=== PATIENT | female | born 1940 | race Caucasian/White ===

== ENCOUNTER 2019-11-03 14:36 | Inpatient (IN) | payer OTHER, BC ==
[2019-11-03 15:34] LABS: Protime INR 0.96
--- NOTE | 2019-11-03 15:38 | RAD REPORT ---
EXAM DESCRIPTION: CT - Head Brain Wo Cont - 11/03/2019 3:18 pm CLINICAL HISTORY: Dizziness COMPARISON: None TECHNIQUE: Computed axial tomography of the head was obtained. IV contrast was not requested. All CT scans are performed using dose optimization technique as appropriate and may include automated exposure control or mA/KV adjustment according to patient size. FINDINGS: An intracranial bleed is not seen . The ventricles are normal in caliber. No extra-axial fluid collection is noted. Small low-density area within the right cerebrum has the ap pearance of an old infarction Moderate to marked low-density areas within periventricular, deep and subcortical white matter Fluid within the sinuses/ mastoids is not seen. IMPRESSION: Moderate to marked low-density areas within periventricular, deep and subcortical white matter may represent ischemic changes secondary to small vessel disease. A demyelinating process can also have this appearance
[2019-11-03] MEDS ORDERED: NA CHLORIDE 0.9% 250 ML ONE (15:42)
[2019-11-03 15:45] LABS: ALT/SGPT 11 U/L (12-78); AST/SGOT 9 U/L (15-37); Albumin 2.8 g/dL (3.4-5.0); Alkaline Phosphatase 94 U/L (45-117); BUN Blood Urea Nitrogen 27 mg/dL (7-18); Bicarbonate 29 mmol/L (21-32); Bilirubin Direct < 0.1 mg/dL (0-0.2); Bilirubin Total 0.2 mg/dL (0.2-1.0); Glucose Level 90 mg/dL (74-106); Lipase 32 U/L (73-393); Magnesium 1.6 mg/dL (1.8-2.4); Potassium 5.1 mmol/L (3.5-5.1); Protein, Total 6.4 g/dL (6.4-8.2); Sodium Level 140 mmol/L (136-145); Troponin (Emerg Dept Use Only) < 0.02 ng/mL (0.0-0.045)
[2019-11-03 17:16] LABS: Hematocrit 33.4 % (36.0-45.0); RBC Red Blood Cell Count 3.63 M/uL (3.86-4.86)
[2019-11-03 17:17] LABS: Absolute Lymphocytes (CBC) 1.5 K/uL (0.7-4.9); Basophils % 0.5 % (0-1.3); Lymphocytes % 24.8 % (15.3-44.8)
[2019-11-03 17:22] LABS: Urine Amorphous Sediment 2+ /HPF (NONE SEEN); Urine Bacteria <20 /HPF (<20); Urine RBC <5 /HPF (NONE SEEN)
--- NOTE | 2019-11-03 17:36 | ER ---
Nurse's Notes [facility] Name: Ashli Alvarez Age: 79 yrs Sex: Female : 1940 Arrival Date: 11/03/2019 Time: 14:41 Bed 2 Private MD: Diagnosis: Altered mental status, unspecified;Hypotension, unspecified;Dehydration Presentation: 11/02 14:42 Chief complaint: EMS states: SLOW RESPONSES, BUT AOx4. Coronavirus screen: The patient bp has NOT traveled to a country currently being monitored by the [facility] within the last 14 days. The patient has NOT had contact with any known and/or suspected case of coronavirus. Ebola Screen: No symptoms or risks identified at this time. Initial Sepsis Screen: Does the patient meet any 2 criteria? No. Patient's initial sepsis screen is negative. Does the patient have a suspected source of infection? No. Patient's initial sepsis screen is negative. Risk Assessment: Do you want to hurt yourself or someone else? Patient reports no desire to harm self or others. 14:42 Method Of Arrival: EMS: [facility] bp 14:42 Acuity: TIFFANIE 3 bp 14:42 Note PER PT, NO COMPLAINTS OR ACUTE MEDICAL ISSUE. bp 14:58 Care prior to arrival: IV initiated. 22 GA, in the right forearm. bp Triage Assessment: 14:53 General: Appears in no apparent distress. comfortable, obese. General: Behavior is bp cooperative. Pain: Denies pain. EENT: No deficits noted. Neuro: No deficits noted. Neuro: Level of Consciousness is awake, alert, obeys commands, Oriented to person, place, time, situation. Cardiovascular: Rhythm is sinus rhythm. Respiratory: No deficits noted. GI: No signs and/or symptoms were reported involving the gastrointestinal system. : No signs and/or symptoms were reported regarding the genitourinary system. Derm: No deficits noted. Historical: - Allergies: 14:53 No Known Allergies; bp - PMHx: 14:53 CVA; Atrial Fib; bp - Immunization history:: Adult Immunizations up to date. - Social history:: Smoking status: Patient/guardian denies using tobacco. - Family history:: not pertinent. - Hospitalizations: : No recent hospitalization is reported. Screenin:58 Abuse screen: Denies threats or abuse. Denies injuries from another. Nutritional bp screening: No deficits noted. Tuberculosis screening: No symptoms or risk factors identified. Fall Risk None identified. Assessment: 14:58 General: SEE TRIAGE NOTE. bp 16:00 Reassessment: PT RESTING QUIETLY, HYPOTENSIVE ON MONITOR. PT DENIES MEDICAL COMPLAINT, bp AO4. 16:58 Reassessment: PHLEBOTOMY AT B/S FOR REDRAW. bp 17:09 Reassessment: Patient appears in no apparent distress at this time. Patient and/or rb1 family updated on plan of care and expected duration. Pain level reassessed. Patient is alert, oriented x 3, equal unlabored respirations, skin warm/dry/pink. Patient denies pain at this time. 18:28 Reassessment: DR FONTANEZ AT B/S FOR ADMIT. bp 19:10 General: Appears in no apparent distress. comfortable, Behavior is calm, cooperative, rr5 appropriate for age. 19:10 Pain: Complains of pain in back. Neuro: Level of Consciousness is awake, alert, obeys rr5 commands, Oriented to person, place, time. Cardiovascular: Capillary refill < 3 seconds Patient's skin is warm and dry. Respiratory: Airway is patent Respiratory effort is even, unlabored, Respiratory pattern is regular, symmetrical. GI: No signs and/or symptoms were reported involving the gastrointestinal system. : No signs and/or symptoms were reported regarding the genitourinary system. EENT: Reports vision loss left eye. Derm: Skin is fragile, is thin, Skin temperature is warm. Musculoskeletal: Capillary refill < 3 seconds. Vital Signs: 14:42 BP 125 / 57; Pulse 74; Resp 11; Temp 98; Pulse Ox 97% ; bp 16:02 BP 99 / 46; Pulse 72; Resp 11; Pulse Ox 98% ; bp 16:57 BP 89 / 50; Pulse 72; Resp 18; Pulse Ox 94% on 2 lpm NC; bp 17:08 BP 106 / 54; Pulse 90; Resp 19; Pulse Ox 97% on R/A; rb1 18:28 BP 110 / 81; Pulse 80; Resp 13; Pulse Ox 88% ; bp 19:28 BP 123 / 100; Pulse 70; Resp 16; Temp 97.5; Pulse Ox 93% on 3 lpm NC; rr5 ED Course: 14:41 Patient arrived in ED. bp 14:44 Brayan Vale MD is Attending Physician. rn 14:51 Triage completed. bp 14:58 Arm band placed on. bp 14:58 Patient has correct armband on for positive identification. Bed in low position. Call bp light in reach. Side rails up X2. 15:00 Maintain EMS IV. Dressing intact. Good blood return noted. Site clean \T\ dry. Gauge \T\ bp site: 22 G R FA. 15:09 Timmy Christensen, RN is Primary Nurse. bp 15:17 CT completed. Patient tolerated procedure well. Patient moved back from CT. mw3 15:18 CT Head Brain wo Cont In Process Unspecified. EDMS 17:08 Straight cath inserted, using sterile technique, 16 Fr. Specimen obtained. Returned aa5 cloudy urine. Patient tolerated well. 17:34 Zachary Fontanez MD is Hospitalizing Provider. rn 17:45 XRAY Chest (1 view) In Process Unspecified. EDMS 19:45 No provider procedures requiring assistance completed. Patient admitted, IV remains in rr5 place. intact, No redness/swelling at site. Administered Medications: 15:10 Drug: NS 0.9% 250 ml Route: IV; Rate: 1 bolus; Site: right forearm; bp 17:00 Drug: NS 0.9% 250 ml Route: IV; Rate: 1 bolus; Site: right forearm; bp Outcome: 17:35 Decision to Hospitalize by Provider. rn 19:45 Admitted to Tele accompanied by tech, via stretcher, room 402, with oxygen, with chart, rr5 Report called to adolfo 19:45 Condition: stable 19:45 Instructed on the need for admit. 20:08 Patient left the ED. rr5 Signatures: Dispatcher [employer] EDMS Brayan Vale MD MD rn Calderon, Audri, RN RN aa5 Thuy Weber RN RN rb1 Timmy Christensen, RN RN Jennifer Suh mw3 Otis Hansen RN RN rr5
--- NOTE | 2019-11-03 17:36 | EDPHYS ---
Physician Documentation [facility] Name: Ashli Alvarez Age: 79 yrs Sex: Female : 1940 Arrival Date: 11/03/2019 Time: 14:41 Bed 2 Private MD: ED Physician Brayan Vale HPI: 11/02 15:50 This 79 yrs old Female presents to ER via EMS with complaints of Altered rn Mental Status. 15:50 The patient presents with confusion, decreased responsiveness. Onset: The rn symptoms/episode began/occurred at an unknown time. Possible causes: unknown. Current symptoms: In the emergency department the patient's symptoms have improved. It is unknown whether or not the patient has had similar symptoms in the past. Per assisted and EMS, patient noted to be altered this AM, unknown onset, got better, and ate lunch, seemed to improve but noticed BP low, so sent her in for eval. Patient reports mild sob, but oriented and denies pain. No recent illness. . Historical: - Allergies: 14:53 No Known Allergies; bp - PMHx: 14:53 CVA; Atrial Fib; bp - Immunization history:: Adult Immunizations up to date. - Social history:: Smoking status: Patient/guardian denies using tobacco. - Family history:: not pertinent. - Hospitalizations: : No recent hospitalization is reported. ROS: 15:50 Constitutional: Negative for fever, chills, and weight loss, Eyes: Negative for injury, rn pain, redness, and discharge, Neck: Negative for injury, pain, and swelling, Cardiovascular: Negative for chest pain, palpitations Respiratory: Negative for cough, wheezing, and pleuritic chest pain, Abdomen/GI: Negative for abdominal pain, nausea, vomiting, diarrhea, and constipation, MS/Extremity: Negative for injury and deformity, Neuro: Negative for headache, numbness, tingling, and seizure. Exam: 16:04 Constitutional: Overweight female, no acute distress Head/Face: Normocephalic, rn atraumatic. ENT: dry MM Cardiovascular: Irregular rhythm, normal rate Respiratory: + mild tachypnea with faint exp bilaterally Abdomen/GI: soft, non-tender MS/ Extremity: Pulses equal, no cyanosis. 2+ pitting edema bilateral lower ext Neuro: Awake and alert, GCS 15, oriented to person, place, time, and situation. Cranial nerves II-XII grossly intact. Motor strength 4/5 in all extremities. Sensory grossly intact. 17:08 ECG was reviewed by the Attending Physician. rn Vital Signs: 14:42 BP 125 / 57; Pulse 74; Resp 11; Temp 98; Pulse Ox 97% ; bp 16:02 BP 99 / 46; Pulse 72; Resp 11; Pulse Ox 98% ; bp 16:57 BP 89 / 50; Pulse 72; Resp 18; Pulse Ox 94% on 2 lpm NC; bp 17:08 BP 106 / 54; Pulse 90; Resp 19; Pulse Ox 97% on R/A; rb1 18:28 BP 110 / 81; Pulse 80; Resp 13; Pulse Ox 88% ; bp 19:28 BP 123 / 100; Pulse 70; Resp 16; Temp 97.5; Pulse Ox 93% on 3 lpm NC; rr5 MDM: 14:44 Patient medically screened. rn 17:29 Differential Diagnosis: CVA, electrolyte abnormality, hypoglycemia, pneumonia, sepsis, rn TIA, UTI, volume depletion. Data reviewed: vital signs, nurses notes, lab test result(s), EKG, radiologic studies, CT scan, and as a result, I will admit patient. Counseling: I had a detailed discussion with the patient and/or guardian regarding: the historical points, exam findings, and any diagnostic results supporting the discharge/admit diagnosis, lab results, radiology results, the need for further work-up and treatment in the hospital. Response to treatment: the patient's symptoms have mildly improved after treatment. Admission orders: after a detailed discussion of the patient's condition and case, the admit orders are written by me. ED course: Pt with gradual improvement of BP, reports feels better, chronic ischemic changes on CT head, normal lactate and procal, neg UA, will admit for AMS, possible TIA vs delirium, has improved. Admitted to Mirta Fontanez. . 18:15 ED course: Family member here, confirms last known normal last night, noticed talking rn to her this morning around 0715 that she seemed confused. . 11/02 14:45 Order name: Basic Metabolic Panel rn 11/02 14:45 Order name: CBC with Diff; Complete Time: 17:25 rn 11/02 14:45 Order name: Hepatic Function rn 11/02 14:45 Order name: Lipase rn 11/02 14:45 Order name: Magnesium; Complete Time: 16:58 rn 11/02 14:45 Order name: Protime (+inr); Complete Time: 15:41 rn 11/02 14:45 Order name: Ptt, Activated; Complete Time: 15:41 rn 11/02 14:45 Order name: Troponin (emerg Dept Use Only); Complete Time: 16:58 rn 11/02 14:45 Order name: Blood Culture Adult (2) rn 11/02 14:45 Order name: Procalcitonin; Complete Time: 16:16 rn 11/02 14:45 Order name: Lactate; Complete Time: 16:16 rn 11/02 14:45 Order name: Urine Culture rn 11/02 14:45 Order name: Urine Microscopic Only; Complete Time: 17:25 rn 11/02 14:46 Order name: Basic Metabolic Panel; Complete Time: 16:58 EDMS 11/02 14:46 Order name: Liver (Hepatic) Function; Complete Time: 16:58 EDMS 11/02 14:46 Order name: Lipase; Complete Time: 16:58 EDMS 11/02 14:57 Order name: Glucose, Ancillary Testing; Complete Time: 15:05 EDMS 11/02 17:22 Order name: Urine Dipstick--Ancillary (enter results) eb 11/02 17:23 Order name: Urine Dipstick-Ancillary EDMS 11/02 17:28 Order name: Urine Microscopic Only aa5 11/02 17:28 Order name: Urine Culture aa5 11/02 18:04 Order name: CBC with Automated Diff EDMS 11/02 18:04 Order name: CBC with Automated Diff EDMS 11/02 18:04 Order name: Comprehensive Metabolic Panel EDMS 11/02 18:04 Order name: Comprehensive Metabolic Panel EDMS 11/02 18:06 Order name: Procalcitonin EDMS 11/02 18:52 Order name: CKMB Creatine Kinase MB EDMS 11/02 18:53 Order name: CKMB Creatine Kinase MB EDMS 11/02 18:53 Order name: Creatine Phosphokinase EDMS 11/02 14:45 Order name: CT Head Brain wo Cont; Complete Time: 15:41 rn 11/02 14:45 Order name: EKG; Complete Time: 14:47 rn 11/02 14:45 Order name: Cardiac monitoring; Complete Time: 15:00 rn 11/02 14:45 Order name: EKG - Nurse/Tech; Complete Time: 16:03 rn 11/02 14:45 Order name: IV Saline Lock; Complete Time: 15:00 rn 11/02 14:45 Order name: Labs collected and sent; Complete Time: 16:03 rn 11/02 14:45 Order name: NPO; Complete Time: 15:00 rn 11/02 14:45 Order name: O2 Per Protocol; Complete Time: 15:02 rn 11/02 14:45 Order name: O2 Sat Monitoring; Complete Time: 15:02 rn 11/02 14:45 Order name: Urine Dipstick-Ancillary (obtain specimen); Complete Time: 17:08 rn 11/02 14:45 Order name: Urine Dipstick-Ancillary (obtain specimen); Complete Time: 17:08 rn 11/02 17:08 Order name: Straight Cath - Urine; Complete Time: 17:08 aa5 11/02 17:24 Order name: XRAY Chest (1 view); Complete Time: 17:59 rn 11/02 18:04 Order name: CONS Pharmacy Consult EDKY 11/02 18:04 Order name: NPO EDKY 11/02 18:06 Order name: CONS Pharmacy Consult EDKY 11/02 18:51 Order name: NPO EDMS 11/02 18:51 Order name: NPO EDMS 11/02 18:52 Order name: NPO EDKY 11/02 18:53 Order name: Creatine Phosphokinase EDKY 11/02 18:53 Order name: Lipid Profile EDKY 11/02 18:53 Order name: Lipid Profile EDKY 11/02 18:53 Order name: Troponin I EDKY 11/02 18:53 Order name: Troponin I EDKY 11/02 18:53 Order name: Stroke Protocol EDKY 11/02 18:54 Order name: Carotid Artery Bilateral EDKY 11/02 18:56 Order name: NPO EDMS 11/02 18:56 Order name: NPO EDMS 11/02 18:56 Order name: NPO EDKY EC:08 Rate is 79 beats/min. Rhythm is irregularly irregular. QRS interval is normal. QT rn interval is normal. No Q waves. T waves are Normal. No ST changes noted. Clinical impression: Atrial Fibrillation. Interpreted by me. Reviewed by me. Administered Medications: 15:10 Drug: NS 0.9% 250 ml Route: IV; Rate: 1 bolus; Site: right forearm; bp 17:00 Drug: NS 0.9% 250 ml Route: IV; Rate: 1 bolus; Site: right forearm; bp Disposition: 11/03/19 17:35 Hospitalization ordered by Zachary Fontanez for Observation. Preliminary diagnosis are Altered mental status, unspecified, Hypotension, unspecified, Dehydration. - Bed requested for Telemetry/MedSurg (observation). - Status is Observation. rr5 - Condition is Stable. - Problem is new. - Symptoms have improved. Signatures: Dispatcher [employer] EDKY Brayan Vale MD MD rn Calderon, Audri RN RN aa5 Timmy Christensen RN RN Celina Thomas Raymond, RN RN rr5 Corrections: (The following items were deleted from the chart) 15:49 15:36 CBC Smear Scan ordered. EDKY EDKY 19:01 17:35 Hospitalization Ordered by Zachary Fontanez MD for Observation. Preliminary eb diagnosis is Altered mental status, unspecified; Hypotension, unspecified; Dehydration. Bed requested for Telemetry/MedSurg (observation). Status is Observation. Condition is Stable. Problem is new. Symptoms have improved. rn 20:08 19:01 11/03/2019 17:35 Hospitalization Ordered by Zachary Fontanez MD for Observation. rr5 Preliminary diagnosis is Altered mental status, unspecified; Hypotension, unspecified; Dehydration. Bed requested for Telemetry/MedSurg (observation). Status is Observation. Condition is Stable. Problem is new. Symptoms have improved. eb
--- NOTE | 2019-11-03 17:54 | RAD REPORT ---
EXAM DESCRIPTION: Jonit Single View11/03/2019 5:44 pm CLINICAL HISTORY: Chest pain COMPARISON: none FINDINGS: Mild bilateral pulmonary opacities The heart is moderately enlarged. Small left pleural effusion or thickening IMPRESSION: Mild CHF
[2019-11-03] MEDS ORDERED: D5 0.9 NS 1,000 ML IV SCH (18:00)
[2019-11-03] MEDS ORDERED: Pharmacy Consult 1 EA XX PRN (18:03)
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
[2019-11-03] MEDS ORDERED: ASPIRIN EC 81 MG TAB PO ONE (18:54)
[2019-11-03] MEDS ORDERED: NA CHLORIDE 0.9% 1,000 ML IV SCH (19:00)
[2019-11-03 19:44] LABS: Urine Blood NEGATIVE (NEG); Urine Glucose NEGATIVE (NEG); Urine Protein 1+ (NEG)
[2019-11-03 21:37] VITALS: BMI 33.5
[2019-11-03] MEDS: NA CHLORIDE 0.9% 1,000 ML IV SCH (22:59)
[2019-11-03] MEDS ORDERED: CEFTRIAXONE 1000 MG/VIAL IVP SCH (23:00)
[2019-11-03] MEDS ORDERED: VANCOMYCIN 1.25 GM in NA CHLORIDE 0.9% 250 ML IVPB SCH (23:00)
--- NOTE | 2019-11-04 03:20 | CON ---
Reason For Consultation: Consultation called because of possible stroke. History Of Present Illness: Ms. 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 She was brought to [facility] and found to have a low blood pressure with elevated creatinine consistent with dehydration. Her brain CT scan identified marked low -density areas in the periventricular and deep subcortical white matter consistent with small vessel ischemic disease. She did receive some IV fluids. However, she does have 2 to 3+ pitting edema in bilateral lower extremities, which her son says has been chronic, although it appeared to be a significant increase over her baseline. She was on anticoagulation at home. However, the son has not yet brought in all her medications, which possibly includes Xarelto for her atrial fibrillation. She did receive a gram of Rocephin in the emergency room and aspirin 162 mg. She has not had a brain MRI that is scheduled for Tuesday. Past Medical History: As indicated. Allergies: NO KNOWN DRUG ALLERGIES. Social History: She resides in a shelter. No alcohol, tobacco, or IV drug use. Family History: Noncontributory. Physical Examination: Vital Signs: Blood pressure actually ranged from 86-123/57-100, pulse 70-90, respiratory rate 12 to 18, temperature 98, oxygen saturation is 98%. Weight 171 pounds, height 5 feet, BMI 33.5. General: Ms. Alvarez is resting comfortably in bed. She is very alert and oriented to situation, place, and person. She follows all commands appropriately. General examination reveal 2 to 3+ pitting edema and some venous stasis changes in the lower extremities. Otherwise, some bruising on the right arm from IV access and mild edema in bilateral upper extremities. Respiratory: She does have good air movement bilaterally. Abdomen: Soft and nondistended. Neurologic: Alert and oriented to situation, place, and person. She has a full left homonymous hemianopsia bilaterally and full visual field in the right side. Otherwise, cranial nerve examination showed possibility of a mild left facial decreased sensation, otherwise intact on the right side. Face is symmetric with equal excursion on smiling. Her tongue and palate are midline. Motor examination, she has no weakness in the upper and lower extremities and no focal weakness. She has mild diffuse weakness of 4+ bilaterally. Lower extremity similarly slow. No focal weakness in the proximal distal areas. She is able to hold the leg off the bed 5 seconds count and the arms 10 seconds count, no drift noted. Sensory examination, subtle decrease to light touch on the left arm and leg compared to the right side, otherwise intact to coordination and reflexes symmetric and she did ambulate with physical therapy earlier in the day at least 150 feet. Laboratory Studies: Complete blood count with differential shows slightly low hemoglobin at 10.8, white blood cell count is normal. Coagulation panel is normal. INR 0.96. Chemistries show elevated creatinine 1.83. Liver function studies are unremarkable. Magnesium low at 1.6. Procalcitonin less than 0.05. Lactic acid normal at 1.1. Urinalysis shows 2+ amorphous sediment, otherwise negative. Assessment: Ms. Alvarez is a 79-year-old patient with a significant right posterior occipital stroke involving the primary visual cortex and producing a left homonymous hemianopsia. She has dehydration with hypotension and atrial fibrillation. She does have marked small-vessel ischemic disease, subcortical white matter atrophy. Plan: 1. She should be on Xarelto or Eliquis full dose. 2. May add aspirin 81 mg daily. 3. She should have speech evaluation and swallowing evaluation by barium study fully clear. 4. Folic acid 1 mg daily. 5. Lipid panel in the morning with likely moderate dosage statin. 6. She may have some permissive hypertension during this phase of acute stroke. 7. She will require outpatient speech therapy to help her cope with visual loss. 8. She would benefit from prism lenses on the left to help bring in the lost area in the left visual field. BALTA/MICHAEL Voice ID: [id number] Report ID: [id number] EDGAR
[2019-11-04] MEDS ORDERED: NA CHLORIDE 0.9% 250 ML ONE (04:01)
[2019-11-04] MEDS ORDERED: VANCOMYCIN 1 GM/VIAL ONE (04:02)
--- NOTE | 2019-11-04 06:27 | EKG ---
Test Date: 2019-11-03 Test Time: 14:48:47 Needle Molder: DERRICK MEASUREMENT RESULTS: Intervals: Rate: 79 MS: QRSD: 74 QT: 382 QTc: 438 [place]: P: MS: QRS: 86 T: 71 INTERPRETIVE STATEMENTS: Atrial fibrillation Low voltage QRS Cannot rule out Anterior infarct, age undetermined Abnormal ECG No previous ECG available for comparison Electronically Signed On 11-04-19 06:27:10 CDT by Leodan Wheeler
[2019-11-04] MEDS: NA CHLORIDE 0.9% 1,000 ML IV SCH ×2 (08:20→16:21)
[2019-11-04 08:23] LABS: Absolute Lymphocytes (CBC) 1.1 K/uL (0.7-4.9); Basophils % 0.3 % (0-1.3); Hematocrit 33.6 % (36.0-45.0); Lymphocytes % 18.6 % (15.3-44.8); MPV 10.4 fL (7.6-11.3); RBC Red Blood Cell Count 3.71 M/uL (3.86-4.86)
[2019-11-04] MEDS ORDERED: ACETAMINOPHEN 325 MG TABLET PO PRN (08:33)
[2019-11-04 08:40] LABS: ALT/SGPT 11 U/L (12-78); AST/SGOT 11 U/L (15-37); Albumin 2.7 g/dL (3.4-5.0); Alkaline Phosphatase 93 U/L (45-117); BUN Blood Urea Nitrogen 23 mg/dL (7-18); Bicarbonate 25 mmol/L (21-32); Bilirubin Total 0.2 mg/dL (0.2-1.0); CKMB Creatine Kinase MB 1.3 ng/mL (0.3-3.6); Creatine Phosphokinase 31 U/L (26-192); Glucose Level 81 mg/dL (74-106); HDL Cholesterol 59 mg/dL (40-60); LDL Cholesterol, Calculated 23 (<130); Potassium 5.1 mmol/L (3.5-5.1); Protein, Total 6.1 g/dL (6.4-8.2); Sodium Level 141 mmol/L (136-145); Troponin I < 0.02 ng/mL (0.0-0.045)
[2019-11-04] MEDS ORDERED: LEVOTHYROXINE SOD 0.075 MG TAB PO SCH (09:00)
[2019-11-04] MEDS ORDERED: GABAPENTIN 100 MG CAP PO SCH (09:00)
[2019-11-04] MEDS ORDERED: CEFTRIAXONE 1 GM/NS 50 ML 1 GM/50 ML BAG IV SCH (09:00)
[2019-11-04] MEDS: FOLIC ACID 1 MG TABLET PO SCH (09:22)
[2019-11-04] MEDS: CRANBERRY FRUIT EXTRACT 200 MG CAP PO SCH (09:22)
[2019-11-04] MEDS: levETIRAcetam 500 MG TAB PO SCH (09:31)
[2019-11-04] MEDS: TAMSULOSIN 0.4 MG SR CAP PO SCH (09:31)
[2019-11-04] MEDS: GABAPENTIN 400 MG CAP PO SCH ×3 (09:32→21:10)
--- NOTE | 2019-11-04 10:29 | P.PN ---
Subjective Date of Service: 11/04/19 (Hospitalist) Chief Complaint: Stroke Subjective: Improving (Patient is doing well Bactrim baseline has some visual loss history of chronic AFib rapid heart rate) Review of Systems Unremarkable General: Weakness Physical Examination - Vital Signs Temperature: 97.5 F Blood Pressure: 110/46 Pulse: 101 Respirations: 16 Pulse Ox (%): 97 - Physical Exam General: Alert, Oriented x3 Respiratory: Clear to auscultation bilaterally Neurological: Normal speech, Other (Patient has a hemianopsia seen by neurologist) - Studies Laboratory Data (last 24 hrs) 11/03/19 16:00: Sodium 140, Potassium 5.1, BUN 27 H, Creatinine 1.83 H, Glucose 90, Magnesium 1.6 L, Total Bilirubin 0.2, AST 9 L, ALT 11 L, Alkaline Phosphatase 94, Lipase 32 L 11/03/19 15:10: PT 11.3, INR 0.96, APTT 26.7 11/03/19 15:10: WBC 6.1, Hgb 10.8 L, Hct 33.4 L, Plt Count 167 Microbiology Data (last 24 hrs): 11/03/19 16:54 Blood - Blood Anaerobic Blood Culture - Final Assessment & Plan - Problems (Diagnosis) (1) Stroke Current Visit: Yes Status: Acute Plan: Patient admitted with stroke workup pending seen by neurology cleopatra Bruno discuss with the son she is DNR renal function improved with IV fluids no evidence of sepsis home medications resumed continue with IV fluids patient has no problems eating resume diet Qualifiers: Precerebral and cerebral artery: unspecified precerebral artery (2) Afib Current Visit: Yes Status: Acute Plan: Patient has chronic AFib I am not sure whether she was taking anticoagulants at home all the son patient to bring the list of current home medications Consul [facility] cardiology Qualifiers: Atrial fibrillation type: unspecified Qualified Code(s): I48.91 - Unspecified atrial fibrillation
[2019-11-04] MEDS: APIXABAN 2.5 MG TABLET PO SCH ×2 (10:33→21:09)
[2019-11-04 10:59] LABS: Thyroid Stimulating Hormone 0.455 uIU/mL (0.360-3.740)
[2019-11-04] MEDS: METFORMIN HCL 500 MG TAB PO SCH (16:12)
[2019-11-04] MEDS: METOPROLOL TAR 25 MG TAB PO SCH (16:12)
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
--- NOTE | 2019-11-04 20:52 | RAD REPORT ---
EXAM DESCRIPTION: - CP - 11/04/2019 8:30 pm CLINICAL HISTORY: Stroke Headache, drowsiness, CVA symptomology COMPARISON: Head Brain Wo Cont dated 11/03/2019 TECHNIQUE: Real-time sonographic evaluation of both carotid systems was performed. Doppler interroga tion was performed with waveform tracing bilaterally. FINDINGS: Only the right carotid system was imaged is the patient refused further imaging. Moderate hard plaquing is present involving the right carotid bulb. A hemodynamically significant rig ht-sided stenosis is not evident. Right vertebral artery shows forward flow. IMPRESSION: Moderate hard plaque is seen right carotid bulb. No evidence of a hemodynamically significant stenosis involving the right carotid system. The patient refused left-sided portion of the study.
[2019-11-04] MEDS ORDERED: HOME MED 1 EA UNK (Latanoprost/Pf [Latanoprost 0.005% Eye Drop] 1 GTT) OP SCH (21:00)
[2019-11-04] MEDS: HYDROCODONE/APAP 5/325 MG TAB PO PRN (21:10)
[2019-11-04] MEDS: MELATONIN 3 MG TABLET PO SCH (21:10)
[2019-11-04] MEDS: ATORVASTATIN 40 MG TAB PO SCH (21:12)
[2019-11-05] MEDS: METOPROLOL TAR 25 MG TAB PO SCH ×2 (05:49→16:59)
[2019-11-05] MEDS: NA CHLORIDE 0.9% 1,000 ML IV SCH (05:50)
[2019-11-05] MEDS: LEVOTHYROXINE SOD 0.075 MG TAB PO SCH (05:50)
[2019-11-05] MEDS: HYDROCODONE/APAP 5/325 MG TAB PO PRN (06:10)
[2019-11-05] MEDS ORDERED: ALPRAZOLAM 1 MG TABLET PO ONE (06:52)
--- NOTE | 2019-11-05 07:31 | EKG ---
Test Date: 2019-11-04 Test Time: 07:54:44 Handyperson: DEVIN Powell MEASUREMENT RESULTS: Intervals: Rate: 140 VA: QRSD: 64 QT: 274 QTc: 418 [place]: P: VA: QRS: 109 T: 158 INTERPRETIVE STATEMENTS: Atrial fibrillation with rapid ventricular response Rightward axis Anterior infarct, age undetermined Abnormal ECG Compared to ECG 11/03/2019 14:48:47 Right-axis deviation now present Myocardial infarct finding still present Electronically Signed On 11-05-19 07:30:23 CDT by Leodan Wheeler
[2019-11-05] MEDS: METFORMIN HCL 500 MG TAB PO SCH ×2 (08:05→16:55)
[2019-11-05] MEDS: TAMSULOSIN 0.4 MG SR CAP PO SCH (08:05)
[2019-11-05] MEDS: CRANBERRY FRUIT EXTRACT 200 MG CAP PO SCH (08:06)
[2019-11-05] MEDS: APIXABAN 2.5 MG TABLET PO SCH (08:06)
[2019-11-05] MEDS: FOLIC ACID 1 MG TABLET PO SCH (08:06)
[2019-11-05] MEDS: GABAPENTIN 400 MG CAP PO SCH ×3 (08:06→21:43)
[2019-11-05] MEDS: levETIRAcetam 500 MG TAB PO SCH (08:06)
[2019-11-05 10:39] LABS: Potassium 4.9 mmol/L (3.5-5.1)
--- NOTE | 2019-11-05 11:34 | P.PN ---
Subjective Date of Service: 11/05/19 Chief Complaint: Confusion slurred speech loss of vision Subjective: No C/O voiced, Ambulating, Improving This is a 79-year-old female with chronic atrial fib was had a few strokes in the past I came in to the emergency room with acute vision change slurred speech and disorientation. Patient has been doing well since then. Patient most likely had another acute stroke. At this time is refusing further workup per studies but feels much better and is doing well today. Was able to ambulate with physical therapy and had no current complaints. <Braxton Gomez - Last Filed: 11/05/19 11:29> Date of Service: 11/06/19 <Olivia Reilly - Last Filed: 11/06/19 14:18> Review of Systems General: Unremarkable Eyes: Vision Change ENT: Unremarkable Respiratory: Unremarkable Cardiovascular: Unremarkable Gastrointestinal: Unremarkable Genitourinary: Unremarkable Musculoskeletal: Unremarkable Integumentary: Unremarkable Neurological: As per HPI Lymphatics: Unremarkable <Braxton Gomez - Last Filed: 11/05/19 11:29> Physical Examination - Vital Signs Temperature: 98.1 F Blood Pressure: 116/60 Pulse: 111 Respirations: 20 Pulse Ox (%): 97 - Physical Exam General: Alert, Oriented x3 HEENT: PERRLA, Mucous membr. moist/pink, Other (Left Homonymous hemianopsia ), EOMI Neck: Supple, 2+ carotid pulse no bruit, JVD not distended Respiratory: Clear to auscultation bilaterally, Normal air movement Cardiovascular: Normal pulses, Regular rate/rhythm, Normal S1 S2, Edema (1+ lower and upper extremities ) Capillary refill: <2 Seconds Gastrointestinal: Normal bowel sounds, Soft and benign, Non-distended, No ascites, No tenderness, No masses, No rebound, No guarding Musculoskeletal: No clubbing, No contractures, No erythema, No tenderness, No warmth Integumentary: No rashes, No breakdown, No significant lesion, No tenderness/ swelling, No erythema, No warmth, No cyanosis Neurological: Normal speech, Normal strength at 5/5 x4 extr, Normal tone, Sensation intact, Cranial nerves 3-12 intact, Normal reflexes 2+, Normal affect - Studies Microbiology Data (last 24 hrs): 11/03/19 17:05 Clean Catch Urine [place] Count - Final 11/03/19 17:05 Clean Catch Urine - Final No growth. 11/03/19 16:54 Blood - Blood Anaerobic Blood Culture - Final Medications List Reviewed: Yes <Braxton Gomez - Last Filed: 11/05/19 11:29> Assessment And Plan - Current Problems (Diagnosis) (1) Afib Status: Acute Qualifiers: Atrial fibrillation type: unspecified Qualified Code(s): I48.91 - Unspecified atrial fibrillation (2) Stroke Status: Acute Qualifiers: Precerebral and cerebral artery: unspecified precerebral artery - Plan At this time patient is refusing further workup for acute posterior stroke. Patient has improved overall. No speech deficit at this time. Generally weak but able to ambulate with physical therapy utilizing a walker. Patient is able to eat and drink without any problem. The patient still has left homonymous hemianopsia. I have spoke with Dr. wooten well and if patient remains the same and is refusing any further workup, that she could be released back to long-term on appropriate medication which she has been on. Discharge Plan: Jail Plan to discharge in: 24 Hours Time Spent Managing PTS Care (In Minutes): 45 <Braxton Gomez - Last Filed: 11/05/19 11:29> Physician Review: Patient Assessed, Agree with Above Assessment and Plan Physician Review Additional Text: Case discussed w LEWIS. Chart reviewed <Olivia Reilly - Last Filed: 11/06/19 14:18>
--- NOTE | 2019-11-05 13:14 | RAD REPORT ---
EXAM DESCRIPTION: CT - Head Brain Wo Cont - 11/05/2019 1:06 pm CLINICAL HISTORY: Recheck stroke status Headache, drowsiness, CVA symptomology COMPARISON: Head Brain Wo Cont dated 11/03/2019; Chest Single View dated 11/03/2019 TECHNIQUE: All CT scans are performed using dose optimization technique as appropriate and may inclu de automated exposure control or mA/KV adjustment according to patient size. FINDINGS: No intracranial hemorrhage, hydrocephalus or extra-axial fluid collection.Moderate general ized brain atrophy is present with moderate periventricular and deep white matter chronic microvascul ar ischemic changes.Area of diminished density is seen in the distribution of the right posterior cer ebral artery which would be compatible with a subacute nonhemorrhagic infarct. No midline shift. The paranasal sinuses and mastoids are clear. The calvarium is intact. IMPRESSION: Diminished density is visible in the distribution of the right posterior cerebral artery . This could indicate the presence of a nonhemorrhagic subacute infarct. MR imaging of brain would b e useful for further evaluation.
--- NOTE | 2019-11-05 16:34 | P.DS ---
Admission Date: 11/03/19 Discharge Date: 11/05/19 Primary Care Provider: PCP Reason for Admission: Confusion slurred speech loss of vision Consultations: Dr. Tate, Dr. Wheeler - Problems (1) Afib Status: Chronic Qualifiers: Atrial fibrillation type: unspecified Qualified Code(s): I48.91 - Unspecified atrial fibrillation (2) Stroke Status: Acute Qualifiers: Precerebral and cerebral artery: unspecified precerebral artery Brief History of Present Illness: This is a 79-year-old female that was admitted through the emergency room a few days ago after having an insidious onset of altered mentation and visual deficit. Patient was worked up and admitted for acute stroke. Patient has a history of chronic atrial fibrillation. Family had stated that they saw a slow decline in mental status since past which came to an acute worsening change on Tuesday. Patient at that time also told them that she had an acute visual change as well. Was brought to the emergency room at that time. Hospital Course: This is a 79-year-old female patient that was admitted for acute CVA. Was found to have a subacute posterior stroke affecting both memory and vision. Patient over the past day or 2 has seemed to improve. Patient initially had a decline in renal perfusion with a creatinine of 1.83. Patient was started on fluids and has since resolved. No elevation of white cell count. No signs for sepsis. Cardiology was consulted and believes that her chronic AFib was the result of her posterior stroke. As such patient was started on Eliquis 5 mg twice a day and will be on that for the foreseeable future. No cardioversion will be done for the near future. Neurology was also consulted and agrees that patient needs to be on long-term anticoagulation therapy. Patient will continue to have cholesterol medicine amongst her other medications that she is on the will be on folic acid. Patient's mental status seems to be improving somewhat but at times has persistent confusion and agitation. Patient would not let us complete echocardiogram or ultrasound of carotids along with MRI. We were finally able to get a repeat head CT that showed the subacute posterior stroke. All of this was consulted with neurology and cardiology. At this time there is no other medication changes that need to be completed. Patient will be discharged back to [facility] for physical therapy and continuation of her care. Family has been updated about patient's care and final recommendations which they are all very comfortable with. <Braxton Gomez - Last Filed: 11/05/19 16:29> Admission Date: 11/03/19 Discharge Date: 11/06/19 <Binh Reillycarrillo - Last Filed: 11/06/19 14:18> Disposition: TRANSFER TO HALF-WAY Discharge Condition: GOOD Vital Signs/Physical Exam: Temp Pulse Resp BP Pulse Ox 98.0 F 125 H 20 116/60 93 11/05/19 12:00 11/05/19 12:00 11/05/19 12:00 11/05/19 11:34 11/05/19 12:00 General: Alert, In no apparent distress, Oriented x2 HEENT: Normocephalic, PERRLA, Mucous membr. moist/pink, EOMI Neck: Supple, 2+ carotid pulse no bruit, JVD not distended, No Thyromegaly Respiratory: Clear to auscultation bilaterally, Normal air movement Cardiovascular: Normal pulses, Edema, Irregular heart rate/rhythm, Systolic murmur Capillary refill: <2 Seconds Gastrointestinal: Normal bowel sounds, Soft and benign, Non-distended, No ascites, No tenderness, No masses, No rebound, No guarding Musculoskeletal: No clubbing, No contractures, No erythema, No tenderness, No warmth Integumentary: No rashes, No breakdown, No significant lesion, No tenderness/ swelling, No erythema, No warmth, No cyanosis Neurological: Normal speech, Normal strength at 5/5 x4 extr, Normal tone, Sensation intact, Normal reflexes 2+, Normal affect, Abnormal cranial nerve function (Homonyous hemianopsia left side present) Lymphatics: No axilla or inguinal lymphadenopathy Laboratory Data at Discharge: WBC 5.8 K/uL (4.3-10.9) 11/04/19 08:12 Hgb 10.7 g/dL (12.0-15.0) L 11/04/19 08:12 Hct 33.6 % (36.0-45.0) L 11/04/19 08:12 Plt Count 181 K/uL (152-406) 11/04/19 08:12 PT 11.3 SECONDS (9.5-12.5) 11/03/19 15:10 INR 0.96 11/03/19 15:10 APTT 26.7 SECONDS (24.3-36.9) 11/03/19 15:10 Sodium 145 mmol/L (136-145) 11/05/19 10:14 Potassium 4.9 mmol/L (3.5-5.1) 11/05/19 10:14 BUN 12 mg/dL (7-18) 11/05/19 10:14 Creatinine 0.88 mg/dL (0.55-1.3) 11/05/19 10:14 Glucose 141 mg/dL (74-106) H 11/05/19 10:14 Magnesium 1.6 mg/dL (1.8-2.4) L 11/03/19 16:00 Total Bilirubin 0.2 mg/dL (0.2-1.0) 11/04/19 08:12 AST 11 U/L (15-37) L 11/04/19 08:12 ALT 11 U/L (12-78) L 11/04/19 08:12 Alkaline Phosphatase 93 U/L (45-117) 11/04/19 08:12 Troponin I < 0.02 ng/mL (0.0-0.045) 11/04/19 08:12 Triglycerides 105 mg/dL (<150) 11/04/19 08:12 Cholesterol 103 mg/dL (<200) 11/04/19 08:12 HDL Cholesterol 59 mg/dL (40-60) 11/04/19 08:12 Cholesterol/HDL Ratio 1.75 11/04/19 08:12 Lipase 32 U/L (73-393) L 11/03/19 16:00 <Braxton Gomze - Last Filed: 11/05/19 16:29> Vital Signs/Physical Exam: Temp Pulse Resp BP Pulse Ox 97.9 F 124 H 19 159/70 H 95 11/06/19 12:00 11/06/19 12:00 11/06/19 12:00 11/06/19 12:00 11/06/19 12:00 Laboratory Data at Discharge: WBC 5.8 K/uL (4.3-10.9) 11/04/19 08:12 Hgb 10.7 g/dL (12.0-15.0) L 11/04/19 08:12 Hct 33.6 % (36.0-45.0) L 11/04/19 08:12 Plt Count 181 K/uL (152-406) 11/04/19 08:12 PT 11.3 SECONDS (9.5-12.5) 11/03/19 15:10 INR 0.96 11/03/19 15:10 APTT 26.7 SECONDS (24.3-36.9) 11/03/19 15:10 Sodium 145 mmol/L (136-145) 11/05/19 10:14 Potassium 4.9 mmol/L (3.5-5.1) 11/05/19 10:14 BUN 12 mg/dL (7-18) 11/05/19 10:14 Creatinine 0.88 mg/dL (0.55-1.3) 11/05/19 10:14 Glucose 141 mg/dL (74-106) H 11/05/19 10:14 Magnesium 1.6 mg/dL (1.8-2.4) L 11/03/19 16:00 Total Bilirubin 0.2 mg/dL (0.2-1.0) 11/04/19 08:12 AST 11 U/L (15-37) L 11/04/19 08:12 ALT 11 U/L (12-78) L 11/04/19 08:12 Alkaline Phosphatase 93 U/L (45-117) 11/04/19 08:12 Troponin I < 0.02 ng/mL (0.0-0.045) 11/04/19 08:12 Triglycerides 105 mg/dL (<150) 11/04/19 08:12 Cholesterol 103 mg/dL (<200) 11/04/19 08:12 HDL Cholesterol 59 mg/dL (40-60) 11/04/19 08:12 Cholesterol/HDL Ratio 1.75 11/04/19 08:12 Lipase 32 U/L (73-393) L 11/03/19 16:00 <Olivia Reilly - Last Filed: 11/06/19 14:18> Patient Discharge Instructions: To Continue Physical Therapy at long-term. To follow up with Dr. Tate in 1 week. To continue new and home medications. Drink plenty of fluids. If worse or something were to change to come back Diet: Low sodium Activity: Fall precautions Time spent managing pt's care (in minutes): 60 <Braxton Gomez Last Filed: 11/05/19 16:29> Physician Review: Patient Assessed, Agree with Above Assessment and Plan (Case discussed w PA. Chart reviewed) <Olivia Reilly - Last Filed: 11/06/19 14:18> Home Medications: Acetaminophen [Tylenol] 2 tab PO Q8H PRN 11/04/19 Albuterol Sulfate [Proair Respiclick] 2 puff IH Q4H PRN 11/04/19 Baclofen 2.5 tab PO BID PRN 11/04/19 Diltiazem HCl [Diltiazem 24Hr ER] 240 mg PO DAILY 11/04/19 Gabapentin 300 mg PO TID 11/04/19 Gabapentin [Neurontin*] 100 mg PO TID 11/04/19 Hydrocodone Bit/Acetaminophen [Hydrocodon-Acetaminophen 5-325] 1 each PO Q6H PRN 11/04/19 Ipratropium/Albuterol Sulfate [Iprat-Albut 0.5-3(2.5) mg/3 ml] 1 puff IH Q8H PRN 11/04/19 Latanoprost/Pf [Latanoprost 0.005% Eye Drop] 1 gtt OP BEDTIME 11/04/19 Levetiracetam [Keppra] 500 mg PO DAILY 11/04/19 Levothyroxine Sodium 75 mcg PO DAILY 11/04/19 Lidocaine/Menthol [Icy Hot 4%-1% Patch] 1 each TP DAILY 11/04/19 Melatonin [Melatonin*] 2 tab PO BEDTIME 11/04/19 Ondansetron HCl [Zofran] 4 mg PO TID PRN 11/04/19 Pantoprazole [Protonix Tab*] 40 mg PO DAILY PRN 11/04/19 Torsemide 10 mg PO DAILY 11/04/19 Tramadol HCl [Ultram] 50 mg PO Q6H PRN 11/04/19 Apixaban [Eliquis] 5 mg PO BID #60 tablet 11/05/19 Aspirin [Aspirin EC 81 MG] 81 mg PO DAILY #30 tablet. 11/05/19 Atorvastatin Calcium [Lipitor] 40 mg PO BEDTIME #30 tab 11/05/19 Nystatin Powder [Mycostatin (Powder)*] 1 appl TOP BID #1 btl 11/05/19 New Medications: Apixaban [Eliquis] 5 mg PO BID #60 tablet Aspirin [Aspirin EC 81 MG] 81 mg PO DAILY #30 tablet. Atorvastatin Calcium [Lipitor] 40 mg PO BEDTIME #30 tab Nystatin Powder [Mycostatin (Powder)*] 1 appl TOP BID #1 btl Followup: Jim Tate MD [ASSOCIATE-ACTIVE - CAN ADMIT] -
[2019-11-05] MEDS: APIXABAN 5 MG TABLET PO SCH (21:43)
[2019-11-05] MEDS: MELATONIN 3 MG TABLET PO SCH (21:43)
[2019-11-05] MEDS: NYSTATIN PWDR 100000 UNIT/GM TOP SCH (21:43)
[2019-11-05] MEDS: ATORVASTATIN 40 MG TAB PO SCH (21:43)
[2019-11-06] MEDS: LEVOTHYROXINE SOD 0.075 MG TAB PO SCH (06:25)
[2019-11-06] MEDS: METOPROLOL TAR 25 MG TAB PO SCH (06:25)
[2019-11-06] MEDS: GABAPENTIN 400 MG CAP PO SCH (08:03)
[2019-11-06] MEDS: levETIRAcetam 500 MG TAB PO SCH (08:03)
[2019-11-06] MEDS: METFORMIN HCL 500 MG TAB PO SCH (08:03)
[2019-11-06] MEDS: FOLIC ACID 1 MG TABLET PO SCH (08:03)
[2019-11-06] MEDS: CRANBERRY FRUIT EXTRACT 200 MG CAP PO SCH (08:04)
[2019-11-06] MEDS: APIXABAN 5 MG TABLET PO SCH (08:04)
[2019-11-06] MEDS: NYSTATIN PWDR 100000 UNIT/GM TOP SCH (08:04)
[2019-11-06] MEDS: TAMSULOSIN 0.4 MG SR CAP PO SCH (08:04)
--- NOTE | 2019-11-06 08:56 | EKG ---
Test Date: 2019-11-04 Test Time: 08:00:21 Steerer: DEVIN Powell MEASUREMENT RESULTS: Intervals: Rate: 131 MI: QRSD: 74 QT: 258 QTc: 380 [place]: P: [place]: QRS: 106 T: 160 INTERPRETIVE STATEMENTS: Atrial fibrillation with rapid ventricular response with premature ventricular or aberrantly conducted complexes Rightward axis Possible Anterior infarct, age undetermined Abnormal ECG Compared to ECG 11/04/2019 07:54:44 Ventricular premature complex(es) now present Myocardial infarct finding still present Electronically Signed On 11-06-19 08:53:20 CDT by Richmond Garza
[2019-11-06 09:08] VITALS: O2SAT 95
[2019-11-06] MEDS ORDERED: METOPROLOL TARTRATE 5 MG/5 ML INJ IV ONE (11:30)
[2019-11-06 13:19] VITALS: BP 159/70; TEMP 97.9
--- NOTE | 2019-11-06 14:22 | PN ---
Ms. Alvarez was admitted by Dr. Reilly on 11/03/2019 and has been followed by Dr. Wheeler for atrial fib rillation. The decision was to put the patient on Eliquis and rate control with beta-blockers. Toda y, she is in atrial fibrillation at a rate of 110. Her metoprolol dose can be doubled. Continue the Eliquis. She is asymptomatic with it. She is a do not resuscitate. No further cardiac workup plan mario at this time. We will sign off her case. VIVIANE/MICHAEL Voice ID: [id number] Report ID: [id number]
--- NOTE | 2019-11-06 15:52 | PN ---
Date of Progress Note: 11/06/2019 Subjective: Patient is seen and examined, chart reviewed, and case discussed with RN. Patient was d ischarged yesterday, however not accepted back by nursing facility as they are waiting on updated cli nicals apparently. The patient is doing well. No acute events overnight. Medications: List reviewed. Physical Examination: Vital Signs: Temperature 97.2, heart rate 106, blood pressure 122/84, respirations 18, O2 saturation 93% on 3 L via nasal cannula. General: Awake, alert, oriented x3. Elderly female, obese. CVS: S1, S2. Respiratory: Moving air well bilaterally. Gastrointestinal: Abdomen is soft, nontender, nondistended. Positive bowel sounds. Extremities: No clubbing, cyanosis, or edema. Neurologic: Nonfocal. Laboratory Data: No labs today. Assessment: A 79-year-old female with: 1.Subacute cerebrovascular accident, posterior. Continue with Eliquis, aspirin, and statin. 2.Atrial fibrillation, rate controlled on metoprolol and anticoagulation. 3.Obesity, BMI 33. 4.Diabetes mellitus type 2 with hyperglycemia, [id number]. Plan: Discharge back to nursing facility. Code status full. SA/MODL Voice ID: [id number] Report ID: [id number]
== END 2019-11-06 13:43 | DRG 65 ==
LOC: ER 14:36 → SUPCPDRO 14:36 → 4TH 17:59
PROVIDERS: ADMIT Internal Medicine Sleep Medicine; ATTEND Internal Medicine Sleep Medicine
DX: I63.9 Cerebral infarction, unspecified (principal); I48.20 Chronic atrial fibrillation, unspecified; H53.462 Homonymous bilateral field defects, left side; E86.0 Dehydration; F17.210 Nicotine dependence, cigarettes, uncomplicated; Z86.73 Personal history of transient ischemic attack (TIA), and cerebral infarction without residual deficits
CPT/HCPCS: 36415; 51702; 70450; 71045; 80048; 80053; 80061; 80076; 81003; 81015; 82550; 82553; 82947; 83605; 83690; 83735; 84145; 84436; 84443; 84484; 85025; 85610; 85730; 87040; 87086; 87088; 92610; 93005; 93880; 94760; 96374; 97116; 97161; 97530; 99285; J0696; J7030

== ENCOUNTER 2019-11-13 08:43 | Inpatient (IN) | payer BC, OTHER ==
[2019-11-13 09:15] LABS: Arterial Blood Carboxyhemoglob 1.1 % (0-1.5); Blood Gas Oxyhemoglobin 98.3 % (94-97); Blood O2 Saturation 99.9 % (92-98.5)
--- NOTE | 2019-11-13 09:22 | RAD REPORT ---
EXAM DESCRIPTION: CT - Head Brain Wo Cont - 11/13/2019 9:04 am CLINICAL HISTORY: AMS, history of recent CVA COMPARISON: Head Brain Wo Cont dated 11/05/2019; Chest Single View dated 11/03/2019 TECHNIQUE: Axial 5 mm thick images of the head were obtained without IV contrast. All CT scans are performed using dose optimization technique as appropriate and may include automated exposure control or mA/KV adjustment according to patient size. FINDINGS: No intracranial hemorrhage has developed. There is no mass effect, edema or shift of midli ne structures. Patient has advanced chronic ischemic change throughout the cerebral white matter. Thi s can mask nonhemorrhagic CVA. No new cortical edema or sulcal effacement identified. The decreased d ensity in the medial right occipital lobe seen on the prior study is less evident on the current exam ination. No measurable encephalomalacia in this region. No abnormal extra-axial fluid collections. No significant atrophy. Ventricles are normal in size. Mastoid air cells and visualized portions of the paranasal sinuses are clear. No acute bony findings. IMPRESSION: No intracranial hemorrhage has developed. No new cortical based infarction identifiable. Patient has advanced chronic ischemic change throughout the cerebral white matter and to a lesser deg ree the basal ganglia. This can mask nonhemorrhagic CVA. The right posterior cerebral artery infarction changes suspected on the October 07 study are less melecio dent on the current examination. Ongoing clinical concerns for acute CVA can be addressed with MR imaging.
--- NOTE | 2019-11-13 09:38 | RAD REPORT ---
EXAM DESCRIPTION: RAD - Chest Single View - 11/13/2019 9:26 am CLINICAL HISTORY: AMS, found unresponsive, shortness of breath COMPARISON: AP chest November 02 TECHNIQUE: AP portable chest image was obtained 11/13/2019 9:26 am . FINDINGS: Normal lung volumes are noted. Patient has prominent interstitial opacification. Vascular is increased left hemidiaphragm is obscured. Left heart border is obscured. There is increased opacif ication in the right apex. Heart size is similar to slightly enlarged. No pneumothorax. No acute bony abnormality seen. No acute aortic findings suspected. IMPRESSION: Focal opacification left base and right apex noted suspicious for pneumonia. Patient also appears to have a mild failure or volume overload pattern superimposed on the chronic in terstitial lung disease.
[2019-11-13 10:19] LABS: Protime INR 1.58
[2019-11-13 10:25] LABS: Absolute Lymphocytes (CBC) 0.8 K/uL (0.7-4.9); Basophils % 0.5 % (0-1.3); Hematocrit 34.3 % (36.0-45.0); Lymphocytes % 14.9 % (15.3-44.8); MPV 10.3 fL (7.6-11.3)
--- NOTE | 2019-11-13 10:25 | ER ---
Nurse's Notes [facility] Name: Ashli Alvarez Age: 79 yrs Sex: Female : 1940 Arrival Date: 11/13/2019 Time: 08:48 Bed 2 Private MD: Diagnosis: Altered mental status, unspecified;Pneumonia Presentation: 11/12 08:49 Chief complaint: EMS states: FOUND UNRESPONSIVE BY STAFF THIS AM. Coronavirus screen: bp The patient has NOT traveled to a country currently being monitored by the [facility] within the last 14 days. Proceed with normal triage procedures. The patient has NOT had contact with any known and/or suspected case of coronavirus. Proceed with normal triage procedures. Ebola Screen: No symptoms or risks identified at this time. Initial Sepsis Screen: Does the patient meet any 2 criteria? No. Patient's initial sepsis screen is negative. Does the patient have a suspected source of infection? No. Patient's initial sepsis screen is negative. Risk Assessment: Do you want to hurt yourself or someone else? Patient reports no desire to harm self or others. Care prior to arrival: IV initiated. 22 GA, in the right hand, Glucose check: 139 Oxygen administered. via nasal cannula. 08:49 Method Of Arrival: EMS: [facility] bp 08:49 Acuity: TIFFANIE 2 bp 16:46 Onset of symptoms is unknown. jl7 Triage Assessment: 08:50 General: Appears distressed, obese, Behavior is unresponsive. LAST KNOWN NORMAL bp YESTERDAY MORNING. Pain: Unable to use pain scale. Does not appear to understand pain scale. EENT: Eyes PUPILS CONSTRICTED BILATERALLY. Neuro: Level of Consciousness is obtunded, Oriented to none Moves all extremities. Weakness Pupils are constricted. Cardiovascular: Rhythm is atrial fibrillation. Respiratory: Airway is patent Respiratory effort is shallow, Breath sounds are diminished bilaterally. GI: No signs and/or symptoms were reported involving the gastrointestinal system. : No signs and/or symptoms were reported regarding the genitourinary system. Derm: No deficits noted. Musculoskeletal: No deficits noted. Historical: - Allergies: 09:15 No Known Allergies; bp - Home Meds: 09:15 albuterol sulfate 90 mcg/actuation Inhl HFAA 1 puff every 4 hours [Active]; baclofen 20 bp mg Oral tab 1 tab 3 times per day [Active]; diltiazem HCl 240 mg Oral cp24 1 cap once daily [Active]; Eliquis 5 mg oral tab 1 tab 2 times per day [Active]; gabapentin 300 mg oral cap 1 cap 3 times per day [Active]; [place] 5-325 mg Oral tab 1 tab every 6 hours [Active]; Keppra 250 mg Oral tab 1 tabs 2 times per day [Active]; levothyroxine 75 mcg tab 1 tab once daily [Active]; Lipitor 40 mg Oral tab 1 tab once daily [Active]; melatonin 3 mg Oral tab 2 TAB nightly [Active]; Protonix 40 mg Oral TbEC 1 tab 2 times per day [Active]; torsemide 10 mg oral tab 1 tab once daily [Active]; metformin 500 mg Oral tab 1 tab 2 times per day [Active]; metoprolol tartrate 25 mg Oral tab 1 tab 2 times per day [Active]; - PMHx: 09:15 CEREBRUM TRAUMATIC HEMORRHAGE; CVA; Chronic pain; COPD; GERD; Hypertension; Atrial Fib; bp - Immunization history:: Adult Immunizations up to date. - Family history:: not pertinent. - Social history:: Smoking status: unknown. - Hospitalizations: : The patient was recently seen at [facility]. Screenin:50 Abuse screen: Denies threats or abuse. Denies injuries from another. Nutritional bp screening: No deficits noted. Tuberculosis screening: No symptoms or risk factors identified. Fall Risk None identified. Assessment: 08:50 General: SEE TRIAGE NOTE. Pain: Unable to use pain scale. Does not appear to understand bp pain scale. Neuro: Level of Consciousness is obtunded, Oriented to none. 08:54 Reassessment: PT TO CT WITH RN. bp 09:04 Reassessment: PT RETURNED FROM CT. bp 09:48 Reassessment: EMS PIV BLOWN. UNABLE TO OBTAIN PIV AND BLOOD WITH MX STAFF AND MX bp ATTEMPTS. U/S AT B/S FOR FURTHER VENOUS ACCESS ATTEMPTS. 10:26 Reassessment: U/S PIV OBTAINED, BLOOD CX PENDING VIA PHLEBOTOMY. bp 10:46 Reassessment: ABX ON HOLD FOR BLOOD CX. PHLEBOTOMY AT B/S FOR BLOOD CX. bp 10:56 Reassessment: 2ND BLOOD CX DRAWN. NO CHANGE IN PT NEURO STATUS. Neuro: Level of bp Consciousness is obtunded, Oriented to none Pupils are constricted. 11:32 Reassessment: ADMIT INITIATED. bp 11:59 Reassessment: DR RAMSEY AT B/S FOR ADMIT EVAL. bp 13:34 Reassessment: ADMIT ON HOLD FOR ADMIT ORDERS. bp 14:58 Reassessment: ADMIT IN PROCESS, NO BED AT THIS TIME. NO CHANGE IN PT NEURO STATUS. ss Vital Signs: 08:49 Weight 72.57 kg; bp 08:50 BP 129 / 53; Pulse 69; Resp 17; Temp 97.6; Pulse Ox 99% on 2 lpm NC; bp 09:04 BP 135 / 81; Pulse 71; Resp 12; Pulse Ox 100% on 10% Non-rebreather mask; bp 09:49 BP 116 / 47; Pulse 53; Resp 13; Pulse Ox 100% ; bp 10:23 BP 105 / 53; Pulse 54; Resp 15; Pulse Ox 100% ; bp 11:32 BP 107 / 67; Pulse 51; Resp 16; Pulse Ox 100% ; bp 11:59 BP 114 / 53; Pulse 69; Resp 18; Pulse Ox 100% ; bp 13:34 BP 124 / 61; Pulse 58; Resp 15; Pulse Ox 100% ; bp 14:58 BP 138 / 69; Pulse 65; Resp 11; Pulse Ox 100% ; ss 15:42 BP 134 / 74; Pulse 62; Resp 12; Pulse Ox 100% ; jl7 NIH Stroke Scale Scores: 08:50 NIHSS Score: 23 bp ED Course: 08:48 Patient arrived in ED. rn 08:48 Brayan Vale MD is Attending Physician. rn 08:49 Timmy Christensen, RN is Primary Nurse. bp 08:50 Arm band placed on left wrist. EKG completed in triage. Results shown to MD. bp 08:50 Patient has correct armband on for positive identification. Bed in low position. Call bp light in reach. Side rails up X2. night monitor on. Pulse ox on. NIBP on. 08:50 Maintain EMS IV. Dressing intact. Good blood return noted. Site clean \T\ dry. Gauge \T\ bp site: 22 GAUGE R HAND. 08:53 Triage completed. bp 09:04 CT Head Brain wo Cont In Process Unspecified. EDMS 09:22 Missed attempt(s): 22 gauge in left upper arm. Bleeding controlled, band aid applied, jl7 catheter tip intact. 09:24 XRAY Chest (1 view) In Process Unspecified. EDMS 09:25 Missed attempt(s): 22 gauge in right antecubital area. jl7 09:32 EKG done, by technical associate. reviewed by Brayan Vale MD. at1 10:15 Inserted saline lock: 22 gauge in right forearm, using aseptic technique. ,using bp aseptic technique. U/S GUIDED Blood collected. 10:15 Worley cath inserted, using sterile technique, 18 Fr., by animal warden, balloon inflated, to bp gravity drainage, urine specimen collected. 10:24 Behzad Ramsey is Hospitalizing Provider. rn 10:40 Urine collected: Worley catheter specimen, clear. Worley cath inserted, using sterile mh5 technique, 18 Fr., by nj, balloon inflated, to gravity drainage, urine specimen collected. 16:24 No provider procedures requiring assistance completed. Patient admitted, IV remains in ss place. Administered Medications: 10:55 Drug: Rocephin 1 grams Route: IV; Rate: calculated rate; Site: right antecubital; bp 11:31 Follow up: IV Status: Completed infusion; IV Intake: 50ml bp 11:00 Drug: Zithromax 500 mg Route: IVPB; Infused Over: 1 hrs; Site: right antecubital; bp 13:35 Follow up: IV Status: Completed infusion; IV Intake: 250ml bp Intake: 11:31 IV: 50ml; Total: 50ml. bp 13:35 IV: 250ml; Total: 300ml. bp Outcome: 10:25 Decision to Hospitalize by Provider. rn 16:23 Admitted to [facility] accompanied by tech, via stretcher, room 201, with oxygen, with chart, ss Report called to YESICA BARROSO 16:23 Condition: stable 16:23 Instructed on the need for admit. 16:46 Patient left the ED. jl7 NIH Stroke Scale - NIH Stroke Score Date: 11/13/2019 Time: 08:50 Total Score = 23 1a. Level of Consciousness (LOC) - 2(Not Alert, obtunded) 1b. Level of Consciousness (LOC) (Year \T\ Age) - 2(Neither) 1c. LOC Commands (Open \T\ Closes Eyes/Ancient Art Curator) - 2(Neither) 2. Best Gaze (Lateral Gaze Paresis) - 0(Normal) 3. Visual Field Loss - 0(No visual loss) 4. Facial Palsy - 0(Normal) 5a. Left Arm: Motor (10-second hold) - 3(No effort against gravity) 5b. Right Arm: Motor (10-second hold) - 3(No effort against gravity) 6a. Left Leg: Motor (5-second hold - always test supine) - 3(No effort against gravity) 6b. Right Leg: Motor (5-second hold - always test supine) - 3(No effort against gravity) 7. Limb Ataxia (finger/nose \T\ heel/martinez - test with eyes open) - 0(Absent) 8. Sensory Loss (pinprick arms/legs/face) - 0(Normal) 9. Best Language: Aphasia (description/naming/reading) - 3(Mute, global aphasia) 10. Dysarthria (speech clarity - read or repeat words) - 2(Severe) 11. Extinction and Inattention (visual/tactile/auditory/spatial/personal) - 0(No abnormality) Initials: bp Signatures: Dispatcher [employer] EDBrayan Nieves MD MD rn Smirch, Shelby, RN RN ss Merle Claudio, nursing manager EKG Tat1 Roxy Motley 5 Mike Ji RN RN jl7 Timmy Christensen RN RN bp
--- NOTE | 2019-11-13 10:26 | EDPHYS ---
Physician Documentation [facility] Name: Ashli Alvarez Age: 79 yrs Sex: Female : 1940 Arrival Date: 11/13/2019 Time: 08:48 Bed 2 Private MD: ED Physician Brayan Vale HPI: 11/12 08:52 This 79 yrs old Female presents to ER via Unassigned with complaints of rn Altered Mental Status. 08:52 The patient presents with decreased responsiveness. Onset: The symptoms/episode rn began/occurred at an unknown time. Possible causes: unknown. Current symptoms: In the emergency department the patient's symptoms are unchanged from the initial presentation. It is unknown whether or not the patient has had similar symptoms in the past. Per EMS report, unresponsive/difficult to wake up this morning, nursing stated last seen normal yesterday morning, no known trauma, + several ischemic strokes in past, admitted recently for hypotension and AMS. Patient responsive to painful stimuli only for EMS, no meds given, oxygen mid 80s on RA, was on 2L O2 at group home. No known trauma. . Historical: - Allergies: 09:15 No Known Allergies; bp - Home Meds: 09:15 albuterol sulfate 90 mcg/actuation Inhl HFAA 1 puff every 4 hours [Active]; baclofen 20 bp mg Oral tab 1 tab 3 times per day [Active]; diltiazem HCl 240 mg Oral cp24 1 cap once daily [Active]; Eliquis 5 mg oral tab 1 tab 2 times per day [Active]; gabapentin 300 mg oral cap 1 cap 3 times per day [Active]; [place] 5-325 mg Oral tab 1 tab every 6 hours [Active]; Keppra 250 mg Oral tab 1 tabs 2 times per day [Active]; levothyroxine 75 mcg tab 1 tab once daily [Active]; Lipitor 40 mg Oral tab 1 tab once daily [Active]; melatonin 3 mg Oral tab 2 TAB nightly [Active]; Protonix 40 mg Oral TbEC 1 tab 2 times per day [Active]; torsemide 10 mg oral tab 1 tab once daily [Active]; metformin 500 mg Oral tab 1 tab 2 times per day [Active]; metoprolol tartrate 25 mg Oral tab 1 tab 2 times per day [Active]; - PMHx: 09:15 CEREBRUM TRAUMATIC HEMORRHAGE; CVA; Chronic pain; COPD; GERD; Hypertension; Atrial Fib; bp - Immunization history:: Adult Immunizations up to date. - Family history:: not pertinent. - Social history:: Smoking status: unknown. - Hospitalizations: : The patient was recently seen at [facility]. ROS: 08:52 Unable to obtain ROS due to altered mental status. rn Exam: 08:52 Constitutional: This is a well developed, well nourished patient who is sleeping, rn localizes painful stimuli Head/Face: Normocephalic, atraumatic. Eyes: Pupils equal round and reactive to light, pupils 3mm, no nystagmus ENT: dry MM, no oral trauma Cardiovascular: Irregular rhythm, bradycardic, intact distal pulses Respiratory: Poor inspiratory effort with diminished breath sounds bilateral bases Abdomen/GI: soft, non-tender Skin: Warm, dry, no evidence of cellulitis, no cyanosis MS/ Extremity: Pulses equal, no cyanosis. + LLE swelling with increased circumference compared to RLE, 2+ pitting edema bilateral Neuro: Somnolent, localizes to painful stimuli, moves all 4 extremities to pain. Vital Signs: 08:49 Weight 72.57 kg; bp 08:50 BP 129 / 53; Pulse 69; Resp 17; Temp 97.6; Pulse Ox 99% on 2 lpm NC; bp 09:04 BP 135 / 81; Pulse 71; Resp 12; Pulse Ox 100% on 10% Non-rebreather mask; bp 09:49 BP 116 / 47; Pulse 53; Resp 13; Pulse Ox 100% ; bp 10:23 BP 105 / 53; Pulse 54; Resp 15; Pulse Ox 100% ; bp 11:32 BP 107 / 67; Pulse 51; Resp 16; Pulse Ox 100% ; bp 11:59 BP 114 / 53; Pulse 69; Resp 18; Pulse Ox 100% ; bp 13:34 BP 124 / 61; Pulse 58; Resp 15; Pulse Ox 100% ; bp 14:58 BP 138 / 69; Pulse 65; Resp 11; Pulse Ox 100% ; ss 15:42 BP 134 / 74; Pulse 62; Resp 12; Pulse Ox 100% ; jl7 NIH Stroke Scale Scores: 08:50 NIHSS Score: 23 bp MDM: 08:48 Patient medically screened. rn 10:23 Differential Diagnosis: CVA, electrolyte abnormality, pneumonia, sepsis, UTI, volume rn depletion. Data reviewed: vital signs, nurses notes, lab test result(s), radiologic studies, CT scan, plain films, and as a result, I will admit patient. Counseling: I had a detailed discussion with the patient and/or guardian regarding: the historical points, exam findings, and any diagnostic results supporting the discharge/admit diagnosis, lab results, radiology results, the need for further work-up and treatment in the hospital. Admission orders: after a detailed discussion of the patient's condition and case, the admit orders are written by me. ED course: Pt with normal ABG, xray consistent with pneumonia, ct head no acute changes, will admit.. 11/12 08:51 Order name: Basic Metabolic Panel; Complete Time: 10:46 rn 11/12 08:51 Order name: CBC with Diff; Complete Time: 10:46 rn 11/12 08:51 Order name: Magnesium; Complete Time: 10:46 rn 11/12 08:51 Order name: Protime (+inr); Complete Time: 10:46 rn 11/12 08:51 Order name: Ptt, Activated; Complete Time: 10:46 rn 11/12 08:51 Order name: Troponin (emerg Dept Use Only); Complete Time: 10:46 rn 11/12 08:51 Order name: Urine Microscopic Only; Complete Time: 11:41 rn 11/12 08:51 Order name: Urine Culture rn 11/12 08:51 Order name: Blood Culture Adult (2) rn 11/12 08:51 Order name: Procalcitonin; Complete Time: 10:46 rn 11/12 08:51 Order name: N-Terminal Pro-brain Natriuretic Peptide; Complete Time: 10:46 rn 11/12 08:51 Order name: ABG; Complete Time: 10:21 rn 11/12 10:06 Order name: Lactate; Complete Time: 10:46 bp 11/12 10:39 Order name: Urine Dipstick--Ancillary (enter results); Complete Time: 11:41 bd 11/12 08:51 Order name: CT Head Brain wo Cont; Complete Time: 10:21 rn 11/12 08:51 Order name: EKG; Complete Time: 08:53 rn 11/12 08:51 Order name: Cardiac monitoring; Complete Time: 08:54 rn 11/12 08:51 Order name: EKG - Nurse/Tech; Complete Time: 08:59 rn 11/12 08:51 Order name: IV Saline Lock; Complete Time: 10:04 rn 11/12 08:51 Order name: Labs collected and sent; Complete Time: 10:05 rn 11/12 08:51 Order name: NPO; Complete Time: 08:54 rn 11/12 08:51 Order name: O2 Per Protocol; Complete Time: 08:53 rn 11/12 08:51 Order name: O2 Sat Monitoring; Complete Time: 08:53 rn 11/12 08:51 Order name: Urine Dipstick-Ancillary (obtain specimen); Complete Time: 10:28 rn 11/12 08:51 Order name: XRAY Chest (1 view); Complete Time: 10:21 rn Administered Medications: 10:55 Drug: Rocephin 1 grams Route: IV; Rate: calculated rate; Site: right antecubital; bp 11:31 Follow up: IV Status: Completed infusion; IV Intake: 50ml bp 11:00 Drug: Zithromax 500 mg Route: IVPB; Infused Over: 1 hrs; Site: right antecubital; bp 13:35 Follow up: IV Status: Completed infusion; IV Intake: 250ml bp Disposition: 11/13/19 10:25 Hospitalization ordered by Behzad Wang for Inpatient Admission. Preliminary diagnosis are Altered mental status, unspecified, Pneumonia. - Bed requested for Telemetry/MedSurg (Inpatient). - Status is Inpatient Admission. jl7 - Condition is Stable. - Problem is new. - Symptoms are unchanged. NIH Stroke Scale - NIH Stroke Score Date: 11/13/2019 Time: 08:50 Total Score = 23 1a. Level of Consciousness (LOC) - 2(Not Alert, obtunded) 1b. Level of Consciousness (LOC) (Year \T\ Age) - 2(Neither) 1c. LOC Commands (Open \T\ Closes Eyes/Rubber Tire Curer) - 2(Neither) 2. Best Gaze (Lateral Gaze Paresis) - 0(Normal) 3. Visual Field Loss - 0(No visual loss) 4. Facial Palsy - 0(Normal) 5a. Left Arm: Motor (10-second hold) - 3(No effort against gravity) 5b. Right Arm: Motor (10-second hold) - 3(No effort against gravity) 6a. Left Leg: Motor (5-second hold - always test supine) - 3(No effort against gravity) 6b. Right Leg: Motor (5-second hold - always test supine) - 3(No effort against gravity) 7. Limb Ataxia (finger/nose \T\ heel/martinez - test with eyes open) - 0(Absent) 8. Sensory Loss (pinprick arms/legs/face) - 0(Normal) 9. Best Language: Aphasia (description/naming/reading) - 3(Mute, global aphasia) 10. Dysarthria (speech clarity - read or repeat words) - 2(Severe) 11. Extinction and Inattention (visual/tactile/auditory/spatial/personal) - 0(No abnormality) Initials: bp Signatures: Dispatcher [employer] EDSolange Arciniega RN RN dw Brayan Vale MD MD rn Leal, Jahala, RN RN jl7 Timmy Christensen RN RN bp Corrections: (The following items were deleted from the chart) 15:53 10:25 Hospitalization Ordered by Behzad Wang for Inpatient Admission. dw Preliminary diagnosis is Altered mental status, unspecified; Pneumonia. Bed requested for Telemetry/MedSurg (Inpatient). Status is Inpatient Admission. Condition is Stable. Problem is new. Symptoms are unchanged. rn 16:46 15:53 11/13/2019 10:25 Hospitalization Ordered by Behzad Wagn for Inpatient jl7 Admission. Preliminary diagnosis is Altered mental status, unspecified; Pneumonia. Bed requested for Telemetry/MedSurg (Inpatient). Status is Inpatient Admission. Condition is Stable. Problem is new. Symptoms are unchanged. dw
--- NOTE | 2019-11-13 10:28 | EKG ---
Test Date: 2019-11-13 Test Time: 09:25:57 Colon Therapist: SANDI MEASUREMENT RESULTS: Intervals: Rate: 59 OR: QRSD: 76 QT: 486 QTc: 481 [place]: P: OR: QRS: 89 T: 89 INTERPRETIVE STATEMENTS: Atrial fibrillation with slow ventricular response with premature ventricular or aberrantly conducted complexes Septal infarct, age undetermined Abnormal ECG Compared to ECG 11/04/2019 08:00:21 Right-axis deviation no longer present Myocardial infarct finding still present Electronically Signed On 11-13-19 10:28:11 CDT by Richmond Garza
[2019-11-13 10:31] LABS: BUN Blood Urea Nitrogen 9 mg/dL (7-18); Bicarbonate 37 mmol/L (21-32); Glucose Level 141 mg/dL (74-106); Magnesium 1.7 mg/dL (1.8-2.4); NT PRO-BNP 1178 pg/mL (<450); Sodium Level 139 mmol/L (136-145); Troponin (Emerg Dept Use Only) < 0.02 ng/mL (0.0-0.045)
[2019-11-13] MEDS ORDERED: CEFTRIAXONE/SWI 1gm 1 GM/10 ML SYR ONE (10:39)
[2019-11-13] MEDS ORDERED: NA CHLORIDE 0.9% 100 ML IV ONE (10:39)
[2019-11-13] MEDS ORDERED: AZITHROMYCIN IV 500 MG in NA CHLORIDE 0.9% 250 ML IVPB ONE (11:15)
[2019-11-13 11:31] LABS: Urine Bacteria <20 /HPF (<20); Urine Culture Reflex Order NOT NEEDED; Urine RBC <5 /HPF (NONE SEEN)
[2019-11-13 11:31] LABS: Urine Blood NEGATIVE (NEG); Urine Glucose NEGATIVE (NEG); Urine Protein NEGATIVE (NEG)
--- NOTE | 2019-11-13 12:35 | P.HP ---
Certification for Inpatient Patient admitted to: Inpatient With expected LOS: >2 Midnights Practitioner: I am a practitioner with admitting privileges, knowledge of patient current condition, hospital course, and medical plan of care. Services: Services provided to patient in accordance with Admission requirements found in Title 42 Section 412.3 of the Code of Federal Regulations Patient History Date of Service: 11/13/19 Reason for admission: Altered mental status History of Present Illness: 79-year-old woman with a prior history of CVA, atrial fibrillation on Eliquis anticoagulation was brought from the [facility] to the emergency department due to altered mental status. Patient was noted to be hypoxic on room air prior to arrival. She was obtunded and could not provide any history when I saw her in the ED. Noted patient is bradycardic. Chest x-ray report opacities in the right apex and left lower lobe suggestive of pneumonia. It also reports possible pulmonary vascular congestion. She has no leukocytosis. UA does not suggest UTI. CT head report chronic ischemic changes. Patient has been on multiple psychotropic medications including gabapentin, baclofen, [place]. Polypharmacy could be contributing to the altered mental status. Patient is admitted for further management. Allergies codeine Allergy (Verified 11/03/19 20:56) confusion Home Medications: Acetaminophen [Tylenol] 2 tab PO Q8H PRN 11/04/19 Albuterol Sulfate [Proair Respiclick] 2 puff IH Q4H PRN 11/04/19 Baclofen 2.5 tab PO BID PRN 11/04/19 Diltiazem HCl [Diltiazem 24Hr ER] 240 mg PO DAILY 11/04/19 Gabapentin 300 mg PO TID 11/04/19 Gabapentin [Neurontin*] 100 mg PO TID 11/04/19 Hydrocodone Bit/Acetaminophen [Hydrocodon-Acetaminophen 5-325] 1 each PO Q6H PRN 11/04/19 Ipratropium/Albuterol Sulfate [Iprat-Albut 0.5-3(2.5) mg/3 ml] 1 puff IH Q8H PRN 11/04/19 Latanoprost/Pf [Latanoprost 0.005% Eye Drop] 1 gtt OP BEDTIME 11/04/19 Levetiracetam [Keppra] 250 mg PO DAILY 11/04/19 Levothyroxine Sodium 75 mcg PO DAILY 11/04/19 Lidocaine/Menthol [Icy Hot 4%-1% Patch] 1 each TP DAILY 11/04/19 Melatonin [Melatonin*] 2 tab PO BEDTIME 11/04/19 Ondansetron HCl [Zofran] 4 mg PO TID PRN 11/04/19 Pantoprazole [Protonix Tab*] 40 mg PO DAILY PRN 11/04/19 Torsemide 10 mg PO DAILY 11/04/19 Tramadol HCl [Ultram] 50 mg PO Q6H PRN 11/04/19 Apixaban [Eliquis] 5 mg PO BID #60 tablet 11/05/19 Atorvastatin Calcium [Lipitor] 40 mg PO BEDTIME #30 tab 11/05/19 Nystatin Powder [Mycostatin (Powder)*] 1 appl TOP BID #1 btl 11/05/19 - Past Medical/Surgical History Diabetic: Yes -: Multiple strokes -: Chronic AFib -: Active smoker possible COPD -: CHF -: GERD -: HTN -: DM -: hypothyroid -: glaucoma Past Surgical History: Unable to obtain (Due to altered mental status) - Social History Alcohol use: No CD- Drugs: No Caffeine use: No Review of Systems is unable to be obtained (Due to altered mental status.) Physical Examination - Physical Exam General: Unresponsive, Other (No spontaneous limb movement noted) HEENT: PERRLA (Bilateral constricted pupils-reactive to light.), Mucous membr. moist/pink, Sclerae nonicteric Neck: Supple, JVD not distended, No Thyromegaly Respiratory: Clear to auscultation bilaterally, Normal air movement Cardiovascular: Normal pulses, Normal S1 S2, Other (Bradycardia), Edema (1+ bilateral lower extremity pitting edema) Gastrointestinal: Normal bowel sounds, Soft and benign, Non-distended, No tenderness Musculoskeletal: No swelling Integumentary: Erythema (Mild erythema bilateral lower extremities) Neurological: Other (Unresponsive) - Studies Laboratory Data (last 24 hrs) 11/13/19 10:00: PT 18.3 H, INR 1.58, APTT 40.1 H 11/13/19 10:00: WBC 5.3, Hgb 11.1 L, Hct 34.3 L, Plt Count 215 11/13/19 10:00: Sodium 139, Potassium 4.0, BUN 9, Creatinine 0.82, Glucose 141 H , Magnesium 1.7 L Assessment and Plan - Problems (Diagnosis) (1) Altered mental status Current Visit: Yes Status: Acute (2) Pneumonia Current Visit: Yes Status: Acute (3) History of CVA (cerebrovascular accident) Current Visit: Yes Status: Acute (4) Polypharmacy Current Visit: Yes Status: Acute (5) Chronic atrial fibrillation Current Visit: Yes Status: Acute (6) Anticoagulated Current Visit: Yes Status: Acute - Plan Admit patient to the medical floor Gentle IV hydration IV antibiotics for pneumonia Follow cultures Hold psychotropic medications Obtain MRI of the brain to rule out acute CVA Supplemental oxygen as needed Keep NPO Hold anticoagulation until MRI of brain result. Hold Cardizem given bradycardia. - Advance Directives Does patient have a Living Will: No Does patient have a Durable POA for Healthcare: No - Code Status/Comfort Care Code Status Assessed: No (Unable to obtain due to Altered mental status)
[2019-11-13] MEDS ORDERED: ACETAMINOPHEN 500 MG TAB PO PRN (16:47)
[2019-11-13] MEDS: INSULIN -REGULAR HUMAN 50 UNIT/0.5 ML ML SQ SCH ×2 (16:47→21:26)
[2019-11-13] MEDS ORDERED: ALBUTEROL 2.5 MG/3 ML NEB SOL NEB PRN (16:47)
[2019-11-13] MEDS ORDERED: ONDANSETRON 4 MG/2 ML VIAL IV PRN (16:47)
[2019-11-13] MEDS ORDERED: D5 0.9 NS 1,000 ML IV SCH (16:47)
[2019-11-13 17:51] VITALS: BMI 29.2
[2019-11-13] MEDS ORDERED: VANCOMYCIN 1.75 GM in NA CHLORIDE 0.9% 500 ML IVPB ONE (18:00)
[2019-11-13] MEDS ORDERED: MAGNESIUM SULFATE 1 gm IVPB 1 GM/100 ML BAG IV ONE (21:00)
[2019-11-13] MEDS ORDERED: CEFEPIME 1 GM/VIAL IV SCH (21:00)
[2019-11-13] MEDS: CEFEPIME/SWI 1gm 10 ML IVP SCH (21:18)
--- NOTE | 2019-11-13 23:00 | EKG ---
Test Date: 2019-11-13 Test Time: 11:25:28 Food Service Order Clerk: SANDI MEASUREMENT RESULTS: Intervals: Rate: 56 [place]: QRSD: 78 QT: 548 QTc: 528 [place]: P: [place]: QRS: 88 T: 84 INTERPRETIVE STATEMENTS: Atrial fibrillation with slow ventricular response Septal infarct, age undetermined Prolonged QT Abnormal ECG Compared to ECG 11/13/2019 09:25:57 Prolonged QT interval now present Ventricular premature complex(es) no longer present Myocardial infarct finding still present Electronically Signed On 11-13-19 22:59:40 CDT by Leodan Wheeler
[2019-11-14] MEDS ORDERED: METOPROLOL TARTRATE 5 MG/5 ML INJ IV STA (05:00)
[2019-11-14] MEDS ORDERED: VANCOMYCIN 1.25 GM in NA CHLORIDE 0.9% 250 ML IVPB SCH (06:00)
[2019-11-14 06:19] LABS: Absolute Lymphocytes (CBC) 0.8 K/uL (0.7-4.9); Basophils % 0.3 % (0-1.3); Hematocrit 33.3 % (36.0-45.0); MPV 10.5 fL (7.6-11.3); Protime INR 1.3
[2019-11-14 06:30] LABS: BUN Blood Urea Nitrogen 7 mg/dL (7-18); Bicarbonate 33 mmol/L (21-32); Glucose Level 157 mg/dL (74-106); Magnesium 1.9 mg/dL (1.8-2.4); Phosphorus 2.1 mg/dL (2.5-4.9); Potassium 3.5 mmol/L (3.5-5.1); Sodium Level 144 mmol/L (136-145); Thyroid Stimulating Hormone 0.504 uIU/mL (0.360-3.740)
[2019-11-14] MEDS: INSULIN -REGULAR HUMAN 50 UNIT/0.5 ML ML SQ SCH ×4 (07:30→21:00)
[2019-11-14] MEDS ORDERED: POTASSIUM PHOS IN 0.9 % NACL 15 MMOL/250 ML BAG IV ONE (08:00)
[2019-11-14] MEDS: CEFEPIME/SWI 1gm 10 ML IVP SCH ×2 (09:00→21:59)
[2019-11-14] MEDS ORDERED: METOPROLOL TARTRATE 5 MG/5 ML INJ IV PRN (11:06)
[2019-11-14] MEDS ORDERED: METOPROLOL TARTRATE 5 MG/5 ML INJ IV ONE (11:07)
[2019-11-14] MEDS ORDERED: METOPROLOL XL 50 MG TAB PO ONE (11:22)
--- NOTE | 2019-11-14 11:35 | RAD REPORT ---
EXAM DESCRIPTION: RAD - Chest Single View - 11/14/2019 11:27 am CLINICAL HISTORY: sob rr Chest pain. COMPARISON: Chest Single View dated 11/13/2019; Chest Single View dated 11/03/2019 FINDINGS: Portable technique limits examination quality. Mild interstitial pulmonary edema is seen with small bilateral pleural effusions. The heart is modera tely enlarged. No displaced fractures. IMPRESSION: Mild CHF.
[2019-11-14] MEDS ORDERED: LORazepam 2 MG/ML VIAL IV ONE (11:43)
[2019-11-14 11:56] LABS: Arterial Blood Carboxyhemoglob 0.9 % (0-1.5); Blood Gas Oxyhemoglobin 97.9 % (94-97); Blood O2 Saturation 99.6 % (92-98.5)
[2019-11-14] MEDS ORDERED: PANTOPRAZOLE 40MG TABLET PO PRN (12:32)
[2019-11-14] MEDS: FUROSEMIDE 40 MG/4 ML VIAL IV SCH ×2 (13:11→17:18)
--- NOTE | 2019-11-14 13:25 | EKG ---
Test Date: 2019-11-14 Test Time: 08:19:39 Orange Picking Supervisor: A MEASUREMENT RESULTS: Intervals: Rate: 129 [place]: QRSD: 66 QT: 272 QTc: 398 [place]: P: [place]: QRS: 100 T: 190 INTERPRETIVE STATEMENTS: Atrial fibrillation with rapid ventricular response with premature ventricular or aberrantly conducted complexes Rightward axis Low voltage QRS Septal infarct, age undetermined Abnormal ECG Compared to ECG 11/13/2019 11:25:28 Ventricular premature complex(es) now present Right-axis deviation now present Low QRS voltage now present Prolonged QT interval no longer present Myocardial infarct finding still present Electronically Signed On 11-14-19 13:24:20 CDT by Leodan Wheeler
--- NOTE | 2019-11-14 13:56 | PN ---
Date of Progress Note: 11/14/2019 Subjective: The patient seen and examined. Chart reviewed and case discussed with RN. Spoke with t he son who said that the patient is DNR. He has the medical power of tax attorney and usually the patien t is awake and alert and not combative. Patient had a fast call this morning due to her non responsi veness and having heart rate in the 140s with atrial fibrillation. She has a history of atrial fibri llation. Code status, do not resuscitate. Son is the medical power of tax attorney. He is okay with Bi PAP at this time, but no mechanical ventilation. Physical Examination: Vital Signs: Temperature 98.3, heart rate 86, blood pressure 108/55, respirations 18, O2 sat 100% on 4 L via nasal cannula. General: Asleep, but arousable. Does say some words. Does not follow commands, confused, elderly f emale, combative. CV: S1, S2, irregularly irregular. Rapid rate. Peripheral pulses present. Respiratory: Diminished breath sounds at the bases. Gastrointestinal: Abdomen is soft, nontender, nondistended. Positive bowel sounds. No rigidity. Extremities: No clubbing or cyanosis. Patient does have pedal edema. Neurologic: Nonfocal. The patient does not follow commands; however, opens eyes to sternal rub. Laboratory Data: Sodium 144, potassium 3.5, chloride 107, CO2 of 33, BUN 7, creatinine 0.62, glucose 157, calcium 9, phosphorus 2.1, magnesium 1.9. TSH 0.54. WBC 8.4, H and H 10.8 and 33.3, platelets 223, neutrophils 79%. Blood cultures, no growth to date. Sputum cultures pending. Chest x-ray ronald ws mild CHF, bilateral pleural effusions. Assessment And Plan: A 79-year-old female with: 1.Acute metabolic encephalopathy, likely related to pneumonia, possible cerebrovascular accident. H ead CT scan is negative for any acute changes. MRI of the brain is pending. Patient is combative. We will need to premedicate. 2.Acute respiratory failure. Patient currently on 4 liters. We will switch to bilevel positive air way pressure. She does have some hypercapnia on ABG, likely secondary to pneumonia. 3.Pneumonia. We will continue with intravenous antibiotics. Follow up on cultures. 4.Congestive heart failure. Unknown ejection fraction. We will stop IV fluids and start on Lasix. 5.Atrial fibrillation with rapid ventricular rate. Rate is slightly better with Lopressor. We will continue home medications once safe for patient to swallow. 6.Polypharmacy. 7.Chronic anticoagulation due to atrial fibrillation. Patient is on Xarelto. 8.Obesity. /MICHAEL Voice ID: [id number] Report ID: [id number]
[2019-11-14] MEDS: METOPROLOL TARTRATE 5 MG/5 ML INJ IV SCH ×2 (14:10→20:42)
--- NOTE | 2019-11-14 15:23 | ECHO ---
HEIGHT: 5 ft 2 in WEIGHT: 160 lb 0 oz DATE OF STUDY: 11/14/[address]: Leodan Wheeler MD 2-DIMENSIONAL: YES M.MODE: YES DOPPLER: YES COLOR FLOW: YES TDS: YES PORTABLE: NO DEFINITY: NO BUBBLE STUDY: NO DIAGNOSIS: ATRIAL FIBRILLATION, CONGESTIVE HEART FAILURE CARDIAC HISTORY: CATHERIZATION: NO SURGERY: NO PROSTHETIC VALVE: NO PACEMAKER: NO MEASUREMENTS (cm) DIASTOLIC (NORMALS) SYSTOLIC (NORMALS) IVSd 1.0 (0.6-1.2) LA Diam (1.9-4.0) LVEF 60-69% LVIDd 3.6 (3.5-5.7) LVIDs 2.6 (2.0-3.5) %FS 27% LVPWd 1.3 (0.6-1.2) Ao Diam 3.1 (2.0-3.7) 2 DIMENSIONAL ASSESSMENT: RIGHT ATRIUM: DILATED LEFT ATRIUM: DILATED RIGHT VENTRICLE: NORMAL LEFT VENTRICLE: NORMAL TRICUSPID VALVE: NORMAL MITRAL VALVE: NORMAL PULMONIC VALVE: NORMLAL AORTIC VALVE: NORMAL PERICARDIAL EFFUSION: NONE AORTIC ROOT: NORMAL LEFT VENTRICULAR WALL MOTION: NORMAL DOPPLER/COLOR FLOW: MILD MITRAL REGURGITATION. COMMENTS: NORMAL LEFT VENTRICULAR EJECTION FRACTION. DILATED LEFT AND RIGHT ATRIUM. MILD MITRAL REGURGITATION. ATRIAL FIBRILLATION. HEART RATE 93 BEATS PER MINUTE. TECHNOLOGIST: JANNIE CARDONA
--- NOTE | 2019-11-14 15:42 | CON ---
History Of Present Illness: Ms. Alvarez is 79. I am asked to see her because her atrial fib, heart r ate has gone up. Ms. Alvarez formerly had heart rate controlled with Cardizem CD but that was discont inued as her overall neurological status has deteriorated possibly from repeated strokes and she has not been taking it. Her heart rate when she first came in was well controlled around 70, now it is a round 130. She is also not on anticoagulant because she has not been taking her Eliquis. She is n.p .o. and choking on food so we are going to have to arrange to get enteral medications in through some other means in the mouth. I think consideration will probably need to be made for a feeding tube of some sort and then we can resume oral medications, but for now will use intravenous metoprolol and s ubcutaneous Lovenox to treat her atrial fibrillation. She has been in atrial fibrillation for an unk nown length of time, but many years and she has severe neurological deficits as a fpc patien t nonconversant. Physical Examination: General: 5 feet 2, 160 pounds, does not respond to words or to touch. She is using a BiPAP mask, br eathing about 20 to 25 times a minute. Heart: Irregularly irregular about 120 beats per minute. Extremities: Mild edema. I will recommend we give intravenous Lopressor 5 mg every 4 hours as needed. We will hold it if her heart rate is less than 90 and we will give Lovenox 1 mg/kg subcutaneously every 12 hours. CAMERON/MICHAEL Voice ID: [id number] Report ID: [id number]
[2019-11-14] MEDS: VANCOMYCIN 1.25 GM in NA CHLORIDE 0.9% 250 ML IVPB SCH (17:17)
--- NOTE | 2019-11-14 17:24 | RAD REPORT ---
EXAM DESCRIPTION: MRI - Brain Wo Cont - 11/14/2019 5:13 pm CLINICAL HISTORY: AMS r/o CVA COMPARISON: Head Brain Wo Cont dated 11/13/2019 TECHNIQUE: Sagittal T1-weighted images were obtained along with axial PD, heavily T2-weighted and T2 -FLAIR images. Axial DWI and ADC mapping sequences were also obtained along with coronal heavily T2-w eighted images. FINDINGS: Exam has substantial motion degradation resulting in multiple sequences repeated multiple times. Exam is felt to be of adequate quality to exclude intracranial hemorrhage, mass or acute infarction. Prominent white matter T2 hyperintensities are present typical for chronic ischemic change. Ventricle s are normal There is no edema or shift of midline structures. No extra-axial fluid collections. Holt -matter/white matter junction is preserved. Signal voids are seen as a normal finding in the major in tracranial vessels. No globe or orbital content abnormality suspected and no sella or supra sella abnormality. Mastoid air cells and paranasal sinuses are clear. IMPRESSION: Significantly motion degraded study showing no acute infarction, hemorrhage or acute int racranial finding. Patient has significant chronic ischemic change.
[2019-11-14] MEDS ORDERED: METOPROLOL XL 25 MG TAB PO SCH (18:00)
[2019-11-14] MEDS ORDERED: WATER FOR INJ,STERILE 10 ML IM PRN (20:25)
[2019-11-14] MEDS ORDERED: LORazepam 2 MG/ML VIAL IV PRN (20:26)
[2019-11-14] MEDS: ZIPRASIDONE MESYLA 20 MG/VIAL IM PRN (20:36)
[2019-11-14] MEDS: ATORVASTATIN 40 MG TAB PO SCH (21:00)
[2019-11-14] MEDS ORDERED: APIXABAN 5 MG TABLET PO SCH (21:00)
[2019-11-14] MEDS: HOME MED 1 EA UNK (Latanoprost/Pf [Latanoprost 0.005% Eye Drop] 1 GTT) OP SCH (21:00)
[2019-11-14] MEDS: ENOXAPARIN 60 MG/0.6 ML SQ SCH (21:59)
[2019-11-15] MEDS: METOPROLOL TARTRATE 5 MG/5 ML INJ IV SCH ×4 (02:14→20:36)
[2019-11-15] MEDS: LEVOTHYROXINE SOD 0.075 MG TAB PO SCH (05:26)
[2019-11-15 06:49] LABS: Absolute Lymphocytes (CBC) 1.3 K/uL (0.7-4.9); Basophils % 0.8 % (0-1.3); Hematocrit 37.9 % (36.0-45.0); Lymphocytes % 12.7 % (15.3-44.8); MPV 10.4 fL (7.6-11.3); RBC Red Blood Cell Count 4.29 M/uL (3.86-4.86)
[2019-11-15] MEDS: INSULIN -REGULAR HUMAN 50 UNIT/0.5 ML ML SQ SCH ×4 (07:30→20:49)
[2019-11-15 07:51] LABS: Phosphorus 2.2 mg/dL (2.5-4.9)
[2019-11-15 07:59] LABS: Potassium 2.8 mmol/L (3.5-5.1)
[2019-11-15] MEDS ORDERED: KCL 20 MEQ/100 mL IVPB 20 MEQ/100 ML BAG IV SCH (08:05)
[2019-11-15] MEDS: CEFEPIME/SWI 1gm 10 ML IVP SCH ×2 (08:56→20:38)
[2019-11-15] MEDS: ENOXAPARIN 60 MG/0.6 ML SQ SCH ×2 (08:56→20:38)
[2019-11-15] MEDS: FUROSEMIDE 40 MG/4 ML VIAL IV SCH ×2 (08:57→18:05)
[2019-11-15] MEDS ORDERED: POTASSIUM PHOS 40 MEQ in NA CHLORIDE 0.9% 500 ML IV ONE (09:00)
[2019-11-15] MEDS: levETIRAcetam 500 MG TAB PO SCH (09:00)
[2019-11-15 10:08] LABS: Arterial Blood Carboxyhemoglob 1.2 % (0-1.5); Blood Gas Oxyhemoglobin 93.2 % (94-97)
--- NOTE | 2019-11-15 10:28 | PN ---
Mrs. Alvarez admitted to office for atrial fibrillation with rapid ventricular response. She is not o n anticoagulation. She is on Lovenox now. She is not on chronic anticoagulation. She had rapid melody tricular response yesterday. Normally, she is on Cardizem and she is still taking that. She was giv en some IV Lopressor yesterday for rate control. Her heart rate today is in the 80s. No cardiac sym ptoms. Continue present regimen. We will sign off her case. VIVIANE/MICHAEL Voice ID: [id number] Report ID: [id number]
[2019-11-15] MEDS ORDERED: METOPROLOL TARTRATE 5 MG/5 ML INJ IV STA (10:58)
--- NOTE | 2019-11-15 11:54 | PN ---
Date of Progress Note: 11/15/2019 Subjective: Patient seen and examined, chart reviewed, and case discussed with RN and Dr. Garza. Patient still very much out of it, not really responsive, does become agitated, and required Geodon last night and currently very somnolent. I spoke with the son yesterday at length. Patient is DNR. Medications: List reviewed. Code Status: DNR. Physical Examination: Vital Signs: Temperature 98.4, heart rate 129, blood pressure 131/97, respirations 18, O2 96% on BiPAP. General: Asleep, but arousable, confused, demented female. CV: S1, S2. Irregularly irregular. Rapid rate. Respiratory: Diminished breath sounds at the bases. No wheezing or stridor. Gastrointestinal: Abdomen is soft, nontender, nondistended. Positive bowel sounds. Extremities: No clubbing, cyanosis, edema. No focal deficit. Laboratory Data: Sodium 146, potassium 2.8, chloride 105, CO2 of 36, BUN 8, creatinine 0.76, glucose 115, calcium 9.1, phosphorus 2.2. WBC 10.2, H and H 12.2 and 37.9, platelets 227, neutrophils 73%. Blood cultures, no growth to date. Sputum culture is pending. Echocardiogram shows EF 60% to 69%, dilated left and right atrium, mild mitral regurgitation. Assessment: A 79-year-old female with: 1. Acute metabolic encephalopathy, unclear etiology, may be related to pneumonia. Cerebrovascular accident was ruled out. MRI is negative despite motion degradation artifact. Neurology consult is pending. We will order EEG today. According to the son, this is not her baseline. 2. Acute respiratory failure with hypoxia. We will continue with BiPAP. We will try to wean off as tolerated. Repeat ABG. Consult Pulmonology. 3. Acute congestive heart failure, diastolic dysfunction. Patient is on Lasix. We will continue to monitor I's and O's. 4. Hypokalemia secondary to Lasix. We will replace and monitor. 5. Pneumonia. Continue with IV antibiotics. Follow up on cultures, negative to date. 6. Atrial fibrillation with rapid ventricular response, improved with Lopressor. Patient is still not awake enough to tolerate any p.o. medications, was initially on digoxin. Currently now on IV Lopressor and Lovenox. Appreciate Dr. Wheeler' input. Echo reviewed. 7. Polypharmacy. 8. Obesity. 9. Deep vein thrombosis prophylaxis. Lovenox. Plan: Follow up on EEG. Neuro evaluation. Consider Dobhoff placement. However, due to patient's agitation, she has already broken 1 BiPAP mask, may pull out the Dobhoff. We will see if patient is awake enough to have swallow evaluation done by Speech Therapy. ADDENDUM. EEG report verbally from Dr. Tate shows status partialis. Will load w 1gm keppra, ativan 1mg x1 and cont keppra at 500mg IV BID. neuro checks. no need for ICU as pt is saturating well on N.C. SA/MODL Voice ID: [id number] Report ID: [id number] MTDD
[2019-11-15] MEDS ORDERED: levETIRAcetam 1,000 MG in NA CHLORIDE 0.9% 100 ML IV ONE (15:00)
[2019-11-15] MEDS ORDERED: LORazepam 2 MG/ML VIAL IV ONE (15:00)
--- NOTE | 2019-11-15 16:55 | EKG ---
Test Date: 2019-11-14 Test Time: 11:12:46 Document Coordinator: SANDI MEASUREMENT RESULTS: Intervals: Rate: 117 [place]: QRSD: 74 QT: 366 QTc: 510 [place]: P: [place]: QRS: 94 T: 56 INTERPRETIVE STATEMENTS: Atrial fibrillation with rapid ventricular response with premature ventricular or aberrantly conducted complexes Rightward axis Low voltage QRS Septal infarct, age undetermined Abnormal ECG Compared to ECG 11/14/2019 08:19:39 No significant changes Electronically Signed On 11-15-19 16:55:05 CDT by Leodan Wheeler
[2019-11-15] MEDS: VANCOMYCIN 1.25 GM in NA CHLORIDE 0.9% 250 ML IVPB SCH (18:05)
[2019-11-15] MEDS: levETIRAcetam 500 MG in NA CHLORIDE 0.9% 100 ML IV SCH (20:36)
[2019-11-15] MEDS: HOME MED 1 EA UNK (Latanoprost/Pf [Latanoprost 0.005% Eye Drop] 1 GTT) OP SCH (20:38)
[2019-11-15] MEDS: ATORVASTATIN 40 MG TAB PO SCH (20:38)
[2019-11-16] MEDS: METOPROLOL TARTRATE 5 MG/5 ML INJ IV SCH ×5 (02:00→18:31)
[2019-11-16] MEDS: KCL 20 MEQ/100 mL IVPB 20 MEQ/100 ML BAG IV SCH ×3 (03:54→08:43)
[2019-11-16] MEDS ORDERED: NA CHLORIDE 0.9% 1,000 ML ONE (03:57)
[2019-11-16] MEDS: ZIPRASIDONE MESYLA 20 MG/VIAL IM PRN (04:17)
[2019-11-16 05:16] LABS: Absolute Lymphocytes (CBC) 2.1 K/uL (0.7-4.9); Basophils % 0.9 % (0-1.3); Hematocrit 38.5 % (36.0-45.0); Lymphocytes % 19.3 % (15.3-44.8); MPV 10.4 fL (7.6-11.3); RBC Red Blood Cell Count 4.37 M/uL (3.86-4.86)
[2019-11-16 05:35] LABS: Potassium 2.8 mmol/L (3.5-5.1)
[2019-11-16] MEDS: LEVOTHYROXINE SOD 0.075 MG TAB PO SCH (06:30)
[2019-11-16] MEDS: INSULIN -REGULAR HUMAN 50 UNIT/0.5 ML ML SQ SCH ×4 (07:30→20:45)
[2019-11-16] MEDS: CEFEPIME/SWI 1gm 10 ML IVP SCH ×2 (08:43→20:44)
[2019-11-16] MEDS: FUROSEMIDE 40 MG/4 ML VIAL IV SCH ×2 (08:44→17:03)
[2019-11-16] MEDS: levETIRAcetam 500 MG TAB PO SCH (08:44)
[2019-11-16] MEDS: levETIRAcetam 500 MG in NA CHLORIDE 0.9% 100 ML IV SCH ×2 (08:44→20:44)
[2019-11-16] MEDS: ENOXAPARIN 60 MG/0.6 ML SQ SCH ×2 (08:45→20:44)
[2019-11-16] MEDS ORDERED: METOPROLOL TARTRATE 5 MG/5 ML INJ IV ONE (09:09)
--- NOTE | 2019-11-16 10:13 | RAD REPORT ---
EXAM DESCRIPTION: RAD - Chest Single View - 11/16/2019 10:00 am CLINICAL HISTORY: SOB Chest pain. COMPARISON: Chest Single View dated 11/14/2019; Chest Single View dated 11/13/2019; Chest Single View dated 11/03/2019 FINDINGS: Portable technique limits examination quality. Patient's chin obscures a portion of the lung apices bilaterally. Mild interstitial pulmonary edema s een. Small bilateral pleural effusions. The heart is moderately enlarged in size. No displaced fractu res. IMPRESSION: Mild CHF.
--- NOTE | 2019-11-16 11:35 | PN ---
Ms. Alvarez's overall condition has not improved, severe neurological deficit, still wanting she could have blood pressure little bit lower, still not taking p.o. fluids or p.o. medicines or food. I am going to recommend we increase the metoprolol dose to 10 mg every 6 hours and hold it if systolic blo od pressure is less than 100, heart rate less than 80, and see if we can get better control of blood pressure and heart rate. We will continue the anticoagulation as presently ordered. ABHISHEK Voice ID: [id number] Report ID: [id number]
--- NOTE | 2019-11-16 11:53 | RAD REPORT ---
EXAM DESCRIPTION: RAD - Barium Swallow Modified - 11/16/2019 11:47 am CLINICAL HISTORY: AMS COMPARISON: No comparisons TECHNIQUE: The patient was given liquid, semi-solid and solid forms of barium. Lateral view fluorosc opic imaging was performed in conjunction with speech pathology service. FINDINGS: Pharyngeal residue: mild to moderate in the vallecular and pyriform, minimal coating on th e posterior wall. Study was limited secondary to posture and reduced sustained level of alertness. There is reduced or al bolus manipulation. Oral transit time is approximated at 12 seconds with pured. There is reduced base of tongue retraction and premature spillage over the base of tongue with thin liquid. Swallow i s delayed approximately 2 seconds with thin liquid. There was no penetration or aspiration with thin liquid or pureed texture. Mild to moderate residue is noted on the tongue, base of tongue and manzano culae. Pureed bolus passed into the lower esophagus without incident. Additional consistencies not tested secondary to decreased level of alertness and cooperation. Total fluoroscopy time: 2:02 min
--- NOTE | 2019-11-16 11:56 | PN ---
Date of Progress Note: 11/16/2019 Subjective: Patient is seen and examined. Chart reviewed and case discussed with RN and Dr. Shayy holloway. EEG yesterday showed that patient was in status partialis. She was loaded with Keppra, has had s ome improvement since yesterday. Son was updated. Patient continues to be agitated. Did receive an other dose of Geodon this morning. Speech therapy evaluation was completed and patient can be on a m odified diet; however, still not awake enough to eat. Medication List: Reviewed. Physical Examination: Vital Signs: Temperature 97.5, heart rate 147, blood pressure 140/76, respirations 23, O2 100% on 3 L via nasal cannula. General: Asleep, but arousable, more alert than yesterday. Does voice dissatisfaction when asking h er to follow commands. Does say no appropriately. CV: S1, S2. Irregularly irregular. Rapid rate. Peripheral pulses weak. Respiratory: Moving air well bilaterally. No wheezing. Gastrointestinal: Abdomen is soft, nontender, nondistended. Positive bowel sounds. Extremities: No clubbing, cyanosis. Patient has pedal edema. Neuro: Nonfocal. Moves all 4 extremities. Laboratory Data: Sodium 144, potassium 2.8, chloride 100, CO2 39, BUN 13, creatinine 0.88, glucose 1 19, calcium 8.8. WBC 11.1, H and H 12.2 and 38.5, platelets 235. Keppra level is pending. Blood cu ltures, no growth to date. Urine culture, no growth. Final sputum culture, preliminary report is sh owing reduced quantity of normal respiratory lore. Chest x-ray shows mild CHF, personally reviewed. Assessment: 79-year-old female with: 1.Acute metabolic encephalopathy due to seizure, improving; however, still somewhat obtunded. MRI w as negative. Appreciate Neurology input. 2.Status partialis. We will continue with Keppra. She was given 1 g loading dose now on 500 b.i.d. We will check Keppra level today. Ativan p.r.n. Neurology on board. 3.Acute respiratory failure with hypoxia, now off BiPAP, tolerating oxygen via nasal cannula. Pulmo nology has been consulted. 4.Acute diastolic heart failure. Chest x-ray still shows some mild CHF. We will continue with diur etics. Monitor I's and O's and have free fluid restriction. 5.Hypokalemia secondary to Lasix. We will replace and monitor. Unable to take p.o. as she is not a lert enough. Continue with IV replacement. 6.Pneumonia. Cultures are negative to date. Continue antibiotics. 7.Atrial fibrillation with rapid ventricular response. Continue with Lopressor. Appreciate Cardiol ogy input. 8.Polypharmacy. 9.Obesity with body mass index 29.3. 10.Deep venous thrombosis prophylaxis. Patient is on therapeutic dose of Lovenox for her atrial fib rillation. Plan: Continue to monitor. Should see improvement with treatment with her seizures. We will start on diet. If not, may need to place Dobbhoff to start feeds as she is now on day 3 without eating. /MICHAEL Voice ID: [id number] Report ID: [id number]
[2019-11-16] MEDS: ARFORMOTEROL TARTRATE 15 MCG/2 ML VIAL.NEB NEB SCH ×2 (13:07→20:00)
--- NOTE | 2019-11-16 13:10 | P.CNS ---
Date of Consult: 11/16/19 Reason for Consult: Possible pneumonia Chief Complaint: Altered mental status History of Present Illness: Patient is 79 years of age nonverbal history of CVA on anticoagulation was admitted due to altered mental status and hypoxemia she is not responsive the possibility of pneumonia at the left lung base some interstitial changes on the x-ray History of COPD Allergies codeine Allergy (Verified 11/13/19 19:38) confusion Home Medications: Acetaminophen [Tylenol] 2 tab PO Q8H PRN 11/04/19 Albuterol Sulfate [Proair Respiclick] 2 puff IH Q4H PRN 11/04/19 Baclofen 2.5 tab PO BID PRN 11/04/19 Diltiazem HCl [Diltiazem 24Hr ER] 240 mg PO DAILY 11/04/19 Gabapentin 300 mg PO TID 11/04/19 Gabapentin [Neurontin*] 100 mg PO TID 11/04/19 Hydrocodone Bit/Acetaminophen [Hydrocodon-Acetaminophen 5-325] 1 each PO Q6H PRN 11/04/19 Ipratropium/Albuterol Sulfate [Iprat-Albut 0.5-3(2.5) mg/3 ml] 1 puff IH Q8H PRN 11/04/19 Latanoprost/Pf [Latanoprost 0.005% Eye Drop] 1 gtt OP BEDTIME 11/04/19 Levetiracetam [Keppra] 250 mg PO DAILY 11/04/19 Levothyroxine Sodium 75 mcg PO DAILY 11/04/19 Lidocaine/Menthol [Icy Hot 4%-1% Patch] 1 each TP DAILY 11/04/19 Melatonin [Melatonin*] 2 tab PO BEDTIME 11/04/19 Ondansetron HCl [Zofran] 4 mg PO TID PRN 11/04/19 Pantoprazole [Protonix Tab*] 40 mg PO DAILY PRN 11/04/19 Torsemide 10 mg PO DAILY 11/04/19 Tramadol HCl [Ultram] 50 mg PO Q6H PRN 11/04/19 Apixaban [Eliquis] 5 mg PO BID #60 tablet 11/05/19 Atorvastatin Calcium [Lipitor] 40 mg PO BEDTIME #30 tab 11/05/19 Nystatin Powder [Mycostatin (Powder)*] 1 appl TOP BID #1 btl 11/05/19 - Past Medical/Surgical History Diabetic: Yes -: Multiple strokes -: Chronic AFib -: Active smoker possible COPD -: CHF -: GERD -: HTN -: DM -: hypothyroid -: glaucoma - Social History Smoking Status: Unknown if ever smoked Alcohol use: No CD- Drugs: No Caffeine use: No Place of Residence: Longterm Review of Systems is unable to be obtained Physical Examination Temp Pulse Resp BP Pulse Ox 97.5 F 160 H 23 H 121/74 100 11/16/19 08:00 11/16/19 10:02 11/16/19 08:00 11/16/19 10:49 11/16/19 08:00 General: Unresponsive Respiratory: Clear to auscultation bilaterally, Diminished, Friction rub Cardiovascular: Regular rate/rhythm Gastrointestinal: Normal bowel sounds, Soft and benign - Problems (1) Pneumonia Current Visit: Yes Status: Acute Plan: Patient is 79 years of age admitted with altered mental status possible pneumonia patient is hypoxic hypercarbic active smoker history of COPD CBC is normal pro calcitonin level is negative patient is hypokalemic patient does take torsemide at home chest x-ray shows normal left ventricular function Dc 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 levofloxacin change to spironolactone and a long-acting bronchodilators and sample Brovana or Perforomist for a COPD Qualifiers: Pneumonia type: due to unspecified organism Lung location: lower lobe of lung
[2019-11-16] MEDS: THIAMINE 200 MG/2 ML INJ IVP SCH (14:29)
[2019-11-16] MEDS: SPIRONOLACTONE 25 MG TABLET PO SCH (14:30)
--- NOTE | 2019-11-16 15:25 | CON ---
Reason For Consultation: Consultation called because of altered mental status. History Of Present Illness: Ms. Alvarez is a 79-year-old patient with atrial fibrillation, hypothyroi dism, who was admitted to [facility] on 02 of November with visual disturbances and found to h ave a right posterior circulation stroke and a left homonymous hemianopsia. She was discharged home, doing well. On the while at her correction, was found more confused, disoriented, and hypoxi c. She was brought to [facility] and she was reportedly obtunded and was bradycardic and th e chest x-ray of the right apex and lower lobe suggested pneumonia. She also had pulmonary vascular congestion. Head CT scan showed expected progression of her prior stroke and small-vessel ischemic d isease. She was treated for her systemic infections, and volume overload. However, her level of cog nitive functioning did not improve. EEG was done, the study identified there were continuous left po sterior temporal sharp and slow wave discharges, which were consistent with status partialis and she was loaded with Keppra 1000 mg IV and given 500 mg twice daily. This saved time; however, the patien t is still not returned to baseline. She does answer no to most questions. She moves both arms equa lly well and with withdrawal of legs equally as well. Past Medical History: Stroke, atrial fibrillation, COPD, congestive heart failure, gastroesophageal reflux disease, hypertension, diabetes mellitus, hypothyroidism, glaucoma. Allergies: CODEINE. Medications: At home, Tylenol regular strength 2 every 8 hours as needed, albuterol ProAir 2 puffs e very 4 hours, baclofen 2.5 mg twice daily, diltiazem 240 mg daily, gabapentin 300 mg daily, [place] 5/3 25 one every 6 hours as needed, Keppra 500 mg twice daily, levothyroxine 75 mcg daily, melatonin at b edtime, Zofran 4 mg 3 times daily as needed, Protonix 40 mg daily, torsemide 10 mg daily, tramadol 50 mg every 6 hours as needed, Eliquis 5 mg twice daily, Lipitor 4 mg at bedtime, Mycostatin apply twic e daily as needed. Family History: Noncontributory. Review of Systems: Not reliable as patient is not able to appropriately answer questions. Past Surgical History: Actually not available at this time. Physical Examination: Vital Signs: Blood pressure 121/80, pulse ranged 109 to up to 162, respiratory rate 16 to 20, temper ature 97.4, oxygen saturation 95% on 2 L oxygen via nasal cannula. Neurologic: Ms. Alvarez is resting in bed. She is lying with eyes closed, but arouses easily with ve rbal stimulation. She did answer most questions with no, did not open her eyes. She did move the up per extremities equally, although limited, and she is not following simple commands. She does withdr aw on movement of the lower extremities to stimulation. Her tone is normal in the upper extremities with some paratonia noted. Her sensory exam difficult to fully assess and she has symmetric reflexes . Unable to assess gait. Laboratory Studies: White blood cell count 11.1, hemoglobin 12.2, hematocrit 38.5, platelets 235. I NR 1.3. Blood gas from yesterday showed a pH slightly elevated 7.5, pCO2 has improved from 55 to 48. 5, pO2 is low at 68.8. Chemistries from today show marked low potassium of 2.8 and it was also 2.8 y esterday. Her glucose levels 115 up to 136, calcium 8.8, creatinine 0.88. Keppra level is pending. Barium swallow study done earlier today, study was limited due to level of alertness, there is reduc ed oral bolus manipulation. Oral transit time for pureed consistencies 12 seconds. There is reduced base of tongue retraction and spillage to the base of tongue with thin liquids, delayed swallow; how ever, there was no penetration or aspiration with thin or puree consistencies, there was mild to mode rate residue in the tongue base. Pureed bolus passed into the lower esophagus without difficulty. H er chest x-ray showed mild CHF pattern. Echocardiogram, ejection fraction 60% to 69% with atrial fib rillation, dilated left and right atria, mild mitral regurgitation. Her electrocardiogram shows atri al fibrillation with rapid ventricular response and premature ventricular or aberrantly conducted com plexes. Assessment: Ms. Alvarez is a 79-year-old patient with late subacute right occipital posterior circula tion stroke and localization-related status partialis. She has congestive heart failure pattern and earlier had a pneumonia, aspiration, likely related to a prolonged seizure and aspiration. She is on Eliquis for atrial fibrillation that will reduce her stroke risk. She has statin for her elevated c holesterol. She has had marked hypokalemia. Plan: 1.Careful replacement of potassium should help with her cognitive functioning. 2.Continue Keppra at 500 mg twice daily. 3.Management of fluid as indicated. 4.Continue all comorbid condition medications. 5.Begin with speech and physical and occupational therapy as tolerated. 6.She may be considered for an admission to the inpatient rehabilitation unit depending on her level of responsiveness as her cognitive functioning improves. BALTA/MODL Voice ID: [id number] Report ID: [id number]
[2019-11-16] MEDS: VANCOMYCIN 1.25 GM in NA CHLORIDE 0.9% 250 ML IVPB SCH (17:03)
[2019-11-16] MEDS: ATORVASTATIN 40 MG TAB PO SCH (20:44)
[2019-11-16] MEDS: HOME MED 1 EA UNK (Latanoprost/Pf [Latanoprost 0.005% Eye Drop] 1 GTT) OP SCH (20:44)
[2019-11-16] MEDS ORDERED: KCL 20 MEQ/100 mL IVPB 20 MEQ/100 ML BAG IV SCH (21:00)
[2019-11-16] MEDS ORDERED: NA CHLORIDE 0.9% 250 ML ONE (22:02)
[2019-11-17] MEDS: METOPROLOL TARTRATE 5 MG/5 ML INJ IV SCH ×3 (00:08→12:40)
[2019-11-17] MEDS: LEVOTHYROXINE SOD 0.075 MG TAB PO SCH (05:09)
[2019-11-17 05:50] LABS: Basophils % 1.4 % (0-1.3); Hematocrit 39.5 % (36.0-45.0); Lymphocytes % 19.6 % (15.3-44.8); MPV 10.9 fL (7.6-11.3); RBC Red Blood Cell Count 4.49 M/uL (3.86-4.86)
[2019-11-17 06:16] LABS: Albumin 2.9 g/dL (3.4-5.0); Bilirubin Total 0.7 mg/dL (0.2-1.0); Magnesium 1.5 mg/dL (1.8-2.4); Phosphorus 2.3 mg/dL (2.5-4.9); Protein, Total 7.3 g/dL (6.4-8.2)
[2019-11-17 06:21] LABS: Potassium 2.9 mmol/L (3.5-5.1)
[2019-11-17] MEDS: INSULIN -REGULAR HUMAN 50 UNIT/0.5 ML ML SQ SCH ×4 (07:30→20:45)
[2019-11-17] MEDS: ARFORMOTEROL TARTRATE 15 MCG/2 ML VIAL.NEB NEB SCH ×2 (07:40→19:45)
[2019-11-17] MEDS ORDERED: Magnesium Sulfate 2gm IVPB 2 G/50 ML BAG IV ONE (08:00)
[2019-11-17] MEDS: THIAMINE 200 MG/2 ML INJ IVP SCH (08:25)
[2019-11-17] MEDS: CEFEPIME/SWI 1gm 10 ML IVP SCH ×2 (08:25→20:44)
[2019-11-17] MEDS: SPIRONOLACTONE 25 MG TABLET PO SCH (08:26)
[2019-11-17] MEDS: levETIRAcetam 500 MG TAB PO SCH ×2 (08:26→20:44)
[2019-11-17] MEDS: ENOXAPARIN 60 MG/0.6 ML SQ SCH (08:26)
[2019-11-17] MEDS: KCL 20 MEQ/100 mL IVPB 20 MEQ/100 ML BAG IV SCH ×2 (08:29→10:00)
[2019-11-17] MEDS: levETIRAcetam 500 MG in NA CHLORIDE 0.9% 100 ML IV SCH (09:00)
[2019-11-17] MEDS ORDERED: POTASSIUM PHOS 40 MEQ in NA CHLORIDE 0.9% 500 ML IV ONE (09:00)
[2019-11-17] MEDS: ZIPRASIDONE MESYLA 20 MG/VIAL IM PRN (10:18)
[2019-11-17] MEDS: FUROSEMIDE 40 MG/4 ML VIAL IV SCH (11:24)
[2019-11-17] MEDS ORDERED: HOME MED 1 EA UNK (Diltiazem Hcl [Diltiazem 24hr Er] 240 MG) PO SCH (14:01)
--- NOTE | 2019-11-17 16:32 | PN ---
Date of Progress Note: 11/17/2019 Subjective: Patient seen and examined. Chart reviewed and case discussed with RN. Patient much mor e awake and alert today, answering questions appropriately. Able to tolerate her diet. Pleasant. N ot agitated. Medication list reviewed. Physical Examination: Vital Signs: Temperature 98.2, heart rate 63, blood pressure 109/57, respirations 18, O2 93% on room air. General: Awake, alert, oriented x2, elderly female, in not any acute distress, somewhat ill-appearin g. CV: S1, S2, irregularly irregular. Peripheral pulses present. Respiratory: Somewhat diminished breath sounds, but improved from previous. Minimal crackles. Gastrointestinal: Abdomen is soft, nontender, nondistended. Positive bowel sounds. Extremities: No clubbing, cyanosis. Trace pedal edema. Neuro: Nonfocal. Patient's speech is normal. Answering questions appropriately. Pleasant. Laboratory Data: Sodium 144, potassium 2.9, chloride 101, CO2 of 36, BUN 19, creatinine 0.87, glucos e 110, phosphorus 2.3, magnesium 1.5, albumin 2.9, procalcitonin 0.05. WBC 10.3, H and H 12.9 and 39 .5, platelets 222, neutrophils 64%. Blood cultures, no growth to date. Urine culture negative. Assessment: 79-year-old female with: 1.Acute metabolic encephalopathy due to seizure, significantly improved, now seems to be back to her baseline. 2.Status partialis, now on Keppra 500 b.i.d., Keppra level is pending. Use Ativan p.r.n. only. Rosa reciate Dr. Tate's input. 3.Acute respiratory failure with hypoxia, resolved, currently on nasal cannula. 4.Acute diastolic heart failure. Continue diuretics. Monitor inputs and outputs. Free fluid restr iction. 5.Hypokalemia secondary to Lasix. We will continue to monitor and replace. 6.Hypomagnesemia. We will replace and monitor. 7.Hypophosphatemia. Replace and monitor. 8.Pneumonia. Continue antibiotics. Cultures are negative. 9.Atrial fibrillation with RVR, improved with continued Lopressor. We will resume her Cardizem now that she is tolerating p.o. 10.Polypharmacy. 11.Obesity, BMI 29.3. 12.Deep venous thrombosis prophylaxis. We will switch from therapeutic Lovenox back to her Eliquis. Plan: Refer to inpatient rehab. /MICHAEL Voice ID: [id number] Report ID: [id number]
[2019-11-17] MEDS: DILTIAZEM HCL 120 MG SR CAP PO SCH (18:05)
[2019-11-17] MEDS: APIXABAN 5 MG TABLET PO SCH (20:44)
[2019-11-17] MEDS: HOME MED 1 EA UNK (Latanoprost/Pf [Latanoprost 0.005% Eye Drop] 1 GTT) OP SCH (20:44)
[2019-11-17] MEDS: ATORVASTATIN 40 MG TAB PO SCH (20:44)
[2019-11-17] MEDS ORDERED: POTASSIUM 25 MEQ EFFERV TAB PO ONE (22:31)
[2019-11-18] MEDS: LEVOTHYROXINE SOD 0.075 MG TAB PO SCH (05:19)
[2019-11-18 06:28] LABS: Magnesium 2.1 mg/dL (1.8-2.4); Phosphorus 3.3 mg/dL (2.5-4.9); Potassium 3.3 mmol/L (3.5-5.1)
[2019-11-18] MEDS: INSULIN -REGULAR HUMAN 50 UNIT/0.5 ML ML SQ SCH ×4 (07:30→21:00)
[2019-11-18] MEDS: ARFORMOTEROL TARTRATE 15 MCG/2 ML VIAL.NEB NEB SCH (07:52)
[2019-11-18] MEDS: CEFEPIME/SWI 1gm 10 ML IVP SCH (08:07)
[2019-11-18] MEDS: THIAMINE 200 MG/2 ML INJ IVP SCH (08:08)
[2019-11-18] MEDS: POTASSIUM 25 MEQ EFFERV TAB PO ONE ×2 (08:08→09:00)
[2019-11-18] MEDS: APIXABAN 5 MG TABLET PO SCH ×2 (08:10→21:21)
[2019-11-18] MEDS: SPIRONOLACTONE 25 MG TABLET PO SCH (08:10)
[2019-11-18] MEDS: DILTIAZEM HCL 120 MG SR CAP PO SCH (08:11)
[2019-11-18] MEDS: levETIRAcetam 500 MG TAB PO SCH ×2 (08:11→21:21)
[2019-11-18] MEDS ORDERED: NA CHLORIDE 0.9% 250 ML ONE (08:32)
[2019-11-18] MEDS ORDERED: TORSEMIDE 10 MG PO SCH (09:00)
[2019-11-18] MEDS ORDERED: POTASSIUM CL 40 MEQ in NA CHLORIDE 0.9% 500 ML IV SCH (10:00)
[2019-11-18] MEDS ORDERED: ALBUTEROL INHALER 60 PUFF/8 GM IH PRN (10:15)
--- NOTE | 2019-11-18 10:46 | PN ---
Date of Progress Note: 11/18/2019 Subjective: Patient seen and examined. Chart reviewed and case discussed with RN. Patient much mor e awake and alert, following commands, tolerating her food. Will be working with PT today. No acute events overnight. Medications: List reviewed. Physical Examination: Vital Signs: Temperature 97.9, heart rate 104, blood pressure 141/74, respirations 18, O2 92% on 2 L via nasal cannula. General: Awake, alert, oriented x2. Elderly female, somewhat confused, however, following commands. CV: S1, S2. Regular rate and rhythm. Peripheral pulses present. Respiratory: Somewhat diminished breath sounds, but improved from previous. No crackles. No wheezi ng. No use of accessory muscles. Gastrointestinal: Abdomen is soft, nontender, nondistended. Positive bowel sounds. No guarding or rigidity. Extremities: No clubbing, cyanosis. Patient has pedal edema. Neuro: Moves all 4 extremities. Speech is normal. Answers questions appropriately and follows comm ands. Laboratory Data: Sodium 143, potassium 3.3, chloride 101, CO2 of 36, BUN 25, creatinine 0.95, glucos e 130, calcium 9.2, phosphorus 3.3, magnesium 2.1. WBC 10.3, H and H 12.9 and 39.5, platelets 222, n eutrophils 64%. Keppra level is still pending. Cultures negative to date. Assessment: 79-year-old female with: 1.Acute metabolic encephalopathy, likely secondary to seizure, significantly improved back to her ba valentino, however, still has some confusion, unknown if this is her baseline given her age and possible dementia. We will discuss with son. However, she is cooperative enough to follow commands. We kiana l start having her work with physical therapy. 2.Status partialis, resolving, now on Keppra. Level is pending. We will use Ativan as needed for b reakthrough seizures. Neurology on board. 3.Acute respiratory failure with hypoxia, likely secondary to congestive heart failure, improving, c urrently on nasal cannula. We will try to wean off as tolerated. 4.Acute diastolic heart failure. Patient is now on Aldactone and home dose of torsemide. We will c ontinue to monitor inputs and outputs, free fluid restriction, daily weights. 5.Hypokalemia, improving. We will continue to replace and monitor. 6.Hypomagnesemia, replaced. Continue to monitor. 7.Pneumonia. Continue antibiotics. Cultures are negative. Vancomycin was discontinued. Continue cefepime for 2 more days. 8.Atrial fibrillation with RVR. Rate is better controlled back on her Cardizem. We will use Lop[place] sor p.r.n. for rate greater than 130. 9.Polypharmacy. 10.Obesity, BMI 29.3 with risk factors. 11.Deep vein thrombosis prophylaxis. Patient now back on her Eliquis. Plan: PT/OT eval. Inpatient rehab referral. Discharge once accepted. Patient is medically stable. SA/MODL Voice ID: [id number] Report ID: [id number]
--- NOTE | 2019-11-18 11:12 | P.PN ---
Subjective Date of Service: 11/18/19 Chief Complaint: Altered mental status Subjective: Improving (Patient is doing much better with the alert responsive cooperative) Review of Systems Unremarkable Physical Examination - Vital Signs Temperature: 97.9 F Blood Pressure: 141/74 Pulse: 104 Respirations: 18 Pulse Ox (%): 92 - Physical Exam General: Alert, Oriented x3 Respiratory: Clear to auscultation bilaterally Cardiovascular: No edema, Normal S1 S2 - Studies Microbiology Data (last 24 hrs): 11/13/19 10:54 Blood - Blood Aerobic Blood Culture - Final No growth in 5 days. 11/13/19 10:54 Blood - Blood Anaerobic Blood Culture - Final No growth in 5 days. 11/13/19 10:00 Blood - Blood Aerobic Blood Culture - Final No growth in 5 days. 11/13/19 10:00 Blood - Blood Anaerobic Blood Culture - Final No growth in 5 days. Assessment & Plan - Problems (Diagnosis) (1) Pneumonia Current Visit: Yes Status: Acute Plan: Patient is doing much better she is more alert responsive cooperative were totally different person vital signs all stable will check room air pulse ox cultures negative no fever stable vital signs change to p.o. cephalosporin repeat chest x-ray Qualifiers: Pneumonia type: due to unspecified organism Lung location: lower lobe of lung
--- NOTE | 2019-11-18 12:25 | RAD REPORT ---
EXAM DESCRIPTION: RAD - Chest Single View - 11/18/2019 11:58 am CLINICAL HISTORY: Possible pneumonia, shortness of breath, fibrosis COMPARISON: AP chest November 15, portable chest November 13, portable chest exam November 12, AP chest November 02 TECHNIQUE: AP portable chest image was obtained 11/18/2019 11:58 am . FINDINGS: Patient has extensive interstitial lung disease matching the [facility]. There remains some hazy opacification at the left base. However, left base pleural and pa renchymal opacification are less than seen previously. Right lung base and right costophrenic angle a re better imaged and on the most recent comparison. No new or progressive infiltrate or mass. Heart and vasculature are normal. No measurable pleural effusion and no pneumothorax. No acute bony abnormality seen. No acute aortic findings suspected. IMPRESSION: Patient's interstitial pattern is prominent throughout both lung hammer. This is similar to the baseline study of November 02. The bilateral lung bases show improved aeration from prior imaging. Lung bases are much better aerate d. No new or progressive finding.
[2019-11-18] MEDS: IPRATROPIUM 200 PUFF/12.9 GM INH IH SCH ×3 (13:00→21:00)
[2019-11-18] MEDS: HOME MED 1 EA UNK (Latanoprost/Pf [Latanoprost 0.005% Eye Drop] 1 GTT) OP SCH (21:00)
[2019-11-18] MEDS: ATORVASTATIN 40 MG TAB PO SCH (21:21)
[2019-11-18] MEDS: CEFUROXIME 250 MG TAB PO SCH (21:21)
[2019-11-19 04:57] LABS: Potassium 3.4 mmol/L (3.5-5.1)
[2019-11-19] MEDS ORDERED: NA CHLORIDE 0.9% 250 ML ONE (05:12)
[2019-11-19] MEDS: LEVOTHYROXINE SOD 0.075 MG TAB PO SCH (05:49)
[2019-11-19] MEDS: KCL 20 MEQ/100 mL IVPB 20 MEQ/100 ML BAG IV SCH ×3 (05:50→08:21)
[2019-11-19] MEDS: INSULIN -REGULAR HUMAN 50 UNIT/0.5 ML ML SQ SCH ×2 (07:30→11:30)
[2019-11-19 07:36] VITALS: BP 129/67; TEMP 97.6
[2019-11-19] MEDS: CEFUROXIME 250 MG TAB PO SCH (08:26)
[2019-11-19] MEDS: SPIRONOLACTONE 25 MG TABLET PO SCH (08:26)
[2019-11-19] MEDS: APIXABAN 5 MG TABLET PO SCH (08:26)
[2019-11-19] MEDS: levETIRAcetam 500 MG TAB PO SCH (08:26)
[2019-11-19] MEDS: DILTIAZEM HCL 120 MG SR CAP PO SCH (08:26)
[2019-11-19] MEDS ORDERED: METOPROLOL TAR 25 MG TAB PO SCH (08:30)
[2019-11-19] MEDS ORDERED: TORSEMIDE 20 MG TAB PO SCH (09:00)
[2019-11-19] MEDS ORDERED: THIAMINE HCL 100 MG TABLET PO SCH (09:00)
[2019-11-19] MEDS: IPRATROPIUM 200 PUFF/12.9 GM INH IH SCH (09:00)
--- NOTE | 2019-11-19 09:56 | PN ---
Date of Progress Note: 11/19/2019 Subjective: Patient seen and examined, chart reviewed, and case discussed with RN. Patient is doing significantly better, still has elevated heart rate into the 150s when she moves around. Denies any chest pain. Medications: List reviewed. Physical Examination: Vital Signs: Temperature 97.6, heart rate 129, blood pressure 129/67, respirations 18, O2 94% on emma m air. General: Awake, alert, oriented x3. Elderly female, obese. CV: S1, S2. Irregularly irregular. Rapid rate. Peripheral pulses present. Respiratory: Moving air well bilaterally. No wheezing or stridor. No use of accessory muscles. Gastrointestinal: Abdomen is soft, nontender, nondistended. Positive bowel sounds. Extremities: No clubbing or cyanosis. Patient has pedal edema. Neurologic: Nonfocal. Musculoskeletal: Severe kyphosis. Laboratory Data: Sodium 143, potassium 3.4, chloride 103, CO2 of 33, BUN 20, creatinine 0.83, glucos e 124, calcium 9.4. WBC pending. Assessment: A 79-year-old female with: 1.Acute metabolic encephalopathy secondary to seizure, significantly improved, back to baseline. 2.Status partialis, resolved. Continue with Keppra. Keppra level is 38.5, which is in range. Appr eciate Neurology input. We will use Ativan p.r.n. for breakthrough seizures. 3.Acute respiratory failure with hypoxia secondary to congestive heart failure, resolving. Patient currently on 2 L via nasal cannula. We will try to wean off as tolerated. 4.Acute diastolic heart failure. Continue Aldactone and torsemide. Monitor I's and O's. Free flui d restriction. Monitor daily weight. 5.Atrial fibrillation with rapid ventricular rate. Patient is on Cardizem. We will add metoprolol. 6.Hypomagnesemia, replaced. 7.Hypokalemia, replaced. Continue to monitor. 8.Pneumonia. Chest x-ray now shows significant improvement. Continue cefepime for 1 more day for a total of 7 days. Cultures negative. 9.Polypharmacy. 10.Obesity, BMI 29.3 with risk factors. 11.Deep venous thrombosis prophylaxis. Continue Eliquis. Plan: Discharge to inpatient rehab versus SNF. /MICHAEL Voice ID: [id number] Report ID: [id number]
[2019-11-19 09:57] VITALS: O2SAT 94
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
--- NOTE | 2019-11-27 08:19 | EEG ---
CHART: [id number] TEST ID#: [id number] DATE OF STUDY: 11/15/2019 THE EEG WAS RECORDED PORTABLE IN THE PATIENTS ROOM ON A 17 CHANNEL MACHINE. ELECTRODES WERE APPLIED IN THE USUAL MANNER USING THE INTERNATIONAL 10-20 SYSTEM. THE WAKING BACKGROUND RHYTHM IN THIS RECORD CONSISTS OF POORLY DEVELOPED AND POORLY ORGANIZED WAVES OF 6-7 HZ., IN A WIDE DISTRIBUTION WHICH DO NOT ATTENUATE NORMALLY WITH EYE OPENING. MODERATE VOLTAGE 2-3 HZ SHARP AND SLOW WAVE ACTIVITY IS CONTINUOUSLY EXPRESSED WITH PHOTIC REVERSAL IN THE POSTERIOR TEMPORAL OCCIPIAL REGION. SLEEP DID NOT OCCUR. HYPERVENTILATION WAS NOT PERFORMED. PHOTIC STIMULATION PRODUCED NO DRIVING BILATERALLY. IMPRESSION: THIS IS A MODERATELY ABNORMAL EEG DUE TO NEAR CONTINUOUS SHARP AND SLOW WAVE ACTIVITY IN THE RIGHT POSTERIOR TEMPORAL OCCIPITAL REGIONS. THIS FINDING IS CONSISTENT WITH STAUS PARTIALIS.
== END 2019-11-19 14:47 | DRG 100 ==
LOC: ER 08:43 → ERHOLD 12:44 → 2ND 16:32
PROVIDERS: ADMIT Internal Medicine; ATTEND Family Medicine
PROC: 4A10X4Z Monitoring of Central Nervous Electrical Activity, External Approach (ICD-10-PCS; principal; 2019-11-15)
DX: G40.89 Other seizures (principal); J18.9 Pneumonia, unspecified organism; J96.01 Acute respiratory failure with hypoxia; J96.02 Acute respiratory failure with hypercapnia; I50.31 Acute diastolic (congestive) heart failure; I48.20 Chronic atrial fibrillation, unspecified; Z66 Do not resuscitate; Z88.5 Allergy status to narcotic agent; Z79.890 Hormone replacement therapy; Z79.899 Other long term (current) drug therapy; E11.9 Type 2 diabetes mellitus without complications; F17.200 Nicotine dependence, unspecified, uncomplicated; J44.9 Chronic obstructive pulmonary disease, unspecified; K21.9 Gastro-esophageal reflux disease without esophagitis; Z86.73 Personal history of transient ischemic attack (TIA), and cerebral infarction without residual deficits; E03.9 Hypothyroidism, unspecified; Z79.84 Long term (current) use of oral hypoglycemic drugs; I11.0 Hypertensive heart disease with heart failure; Z79.01 Long term (current) use of anticoagulants; E66.9 Obesity, unspecified; Z68.29 Body mass index [BMI] 29.0-29.9, adult; Z91.14 Patient's other noncompliance with medication regimen; T45.516A Underdosing of anticoagulants, initial encounter; Z91.128 Patient's intentional underdosing of medication regimen for other reason; E87.6 Hypokalemia; E83.42 Hypomagnesemia; E83.39 Other disorders of phosphorus metabolism
CPT/HCPCS: 36415; 51702; 70450; 70551; 71045; 74230; 80048; 80053; 80177; 80202; 81003; 81015; 82805; 82947; 83605; 83735; 83880; 84100; 84132; 84145; 84443; 84484; 85025; 85610; 85730; 87040; 87070; 87086; 87088; 87205; 92611; 93005; 93306; 94640; 94660; 94760; 95816; 96365; 96366; 97112; 97116; 97161; 97530; 99285; J0456; J0692; J0696; J1650; J1940; J1953; J3411; J3475; J3486; J7030; J7040; J7042; J7605

== ENCOUNTER 2020-07-11 15:20 | Emergency (ER) | payer BC, OTHER ==
[2020-07-11 16:25] LABS: Protime INR 1.63
[2020-07-11 16:50] LABS: Absolute Lymphocytes (CBC) 1.3 K/uL (0.7-4.9); Basophils % 0.8 % (0-1.3); Lymphocytes % 24.6 % (15.3-44.8); MPV 9.8 fL (7.6-11.3); RBC Red Blood Cell Count 2.18 M/uL (3.86-4.86)
[2020-07-11 17:09] LABS: Hematocrit 17.2 % (36.0-45.0)
[2020-07-11 17:09] LABS: ALT/SGPT 13 U/L (12-78); AST/SGOT 9 U/L (15-37); Albumin 3.1 g/dL (3.4-5.0); Alkaline Phosphatase 103 U/L (45-117); BUN Blood Urea Nitrogen 21 mg/dL (7-18); Bicarbonate 35 mmol/L (21-32); Bilirubin Direct < 0.1 mg/dL (0-0.2); Bilirubin Total 0.2 mg/dL (0.2-1.0); Glucose Level 110 mg/dL (74-106); Magnesium 2.1 mg/dL (1.8-2.4); NT PRO-BNP 3783 pg/mL (<450); Protein, Total 6.7 g/dL (6.4-8.2); Sodium Level 142 mmol/L (136-145); Troponin (Emerg Dept Use Only) < 0.02 ng/mL (0.0-0.045)
--- NOTE | 2020-07-11 17:16 | EDPHYS ---
Physician Documentation [facility] Name: Ashli Alvarez Age: 79 yrs Sex: Female : 1940 Arrival Date: 07/11/2020 Time: 15:22 Bed 4 Private MD: ED Physician Garry Laureano HPI: 07/11 15:35 This 79 yrs old Female presents to ER via EMS with complaints of Abnormal Lab cp Results. 15:35 general weakness and low hemoglobin. Onset: The symptoms/episode began/occurred cp gradually. 15:35 Severity of symptoms: in the emergency department the symptoms are unchanged. Patient cp denies chest pain, denies abdominal pain. Historical: - Allergies: 15:25 No Known Allergies; bp - PMHx: 15:25 Atrial Fib; CEREBRUM TRAUMATIC HEMORRHAGE; Chronic pain; COPD; CVA; GERD; Hypertension; bp - Immunization history:: Adult Immunizations up to date. - Social history:: Smoking status: unknown. ROS: 15:40 Constitutional: Negative for body aches, chills, fever, poor PO intake. cp 15:40 Eyes: Negative for injury, pain, redness, and discharge. cp 15:40 Cardiovascular: Negative for chest pain, edema, palpitations. 15:40 Respiratory: Negative for cough, shortness of breath, wheezing. 15:40 Abdomen/GI: Negative for abdominal pain, nausea, vomiting, and diarrhea, constipation. 15:40 Skin: Negative for rash. 15:40 Neuro: Positive for weakness, Negative for altered mental status, dizziness, headache, loss of consciousness, syncope. 15:40 All other systems are negative. Exam: 15:45 Constitutional: The patient appears in no acute distress, alert, awake, cp non-diaphoretic, non-toxic, well developed, well nourished. 15:45 Head/Face: Normocephalic, atraumatic. cp 15:45 Eyes: Periorbital structures: appear normal, Conjunctiva: normal, no exudate, no cp injection, Sclera: no appreciated abnormality, Lids and lashes: appear normal, bilaterally. 15:45 ENT: External ear(s): are unremarkable, Nose: is normal, Mouth: Lips: moist, Oral cp mucosa: moist, Posterior pharynx: Airway: no evidence of obstruction, patent. 15:45 Neck: ROM/movement: is normal, is supple, without pain, no range of motions limitations. 15:45 Chest/axilla: Inspection: normal, Palpation: is normal, no crepitus, no tenderness. 15:45 Cardiovascular: Rate: normal, Rhythm: irregular, Edema: ankle edema, that is mild, JVD: is not appreciated. 15:45 Respiratory: the patient does not display signs of respiratory distress, Respirations: normal, no use of accessory muscles, no retractions, no splinting, no tachypnea, labored breathing, is not present, Breath sounds: are clear throughout, no decreased breath sounds, no stridor, no wheezing. 15:45 Abdomen/GI: Inspection: abdomen appears normal, Palpation: abdomen is soft and non-tender, in all quadrants, Rectal exam: Stool: guaiac positive, black. 15:45 Back: pain, that is mild. 15:45 Skin: no rash present. 15:45 Neuro: Orientation: to person, place \T\ time. Mentation: is normal, Motor: moves all fours, general weakness with no focal deficits, Sensation: is normal. 16:15 ECG was reviewed by the Attending Physician. cp Vital Signs: 15:22 BP 130 / 80; Pulse 90; Resp 18; Temp 98; Pulse Ox 98% ; bp 16:40 BP 121 / 90; Pulse 99; Resp 15; Pulse Ox 100% ; bp 17:40 BP 103 / 56; Pulse 110; Resp 16; Pulse Ox 95% ; bp 18:00 BP 113 / 53; Pulse 105; Resp 15; Pulse Ox 95% on R/A; bp 20:04 BP 119 / 78; Pulse 116; Resp 18; Temp 98.4; Pulse Ox 100% on 3 lpm NC; mg2 20:35 BP 112 / 70; Pulse 107; Resp 18; Temp 98.6; Pulse Ox 100% on 3 lpm NC; mg2 21:02 BP 113 / 66; Pulse 104; Resp 18; Temp 98.4; Pulse Ox 100% on 3 lpm NC; mg2 21:57 BP 121 / 62; Pulse 92; Resp 18; Temp 98.4; Pulse Ox 100% on 3 lpm NC; mg2 23:00 BP 133 / 51; Pulse 90; Resp 18; Temp 98.1; Pulse Ox 100% on 3 lpm NC; mg2 07/12 00:20 BP 115 / 81; Pulse 94; Resp 18; Temp 98.2; Pulse Ox 100% on 3 lpm NC; mg2 01:00 BP 127 / 66; Pulse 92; Resp 18; Temp 98.4; Pulse Ox 95% on R/A; mg2 02:30 BP 142 / 109; Pulse 95; Resp 18; Temp 98.2; Pulse Ox 94% on R/A; mg2 MDM: 07/11 15:33 Patient medically screened. cp 16:00 Differential Diagnosis altered mental status, sepsis, COVID-19, upper GI bleed, lower cp GI bleed, anemia. 18:30 Physician consultation: was contacted at 18:20, regarding regarding transfer, to [facility]. patient's condition, DR Christianson who is user experience manager and DR Stevens who is hospitalist, will accept patient as transfer. DR Christianson requests patient be transfused 2 units of blood to obtain a hemoglobin of at least [address] Stevens will be accepting physician. 19:50 Data reviewed: vital signs, nurses notes, lab test result(s), EKG, radiologic studies, cp plain films. 19:50 Test interpretation: by ED physician or midlevel provider: ECG. Counseling: I had a cp detailed discussion with the patient and/or guardian regarding: the historical points, exam findings, and any diagnostic results supporting the discharge/admit diagnosis, lab results, radiology results, the need to transfer to another facility, [facility] does not immediately have the required specialist. 07/11 15:35 Order name: Type And Screen 07/11 15:35 Order name: Basic Metabolic Panel; Complete Time: 17:11 07/11 17:11 Interpretation: Normal except: CO2 35; GLUC 110; BUN 21; GFR 52. 07/11 15:35 Order name: CBC with Diff; Complete Time: 01:48 07/11 17:40 Interpretation: Normal except: RBC 2.18; HGB 5.4; HCT 17.2; MCV 79.0; MCH 24.6; MCHC cp 31.2; RDW 16.9. 07/11 15:35 Order name: LFT's; Complete Time: 17:11 07/11 17:42 Interpretation: Normal except: AST 9; ALB 3.1; GLOB 3.6; A/G 0.9. cp 07/11 15:35 Order name: Magnesium; Complete Time: 17:11 cp 07/11 15:35 Order name: NT PRO-BNP; Complete Time: 17:11 cp 07/11 17:12 Interpretation: Abnormal: NT PRO-BNP 3783; Reviewed. cp 07/11 15:35 Order name: PT-INR; Complete Time: 17:02 cp 07/11 17:02 Interpretation: Abnormal: PT 19.1. cp 07/11 15:35 Order name: Troponin (emerg Dept Use Only); Complete Time: 17:11 cp 07/11 17:14 Order name: Urine Microscopic Only; Complete Time: 18:47 cp 07/11 18:47 Interpretation: Reviewed. 07/11 17:33 Order name: Packed RBC Leukored EDNM 07/11 17:43 Order name: Urine Dipstick--Ancillary (enter results); Complete Time: 20:31 eb 07/11 20:31 Interpretation: Normal except: UPH 7.5; UESTR TRACE. 07/11 17:50 Order name: ABO/RH no charge; Complete Time: 18:47 EDMS 07/11 20:39 Order name: SARS-COV-2 RT PCR; Complete Time: 01:48 EDMS 07/11 15:35 Order name: XRAY Chest (1 view); Complete Time: 17:20 cp 07/11 15:35 Order name: EKG; Complete Time: 15:35 cp 07/11 21:22 Order name: Hemoglobin: redraw after administration of blood cp 07/11 21:22 Order name: Hematocrit: redraw after administration of blood cp 07/11 21:22 Order name: Hemoglobin; Complete Time: 01:48 EDMS 07/11 21:22 Order name: Hematocrit; Complete Time: 01:48 EDMS 07/12 00:49 Order name: Hematocrit; Complete Time: 01:48 mg2 07/12 00:49 Order name: Hemoglobin; Complete Time: 01:48 mg2 07/11 15:35 Order name: Cardiac monitoring; Complete Time: 15:45 cp 07/11 15:35 Order name: EKG - Nurse/Tech; Complete Time: 15:45 cp 07/11 15:35 Order name: IV Saline Lock; Complete Time: 16:40 cp 11/13 15:35 Order name: Labs collected and sent; Complete Time: 16:40 cp 07/11 15:35 Order name: O2 Per Protocol; Complete Time: 15:45 cp 07/11 15:35 Order name: O2 Sat Monitoring; Complete Time: 15:45 cp 07/11 17:14 Order name: [place]ley; Complete Time: 17:44 cp 07/11 17:14 Order name: Urine Dipstick-Ancillary (obtain specimen); Complete Time: 17:44 cp 07/11 18:46 Order name: Transfuse; Complete Time: 19:44 cp EC:15 Rate is 92 beats/min. Rhythm is irregular. QRS interval is normal. QT interval is cp normal. Interpreted by me. Reviewed by me. Administered Medications: 17:30 Drug: ProTONIX 40 mg Route: IVP; Site: right antecubital; bp 20:35 Follow up: Response: No adverse reaction mg2 18:00 Drug: ProTONIX 8 mg/hr Route: IV; Rate: 25 ml/hr; Site: right antecubital; bp 19:43 Drug: Benadryl 12.5 mg Route: IVP; Site: left hand; mg2 20:34 Follow up: Response: No adverse reaction mg2 19:44 Drug: Tylenol 650 mg Route: PO; mg2 20:35 Follow up: Response: No adverse reaction mg2 20:34 Drug: [place] 5 mg-325 mg 1 tabs Route: PO; mg2 21:57 Follow up: Response: No adverse reaction mg2 22:34 Drug: Lasix 20 mg Route: IVP; Site: right antecubital; mg2 07/12 00:49 Follow up: Response: No adverse reaction mg2 01:20 Drug: Lasix 20 mg Route: IVP; Site: left hand; mg2 01:31 Drug: fentaNYL (PF) 25 mcg Route: IVP; Site: right forearm; ea Disposition: 08:15 Co-signature as Attending Physician, Garry Laureano MD I agree with the assessment and sirena plan of care. Disposition: 07/11/20 17:15 Transfer ordered to [facility]. Diagnosis are Gastrointestinal hemorrhage, unspecified, Anemia in other chronic diseases classified elsewhere, Chronic atrial fibrillation. - Reason for transfer: Higher level of care. - Accepting physician is DR Stevens. - Condition is Stable. - Problem is new. - Symptoms have improved. Signatures: Dispatcher [employer] EDMS David Olivia, RN RN sg Garry Laureano MD MD cha Page, Corey, PA PA cp Carly Hinkle, RN RN Timmy Laguna, RN RN bp Nima Conklin, RN RN mg2 Corrections: (The following items were deleted from the chart) 07/11 18:57 17:52 CORONAVIRUS+ ordered. EDMS EDMS :12 17:15 07/11/2020 17:15 Transfer ordered to [facility]. cp Diagnosis is Gastrointestinal hemorrhage, unspecified; Anemia in other chronic diseases classified elsewhere; Chronic atrial fibrillation. Reason for transfer: Higher level of care. Accepting physician is Doctor. Condition is Stable. Problem is new. Symptoms have improved. cp 07/12 03:42 07/11 20:12 07/11/2020 17:15 Transfer ordered to [facility]. sg Diagnosis is Gastrointestinal hemorrhage, unspecified; Anemia in other chronic diseases classified elsewhere; Chronic atrial fibrillation. Reason for transfer: Higher level of care. Accepting physician is DR Stevens. Condition is Stable. Problem is new. Symptoms have improved. cp
--- NOTE | 2020-07-11 17:16 | ER ---
Nurse's Notes [facility] Name: Ashli Alvarez Age: 79 yrs Sex: Female : 1940 Arrival Date: 07/11/2020 Time: 15:22 Bed 4 Private MD: Diagnosis: Gastrointestinal hemorrhage, unspecified;Anemia in other chronic diseases classified elsewhere;Chronic atrial fibrillation Presentation: 07/11 15:22 Chief complaint: EMS states: SENT FROM [facility] FOR LOW H\T\H. PT ASYMPTOMATIC. bp Coronavirus screen: At this time, the client does not indicate any symptoms associated with coronavirus-19. Ebola Screen: No symptoms or risks identified at this time. Initial Sepsis Screen: Does the patient meet any 2 criteria? No. Patient's initial sepsis screen is negative. Does the patient have a suspected source of infection? No. Patient's initial sepsis screen is negative. Risk Assessment: Do you want to hurt yourself or someone else? Patient reports no desire to harm self or others. Onset of symptoms is unknown. 15:22 Method Of Arrival: EMS: [facility] bp 15:22 Acuity: TIFFANIE 3 bp Triage Assessment: 15:25 General: Appears in no apparent distress. comfortable, Behavior is calm, cooperative, bp appropriate for age. Pain: Denies pain. EENT: No deficits noted. Neuro: Level of Consciousness is awake, alert, obeys commands, Oriented to person, place, time, situation, Appropriate for age. Cardiovascular: Rhythm is atrial fibrillation. Respiratory: No deficits noted. GI: No signs and/or symptoms were reported involving the gastrointestinal system. : No signs and/or symptoms were reported regarding the genitourinary system. Derm: No deficits noted. Musculoskeletal: No deficits noted. Historical: - Allergies: 15:25 No Known Allergies; bp - PMHx: 15:25 Atrial Fib; CEREBRUM TRAUMATIC HEMORRHAGE; Chronic pain; COPD; CVA; GERD; Hypertension; bp - Immunization history:: Adult Immunizations up to date. - Social history:: Smoking status: unknown. Screenin:26 Abuse screen: Denies threats or abuse. Denies injuries from another. Nutritional bp screening: No deficits noted. Tuberculosis screening: No symptoms or risk factors identified. Fall Risk None identified. Assessment: 15:26 General: SEE TRIAGE NOTE. bp 16:30 Reassessment: Patient appears in no apparent distress at this time. No changes from bp previously documented assessment. Patient and/or family updated on plan of care and expected duration. Pain level reassessed. Patient is alert, oriented x 3, equal unlabored respirations, skin warm/dry/pink. 17:48 Reassessment: Patient appears in no apparent distress at this time. No changes from bp previously documented assessment. Patient and/or family updated on plan of care and expected duration. Pain level reassessed. Patient is alert, oriented x 3, equal unlabored respirations, skin warm/dry/pink. TRANSFER INITIATED. 20:24 Reassessment: Patient appears in no apparent distress at this time. Patient and/or mg2 family updated on plan of care and expected duration. Pain level reassessed. Patient is alert, oriented x 3, equal unlabored respirations, skin warm/dry/pink. patient is well aware about the transfer. 20:40 Reassessment: patient complained of chronic back pain. provider informed and ordered mg2 some pain medicine. 21:58 Reassessment: Patient states feeling better. [facility] 21:58 Reassessment: [facility] contacted by community relations police lieutenant and said they need the hgb result [facility] at least 7 before transferring the patient to them. 07/12 02:16 Reassessment: [facility] MOT form signed by the mg2 patient. Vital Signs: 07/11 15:22 BP 130 / 80; Pulse 90; Resp 18; Temp 98; Pulse Ox 98% ; bp 16:40 BP 121 / 90; Pulse 99; Resp 15; Pulse Ox 100% ; bp 17:40 BP 103 / 56; Pulse 110; Resp 16; Pulse Ox 95% ; bp 18:00 BP 113 / 53; Pulse 105; Resp 15; Pulse Ox 95% on R/A; bp 20:04 BP 119 / 78; Pulse 116; Resp 18; Temp 98.4; Pulse Ox 100% on 3 lpm NC; mg2 20:35 BP 112 / 70; Pulse 107; Resp 18; Temp 98.6; Pulse Ox 100% on 3 lpm NC; mg2 21:02 BP 113 / 66; Pulse 104; Resp 18; Temp 98.4; Pulse Ox 100% on 3 lpm NC; mg2 21:57 BP 121 / 62; Pulse 92; Resp 18; Temp 98.4; Pulse Ox 100% on 3 lpm NC; mg2 23:00 BP 133 / 51; Pulse 90; Resp 18; Temp 98.1; Pulse Ox 100% on 3 lpm NC; mg2 07/12 00:20 BP 115 / 81; Pulse 94; Resp 18; Temp 98.2; Pulse Ox 100% on 3 lpm NC; mg2 01:00 BP 127 / 66; Pulse 92; Resp 18; Temp 98.4; Pulse Ox 95% on R/A; mg2 02:30 BP 142 / 109; Pulse 95; Resp 18; Temp 98.2; Pulse Ox 94% on R/A; mg2 ED Course: 07/11 15:22 Patient arrived in ED. bp 15:23 Triage completed. bp 15:24 Timmy Christensen, CHIO is Primary Nurse. bp 15:25 Garry Paredes PA is PHCP. cp 15:25 Garry Laureano MD is Attending Physician. cp 15:26 Arm band placed on. bp 15:26 Patient has correct armband on for positive identification. Bed in low position. Call bp light in reach. Side rails up X2. 15:32 Patient has correct armband on for positive identification. Bed in low position. Call mh5 light in reach. Side rails up X2. Warm blanket given. wad printing machine operator on. Pulse ox on. NIBP on. 15:33 Served as a parts person during rectal exam. mh5 15:45 EKG done, by ED staff, reviewed by Garry SAUCEDO. mh5 16:22 XRAY Chest (1 view) In Process Unspecified. EDMS 16:35 Inserted saline lock: 22 gauge in right antecubital area, using aseptic technique. bp Blood collected. 17:18 initiated a transfer with Vicki from the [facility]. eb 17:[address] Fontanez (GI) and Dr. Stevens ( Hospitalist ) ton container shipper for [facility] eb with Garry SAUCEDO for patient transfer consultation. 17:45 Urine Dipstick--Ancillary (enter results) Sent. mh5 17:45 Urine Microscopic Only Sent. mh5 17:46 Worley cath inserted, using sterile technique, 16 Fr., by al, balloon inflated, to mh5 gravity drainage, urine specimen collected. 18:07 initiated a transfer with Inessa from the [facility].[place]. eb 18:21 Inessa from [facility] called to deny patient in transfer due to being at eb capacity. 19:15 Inserted saline lock: 22 gauge in left hand, using aseptic technique. mg2 07/12 02:02 Patient transferred, IV remains in place. mg2 Administered Medications: 07/11 17:30 Drug: ProTONIX 40 mg Route: IVP; Site: right antecubital; bp 20:35 Follow up: Response: No adverse reaction mg2 18:00 Drug: ProTONIX 8 mg/hr Route: IV; Rate: 25 ml/hr; Site: right antecubital; bp 19:43 Drug: Benadryl 12.5 mg Route: IVP; Site: left hand; mg2 20:34 Follow up: Response: No adverse reaction mg2 19:44 Drug: Tylenol 650 mg Route: PO; mg2 20:35 Follow up: Response: No adverse reaction mg2 20:34 Drug: [place] 5 mg-325 mg 1 tabs Route: PO; mg2 21:57 Follow up: Response: No adverse reaction mg2 22:34 Drug: Lasix 20 mg Route: IVP; Site: right antecubital; mg2 07/12 00:49 Follow up: Response: No adverse reaction mg2 01:20 Drug: Lasix 20 mg Route: IVP; Site: left hand; mg2 01:31 Drug: fentaNYL (PF) 25 mcg Route: IVP; Site: right forearm; ea Medication: 07/11 20:05 Blood products: PRBCs X 1 unit given. See transfusion record. mg2 07/12 01:15 Blood products: PRBCs X 1 unit given. mg2 Output: 01:20 Urine: 1000ml (Worley); Total: 1000ml. mg2 02:31 Urine: 700ml (Worley); Total: 1700ml. mg2 Outcome: 07/11 17:15 ER care complete, transfer ordered by . joaquin 07/12 03:42 Patient left the ED. sg Signatures: Dispatcher [employer] EDMS David Olivia RN RN Garry Smith PA PA cp Martinez, [facility] Carly Hinkle RN RN ea Peltier, Brian, RN RN Celina Thomas Michele, RN RN mg2 Corrections: (The following items were deleted from the chart) 07/11 17:46 15:25 Cardiovascular: Rhythm is sinus rhythm bp bp
--- NOTE | 2020-07-11 17:18 | RAD REPORT ---
EXAM DESCRIPTION: RAD - Chest Single View - 07/11/2020 4:22 pm CLINICAL HISTORY: lower extremity swelling Chest pain. COMPARISON: Chest Single View dated 11/18/2019; Chest Single View dated 11/16/2019; Chest Single View dated 11/14/2019; Chest Single View dated 11/13/2019 FINDINGS: Portable technique limits examination quality. Mild interstitial pulmonary edema. The heart is moderately enlarged in size. Small bilateral pleural effusions. IMPRESSION: Mild to moderate CHF.
[2020-07-11] MEDS ORDERED: PANTOPRAZOLE 40 MG INJ ONE (17:40)
[2020-07-11] MEDS ORDERED: ACETAMINOPHEN 325 MG TABLET PO SCH (18:00)
[2020-07-11] MEDS ORDERED: PANTOPRAZOLE INJ 80 MG in NA CHLORIDE 0.9% 250 ML IV SCH (18:00)
[2020-07-11] MEDS ORDERED: NA CHLORIDE 0.9% 250 ML IV SCH (18:00)
[2020-07-11] MEDS ORDERED: DIPHENHYDRAMINE 50 MG/ML VIAL IV SCH (18:00)
[2020-07-11 18:08] LABS: Urine Bacteria NONE SEEN /HPF (<20); Urine Culture Reflex Order NOT NEEDED; Urine RBC NONE SEEN /HPF (NONE SEEN)
[2020-07-11] MEDS ORDERED: FENTANYL CITR 100 MCG/2 ML ONE (19:05)
[2020-07-11] MEDS ORDERED: NA CHLORIDE 0.9% 250 ML ONE (19:37)
[2020-07-11] MEDS ORDERED: DIPHENHYDRAMINE 50 MG/ML VIAL ONE (19:50)
[2020-07-11] MEDS ORDERED: ACETAMINOPHEN 325 MG TABLET ONE (19:50)
[2020-07-11 20:09] LABS: Urine Blood NEGATIVE (NEG); Urine Glucose NEGATIVE (NEG); Urine Protein NEGATIVE (NEG); Urine pH 7.5 (5.0-7.0)
[2020-07-11] MEDS ORDERED: HYDROCODONE/APAP 5/325 MG TAB ONE (20:45)
[2020-07-11] MEDS ORDERED: FUROSEMIDE 20 MG/ 2ML VIAL ONE (22:09)
[2020-07-11 22:57] LABS: Hematocrit 20.6 % (36.0-45.0)
[2020-07-12] MEDS ORDERED: FUROSEMIDE 20 MG/ 2ML VIAL ONE (00:52)
[2020-07-12 01:30] LABS: Hematocrit 26.7 % (36.0-45.0)
[2020-07-12] MEDS ORDERED: FENTANYL CITR 100 MCG/2 ML ONE (01:40)
[2020-07-12 07:58] VITALS: BP 142/109; TEMP 98.2; O2SAT 94
--- NOTE | 2020-07-13 07:45 | EKG ---
Test Date: 2020-07-11 Test Time: 16:09:28 Career Technical Supervisor: OLAF MEASUREMENT RESULTS: Intervals: Rate: 92 [place]: QRSD: 64 QT: 336 QTc: 415 [place]: P: IL: QRS: 88 T: 78 INTERPRETIVE STATEMENTS: Atrial fibrillation Low voltage QRS Septal infarct, age undetermined Abnormal ECG Compared to ECG 11/14/2019 11:12:46 Ventricular premature complex(es) no longer present Right-axis deviation no longer present Myocardial infarct finding still present Electronically Signed On 07-13-20 07:41:06 PROJECT ARCHIVIST by Richmond Garza
== END 2020-07-12 03:42 | disposition short-term general hospital (02) ==
LOC: ER 15:20
DX: D64.9 Anemia, unspecified (principal); K92.2 Gastrointestinal hemorrhage, unspecified; I48.20 Chronic atrial fibrillation, unspecified; Z20.828 Contact with and (suspected) exposure to other viral communicable diseases; I10 Essential (primary) hypertension; Z86.73 Personal history of transient ischemic attack (TIA), and cerebral infarction without residual deficits
CPT/HCPCS: 93005; 85025; 80048; 36415; 86900; 83735; 86850; 85610; 86901; 80076; 85018 ×2; 85014 ×2; 84484; 83880; 71045; 36430; 51702; 99285; U0003; J1940 ×2; J1200; C9113 ×2; J3010 ×2; P9016 ×2; J7050 ×2; 81003; 81015

== ENCOUNTER 2021-08-01 12:20 | Inpatient (IN) | payer OTHER ==
--- OUTSIDE RECORDS SUMMARY | 2021-08-01 12:25 | XMS REPORT | Continuity of Care Document ---
:1940 Author Organization [facility] t Address [address] [place] [address] Care Team Providers Name Role Phone ED Primary Care Physician Unavailable JOHN ARMENTA Attending Clinician Unavailable RODOLFO HACKETT Attending Clinician Unavailable OMER KJaspreetHJaspreet Attending Clinician Unavailable Omer UPTON, K.H. Attending Clinician ED Attending Clinician Unavailable KNOW Attending Clinician Unavailable JOHN ARMENTA Admitting Clinician Unavailable RODOLFO HACKETT Admitting Clinician Unavailable KNOW Admitting Clinician Unavailable Payers Payer Name Policy Type Policy Number Effective Date Expiration Date S jeniffer [facility] MEDICARE [id number] 2019 ADVANTAGE 00:00:00 WELLMED/C DUAL [id number] 2021 COMP HMO D SNP 00:00:00 MEDICAID OF [place] [id number] 2021 00:00:00 MANAGED MEDICARE [id number] 2016 HMO GENERIC 00:00:00 MEDICARE PART A [id number] 2020 \\T\\ B 00:00:00 Problems Condition Condition Condition Status Onset Resolution Last Treating Co mments Source Name Details Category Date Date Treatment Clinician Date Abnormal Abnormal Disease Active 2019-08 Unive rs CXR CXR 1-15 ity of 00:00: [place] 00 Medical Branch Chronic Chronic Disease Active 2019-08 Univers atrial atrial 1-15 it[place] fibr[place] Hypokalemi Hypokalemi Disease Active 2019-08 U nivers a a 1-15 ity of 00:00: [place] 00 Medical Branch Symptomati Symptomati Disease Active 2019-08 U nivers c anemia c anemia 1-15 ity of 00:00: [place] 00 Medical Branch Acute Acute Disease Active 2019-08 Univers blood loss blood loss 1-14 it y of anemia anemia 00:00: [place] 00 [facility] Branch GIB GIB Disease Active 2019-08 Univers (gastroint (gastroint 1-14 it y of estinal estinal 00:00: [place] bleeding) bleeding) [facility] Stroke Stroke Disease Active Univers ity of [facility] [place] [facility] Seizures Seizures Disease Active Unive rs ity of [facility] [place] [facility] Essential Essential Disease Active Uni vers hypertensi hypertensi it y of on on [facility] [place] [facility] Hyperplast Hyperplast Disease Active U nivers ic colonic ic colonic it y of polyp polyp [facility] [place] [facility] Rectal Rectal Disease Active Overview: Univer s polyp polyp Formattin ity of g of this [place] note Medical might be Branch different from the original. 10mm External External Disease Active Unive rs hemorrhoid hemorrhoid it y of s s [facility] [place] [facility] Diverticul Diverticul Disease Active U nivers a of colon a of colon it y of [facility] [place] [facility] Lipoma of Lipoma of Disease Active Overview: Univers colon colon Formattin ity of g of this [place] note Medical might be Branch different from the original. 15mm Allergies, Adverse Reactions, Alerts Allergy Allergy Status Severity Reaction(s) Onset Inactive Treating Comm ents Source Name Type Date Date Clinician CODEINE DRUG Active Unknown-Cmnt 2019-08 Uni vers INGREDI 1-14 ity of 00:00: [address] Codeine Drug Active Unknown - 2019-08 Other Univer s Allergy See comments 1-14 reaction( ity of 00:00: s): [place] [address] confusion [facility] CODEINE Allergy Active 2019-08 SLEH 1-14 00:00: 00 Social History Social Habit Start Date Stop Date Quantity Comments Source History SDOH University o f Alcohol Comment [place] Med ical Branch Exposure to Not sure University of SARS-CoV-2 [facility] (event) Branch History of Cigarette Smoker Universi ty of tobacco use [facility] [place] [facility] Alcohol intake 2021-05-18 2021-05-18 Lifetime University of 00:00:00 00:00:00 non-drinker [facility] (finding) Branch Tobacco use and 2020-09-25 2020-09-25 Never used Universit y of exposure 00:00:00 00:00:00 [place] [facility] History SDOH 2020-09-25 2020-09-25 1 University o f Alcohol Frequency 00:00:00 00:00:00 [place] M edical Branch History SDOH 2020-09-25 2020-09-25 99 University o f Alcohol Std 00:00:00 00:00:00 [place] Medical Drinks Branch History SDOH 2020-09-25 2020-09-25 1 University o f Alcohol Binge 00:00:00 00:00:00 [place] Medic al Branch Sex [birth year] Universit y of 00:00:00 00:00:00 [facility] [place] [facility] Smoking Status Start Date Stop Date Source Current every day smoker 2020-09-25 00:00:00 Uni versity of [facility] [place] [facility] Medications Ordered Filled Start Stop Current Ordering Indication Dosage Frequency Signature Comments Components Source Medication Medication Date Date Medication? Clinician (SIG) Name Name GABAPENTIN 2020-08 Yes [id number] TAKE 1 Univers 300 mg 0-01 CAPSULE BY ity of capsule 00:00: MOUTH 3 [place] 00 TIMES A Medical DAY Branch GABAPENTIN 2020-08 Yes [id number] TAKE 1 Univers 300 mg 0-01 CAPSULE BY ity of capsule 00:00: MOUTH 3 [place] 00 TIMES A Medical DAY Branch GABAPENTIN 2020-08 Yes [id number] TAKE 1 Univers 300 mg 0-01 CAPSULE BY ity of capsule 00:00: MOUTH 3 [place] 00 TIMES A Medical DAY Branch diltiazem Yes 120mg Take 1 Unive rs XR 120 mg 9-29 capsule by ity of 24 hr 00:00: mouth [place] capsule 00 every Medical evening. Branch diltiazem Yes 120mg Take 1 Unive rs XR 120 mg 9-29 capsule by ity of 24 hr 00:00: mouth [place] capsule 00 every Medical evening. Branch diltiazem Yes 120mg Take 1 Unive rs XR 120 mg 9-29 capsule by ity of 24 hr 00:00: mouth [place] capsule 00 every Medical evening. Branch cyclobenzap Yes 10mg Take 10 mg Univers rine 10 mg 9-20 by mouth 3 ity of tablet 15:09: (three) [place] 25 times Medical daily. Branch latanoprost 2021-[address] in U nivers 0.005 % 9-20 each eye. ity of dpem 15:09: [place] [address] Medical Branch HYDROcodone 2020-0 Yes 1{tbl} Take 1 Un sophia -acetaminop 9-20 tablet by ity of hen 5-325 15:09: mouth [place] mg tablet 25 every 6 Medical (six) Branch hours as needed. traMADoL 50 2020-0 Yes 50mg Take 50 mg Univers mg tablet 9-20 by mouth ity of 15:09: every 6 [place] 25 (six) Medical hours as Branch needed. ondansetron 2020-0 Yes 4mg Take 4 mg U nivers (ZOFRAN) 4 9-20 by mouth ity o f mg tablet 15:09: every 8 [place] 25 (eight) Medical hours as Branch needed. cyclobenzap 2020-0 Yes 10mg Take 10 mg Univers rine 10 mg 9-20 by mouth 3 ity of tablet 15:09: (three) [place] 25 times Medical daily. Branch latanoprost 2020-[address] in U nivers 0.005 % 9-20 each eye. ity of dpem 15:09: [place] [address] Medical Branch HYDROcodone 2020-0 Yes 1{tbl} Take 1 Un sophia -acetaminop 9-20 tablet by ity of hen 5-325 15:09: mouth [place] mg tablet 25 every 6 Medical (six) Branch hours as needed. traMADoL 50 2020-0 Yes 50mg Take 50 mg Univers mg tablet 9-20 by mouth ity of 15:09: every 6 [place] 25 (six) Medical hours as Branch needed. ondansetron 2020-0 Yes 4mg Take 4 mg U nivers (ZOFRAN) 4 9-20 by mouth ity o f mg tablet 15:09: every 8 [place] 25 (eight) Medical hours as Branch needed. cyclobenzap 2021-0 Yes 10mg Take 10 mg Univers rine 10 mg 9-20 by mouth 3 ity of tablet 15:09: (three) [place] 25 times Medical daily. Branch latanoprost 2020-[address] in U nivers 0.005 % 9-20 each eye. ity of dpem 15:09: [place] [address] Medical Branch HYDROcodone 2020-0 Yes 1{tbl} Take 1 Un sophia -acetaminop 9-20 tablet by ity of hen 5-325 15:09: mouth [place] mg tablet 25 every 6 Medical (six) Branch hours as needed. traMADoL 50 0 Yes 50mg Take 50 mg Univers mg tablet 9-20 by mouth ity of 15:09: every 6 [place] 25 (six) Medical hours as Branch needed. ondansetron Yes 4mg Take 4 mg U nivers (ZOFRAN) 4 9-20 by mouth ity o f mg tablet 15:09: every 8 [place] 25 (eight) Medical hours as Branch needed. cyclobenzap Yes 10mg Take 10 mg Univers rine 10 mg 9-20 by mouth 3 ity of tablet 15:09: (three) [place] 25 times Medical daily. Branch latanoprost Yes Place in U nivers 0.005 % 9-20 each eye. ity of dpem 15:09: [place] 25 Medical Branch HYDROcodone Yes 1{tbl} Take 1 Un sophia -acetaminop 9-20 tablet by ity of hen 5-325 15:09: mouth [place] mg tablet 25 every 6 Medical (six) Branch hours as needed. traMADoL 50 Yes 50mg Take 50 mg Univers mg tablet 9-20 by mouth ity of 15:09: every 6 [place] 25 (six) Medical hours as Branch needed. ondansetron Yes 4mg Take 4 mg U nivers (ZOFRAN) 4 9-20 by mouth ity o f mg tablet 15:09: every 8 [place] 25 (eight) Medical hours as Branch needed. levETIRAcet 2020-0 Yes [id number] 500mg Take 1 Univers am 500 mg 9-08 tablet by ity o f tablet 00:00: mouth 2 [place] 00 (two) Medical times Branch daily. levETIRAcet 2020-0 Yes [id number] 500mg Take 1 Univers am 500 mg 9-08 tablet by ity o f tablet 00:00: mouth 2 [place] 00 (two) Medical times Branch daily. levETIRAcet 2020-0 Yes [id number] 500mg Take 1 Univers am 500 mg 9-08 tablet by ity o f tablet 00:00: mouth 2 [place] 00 (two) Medical times Branch daily. levETIRAcet 2020-0 Yes [id number] 500mg Take 1 Univers am 500 mg 9-08 tablet by ity o f tablet 00:00: mouth 2 [place] 00 (two) Medical times Branch daily. torsemide 0 Yes [id number] 20mg Take 2 Un sophia 10 mg 7-12 tablets by ity of tablet 00:00: mouth [place] 00 daily. Medical Branch torsemide 0 Yes [id number] 20mg Take 2 Un sophia 10 mg 7-12 tablets by ity of tablet 00:00: mouth [place] 00 daily. Medical Branch torsemide 0 Yes [id number] 20mg Take 2 Un sophia 10 mg 7-12 tablets by ity of tablet 00:00: mouth [place] 00 daily. Medical Branch torsemide 0 Yes [id number] 20mg Take 2 Un sophia 10 mg 7-12 tablets by ity of tablet 00:00: mouth [place] 00 daily. Medical Branch gabapentin 0 2021- No [id number] 300mg Take 1 Univers 300 mg 4-12 10-01 capsule by ity of capsule 00:00: 00:00 mouth 3 [place] 00 :00 (three) Medical times Branch daily. albuterol Yes [id number] 2{puff} Inhale 2 Univers (VENTOLIN 3-01 Puffs ity of HFA) 90 00:00: every 6 [place] mcg/actuati 00 (six) Medical on inhaler hours as Branc h needed for Wheezing or Shortness of Breath. albuterol Yes [id number] 2{puff} Inhale 2 Univers (VENTOLIN 3-01 Puffs ity of HFA) 90 00:00: every 6 [place] mcg/actuati 00 (six) Medical on inhaler hours as Branc h needed for Wheezing or Shortness of Breath. albuterol Yes [id number] 2{puff} Inhale 2 Univers (VENTOLIN 3-01 Puffs ity of HFA) 90 00:00: every 6 [place] mcg/actuati 00 (six) Medical on inhaler hours as Branc h needed for Wheezing or Shortness of Breath. albuterol Yes [id number] 2{puff} Inhale 2 Univers (VENTOLIN 3-01 Puffs ity of HFA) 90 00:00: every 6 [place] mcg/actuati 00 (six) Medical on inhaler hours as Branc h needed for Wheezing or Shortness of Breath. atorvastati Yes [id number] 40mg Take 1 Univers n 40 mg 2-11 tablet by ity of tablet 00:00: mouth at [place] 00 bedtime. Medical Branch apixaban Yes 5mg Take 1 Univers (ELIQUIS) 5 2-11 tablet by ity of mg tablet 00:00: mouth 2 00 (two) Medical times Branch daily. Indication s: Chronic AF diltiazem Yes [id number] 240mg Take 1 U nivers 240 mg 24 2-11 capsule by ity of hr capsule 00:00: mouth [place] 00 daily. Medical Branch pantoprazol Yes [id number] 20mg Take 1 Univers e 20 mg EC 2-11 tablet by ity of tablet 00:00: mouth [place] 00 daily. Medical Branch metFORMIN Yes [id number] 500mg Take 1 U nivers 500 mg 2-11 tablet by ity of tablet 00:00: mouth 2 (two) Medical times Branch daily with meals. levothyroxi Yes [id number] 75ug Take 1 Univers ne 75 mcg 2-11 tablet by ity o f tablet 00:00: mouth [place] 00 every Medical morning. Branch atorvastati Yes [id number] 40mg Take 1 Univers n 40 mg 2-11 tablet by ity of tablet 00:00: mouth at [place] 00 bedtime. Medical Branch apixaban Yes 5mg Take 1 Univers (ELIQUIS) 5 2-11 tablet by ity of mg tablet 00:00: mouth 2 00 (two) Medical times Branch daily. Indication s: Chronic AF diltiazem Yes [id number] 240mg Take 1 U nivers 240 mg 24 2-11 capsule by ity of hr capsule 00:00: mouth [place] 00 daily. Medical Branch pantoprazol Yes [id number] 20mg Take 1 Univers e 20 mg EC 2-11 tablet by ity of tablet 00:00: mouth [place] 00 daily. Medical Branch metFORMIN Yes [id number] 500mg Take 1 U nivers 500 mg 2-11 tablet by ity of tablet 00:00: mouth 2 00 (two) Medical times Branch daily with meals. levothyroxi Yes [id number] 75ug Take 1 Univers ne 75 mcg 2-11 tablet by ity o f tablet 00:00: mouth [place] 00 every Medical morning. Branch atorvastati Yes [id number] 40mg Take 1 Univers n 40 mg 2-11 tablet by ity of tablet 00:00: mouth at [place] 00 bedtime. Medical Branch apixaban Yes 5mg Take 1 Univers (ELIQUIS) 5 2-11 tablet by ity of mg tablet 00:00: mouth 2 [place] 00 (two) Medical times Branch daily. Indication s: Chronic AF diltiazem Yes [id number] 240mg Take 1 U nivers 240 mg 24 2-11 capsule by ity of hr capsule 00:00: mouth [place] 00 daily. Medical Branch pantoprazol Yes [id number] 20mg Take 1 Univers e 20 mg EC 2-11 tablet by ity of tablet 00:00: mouth [place] 00 daily. Medical Branch metFORMIN Yes [id number] 500mg Take 1 U nivers 500 mg 2-11 tablet by ity of tablet 00:00: mouth 2 00 (two) Medical times Branch daily with meals. levothyroxi Yes [id number] 75ug Take 1 Univers ne 75 mcg 2-11 tablet by ity o f tablet 00:00: mouth [place] 00 every Medical morning. Branch atorvastati Yes [id number] 40mg Take 1 Univers n 40 mg 2-11 tablet by ity of tablet 00:00: mouth at [place] 00 bedtime. Medical Branch apixaban Yes 5mg Take 1 Univers (ELIQUIS) 5 2-11 tablet by ity of mg tablet 00:00: mouth 2 00 (two) Medical times Branch daily. Indication s: Chronic AF diltiazem Yes [id number] 240mg Take 1 U nivers 240 mg 24 2-11 capsule by ity of hr capsule 00:00: mouth [place] 00 daily. Medical Branch pantoprazol Yes [id number] 20mg Take 1 Univers e 20 mg EC 2-11 tablet by ity of tablet 00:00: mouth [place] 00 daily. Medical Branch metFORMIN Yes [id number] 500mg Take 1 U nivers 500 mg 2-11 tablet by ity of tablet 00:00: mouth 2 00 (two) Medical times Branch daily with meals. levothyroxi Yes [id number] 75ug Take 1 Univers ne 75 mcg 2-11 tablet by ity o f tablet 00:00: mouth 00 every Medical morning. Branch thiamine 2019-08- No 100mg Take 100 Uni vers 100 mg 1-19 11-20 mg by ity of tablet 00:00: 05:59 mouth. [place] 00 :00 Medical [place] thiamine 2019-08- No 100mg Take 100 Uni vers 100 mg 1-19 11-20 mg by ity of tablet 00:00: 05:59 mouth. [place] 00 :00 Medical [place] thiamine 2019-08- No 100mg Take 100 Uni vers 100 mg 1-19 11-20 mg by ity of tablet 00:00: 05:59 mouth. [place] 00 :00 Medical [place] thiamine 2019-08- No 100mg Take 100 Uni vers 100 mg 1-19 11-20 mg by ity of tablet 00:00: 05:59 mouth. [place] 00 :00 Medical Branch ipratropium 2019-08 No 3mL Inhale 3 U nivers -albuteroL 1-18 11-14 mL. ity of 0.5 mg-3 00:00: 05:59 [place] mg(2.5 mg 00 :00 Medical base)/3 mL Branch nebulizer solution ipratropium 2019-08 3mL Inhale 3 U nivers -albuteroL 1-18 11-14 mL. ity of 0.5 mg-3 00:00: 05:59 [place] mg(2.5 mg 00 :00 Medical base)/3 mL Branch nebulizer solution ipratropium 2019-08 No 3mL Inhale 3 U nivers -albuteroL 1-18 11-14 mL. ity of 0.5 mg-3 00:00: 05:59 [place] mg(2.5 mg 00 :00 Medical base)/3 mL Branch nebulizer solution ipratropium 2019-08 3mL Inhale 3 U nivers -albuteroL 1-18 11-14 mL. ity of 0.5 mg-3 00:00: 05:59 [place] mg(2.5 mg 00 :00 Medical base)/3 mL Branch nebulizer solution Immunizations Ordered Filled Immunization Date Status Comments Sourc e Immunization Name Name Influenza High Dose 2020-06-29 Completed Unive rsity of 00:00:00 [facility] [place] [facility] Influenza High Dose 2020-06-29 Completed Unive rsity of 00:00:00 [facility] [place] [facility] Influenza High Dose 2020-06-29 Completed Unive rsity of 00:00:00 [facility] [place] [facility] Influenza High Dose 2020-06-29 Completed Unive rsity of 00:00:00 [facility] [place] [facility] Vital Signs Vital Name Observation Time Observation Value Comments Source WEIGHT 2020-07-12 05:33:00 68.992 kg HEIGHT 2020-07-12 05:33:00 152.4 cm Systolic blood 2021-05-18 20:20:00 113 mm[Hg] Univer sity of pressure [facility] [place] [facility] Diastolic blood 2021-05-18 20:20:00 63 mm[Hg] Unive rsity of [facility] Heart rate 2021-05-18 20:20:00 97 /min [facility] Respiratory rate 2021-05-18 20:20:00 22 /min [facility] Body height 2021-05-18 20:20:00 152.4 cm [facility] Body weight 2021-05-18 20:20:00 77.52 kg [facility] BMI 2021-05-18 20:20:00 33.38 kg/m2 [facility] Oxygen saturation in 2021-05-18 20:20:00 90 /min [facility] Arterial blood by [facility] Pulse oximetry Branch WEIGHT 2020-07-12 05:33:00 68.992 kg HEIGHT 2020-07-12 05:33:00 152.4 cm Procedures Procedure Date / Time Performed Performing Clinician Kasey hutchinson HB ECG ROUTINE & 2021-05-18 20:22:59 Celina Tello [facility] RHYTHM [facility] Encounters Start End Encounter Admission Attending Care Care Encounter Source Date/Time Date/Time Type Type Clinicians Facility Department ID 2021-06-04 Inpatient ARMENTA, [facility] Surgery [id number] SLE 11:31:23 SUNEAL 2020-07-12 Inpatient ER SHIEKH [facility] Gastro [id number] SLE 05:04:00 MP RASCON 2021-10-01 2021-10-01 Outpatient R OMER [facility] [id number] Univers 11:00:00 11:00:00 SENDIL ity [facility] 2021-08-13 2021-08-13 Outpatient R OMER [facility] [id number] Univers 14:00:00 14:00:00 SENDIL [id number] ity [facility] 2021-07-28 2021-07-28 Outpatient OMER [facility] [id number] Univers 00:00:00 [facility]00[facility] 2021-07-15 Outpatient R OMER [facility] [id number] Univers 11:30:00 11:30:00 [facility] [id number] [facility]-07-03 2021-07-03 [facility] [id number] Univers 00:00:00 00:00:00 Sendil Basilio [id number] [id number] [place] PROFESSIO [id number] Or dical NAL 059 [facility] 2021-07-02 2021-07-02 [id number] Univers 15:00:00 15:00:00 [facility] [id number] 2021-06-26 2021-06-26 Outpatient R ED [facility] [id number] Univers 15:00:00 15:00:00 ZENA [id number] ity [facility] 2021-06-25 2021-06-25 Outpatient R ED [facility] [id number] Univers 15:00:00 15:00:00 [facility] [id number] 2021-06-[facility] 2021-06-25 [facility] [id number] Univers 15:00:00 [facility]:00:[facility] 2021-06-23 2021-06-23 [facility] [id number] Univers 00:00:00 00:00:00 Sendbibiana Sepulveda [id number] ity [facility] [id number] [place] [id number] [address] 2021-06-22 2021-06-22 Telephone EKTA Tello [id number] Univers 00:00:00 00:00:00 Sendil Basilio ALTAMIRANO [id number] ity [facility] [id number] [place] [phone] [address] 2021-06-15 2021-06-15 Outpatient R OMER [facility] [id number] Univers 14:00:00 14:00:00 [facility] [id number] [facility] 2021-06-15 2021-06-15 [facility] [id number] Univers 14:00:00 14:00:00 SENDIL [facility] 2021-06-08 2021-06-08 Outpatient R ED [facility] [id number] Univers 10:45:00 10:45:00 ZENA [id number] [facility] 2021-06-08 2021-06-08 Outpatient R DE [facility] [id number] Univers 10:45:00 10:45:00 ZENA [facility] 2021-06-05 2021-06-05 Outpatient R ED [facility] [id number] Univers 14:30:00 14:30:00 ZENA [id number] [facility] 2021-06-05 2021-06-05 [facility] [id number] Univers 14:30:00 14:30:00 ZENA [facility] 2021-05-18 2021-05-18 Office [facility] [id number] Univers 15:04:37 16:12:47 Visit Sendbibiana Sepulveda [id number] ity [facility] [id number] [place] [phone] Or dical nal 059 Branch [facility] 2021-05-18 2021-05-18 Outpatient R OMER [facility] [id number] Univers 15:00:00 15:00:00 SENDIL [id number] [facility] 2021-05-18 2021-05-18 Outpatient R OMER [facility] [id number] Univers 15:00:00 15:00:00 SENDIL [facility] 2021-04-20 2021-04-20 Outpatient R TELLO [facility] [id number] Univers 15:30:00 15:30:00 SENDIL [id number] [facility] 2021-04-20 2021-04-20 Outpatient R OMER [facility] [id number] Univers 15:30:00 15:30:00 SENDIL [facility] 2021-03-09 2021-03-09 Outpatient R ED [facility] [id number] Univers 14:30:00 14:30:00 ZENA [id number] [facility] 2021-03-09 2021-03-09 Outpatient R ED [facility] [id number] Univers 14:30:00 14:30:00 ZENA [facility] 2021-03-04 2021-03-04 Outpatient R ED [facility] [id number] Univers 14:30:00 14:30:00 ZENA [id number] [facility] 2021-03-04 2021-03-04 Outpatient R ED [facility] [id number] Univers 14:30:00 14:30:00 ZENA [facility] 2021-02-26 2021-02-26 Outpatient R ED [facility] [id number] Univers 15:00:00 15:00:00 ZENA [id number] [facility] 2021-02-26 2021-02-26 Outpatient R ED [facility] [id number] Univers 15:00:00 15:00:00 ZENA [facility] 2021-01-28 2021-01-28 Outpatient R ED [facility] [id number] Univers 14:30:00 14:30:00 ZENA [id number] [facility] 2021-01-28 2021-01-28 Outpatient R ED [facility] [id number] Univers 14:30:00 14:30:00 ZENA [facility] 2021-01-19 2021-01-19 Outpatient R ED, [facility] [id number] Univers 15:00:00 15:00:00 [facility] [id number] 2021-01-[facility] 2021-01-19 Outpatient R ED, [facility] [id number] Univers 15:00:00 15:00:00 ZENA [facility] 2021-01-12 2021-01-12 Outpatient R ED, [facility] [id number] Univers 14:00:00 14:00:00 ZENA [id number] [facility] 2021-01-12 2021-01-12 Outpatient R ED [facility] [id number] Univers 14:00:00 14:00:00 ZENA [facility] 2021-01-07 2021-01-07 Outpatient R ED [facility] [id number] Univers 14:00:00 14:00:00 ZENA [id number] [facility] 2021-01-07 2021-01-07 Outpatient R ED [facility] [id number] Univers 14:00:00 14:00:00 ZENA [facility] 2020-12-29 2020-12-29 Outpatient R ED [facility] [id number] Univers 13:00:00 13:00:00 ZENA [id number] [facility] 2020-12-29 2020-12-29 Outpatient R ED [facility] [id number] Univers 13:00:00 13:00:00 ZENA [facility] 2020-09-29 2020-09-29 Outpatient R [facility] [id number] Univers 15:15:00 15:15:00 [id number] [facility] 2020-09-29 2020-09-29 Outpatient R ED [facility] [id number] Univers 13:00:00 13:00:00 ZENA [facility] 2019-12-22 2019-12-22 Outpatient BISHOP VIVEROS [id number] [place] 01:02:00 01:02:00 DOES_NOT [id number] [facility] Results Test Description Test Time Test Comments Results Result Comments Source TISSUE EXAM 2020-07-17 Surgical Pathology 16:39:00 Report Case: [id number] Authorizing Provider: Ricki Hickey MD Collected: 07/14/2020 04:30 PM Ordering Location: [address] Received: 07/15/2020 08:08 AM Service Pathologist: Gayatri Dunn MD Specimens: A) - Nodule, Sub mucosal nodule @ 40cc B) - Polyp, Colon - Sigmoid, Polyp/ Hot Snare C) - Polyp, Colon - Rectum, Polyp X 2/Hot Snare A. COLON, SUBMUCOSAL NODULE, EXCISION: - COLONIC MUCOSA WITH NO SIGNIFICANT DIAGNOSTIC ALTERATION. - NEGATIVE FOR DYSPLASIA OR MALIGNANCY.B. COLON, SIGMOID POLYP, POLYPECTOMY: - TUBULAR ADENOMA. - RESECTION MARGIN, NEGATIVE FOR DYSPLASIA.C. RECTUM, POLYPS x 2, POLYPECTOMY: - TWO HYPERPLASTIC POLYPS. Signing Pathologist Direct Phone Line: [phone] rodrigo signed by Gayatri Dunn MD on 07/17/2020 at 4:39 PMPart A. Deeper sections are examined.[id number] x 3Preop diagnosis: iron deficiency anemia due to chronic blood loss. A. Nodule; B. Sigmoid colon polyp; C. Rectum colon polypA. Received in formalin labeled with the patient's name, accession number and "submucosal nodule at 40 cc" is a 0.2 x 0.1 x 0.1 cm cote-pink tissue fragment which is filtered and submitted in toto in A1. B. Received in formalin labeled with the patient's name, accession number and "sigmoid colon polyp" is a 0.7 x 0.4 x 0.3 cm cote-pink polyp which is inked blue, bisected and entirely submitted in B1. C. Received in formalin labeled with the patient's name, accession number and "rectum colon polyp" are two cote-pink polyps ranging from 0.5 to 0.6 cm in greatest dimension. The specimen are differentially inked blue and black, bisected and entirely submitted in C1. PA/khoa Olivo. Performed.[facility], Department of Pathology, [address] [place] [id number], [facility], [address] [place] [id number], [facility], [facility] of [facility], [address] [place] [id number], BASIC METABOLIC PANEL 2020-07-16 05:52:00 Test Item Value Reference Range Interpretation Comme nts SODIUM (BEAKER) (test code 140 meq/L 136-145 = 381) POTASSIUM (BEAKER) (test 3.8 meq/L 3.5-5.1 code = 379) CHLORIDE (BEAKER) (test 103 meq/L 98-107 code = 382) CO2 (BEAKER) (test code = 29 meq/L 22-29 355) BLOOD UREA NITROGEN 17 mg/dL 7-21 (BEAKER) (test code = 354) CREATININE (BEAKER) (test 1.27 mg/dL 0.57-1.25 H code = 358) GLUCOSE RANDOM (BEAKER) 95 mg/dL 70-105 (test code = 652) CALCIUM (BEAKER) (test code 9.1 mg/dL 8.4-10.2 = 697) EGFR (BEAKER) (test code = 41 mL/min/1.73 sq m ESTIMATED GFR IS NOT 1092) ACCURATE CRE ATININE CLEARANCE IN CO EDICTING GLOMERULAR FILT RATION RATE. ESTIMATED GFR IS NOT APPLICABLE FOR DIALYSIS PATIENTS. Missile Inspector ID - FARIDA MBASIC METABOLIC [id number] 05:39:00 Test Item Value Reference Range Interpretation Comments SODIUM (BEAKER) 144 meq/L 136-145 (test code = 381) POTASSIUM (BEAKER) 3.3 meq/L 3.5-5.1 L (test code = 379) CHLORIDE (BEAKER) 105 meq/L 98-107 (test code = 382) CO2 (BEAKER) (test 30 meq/L 22-29 H code = 355) BLOOD UREA NITROGEN 11 mg/dL 7-21 (BEAKER) (test code = 354) CREATININE (BEAKER) 1.01 mg/dL 0.57-1.25 (test code = 358) GLUCOSE RANDOM 82 mg/dL 70-105 (BEAKER) (test code = 652) CALCIUM (BEAKER) 9.2 mg/dL 8.4-10.2 (test code = 697) EGFR (BEAKER) (test 53 mL/min/1.73 ESTIMA AMARILYS GFR IS code = 1092) sq m NOT ACCURATE CREATININE CLEARANCE IN PREDICTING GLOMERULAR FILTRATION RATE . ESTIMATED GFR I S NOT APPLICABLE FOR DIALYSIS PATIEN TS. Missile Inspector ID - EDASIHEMOGLOBIN AND [id number] 05:27:00 Test Item Value Reference Range Interpretation Comments HEMOGLOBIN (BEAKER) (test code = 8.4 GM/DL 11.2-15.7 L 410) HEMATOCRIT (BEAKER) (test code = 28.1 % 34.1-44.9 L 411) Missile Inspector ID - [id number] AND [id number] 22:58:00 Test Item Value Reference Range Interpretation Comments HEMOGLOBIN (BEAKER) (test code = 8.5 GM/DL 11.2-15.7 L 410) HEMATOCRIT (BEAKER) (test code = 28.6 % 34.1-44.9 L 411) Missile Inspector ID - [id number] METABOLIC [id number] 13:22:00 Test Item Value Reference Range Interpretation Comments SODIUM (BEAKER) 143 meq/L 136-145 (test code = 381) POTASSIUM (BEAKER) 3.6 meq/L 3.5-5.1 (test code = 379) CHLORIDE (BEAKER) 101 meq/L 98-107 (test code = 382) CO2 (BEAKER) (test 34 meq/L 22-29 H code = 355) BLOOD UREA NITROGEN 12 mg/dL 7-21 (BEAKER) (test code = 354) CREATININE (BEAKER) 1.02 mg/dL 0.57-1.25 (test code = 358) GLUCOSE RANDOM 97 mg/dL 70-105 (BEAKER) (test code = 652) CALCIUM (BEAKER) 9.3 mg/dL 8.4-10.2 (test code = 697) EGFR (BEAKER) (test 52 mL/min/1.73 ESTIMA AMARILYS GFR IS code = 1092) sq m NOT ACCURATE CREATININE CLEARANCE IN PREDICTING GLOMERULAR FILTRATION RATE . ESTIMATED GFR I S NOT APPLICABLE FOR DIALYSIS PATIEN TS. Missile Inspector ID - EDASIHEMOGLOBIN AND [id number] 13:07:00 Test Item Value Reference Range Interpretation Comments HEMOGLOBIN (BEAKER) (test code = 9.0 GM/DL 11.2-15.7 L 410) HEMATOCRIT (BEAKER) (test code = 29.7 % 34.1-44.9 L 411) Missile Inspector ID - [id number] AND [id number] 06:37:00 Test Item Value Reference Range Interpretation Comments HEMOGLOBIN (BEAKER) (test code = 11.2 GM/DL 11.2-15.7 410) HEMATOCRIT (BEAKER) (test code = 38.2 % 34.1-44.9 411) Missile Inspector ID - [id number] AND [id number] 01:33:00 Test Item Value Reference Range Interpretation Comments HEMOGLOBIN (BEAKER) (test code = 8.9 GM/DL 11.2-15.7 L 410) HEMATOCRIT (BEAKER) (test code = 29.6 % 34.1-44.9 L 411) Missile Inspector ID - [id number] AND [id number] 18:30:00 Test Item Value Reference Range Interpretation Comments HEMOGLOBIN (BEAKER) (test code = 9.4 GM/DL 11.2-15.7 L 410) HEMATOCRIT (BEAKER) (test code = 31.2 % 34.1-44.9 L 411) Missile Inspector ID - [id number] 11:50:00 Test Item Value Reference Range Interpretation Comments FERRITIN (BEAKER) (test code = 22.38 ng/mL 5.00-275.00 361) Missile Inspector ID - EDASICT, CHEST, WITHOUT [id number] 10:54:00Unlisted Reason for Exam - Click Yes and Enter Reason Below->YesUnlisted Reason for Exam->right apex opacity seen on CXR, hx of COPD [facility] 1940 Sex: FFINAL REPORT CT of the Chest dated 07/13/2020 CLINICAL INFORMATION: Unlisted Reason for Examright apex opacity seen on CXR, hx of COPD Comment: Axial images of the chest were obtained from thoracic inlet to the upper abdomen without intravenous contrast. This exam was performed according to our departmental dose-optimization program, which includes automated exposure contro l, adjustment of the mA and/or kV according to patient size and/or use of interactive reconstructiontechnique. Heart is in the upper limits of normal in size. Vascular calcification is seen in the thoracic aorta and coronary arteries. Great vessels are unremarkable. No adenopathy in the mediastinum or perihilar region. Trachea and mainstem bronchi are patent. There is small right pleural effusion. Subsegmental atelectasis is seen in the lingula, right upper, right mid and both lower lobes. A 6 mm nodule is seen in the right upper lobe. A 1.1 x 1.7 x 1.7 cm partially cavitated nodule is seen in the right upper lobe. There is mild to moderate pulmonary emphysema. No mass lesion or airspace diseaseis seen. Visualized upper abdomen demonstrates no focal lesion. Impression: 1. Right pleural effusion with subsegmental atelectasis in the lingula, right upper, right mid, and both lower lobes.2. Rightupper lobe nodules. Recommend follow-up with repeat CT examination of the chest in 3 months.3. Pulmonary emphysema. Signed: Danna Ortega Verified Date/Time: 07/13/2020 10:54:39 Reading Location: [facility] B1 C013Y CT Body Reading Room HEMOGLOBIN AND [id number] 10:39:00 Test Item Value Reference Range Interpretation Comments HEMOGLOBIN (BEAKER) (test code = 8.7 GM/DL 11.2-15.7 L 410) HEMATOCRIT (BEAKER) (test code = 28.5 % 34.1-44.9 L 411) Missile Inspector ID - [id number] [id number] 10:05:00 Test Item Value Reference Range Interpretation Comments HEMOGLOBIN A1C (BEAKER) (test code = 6.0 % 4.3-6.1 368) [id number] 07:27:00 Test Item Value Reference Range Interpretation Comments HAPTOGLOBIN (BEAKER) (test code = 177 mg/dL 14-258 366) Missile Inspector ID - EDASITSH/FREE T4 IF [id number] 06:24:00 Test Item Value Reference Range Interpretation Comments THYROID STIMULATING HORMONE 0.891 uIU/mL 0.350-4.940 (BEAKER) (test code = 772) Missile Inspector ID - EDASIVITAMIN B12 AND [id number] 06:24:00 Test Item Value Reference Range Interpretation Comments VITAMIN B12 (BEAKER) (test code = 390 pg/mL 213-816 774) FOLATE (BEAKER) (test code = 362) 14.30 ng/mL >=7.00 Missile Inspector ID - EDASIIRON, TIBC, % SAT. (WITHOUT FERRITIN)2020-07-13 06:11:00 Test Item Value Reference Range Interpretation Comments IRON (BEAKER) (test code = 547) 20.0 ug/dL 40.0-160.0 L TOTAL IRON BINDING CAPACITY 345 ug/dL 250-450 (BEAKER) (test code = 769) IRON % SATURATION (2) (BEAKER) 6 % 20-55 L (test code = 2590) Missile Inspector ID - EDASIBASIC METABOLIC [id number] 05:51:00 Test Item Value Reference Range Interpretation Comments SODIUM (BEAKER) 144 meq/L 136-145 (test code = 381) POTASSIUM (BEAKER) 3.0 meq/L 3.5-5.1 L (test code = 379) CHLORIDE (BEAKER) 101 meq/L 98-107 (test code = 382) CO2 (BEAKER) (test 36 meq/L 22-29 H code = 355) BLOOD UREA NITROGEN 14 mg/dL 7-21 (BEAKER) (test code = 354) CREATININE (BEAKER) 0.93 mg/dL 0.57-1.25 (test code = 358) GLUCOSE RANDOM 91 mg/dL 70-105 (BEAKER) (test code = 652) CALCIUM (BEAKER) 9.3 mg/dL 8.4-10.2 (test code = 697) EGFR (BEAKER) (test 58 mL/min/1.73 ESTIMA AMARILYS GFR IS code = 1092) sq m NOT ACCURATE CREATININE CLEARANCE IN PREDICTING GLOMERULAR FILTRATION RATE . ESTIMATED GFR I S NOT APPLICABLE FOR DIALYSIS PATIEN TS. Missile Inspector ID - [id number] 05:51:00 Test Item Value Reference Range Interpretation Comments MAGNESIUM (BEAKER) (test code = 1.6 mg/dL 1.6-2.6 627) Missile Inspector ID - [id number] 05:51:00 Test Item Value Reference Range Interpretation Comments PHOSPHORUS (BEAKER) (test code = 2.9 mg/dL 2.3-4.7 604) Missile Inspector ID - EDASILACTATE DEHYDROGENASE (LDH)2020-07-13 05:51:00 Test Item Value Reference Range Interpretation Comments LACTATE DEHYDROGENASE (BEAKER) (test 232 U/L 125-220 H code = 635) Missile Inspector ID - EDASIRETICULOCYTE [id number] 05:06:00 Test Item Value Reference Range Interpretation Comments RETICULOCYTE COUNT PCT (BEAKER) (test 2.3 % 0.5-1.7 H code = 575) Missile Inspector ID - [id number] W/PLT COUNT & AUTO [id number] 05:06:00 Test Item Value Reference Range Interpretation Comments WHITE BLOOD CELL COUNT (BEAKER) 6.6 K/ L 3.5-10.5 (test code = 775) RED BLOOD CELL COUNT (BEAKER) 3.30 M/ L 3.93-5.22 L (test code = 761) HEMOGLOBIN (BEAKER) (test code = 8.5 GM/DL 11.2-15.7 L 410) HEMATOCRIT (BEAKER) (test code = 27.4 % 34.1-44.9 L 411) MEAN CORPUSCULAR VOLUME (BEAKER) 83.0 fL 79.4-94.8 (test code = 753) MEAN CORPUSCULAR HEMOGLOBIN 25.8 pg 25.6-32.2 (BEAKER) (test code = 751) MEAN CORPUSCULAR HEMOGLOBIN CONC 31.0 GM/DL 32.2-35.5 L (BEAKER) (test code = 752) RED CELL DISTRIBUTION WIDTH 15.6 % 11.7-14.4 H (BEAKER) (test code = 412) PLATELET COUNT (BEAKER) (test 207 K/CU MM 150-450 code = 756) MEAN PLATELET VOLUME (BEAKER) 12.5 fL 9.4-12.3 H (test code = 754) NUCLEATED RED BLOOD CELLS 0 /100 WBC 0-0 (BEAKER) (test code = 413) NEUTROPHILS RELATIVE PERCENT 61 % (BEAKER) (test code = 429) LYMPHOCYTES RELATIVE PERCENT 23 % (BEAKER) (test code = 430) MONOCYTES RELATIVE PERCENT 12 % (BEAKER) (test code = 431) EOSINOPHILS RELATIVE PERCENT 4 % (BEAKER) (test code = 432) BASOPHILS RELATIVE PERCENT 1 % (BEAKER) (test code = 437) NEUTROPHILS ABSOLUTE COUNT 4.01 K/ L 1.56-6.13 (BEAKER) (test code = 670) LYMPHOCYTES ABSOLUTE COUNT 1.52 K/ L 1.18-3.74 (BEAKER) (test code = 414) MONOCYTES ABSOLUTE COUNT (BEAKER) 0.76 K/ L 0.24-0.36 H (test code = 415) EOSINOPHILS ABSOLUTE COUNT 0.23 K/ L 0.04-0.36 (BEAKER) (test code = 416) BASOPHILS ABSOLUTE COUNT (BEAKER) 0.05 K/ L 0.01-0.08 (test code = 417) IMMATURE GRANULOCYTES-RELATIVE 0 % 0-1 PERCENT (BEAKER) (test code = 2801) HEMOGLOBIN AND [id number] 05:06:00 Test Item Value Reference Range Interpretation Comments HEMOGLOBIN (BEAKER) (test code = 8.5 GM/DL 11.2-15.7 L 410) HEMATOCRIT (BEAKER) (test code = 27.4 % 34.1-44.9 L 411) HEMOGLOBIN AND [id number] 19:14:00 Test Item Value Reference Range Interpretation Comments HEMOGLOBIN (BEAKER) (test code = 7.9 GM/DL 11.2-15.7 L 410) HEMATOCRIT (BEAKER) (test code = 25.7 % 34.1-44.9 L 411) Missile Inspector ID - [id number]-COV2/RT-PCR ([facility])2020-07-12 17:19:00 Test Item Value Reference Range Interpretation Comments SARS-COV2/RT-PCR (test Negative Not Detected, Negative, code = 3125065) See external report for linked test SARS-COV-2 PERFORMING LAB [facility] (test code = 2906175) Negative result for this test determines that SARS-CoV-2 RNA was not present in the specimen above the Limit of Detection (LOD). However, Negative results do not preclude SARS-CoV-2 infection and should not be used as the sole basis for treatment or patient management decisions. Negative results mustbe combined with clinical observations, patient history, and epidemiological information. A false negative result may occur if a specimen is improperly collected, transported or handled. A false negative result should be considered if patient's recent exposures or clinical presentation indicate that COVID-19 (SARS-CoV-2) is likely and diagnostic tests for other causes of illness are negative. Re-testing should be considered in cases of suspected false negatives.The limit of detection for this assay is 800 copies/mL.This SARS CoV-2 test is a real-time RT-PCR test intended for the qualitative detection of nucleic acid from SARS-CoV-2 in a nasopharyngeal swab specimen collected from individuals suspected of COVID-19 by their healthcare provider.This test has not been Food and Drug Administration (FDA) cleared or approved. This is a modified version of an approved Emergency Use Authorization (EUA) and is in the process of review by the FDA. Once authorized by the FDA, the issued EUA will be effective until the declaration that circumstances exist justifying the authorization of the emergency use of in vitro diagnostic tests for detection and/or diagnosis of COVID-19 is terminated under Section 564(b)(2) of the Act or the EUA is revoked under Section 564(g) of the Act.Fact Sheet for Healthcare Providers:https://www.[employer]/sites/default/files/product/documents/Fact_Shee d_OD_Kicelfkan_Hqbl_SSEY-MgA-5.pdfFact Sheet for Healthcare Patients:https://www.[employer]/sites/default/files/product/ documents/Qlls_Rghee_Szwzzdex_Tfqx_DWGI-AsS-8.pdfPerforming Laboratory:[facility], [place] [id number] 10:57:00 Test Item Value Reference Range Interpretation Comments MAGNESIUM (BEAKER) 1.7 mg/dL 1.6-2.6 Specimen slightly (test code = 627) hemolyzed Missile Inspector ID - FARIDA [id number] 10:57:00 Test Item Value Reference Range Interpretation Comments PHOSPHORUS (BEAKER) 3.1 mg/dL 2.3-4.7 Specimen slightly (test code = 604) hemolyzed Missile Inspector ID - FARIDA MBASIC METABOLIC [id number] 10:57:00 Test Item Value Reference Range Interpretation Comments SODIUM (BEAKER) 141 meq/L 136-145 (test code = 381) POTASSIUM (BEAKER) 3.9 meq/L 3.5-5.1 Specimen slightly (test code = 379) hemolyzed CHLORIDE (BEAKER) 100 meq/L 98-107 (test code = 382) CO2 (BEAKER) (test 32 meq/L 22-29 H code = 355) BLOOD UREA NITROGEN 16 mg/dL 7-21 (BEAKER) (test code = 354) CREATININE (BEAKER) 1.01 mg/dL 0.57-1.25 Specimen slightly (test code = 358) hemolyzed GLUCOSE RANDOM 143 mg/dL 70-105 H (BEAKER) (test code = 652) CALCIUM (BEAKER) 9.5 mg/dL 8.4-10.2 (test code = 697) EGFR (BEAKER) (test 53 mL/min/1.73 ESTIMA AMARILYS GFR IS code = 1092) sq m NOT ACCURATE CREATININE CLEARANCE IN PREDICTING GLOMERULAR FILTRATION RATE . ESTIMATED GFR I S NOT APPLICABLE FOR DIALYSIS PATIEN TS. Missile Inspector ID - FARIDA MHEPATIC FUNCTION [id number] 10:57:00 Test Item Value Reference Range Interpretation Comments TOTAL PROTEIN (BEAKER) 6.6 gm/dL 6.0-8.3 Speci men slightly (test code = 770) hemolyzed ALBUMIN (BEAKER) (test 3.6 g/dL 3.5-5.0 Speci men slightly code = 1145) hemolyzed BILIRUBIN TOTAL 0.7 mg/dL 0.2-1.2 Specimen sli ghtly (BEAKER) (test code = hemoly zed 377) BILIRUBIN DIRECT 0.3 mg/dL 0.1-0.5 Specimen sl ightly (BEAKER) (test code = hemoly zed 706) ALKALINE PHOSPHATASE 104 U/L 40-150 (BEAKER) (test code = 346) AST (SGOT) (BEAKER) 20 U/L 5-34 Specimen slightly (test code = 353) hemolyzed ALT (SGPT) (BEAKER) 11 U/L 6-55 Specimen slightly (test code = 347) hemolyzed Missile Inspector ID - FARIDA MB-TYPE NATRIURETIC FACTOR (BNP)2020-07-12 10:56:00 Test Item Value Reference Range Interpretation Comments B-TYPE NATRIURETIC PEPTIDE (BEAKER) 188 pg/mL 0-100 H (test code = 700) Missile Inspector ID - FARIDA [id number] 10:41:00 Test Item Value Reference Range Interpretation Comments PARTIAL THROMBOPLASTIN TIME 20.7 seconds 22.5-36.0 L (BEAKER) (test code = 760) PROTHROMBIN [id number] 10:20:00 Test Item Value Reference Range Interpretation Comments PROTIME (BEAKER) (test code = 14.4 seconds 11.9-14.2 H 759) INR (BEAKER) (test code = 370) 1.15 <=5.90 Effective 01/24/2019: PT Reference Range ChangeNew: 11.9-14.2 Previous: 11.7- 14.7RECOMMENDED COUMADIN/WARFARIN INR THERAPY RANGESSTANDARD DOSE: 2.0-3.0 Includes: PROPHYLAXIS for venous thrombosis, systemic embolization; TREATMENT for venous thrombosis and/or pulmonary embolus.HIGH RISK: Target INR is2.5-3.5 for patients wiht mechanical heart valves.RAD, CHEST, 1 VIEW, NON [id number] 10:03:00Reason for exam:->SOBShould this be performed at the bedside?->Yes[facility] : 1940 Sex: FFINAL REPORT History: Shortness of breath. FINDINGS: Chest, single view: Single AP view of the chest shows a mildly enlarged heart. Mediastinum appears unremarkable. Mild atherosclerotic calcification of the aortic arch is present. There is increased opacity in the right lungapex which could represent a mass or malignancy. CT of the chest is recommended for further evaluation. Blunting of the costophrenic sulci may represent chronic pleural thickening or small bilateral effusions. Bones are osteopenic but otherwise unremarkable. IMPRESSION: 1. Increased opacity in the right lung apex, possibly a mass or malignancy. CT of the chest is recommended for further evaluation. 2. Possible small bilateral pleural effusions versus chronic pleural thickening. 3. Mild cardiomegaly.Signed: Ekta Velascoort Verified Date/Time: 07/12/2020 10:03:35 Reading Location: [address] Transitional Reading Room [facility] W/AUTO [id number] 01:50:00 Test Item Value Reference Range Interpretation Comments WHITE BLOOD CELL (test code = 6.9 K/mm3 4.5-12.5 N WBC) RED BLOOD CELL (test code = 4.14 mill/mm3 3.7-5.2 N RBC) HEMOGLOBIN (test code = HGB) 11.8 gram/dL 11.5-15.5 N HEMATOCRIT (test code = HCT) 39.2 % 36.0-46.0 N MEAN CELL VOLUME (test code = 94.7 fL 80-98 N MCV) MEAN CELL HGB (test code = MCH) 28.5 picogram 27.0-33.0 N MEAN CELL HGB CONCETRATION 30.1 gram/dL 33.0-36.0 L (test code = MCHC) RED CELL DISTRIBUTION WIDTH 17.9 % 11.6-16.2 H (test code = RDW) RED CELL DISTRIBUTION WIDTH SD 62.4 fL 37.0-51.0 H (test code = RDW-SD) PLATELET COUNT (test code = 253 K/mm3 150-450 N PLT) MEAN PLATELET VOLUME (test code 12.5 fL 6.7-11.0 H = MPV) NEUTROPHIL % (test code = NT%) 59.0 % 39.0-69.0 N IMMATURE GRANULOCYTE % (test 0.4 % 0.0-5.0 N code = IG%) LYMPHOCYTE % (test code = LY%) 29.8 % 25.0-55.0 N MONOCYTE % (test code = MO%) 8.9 % 0.0-10.0 N EOSINOPHIL % (test code = EO%) 1.5 % 0.0-5.0 N BASOPHIL % (test code = BA%) 0.4 % 0.0-1.0 N NUCLEATED RBC % (test code = 0.0 % 0-0 N NRBC%) NEUTROPHIL # (test code = NT#) 4.07 K/mm3 1.8-7.7 N IMMATURE GRANULOCYTE # (test 0.03 x10 3/uL 0-0.03 N code = IG#) LYMPHOCYTE # (test code = LY#) 2.05 K/mm3 1.0-5.0 N MONOCYTE # (test code = MO#) 0.61 K/mm3 0-0.8 N EOSINOPHIL # (test code = EO#) 0.10 K/mm3 0.0-0.5 N BASOPHIL # (test code = BA#) 0.03 K/mm3 0.0-0.2 N NUCLEATED RBC # (test code = 0.00 K/mm3 0.0-0.1 N NRBC#) BASIC METABOLIC [id number] 01:31:00 Test Item Value Reference Range Interpretation Comments SODIUM (test code = 145 mmol/L 136-145 N NA) POTASSIUM (test code 4.1 mmol/L 3.5-5.1 N = K) CHLORIDE (test code = 106.0 mmol/L 98-107 N CL) CARBON DIOXIDE (test 34.0 mmol/L 21-32 H code = CO2) ANION GAP (test code 9.1 10-20 L = GAP) GLUCOSE (test code = 120 mg/dL 74-106 H GLU) BLOOD UREA NITROGEN 9 mg/dL 7-18 N (test code = BUN) GLOMERULAR FILTRATION > 60 mL/min >=60 Estima amarilys GFR by RATE (test code = using Bessy fied MDRD GFR) formula.Chronic kidney disease is defined as eith er kidney damageor GFR <60 mL/min/1.73 m2 for >3 months. CREATININE (test code 0.80 mg/dL 0.55-1.02 N Note change in = CREAT) reference range due to change in reagent. BUN/CREATININE RATIO 11.3 10-20 N (test code = BUN/CREA) CALCIUM (test code = 8.9 mg/dL 8.5-10.1 N CA) BASIC METABOLIC [id number] 01:22:00 Test Item Value Reference Range Interpretation Comments SODIUM (test code = NA) 145 mmol/L 136-145 N POTASSIUM (test code = K) 4.1 mmol/L 3.5-5.1 N CHLORIDE (test code = CL) 106.0 mmol/L 98-107 N CARBON DIOXIDE (test code = CO2) mmol/L 21-32 ANION GAP (test code = GAP) 10-20 GLUCOSE (test code = GLU) mg/dL 74-106 BLOOD UREA NITROGEN (test code = mg/dL 7-18 BUN) GLOMERULAR FILTRATION RATE (test mL/min >=60 code = GFR) CREATININE (test code = CREAT) mg/dL 0.55-1.02 BUN/CREATININE RATIO (test code 10-20 = BUN/CREA) CALCIUM (test code = CA) mg/dL 8.5-10.1 CBC W/AUTO [id number] 01:20:00 Test Item Value Reference Range Interpretation Comments WHITE BLOOD CELL (test code = K/mm3 4.5-12.5 WBC) RED BLOOD CELL (test code = RBC) mill/mm3 3.7-5.2 HEMOGLOBIN (test code = HGB) 11.8 gram/dL 11.5-15.5 N HEMATOCRIT (test code = HCT) 39.2 % 36.0-46.0 N MEAN CELL VOLUME (test code = fL 80-98 MCV) MEAN CELL HGB (test code = MCH) picogram 27.0-33.0 MEAN CELL HGB CONCETRATION (test gram/dL 33.0-36.0 code = MCHC) RED CELL DISTRIBUTION WIDTH % 11.6-16.2 (test code = RDW) RED CELL DISTRIBUTION WIDTH SD fL 37.0-51.0 (test code = RDW-SD) PLATELET COUNT (test code = PLT) K/mm3 150-450 MEAN PLATELET VOLUME (test code fL 6.7-11.0 = MPV) NEUTROPHIL % (test code = NT%) % 39.0-69.0 IMMATURE GRANULOCYTE % (test % 0.0-5.0 code = IG%) LYMPHOCYTE % (test code = LY%) % 25.0-55.0 MONOCYTE % (test code = MO%) % 0.0-10.0 EOSINOPHIL % (test code = EO%) % 0.0-5.0 BASOPHIL % (test code = BA%) % 0.0-1.0 NEUTROPHIL # (test code = NT#) K/mm3 1.8-7.7 LYMPHOCYTE # (test code = LY#) K/mm3 1.0-5.0 MONOCYTE # (test code = MO#) K/mm3 0-0.8 EOSINOPHIL # (test code = EO#) K/mm3 0.0-0.5 BASOPHIL # (test code = BA#) K/mm3 0.0-0.2
[2021-08-01 13:47] LABS: Protime INR 1.56
[2021-08-01 14:00] LABS: ALT/SGPT 15 U/L (12-78); AST/SGOT 12 U/L (15-37); Alkaline Phosphatase 150 U/L (45-117); BUN Blood Urea Nitrogen 25 mg/dL (7-18); Bicarbonate 30 mmol/L (21-32); Bilirubin Direct 0.1 mg/dL (0-0.2); Bilirubin Total 0.3 mg/dL (0.2-1.0); Glucose Level 146 mg/dL (74-106); Lipase 92 U/L (73-393); Magnesium 2.4 mg/dL (1.8-2.4); NT PRO-BNP 3856 pg/mL (<450); Potassium 3.3 mmol/L (3.5-5.1); Protein, Total 7.3 g/dL (6.4-8.2); Sodium Level 130 mmol/L (136-145); Troponin (Emerg Dept Use Only) < 0.02 ng/mL (0.0-0.045)
[2021-08-01 14:12] LABS: Absolute Lymphocytes (CBC) 0.9 K/uL (0.7-4.9); Basophils % 0.9 % (0-1.3); Hematocrit 22.8 % (36.0-45.0); Lymphocytes % 17.9 % (15.3-44.8); MPV 8.1 fL (7.6-11.3); RBC Red Blood Cell Count 2.92 M/uL (3.86-4.86)
--- NOTE | 2021-08-01 14:40 | RAD REPORT ---
EXAM DESCRIPTION: Yazmin Single View08/01/2021 2:25 pm CLINICAL HISTORY: Shortness of breath COMPARISON: 2019 FINDINGS: Small bilateral pleural effusions. Cardiomegaly. Mild bilateral pulmonary opacities IMPRESSION: These findings probably indicate CHF
[2021-08-01] MEDS ORDERED: HYDROCODONE/APAP 5/325 MG TAB ONE (16:32)
[2021-08-01] MEDS ORDERED: FUROSEMIDE 20 MG/ 2ML VIAL ONE (16:32)
--- NOTE | 2021-08-01 16:39 | EDPHYS ---
Physician Documentation [facility] Name: Ashli Alvarez Age: 80 yrs Sex: Female : 1940 Arrival Date: 08/01/2021 Time: 12:22 Bed 15 Private MD: ED Physician Brayan Vale HPI: 08/01 13:29 This 80 yrs old Female presents to ER via Unassigned with complaints of rn Shortness of breath. 13:29 The patient has shortness of breath at rest, with light activity. Onset: The rn symptoms/episode began/occurred last night. Duration: The symptoms are continuous. The patient's shortness of breath is aggravated by coughing, light activity, talking, is alleviated by nebulizer treatment, application of supplemental oxygen. Associated signs and symptoms: Pertinent positives: non-productive cough, Pertinent negatives: fever, hemoptysis. Severity of symptoms: At their worst the symptoms were moderate in the emergency department the symptoms have improved. The patient has experienced similar episodes in the past. The patient has not recently seen a physician. Patient reports cough and shortness of breath since last night. No fever. No hemoptysis. No trauma. Does report mild diarrhea over the last few days. No nasal congestion. No known sick contacts. States has had all her vaccines. Feels slightly improved after Solu-Medrol and nebulizer by EMS.. - Immunization history:: Client reports receiving the 2nd dose of the Covid vaccine. - Family history:: not pertinent. - Social history:: Smoking status: Patient reports the use of cigarette tobacco products, smokes one-half pack cigarettes per day. - Hospitalizations: : No recent hospitalization is reported. ROS: 13:29 Constitutional: Negative for fever, chills, and weight loss, Eyes: Negative for injury, rn pain, redness, and discharge, Neck: Negative for injury, pain, and swelling, Cardiovascular: Negative for palpitations Respiratory: Positive for shortness of breath and cough Abdomen/GI: Negative for abdominal pain, nausea, vomiting, and constipation, : Negative for injury, bleeding, discharge, and swelling, MS/Extremity: Negative for injury and deformity, Skin: Negative for injury, rash, and discoloration, Neuro: Negative for headache, numbness, tingling, and seizure. Exam: 13:29 Constitutional: This is a well developed, well nourished patient who is awake, alert, rn mild tachypnea Head/Face: Normocephalic, atraumatic. Eyes: Periorbital areas with no swelling, redness, or edema. Cardiovascular: Tachycardic, irregular. No pulse deficits Respiratory: Mild tachypnea, no retractions Abdomen/GI: Soft, non-tender Skin: Warm, dry MS/ Extremity: Pulses equal, no cyanosis. Neuro: Awake and alert, GCS 15 Vital Signs: 13:42 BP 141 / 82; Pulse 72; Resp 20; Pulse Ox 100% on 2 lpm NC; Pain 0/10; jh6 16:40 BP 136 / 64; Pulse 80; Resp 20; Temp 97.7(O); Pulse Ox 100% on 2 lpm NC; Pain 6/10; jh6 18:23 BP 131 / 84; Pulse 73; Resp 20; Temp 97.8; Pulse Ox 100% on 2 lpm NC; jh6 MDM: 12:23 Patient medically screened. rn 16:35 Differential diagnosis: Anemia CHF exacerbation, Chronic Obstructive Pulmonary Disease rn Myocardial Infarction pneumonia, Pneumothorax pulmonary edema. Data reviewed: vital signs, nurses notes, lab test result(s), EKG, radiologic studies, plain films, and as a result, I will admit patient. Data interpreted: Pulse oximetry: on 2L(s) per nasal canula, is 100 %. Interpretation: acceptable. Counseling: I had a detailed discussion with the patient and/or guardian regarding: the historical points, exam findings, and any diagnostic results supporting the discharge/admit diagnosis, lab results, radiology results, the need for further work-up and treatment in the hospital. Admission orders: after a detailed discussion of the patient's condition and case, the admit orders are written by me. ED course: Patient with mixed COPD and CHF exacerbation superimposed on anemia, hemoglobin 7.0. Denies any GI bleeding or dark stool. Will admit to Dr. Wang for further work-up.. 08/01 12:36 Order name: BMP; Complete Time: 15:21 rn 08/01 12:36 Order name: Blood Culture Adult (2) rn 08/01 12:36 Order name: CBC with Diff rn 08/01 12:36 Order name: Hepatic Function; Complete Time: 15:21 rn 08/01 12:36 Order name: Lipase; Complete Time: 15:21 rn 08/01 12:36 Order name: Magnesium; Complete Time: 15:21 rn 08/01 12:36 Order name: NT PRO-BNP; Complete Time: 15:21 rn 08/01 12:36 Order name: PT-INR; Complete Time: 15:21 rn 08/01 12:36 Order name: Ptt, Activated; Complete Time: 15:21 rn 08/01 12:36 Order name: Troponin (emerg Dept Use Only); Complete Time: 15:21 rn 08/01 12:36 Order name: XRAY CXR (1 view); Complete Time: 15:21 rn 08/01 12:36 Order name: SARS-COV-2 RT PCR (Document "Date of Onset" if Symptomatic); Complete Time: rn 15:08/01 12:36 Order name: Flu; Complete Time: 15:21 rn 08/01 19:23 Order name: CBC Smear Scan EDMS 08/01 12:36 Order name: EKG; Complete Time: 12:37 rn 08/01 12:36 Order name: Cardiac monitoring rn 08/01 12:36 Order name: EKG - Nurse/Tech rn 08/01 12:36 Order name: IV Saline Lock rn 08/01 12:36 Order name: Labs collected and sent rn 08/01 12:36 Order name: O2 Per Protocol rn 08/01 12:36 Order name: O2 Sat Monitoring rn Administered Medications: 16:38 Drug: Lasix (furosemide) 20 mg Route: IVP; Site: right antecubital; [facility] 16:38 Drug: HYDROcodone-acetaminophen 5 mg-325 mg 1 tabs Route: PO; [facility] 18:10 Follow up: Response: No adverse reaction; Pain is decreased [facility] Disposition Summary: 08/01/21 16:38 Hospitalization Ordered Hospitalization Status: Inpatient Admission rn Provider: Behzad Wang rn Location: Telemetry/MedSurg (Inpatient) rn Condition: Stable rn Problem: new rn Symptoms: have improved rn Bed/Room Type: Standard rn Room Assignment: 428(08/01/21 18:14) ss Diagnosis - Unspecified combined systolic (congestive) and diastolic (congestive) heart failure rn - COPD/ Chronic obstructive pulmonary disease, unspecified rn - Anemia, unspecified rn - Dyspnea, unspecified rn Forms: - Medication Reconciliation Form rn - SBAR form rn Signatures: Dispatcher [employer] Brayan Diaz MD MD rn Smirch, Shelby, RN RN ss Hastedt, Jennifer, RN RN 6 Corrections: (The following items were deleted from the chart) 16:43 13:10 PMHx: CVA; 6 jh6 16:43 13:10 PMHx: Atrial Fib; 6 6 16:43 13:10 PMHx: CEREBRUM TRAUMATIC HEMORRHAGE; 6 jh6 16:43 13:10 PMHx: Chronic pain; 6 jh6 16:43 13:10 PMHx: COPD; 6 jh6 16:43 13:10 PMHx: GERD; [facility] 16:43 13:10 PMHx: Hypertension; [facility] 18:14 16:38 rn shaquille
--- NOTE | 2021-08-01 16:39 | ER ---
Nurse's Notes [facility] Name: Ashli Alvarez Age: 80 yrs Sex: Female : 1940 Arrival Date: 08/01/2021 Time: 12:22 Bed 15 Private MD: Diagnosis: Unspecified combined systolic (congestive) and diastolic (congestive) heart failure;COPD/ Chronic obstructive pulmonary disease, unspecified;Anemia, unspecified;Dyspnea, unspecified Presentation: 08/01 13:00 Acuity: TIFFANIE 3 [facility] 13:46 Chief complaint: EMS states: EMS called out for increased sob over the last 3 days. jh6 states that she has hx of COPD and has had a cough x 2-3 wks. no fever but states green phlegm noted. Coronavirus screen: Vaccine status: Patient reports receiving the 2nd dose of the covid vaccine. Client denies travel out of the [place] in the last 14 days. Ebola Screen: Patient negative for fever greater than or equal to 101.5 degrees Fahrenheit, and additional compatible Ebola Virus Disease symptoms Patient denies exposure to infectious person. Patient denies travel to an Ebola-affected area in the 21 days before illness onset. Initial Sepsis Screen: Does the patient meet any 2 criteria? RR > 20 per min. Does the patient have a suspected source of infection? No. Patient's initial sepsis screen is negative. Risk Assessment: Do you want to hurt yourself or someone else? Patient reports no desire to harm self or others. Onset of symptoms was August 01, 2021. 13:46 Method Of Arrival: EMS: [facility] - Immunization history:: Client reports receiving the 2nd dose of the Covid vaccine. - Family history:: not pertinent. - Social history:: Smoking status: Patient reports the use of cigarette tobacco products, smokes one-half pack cigarettes per day. - Hospitalizations: : No recent hospitalization is reported. Screenin:45 Abuse screen: Denies threats or abuse. Nutritional screening: No deficits noted. [facility] Tuberculosis screening: No symptoms or risk factors identified. Fall Risk Ambulatory Aid- None/Bed Rest/Nurse Assist (0 pts). Assessment: 13:00 General: Appears in no apparent distress. comfortable, obese, well nourished, Behavior [facility] is calm, cooperative. 13:00 Pain: Denies pain. Respiratory: Reports shortness of breath since last two weeks but jh6 worse over the last 3 days. no fever. hx of copd but not on any home o2. 14:00 Reassessment: No changes from previously documented assessment. Patient is alert, jh6 oriented x 3, equal unlabored respirations, skin warm/dry/pink. Patient states feeling better. General: Appears in no apparent distress. comfortable. 15:00 Reassessment: Patient and/or family updated on plan of care and expected duration. Pain jh6 level reassessed. 16:39 Reassessment: Patient and/or family updated on plan of care and expected duration. Pain jh6 level reassessed. Patient is alert, oriented x 3, equal unlabored respirations, skin warm/dry/pink. Pain: Complains of pain in back Pain currently is 6 out of 10 on a pain scale. Respiratory: Airway is patent Trachea midline Respiratory effort is unlabored, Respiratory pattern is regular, Sputum is thick, green. 17:30 Reassessment: Patient and/or family updated on plan of care and expected duration. Pain jh6 level reassessed. Patient is alert, oriented x 3, equal unlabored respirations, skin warm/dry/pink. Patient states feeling better. 17:30 Pain: Pain currently is 4 out of 10 on a pain scale. [facility] Vital Signs: 13:42 BP 141 / 82; Pulse 72; Resp 20; Pulse Ox 100% on 2 lpm NC; Pain 0/10; jh6 16:40 BP 136 / 64; Pulse 80; Resp 20; Temp 97.7(O); Pulse Ox 100% on 2 lpm NC; Pain 6/10; jh6 18:23 BP 131 / 84; Pulse 73; Resp 20; Temp 97.8; Pulse Ox 100% on 2 lpm NC; 6 Vitals: 13:42 Cardiac Rhythm Assessment Regular. [facility] ED Course: 12:22 Patient arrived in ED. ds1 12:23 Brayan Vale MD is Attending Physician. rn 12:31 Christina Anderson, CHIO is Primary Nurse. 6 13:00 Call light in reach. Side rails up X 1. Adult w/ patient. [facility] 13:00 film projector operator on. Pulse ox on. NIBP on. 6 13:00 Arm band placed on left wrist. 6 13:15 Inserted saline lock: 20 gauge in right antecubital area, using aseptic technique. [facility] 13:44 Inserted saline lock: 22 gauge in right hand, using aseptic technique. iv to rt hand 6 started container coordinator. 13:45 Triage completed. [facility] 14:24 XRAY CXR (1 view) In Process Unspecified. EDMS 15:30 EKG completed in triage. Results shown to MD. [facility] 16:37 Behzad Wang is Hospitalizing Provider. rn 16:43 No provider procedures requiring assistance completed. [facility] Administered Medications: 16:38 Drug: Lasix (furosemide) 20 mg Route: IVP; Site: right antecubital; [facility] 16:38 Drug: HYDROcodone-acetaminophen 5 mg-325 mg 1 tabs Route: PO; [facility] 18:10 Follow up: Response: No adverse reaction; Pain is decreased [facility] Outcome: 16:38 Decision to Hospitalize by Provider. rn 18:24 Admitted to Med/surg [facility] 18:24 Condition: improved 18:24 Instructed on the need for admit. 19:48 Patient left the ED. lp1 Signatures: Dispatcher [employer] EDDE MayberryAnnamarie 1 Brayan Vale MD MD rn Pena, Laura, RN RN lp1 Christina Anderson RN RN 6 Corrections: (The following items were deleted from the chart) 16:43 13:10 PMHx: CVA; [place] [id number] 16:43 13:10 PMHx: Atrial Fib; [place] [id number] 16:43 13:10 PMHx: CEREBRUM TRAUMATIC HEMORRHAGE; [place] [id number] 16:43 13:10 PMHx: Chronic pain; [place] [id number] 16:43 13:10 PMHx: COPD; [place] [id number] 16:43 13:10 PMHx: GERD; [place] [id number] 16:43 13:10 PMHx: Hypertension; [place] [id number]
--- NOTE | 2021-08-01 18:11 | P.HP ---
Certification for Inpatient Patient admitted to: Observation With expected LOS: <2 Midnights Practitioner: I am a practitioner with admitting privileges, knowledge of patient current condition, hospital course, and medical plan of care. Services: Services provided to patient in accordance with Admission requirements found in Title 42 Section 412.3 of the Code of Federal Regulations Patient History Date of Service: 08/01/21 Reason for admission: Shortness of breath History of Present Illness: 80-year-old woman with a history of chronic diastolic heart failure, COPD, chronic atrial fibrillation, tobacco use currently smoking 10 cigarettes/day presented to the emergency department with a complaint of progressive shortness of breath of 1 week duration. Patient states that she used her inhalers at home without any improvement. She has a history of chronic anemia evaluated with EGD and colonoscopy which did not diagnose the origin of her anemia. Her hemoglobin in the ED is 7. Chest x-ray demonstrated vascular congestion. Patient given treatment for COPD exacerbation with partial improvement. She is hospitalized for further management. Allergies codeine Allergy (Verified 11/13/19 19:38) confusion Home Medications: Acetaminophen [Tylenol] 2 tab PO Q8H PRN 11/04/19 Albuterol Sulfate [Proair Respiclick] 2 puff IH Q4H PRN 11/04/19 Diltiazem HCl [Diltiazem 24Hr ER] 240 mg PO DAILY 11/04/19 Gabapentin [Neurontin*] 100 mg PO TID 11/04/19 Hydrocodone Bit/Acetaminophen [Hydrocodon-Acetaminophen 5-325] 1 each PO Q6H PRN 11/04/19 Ipratropium/Albuterol Sulfate [Iprat-Albut 0.5-3(2.5) mg/3 ml] 1 puff IH Q8H PRN 11/04/19 Latanoprost/Pf [Latanoprost 0.005% Eye Drop] 1 gtt OP BEDTIME 11/04/19 Levothyroxine Sodium 75 mcg PO DAILY 11/04/19 Melatonin [Melatonin*] 2 tab PO BEDTIME 11/04/19 Ondansetron HCl [Zofran] 4 mg PO TID PRN 11/04/19 Pantoprazole [Protonix Tab*] 40 mg PO DAILY PRN 11/04/19 Torsemide 10 mg PO DAILY 11/04/19 Tramadol HCl [Ultram] 50 mg PO Q6H PRN 11/04/19 Apixaban [Eliquis] 5 mg PO BID #60 tablet 11/05/19 Atorvastatin Calcium [Lipitor] 40 mg PO BEDTIME #30 tab 11/05/19 Nystatin Powder [Mycostatin (Powder)*] 1 appl TOP BID #1 btl 11/05/19 Cefuroxime Axetil [Cefuroxime] 500 mg PO BID #3 tab 11/19/19 Metoprolol Tartrate [Lopressor*] 25 mg PO BID 6AM 6PM #60 tab 11/19/19 Spironolactone [Aldactone*] 25 mg PO DAILY #30 tab 11/19/19 Thiamine HCl [Vitamin B-1*] 100 mg PO DAILY #30 tablet 11/19/19 levETIRAcetam [Keppra*] 500 mg PO BID #60 tab 11/19/19 - Past Medical/Surgical History Diabetic: Yes -: Multiple strokes -: Chronic AFib -: Active smoker possible COPD -: CHF -: GERD -: HTN -: DM -: hypothyroid -: glaucoma - Family History Father -: Heart disease - Social History Smoking Status: Current every day smoker Alcohol use: No CD- Drugs: No Caffeine use: No Review of Systems Other: Except as documented, all other systems reviewed and negative. Physical Examination - Physical Exam General: Alert, In no apparent distress, Oriented x3 HEENT: Atraumatic, Mucous membr. moist/pink, Sclerae nonicteric Neck: Supple, JVD not distended Respiratory: Diminished (Bilateral), Other (No wheezes) Cardiovascular: Normal S1 S2, Irregular heart rate/rhythm Gastrointestinal: Soft and benign, Non-distended, No tenderness Musculoskeletal: Swelling (Bilateral lower extremities) Integumentary: Other (Bilateral lower extremity venous stasis dermatitis) Neurological: Normal strength at 5/5 x4 extr, Cranial nerves 3-12 intact Lymphatics: Other (Bilateral lower extremity lymphedema) - Studies Laboratory Data (last 24 hrs) 08/01/21 13:30: PT 18.0 H, INR 1.56, APTT 35.0 08/01/21 13:30: WBC 5.10, Hgb 7.0 L, Hct 22.8 L, Plt Count 252 08/01/21 13:30: Sodium 130 L, Potassium 3.3 L, BUN 25 H, Creatinine 1.17, Glucose 146 H, Magnesium 2.4, Total Bilirubin 0.3, AST 12 L, ALT 15, Alkaline Phosphatase 150 H, Lipase 92 Microbiology Data (last 24 hrs): 08/01/21 12:36 Nasopharnyx Influenza Type A Antigen Screen - Final 08/01/21 12:36 Nasopharnyx Influenza Type B Antigen Screen - Final Assessment and Plan - Problems (Diagnosis) (1) Acute on chronic diastolic heart failure Current Visit: Yes Status: Acute (2) COPD exacerbation Current Visit: Yes Status: Acute (3) Anemia Current Visit: Yes Status: Acute (4) Chronic atrial fibrillation Current Visit: No Status: Acute - Plan Place patient under observation on the medical floor. Treat for COPD exacerbation with IV steroids, scheduled nebs, antibiotics. We will treat for acute CHF with IV Lasix. Transfuse 1 unit PRBC for symptomatic anemia. Monitor hemoglobin and hematocrit. Continue home medications for atrial fibrillation. No anticoagulation given anemia. SCD for DVT prophylaxis. - Advance Directives Does patient have a Living Will: Yes Does patient have a Durable POA for Healthcare: No
[2021-08-01 19:22] LABS: Platelet Estimate ADEQ; White Blood Cell Scan OK (OK)
[2021-08-01 19:23] LABS: Anisocytosis 1+; Blood Morphology Comment NOTED (NOT SEEN)
[2021-08-01] MEDS ORDERED: ACETAMINOPHEN 500 MG TAB PO PRN (20:03)
[2021-08-01] MEDS ORDERED: NA CHLORIDE 0.9% 250 ML IV SCH (20:03)
[2021-08-01] MEDS: IPRATROPIUM BROM 0.5MG/2.5ML NEB SCH (20:03)
[2021-08-01] MEDS: ALBUTEROL 2.5 MG/3 ML NEB SOL NEB SCH (20:03)
[2021-08-02] MEDS: METHYLPREDNISOLONE 40 MG INJ IV SCH ×3 (00:43→17:01)
[2021-08-02] MEDS: ALBUTEROL 2.5 MG/3 ML NEB SOL NEB SCH ×4 (01:20→20:30)
[2021-08-02] MEDS: IPRATROPIUM BROM 0.5MG/2.5ML NEB SCH ×4 (01:20→20:30)
[2021-08-02] MEDS ORDERED: NA CHLORIDE 0.9% 250 ML ONE (01:27)
[2021-08-02] MEDS ORDERED: HYDROCODONE/APAP 5/325 MG TAB ONE (04:49)
[2021-08-02] MEDS: HYDROCODONE/APAP 5/325 MG TAB PO PRN ×3 (04:51→21:34)
[2021-08-02 08:19] LABS: Absolute Lymphocytes (CBC) 0.4 K/uL (0.7-4.9); Basophils % 0.1 % (0-1.3); Hematocrit 22.8 % (36.0-45.0); Lymphocytes % 13.4 % (15.3-44.8); MPV 8.2 fL (7.6-11.3); RBC Red Blood Cell Count 2.91 M/uL (3.86-4.86)
[2021-08-02 08:44] LABS: Magnesium 2.3 mg/dL (1.8-2.4); Phosphorus 3.7 mg/dL (2.5-4.9); Potassium 3.6 mmol/L (3.5-5.1); Thyroid Stimulating Hormone 0.739 uIU/mL (0.360-3.740)
[2021-08-02] MEDS: FUROSEMIDE 40 MG/4 ML VIAL IV SCH ×2 (09:30→17:00)
[2021-08-02] MEDS ORDERED: PNEUMOCOCCAL VACCINE 0.5 ML IMVAC ONE (12:00)
[2021-08-02] MEDS ORDERED: VANCOMYCIN 1.5 GM in NA CHLORIDE 0.9% 500 ML IVPB ONE (12:00)
--- NOTE | 2021-08-02 12:08 | P.PN ---
Subjective Date of Service: 08/02/21 Chief Complaint: Shortness of breath No new complaint. She states that the shortness of breath is better. Physical Examination - Vital Signs Temperature: 97.4 F Blood Pressure: 126/60 Pulse: 80 Respirations: 12 Pulse Ox (%): 97 - Physical Exam General: In no apparent distress, Oriented x3, Obese HEENT: Mucous membr. moist/pink Neck: Supple, JVD not distended Respiratory: Diminished (Bilateral), Expiratory wheezes (Mild scattered wheezes), Other (Scoliosis) Cardiovascular: Normal S1 S2, Edema (Bilateral lower extremities), Irregular heart rate/rhythm Gastrointestinal: Soft and benign, Non-distended, No tenderness Musculoskeletal: Swelling (Bilateral legs) Integumentary: Other (Bilateral venous stasis dermatitis) Neurological: Normal strength at 5/5 x4 extr Lymphatics: Other (Bilateral lower extremity lymphedema) - Studies Laboratory Data (last 24 hrs) 08/01/21 13:30: PT 18.0 H, INR 1.56, APTT 35.0 08/01/21 13:30: WBC 5.10, Hgb 7.0 L, Hct 22.8 L, Plt Count 252 08/01/21 13:30: Sodium 130 L, Potassium 3.3 L, BUN 25 H, Creatinine 1.17, Glucose 146 H, Magnesium 2.4, Total Bilirubin 0.3, AST 12 L, ALT 15, Alkaline Phosphatase 150 H, Lipase 92 Microbiology Data (last 24 hrs): 08/01/21 12:36 Nasopharnyx Influenza Type A Antigen Screen - Final 08/01/21 12:36 Nasopharnyx Influenza Type B Antigen Screen - Final Assessment And Plan - Current Problems (Diagnosis) (1) Acute on chronic diastolic heart failure Current Visit: Yes Status: Acute (2) COPD exacerbation Current Visit: Yes Status: Acute (3) Anemia Current Visit: Yes Status: Acute (4) Chronic atrial fibrillation Current Visit: No Status: Acute - Plan Continue IV steroids, scheduled nebs, antibiotics for COPD exacerbation Continue IV Lasix for CHF. Hemoglobin still at 7.2 after 1 unit PRBC transfusion. Monitor hemoglobin and transfuse as needed for hemoglobin less than 7. 1 blood culture bottle is growing gram-positive cocci. Patient started on IV vancomycin. Follow blood cultures and repeat blood cultures today. Obtain UA. Continue home medications for atrial fibrillation. No anticoagulation given anemia. SCD for DVT prophylaxis.
[2021-08-02 20:35] LABS: Urine Appearance CLOUDY (Clear); Urine Bilirubin NEGATIVE (Negative); Urine Blood 1+ (Negative); Urine Color YELLOW (Yellow); Urine Glucose NEGATIVE (Negative); Urine Protein NEGATIVE (Negative); Urine Specific Gravity 1.015 (1.005-1.030); Urine Urobilinogen 0.2 mg/dL (0.2-1.0)
[2021-08-02 21:38] LABS: Urine Bacteria >50 /HPF (<20)
[2021-08-03] MEDS: METHYLPREDNISOLONE 40 MG INJ IV SCH ×3 (00:38→16:07)
[2021-08-03] MEDS: IPRATROPIUM BROM 0.5MG/2.5ML NEB SCH ×4 (01:55→20:00)
[2021-08-03] MEDS: ALBUTEROL 2.5 MG/3 ML NEB SOL NEB SCH ×4 (01:55→20:00)
[2021-08-03] MEDS ORDERED: ZOLPIDEM TARTRATE 5 MG TABLET PO ONE (02:50)
[2021-08-03] MEDS: HYDROCODONE/APAP 5/325 MG TAB PO PRN ×3 (03:07→18:14)
[2021-08-03 04:04] LABS: Absolute Lymphocytes (CBC) 0.5 K/uL (0.7-4.9); Basophils % 0.1 % (0-1.3); Hematocrit 22.6 % (36.0-45.0); Lymphocytes % 5.7 % (15.3-44.8); MPV 8.4 fL (7.6-11.3)
[2021-08-03 04:32] LABS: Anisocytosis 1+; Blood Morphology Comment NOTED (NOT SEEN); Platelet Estimate ADEQ
[2021-08-03 04:44] LABS: Potassium 2.6 mmol/L (3.5-5.1)
[2021-08-03] MEDS ORDERED: NA CHLORIDE 0.9% 1,000 ML ONE (05:58)
[2021-08-03] MEDS: KCL 20 MEQ/100 mL IVPB 20 MEQ/100 ML BAG IV SCH (06:01)
[2021-08-03] MEDS: FUROSEMIDE 40 MG/4 ML VIAL IV SCH ×3 (08:27→16:42)
[2021-08-03] MEDS ORDERED: POTASSIUM CL SA 10 MEQ TAB PO ONE (09:00)
--- NOTE | 2021-08-03 11:33 | RAD REPORT ---
EXAM DESCRIPTION: RAD - Chest Single View - 08/03/2021 11:26 am CLINICAL HISTORY: Follow up CHF. Chest pain. COMPARISON: Chest Single View dated 08/01/2021; Chest Single View dated 07/11/2020; Chest Single View dated 11/18/2019; Chest Single View dated 11/16/2019 FINDINGS: Portable technique limits examination quality. Bilateral pulmonary opacities are again seen, unchanged. Small bilateral pleural effusions also appea r stable. The heart is moderately to significantly enlarged. No displaced fractures. IMPRESSION: No significant changes suspected in the CHF pattern since prior study.
[2021-08-03] MEDS: GABAPENTIN 300 MG CAP PO SCH ×3 (12:35→20:55)
[2021-08-03] MEDS: DILTIAZEM HCL 120 MG SR CAP PO SCH (12:36)
[2021-08-03] MEDS: APIXABAN 5 MG TABLET PO SCH ×2 (12:36→20:55)
[2021-08-03] MEDS: levETIRAcetam 500 MG TAB PO SCH ×2 (12:36→20:55)
[2021-08-03] MEDS: PANTOPRAZOLE 40MG TABLET PO SCH (12:36)
[2021-08-03] MEDS: LEVOTHYROXINE SOD 0.075 MG TAB PO SCH (12:36)
[2021-08-03] MEDS ORDERED: LORazepam 2 MG/ML VIAL IV ONE (14:18)
--- NOTE | 2021-08-03 17:03 | P.PN ---
Subjective Date of Service: 08/03/21 Chief Complaint: Shortness of breath Patient is confused today and complaining of shortness of breath. Physical Examination - Vital Signs Temperature: 98.2 F Blood Pressure: 138/72 Pulse: 119 Respirations: 20 Pulse Ox (%): 93 - Physical Exam General: Alert, In no apparent distress, Oriented x3 HEENT: Mucous membr. moist/pink Neck: JVD not distended Respiratory: Diminished (Bilateral bases), Crackles/rales (Mild bibasilar Rales) Cardiovascular: Edema (Bilateral legs improved), Irregular heart rate/rhythm Gastrointestinal: Soft and benign, Non-distended, No tenderness Musculoskeletal: No tenderness, Swelling (Bilateral leg) Integumentary: Other (Bilateral lower extremity venous stasis dermatitis) Neurological: Normal strength at 5/5 x4 extr, Other (Mildly confused) - Studies Microbiology Data (last 24 hrs): 08/01/21 13:15 Blood - Blood Blood Culture Gram Stain - Final Assessment And Plan - Current Problems (Diagnosis) (1) Acute on chronic diastolic heart failure Current Visit: Yes Status: Acute (2) COPD exacerbation Current Visit: Yes Status: Acute (3) Anemia Current Visit: Yes Status: Acute (4) Chronic atrial fibrillation Current Visit: No Status: Acute - Plan Continue IV steroids, scheduled nebs, antibiotics for COPD exacerbation Continue IV Lasix for CHF. Hemoglobin still at 7.2 after 1 unit PRBC transfusion. Monitor hemoglobin and transfuse as needed for hemoglobin less than 7. 1 blood culture bottle is growing gram-positive cocci. Patient started on IV vancomycin. Serial blood cultures: no growth. Discontinue vancomycin UA suggest UTI. Urine cultures pending. Start IV Rocephin for UTI. Continue home medications for atrial fibrillation. No anticoagulation given anemia. SCD for DVT prophylaxis.
[2021-08-03] MEDS: TIZANIDINE 4 MG TABLET PO SCH (20:55)
[2021-08-03] MEDS: CEFTRIAXONE 1,000 MG in NA CHLORIDE 0.9% 50 ML IVPB SCH (20:56)
[2021-08-03] MEDS: ATORVASTATIN 40 MG TAB PO SCH (20:56)
[2021-08-03] MEDS: Latanoprost/Pf [Latanoprost 0.005% Eye Drop] 7.5 ML Drops OPTH SCH (20:57)
[2021-08-04] MEDS ORDERED: VANCOMYCIN 1.25 GM in NA CHLORIDE 0.9% 250 ML IVPB SCH ×2
[2021-08-04] MEDS: HYDROCODONE/APAP 5/325 MG TAB PO PRN ×4 (00:44→23:07)
[2021-08-04] MEDS: METHYLPREDNISOLONE 40 MG INJ IV SCH ×3 (00:44→17:45)
[2021-08-04] MEDS: ALBUTEROL 2.5 MG/3 ML NEB SOL NEB SCH ×5 (02:00→20:30)
[2021-08-04] MEDS: IPRATROPIUM BROM 0.5MG/2.5ML NEB SCH ×5 (02:00→20:30)
[2021-08-04 04:34] LABS: Absolute Lymphocytes (CBC) 0.3 K/uL (0.7-4.9); Basophils % 0.2 % (0-1.3); Hematocrit 22.7 % (36.0-45.0); Lymphocytes % 5.1 % (15.3-44.8); MPV 8.5 fL (7.6-11.3); RBC Red Blood Cell Count 2.86 M/uL (3.86-4.86)
[2021-08-04 04:48] LABS: ALT/SGPT 17 U/L (12-78); AST/SGOT 12 U/L (15-37); Albumin 2.6 g/dL (3.4-5.0); Alkaline Phosphatase 101 U/L (45-117); BUN Blood Urea Nitrogen 25 mg/dL (7-18); Bicarbonate 38 mmol/L (21-32); Bilirubin Total 0.2 mg/dL (0.2-1.0); Glucose Level 176 mg/dL (74-106); Potassium 3.4 mmol/L (3.5-5.1); Protein, Total 5.9 g/dL (6.4-8.2); Sodium Level 142 mmol/L (136-145); Transferrin 280 mg/dL (200-360)
[2021-08-04 04:49] LABS: C-Reactive Protein < 2.90 mg/L (<3.00)
--- NOTE | 2021-08-04 06:35 | P.PN ---
Date of Service: 08/04/21 Subjective: No significant changes / acute events overnight. feels has had some improvement. Slept last night after ativan sister at bedside, states significant, continues to require multiple medications for sedation Difficult balance between oxygen saturation versus hypotension (effect from sedatives) ROS: as noted above, otherwise negative Physical Exam General: Alert, In no apparent distress, Oriented x3 HEENT: Mucous membr. moist/pink Respiratory: b/l bases diminished, with mild basilar rales Cardiovascular: Edema (improved), Irregular heart rate/rhythm Gastrointestinal: Soft and benign, Non-distended, No tenderness Musculoskeletal: No tenderness, Swelling (Bilateral leg) Integumentary: Other (Bilateral lower extremity venous stasis dermatitis) Neurological: Normal strength at 5/5 x4 extr, Other (Mildly confused) Problem List Acute hypoxemic respiratory failure secondary to acute on chronic D-CHF Acute on on chronic COPD exacerbation Anemia -acut [place] Chronic atrial fibrillation continue steroids, nebs antibiotics empirically for COPD exacerbation Continue IV Lasix for CHF. Hemoglobin still in low 7s , after 1 unit PRBC transfusion. transfuse additional 1u PRBC similar presentation ~1 yr ago, patient transfused pRBCs and transferred to [facility] due to lack of GI coverage at that time GI consulted today, 1 blood culture bottle is growing gram-positive cocci. Patient started on IV vancomycin. Serial blood cultures: no growth. dc'd vancomycin UA suggest UTI. Urine cultures pending. continue IV Rocephin for UTI. Continue home medications for atrial fibrillation. No anticoagulation given anemia. SCD for DVT prophylaxis. Dispo: anticipate dc home in ~2-3 days may need home O2 Time Spent Managing Pts Care (In Minutes): 35
[2021-08-04] MEDS: LEVOTHYROXINE SOD 0.075 MG TAB PO SCH (06:49)
[2021-08-04] MEDS: KCL 20 MEQ/100 mL IVPB 20 MEQ/100 ML BAG IV SCH (07:00)
--- NOTE | 2021-08-04 07:57 | ECHO ---
HEIGHT: 5 ft 0 in WEIGHT: 170 lb 0 oz DATE OF STUDY: 08/03/[address]: edmond peña 2-DIMENSIONAL: YES M.MODE: YES DOPPLER: YES COLOR FLOW: YES TDS: NO PORTABLE: NO DEFINITY: NO BUBBLE STUDY: NO DIAGNOSIS: CONGESTIVE HEART FAILURE CARDIAC HISTORY: CATHERIZATION: SURGERY: PROSTHETIC VALVE: PACEMAKER: MEASUREMENTS (cm) DIASTOLIC (NORMALS) SYSTOLIC (NORMALS) IVSd 1.2 (0.6-1.2) LA Diam 4.7 (1.9-4.0) LVEF 74% LVIDd 4.2 (3.5-5.7) LVIDs 2.4 (2.0-3.5) %FS 43% LVPWd 1.3 (0.6-1.2) Ao Diam 2.8 (2.0-3.7) 2 DIMENSIONAL ASSESSMENT: RIGHT ATRIUM: NORMAL LEFT ATRIUM: ENLARGED RIGHT VENTRICLE: NORMAL LEFT VENTRICLE: NORMAL TRICUSPID VALVE: NORMAL MITRAL VALVE: MILD MITRAL REGURGITATION PULMONIC VALVE: NORMAL AORTIC VALVE: NORMAL PERICARDIAL EFFUSION: NONE AORTIC ROOT: NORMAL LEFT VENTRICULAR WALL MOTION: NORMAL. DOPPLER/COLOR FLOW: SEE BELOW. COMMENTS: HYPERDYNAMIC LEFT VENTRICULAR EJECTION FRACTION GREATER THAN 65%. NORMAL WALL MOTION. MILD MITRAL REGURGITATION. LEFT ATRIAL ENLARGEMENT. TECHNOLOGIST: EARNEST FLORES
[2021-08-04] MEDS ORDERED: POTASSIUM CL SA 10 MEQ TAB PO ONE ×2 (08:10→08:15)
[2021-08-04] MEDS ORDERED: LORazepam 2 MG/ML VIAL IV ONE (08:28)
[2021-08-04] MEDS ORDERED: FENTANYL CITR 100 MCG/2 ML ONE (08:40)
[2021-08-04] MEDS ORDERED: LIDOCAINE 1% MPF 5 ML VIAL ONE (08:40)
[2021-08-04] MEDS ORDERED: MIDAZOLAM HCL 2 MG/2 ML INJ ONE (08:40)
[2021-08-04] MEDS ORDERED: propofoL 200 MG/20 ML VIAL IV ONE (08:40)
[2021-08-04] MEDS ORDERED: MINERAL OIL, LITE 10 ML VIAL ONE (08:50)
[2021-08-04] MEDS ORDERED: NA CHLORIDE 0.9% 250 ML IV SCH (09:00)
[2021-08-04] MEDS: DILTIAZEM HCL 120 MG SR CAP PO SCH (09:33)
[2021-08-04] MEDS: PANTOPRAZOLE 40MG TABLET PO SCH (09:33)
[2021-08-04] MEDS: levETIRAcetam 500 MG TAB PO SCH ×2 (09:34→21:07)
[2021-08-04] MEDS: GABAPENTIN 300 MG CAP PO SCH ×3 (09:34→21:07)
[2021-08-04] MEDS: FUROSEMIDE 40 MG/4 ML VIAL IV SCH (09:34)
[2021-08-04] MEDS ORDERED: NA CHLORIDE 0.9% 100 ML ONE (12:18)
[2021-08-04 19:59] LABS: Hematocrit 30.1 % (36.0-45.0)
[2021-08-04] MEDS: Latanoprost/Pf [Latanoprost 0.005% Eye Drop] 7.5 ML Drops OPTH SCH (21:00)
[2021-08-04] MEDS: CEFTRIAXONE 1,000 MG in NA CHLORIDE 0.9% 50 ML IVPB SCH (21:08)
[2021-08-04] MEDS: TIZANIDINE 4 MG TABLET PO SCH (21:08)
[2021-08-04] MEDS: ATORVASTATIN 40 MG TAB PO SCH (21:08)
[2021-08-05] MEDS: METHYLPREDNISOLONE 40 MG INJ IV SCH ×3 (00:44→15:59)
[2021-08-05] MEDS: IPRATROPIUM BROM 0.5MG/2.5ML NEB SCH ×4 (01:50→20:20)
[2021-08-05] MEDS: ALBUTEROL 2.5 MG/3 ML NEB SOL NEB SCH ×4 (02:00→20:20)
[2021-08-05 04:09] LABS: Hematocrit 29.3 % (36.0-45.0); MPV 8.6 fL (7.6-11.3); RBC Red Blood Cell Count 3.61 M/uL (3.86-4.86)
[2021-08-05 04:11] LABS: BUN Blood Urea Nitrogen 28 mg/dL (7-18); Bicarbonate 38 mmol/L (21-32); C-Reactive Protein < 2.90 mg/L (<3.00); Glucose Level 202 mg/dL (74-106); Potassium 3.8 mmol/L (3.5-5.1); Sodium Level 142 mmol/L (136-145)
[2021-08-05] MEDS: LEVOTHYROXINE SOD 0.075 MG TAB PO SCH (06:02)
[2021-08-05] MEDS: HYDROCODONE/APAP 5/325 MG TAB PO PRN ×3 (06:11→20:23)
--- NOTE | 2021-08-05 06:19 | P.PN ---
Date of Service: 08/05/21 Subjective: Patient reports feeling better, breathing more comfortably, but still with shortness of breath/dyspnea. More energy Does not recall events from yesterday. No complications of 1 unit blood transfusion Hemoglobin up to 9 Denies nausea/vomiting, no abdominal pain ROS: as noted above, otherwise negative Physical Exam General: Alert, In no apparent distress, Oriented x2 HEENT: Mucous membr. moist/pink Respiratory: b/l bases diminished, with mild basilar rales Cardiovascular: Edema (improved), Irregular heart rate/rhythm Gastrointestinal: Soft and benign, Non-distended, No tenderness Musculoskeletal: No tenderness Integumentary: Bilateral lower extremity venous stasis dermatitis Neurological: Normal strength at 5/5 x4 extr, Mildly confused Problem List Acute hypoxemic respiratory failure secondary to acute on chronic D-CHF Acute on on chronic COPD exacerbation Anemia -acute on chronic; iron deficiency, h/o ?GI bleed Chronic atrial fibrillation on eliquis continue steroids, nebs antibiotics empirically for COPD exacerbation Continue IV Lasix for CHF. Hemoglobin remained in the low sevens after 1 unit PRBC transfusion, received second unit on 08/04, hemoglobin now up to 9s similar presentation ~1 yr ago, patient transfused pRBCs and transferred to [place] due to lack of GI coverage at that time GI consulted on 08/04, plan for EGD today/tomorrow 1 blood culture bottle is growing gram-positive cocci. Patient started on IV vancomycin. Serial blood cultures: no growth. ID consulted UA suggest UTI. Urine cultures pending: GNR - continue rocephin Continue home medications for atrial fibrillation. No anticoagulation given anemia and plan for EGD SCD for DVT prophylaxis. Dispo: anticipate dc home in ~2-3 days may need home O2 EGD today vs tomorrow Time Spent Managing Pts Care (In Minutes): 35
[2021-08-05] MEDS: KCL 20 MEQ/100 mL IVPB 20 MEQ/100 ML BAG IV SCH (07:00)
[2021-08-05] MEDS ORDERED: POTASSIUM CL SA 10 MEQ TAB PO ONE (07:25)
--- NOTE | 2021-08-05 07:42 | RAD REPORT ---
EXAM DESCRIPTION: Jonit Single View08/05/2021 7:14 am CLINICAL HISTORY: Shortness of breath COMPARISON: August 03, 2021 FINDINGS: Mild bilateral pulmonary opacities without significant change. Heart remains enlarged. Sm all bilateral pleural effusions IMPRESSION: No significant change in CHF
[2021-08-05] MEDS: PANTOPRAZOLE 40MG TABLET PO SCH (09:23)
[2021-08-05] MEDS: levETIRAcetam 500 MG TAB PO SCH ×2 (09:24→20:29)
[2021-08-05] MEDS: GABAPENTIN 300 MG CAP PO SCH ×3 (09:24→20:25)
[2021-08-05] MEDS: DILTIAZEM HCL 120 MG SR CAP PO SCH (09:24)
--- NOTE | 2021-08-05 11:17 | P.CNS ---
Date of Consult: 08/05/21 Chief Complaint: Shortness of breath History of Present Illness: The patient is an 80 year past medical history of CHF, COPD, chronic atrial fibrillation, tobacco use currently smoking 10 cigarettes per day, and history of CVA who presented to the emergency department secondary to complaints of worsening shortness breath for 1 week. Patient is poor historian, states that she has trouble remembering things after her stroke. As such majority of information obtained via chart review. Per chart review patient use her emergency inhaler at home without improvement. Chest x-ray showed vascular congestion. Patient admitted for treatment for COPD exacerbation. Infectious Disease consulted and do 2 positive blood cultures obtained on 08/01. Blood cultures growing Staph Simulans in 2/4 bottles. Repeat cultures obtained on 08/05 pending. Patient also noted to have UTI, urine culture growing E coli. Patient empirically placed on Rocephin on 08/03. Patient states she is feeling better today, denies nausea/vomiting/shortness breast/chest pain Allergies codeine Allergy (Verified 11/13/19 19:38) confusion Home Medications: Acetaminophen [Tylenol] 2 tab PO Q8H PRN 11/04/19 Albuterol Sulfate [Proair Respiclick] 2 puff IH Q4H PRN 11/04/19 Diltiazem HCl [Diltiazem 24Hr ER] 240 mg PO DAILY 11/04/19 Gabapentin [Neurontin*] 600 mg PO TID 11/04/19 Hydrocodone Bit/Acetaminophen [Hydrocodon-Acetaminophen 5-325] 5 - 325 mg PO Q6H PRN 11/04/19 Ipratropium/Albuterol Sulfate [Iprat-Albut 0.5-3(2.5) mg/3 ml] 1 puff IH Q8H PRN 11/04/19 Latanoprost/Pf [Latanoprost 0.005% Eye Drop] 1 gtt OP BEDTIME 11/04/19 Levothyroxine Sodium 75 mcg PO DAILY 11/04/19 Melatonin [Melatonin*] 2 tab PO BEDTIME PRN 11/04/19 Ondansetron HCl [Zofran] 4 mg PO TID PRN 11/04/19 Pantoprazole [Protonix Tab*] 20 mg PO DAILY 11/04/19 Torsemide 10 mg PO DAILY 11/04/19 Apixaban [Eliquis] 5 mg PO BID #60 tablet 11/05/19 Atorvastatin Calcium [Lipitor] 40 mg PO BEDTIME #30 tab 11/05/19 levETIRAcetam [Keppra*] 500 mg PO BID #60 tab 11/19/19 Ibuprofen 200 mg PO PRN 08/02/21 Metformin HCl [Glucophage*] 500 mg PO BID 08/02/21 Tizanidine [Zanaflex*] 2 mg PO BEDTIME 08/02/21 - Past Medical/Surgical History Diabetic: No -: Multiple strokes -: Chronic AFib -: Active smoker possible COPD -: CHF -: GERD -: HTN -: DM -: hypothyroid -: glaucoma -: dvt and pe -: cracked vertebrae, bulging disk, sciatic nerve problem -: hysterectomy -: tonisillectomy - Family History Father Medical History: Heart disease - Social History Smoking Status: Current every day smoker Alcohol use: No CD- Drugs: No Caffeine use: Yes Place of Residence: Home Review of Systems 10-point ROS is otherwise unremarkable Physical Examination Temp Pulse Resp BP Pulse Ox 97.7 F 113 H 20 151/77 H 90 L 08/05/21 08:00 08/05/21 08:00 08/05/21 08:00 08/05/21 08:00 08/05/21 08:00 General: In no apparent distress, Obese HEENT: Atraumatic, Normocephalic Neck: Supple Respiratory: Other (Bilateral crackles/rales) Cardiovascular: Irregular heart rate/rhythm Gastrointestinal: Normal bowel sounds, Soft and benign Musculoskeletal: No clubbing, No swelling, No contractures Conclusions/Impression: Antibiotics: Rocephin Start: 08/03 Indication: UTI Assessment/plan Bacteremia Blood cultures obtained on 08/01 growing Staph Simulans in 2/4 bottles. Likely contaminant, repeat cultures pending. If repeat cultures are negative no need to treat as true bacteremia. No clear source of infection, patient without white count or fever. Urinary tract infection Urine culture growing E coli sensitive to Rocephin. Recommend treating for 5-7 day course. AFib, COPD, anemia -medical management per primary team -plan of care discussed with -thank you for consultation
--- NOTE | 2021-08-05 13:52 | EEG ---
CHART: [id number] TEST ID#: [id number] DATE OF STUDY: 08/04/2021 THE EEG WAS RECORDED PORTABLE IN THE PATIENT'S ROOM ON A 17 CHANNEL MACHINE. ELECTRODES WERE APPLIED IN THE USUAL MANNER USING THE INTERNATIONAL 10-20 SYSTEM. THE WAKING BACKGROUND RHYTHM IN THIS RECORD CONSISTS OF WELL DEVELOPED AND WELL ORGANIZED WAVES OF 5-6 HZ., IN A WIDE DISTRIBUTION WHICH ATTENUATE NORMALLY WITH EYE OPENING. MODERATE VOLTAGE 1.5-3 HZ ACTIVITY IS EXPRESSED IN THE FRONTAL AND CENTRAL REGIONS. THERE ARE NO FOCAL OR LATERALIZING FEATURES. NO EPILEPTIFORM ACTIVITY APPEARS. SLEEP OCCURRED NATURALLY. IN ADDITION NORMAL SLEEP PATTERNS ARE PRESENT. HYPERVENTILATION WAS NOT PERFORMED. PHOTIC STIMULATION PRODUCED NO DRIVING BILATERALLY. IMPRESSION: THIS IS A MODERATELY ABNORMAL EEG DUE TO A MODERATELY SLOW BACKGROUND. THIS IS A NON-SPECIFIC FINDING INDICATING THE PRESENCE OF A MODERATE DIFFUSE DISTURBANCE IN CEREBRAL FUNCTION.
[2021-08-05] MEDS: FUROSEMIDE 40 MG/4 ML VIAL IV SCH (17:20)
--- NOTE | 2021-08-05 18:20 | RAD REPORT ---
EXAM DESCRIPTION: RAD - Small Bowel Series - 08/05/2021 3:28 pm CLINICAL HISTORY: occult gi bleed suspected Abdominal pain COMPARISON: Barium Swallow Modified dated 11/16/2019 FINDINGS: Income Auditor film shows a nonspecific bowel gas pattern. No obstruction or free air. No suspiciou s calcifications. Gastric size and mucosal fold pattern are normal. No delay in transit of contrast into the small ling l. Small bowel is normal in diameter with no mucosal fold thickening. No intrinsic or extrinsic mass identifiable. Terminal ileum has normal appearance. Transit time to the colon is normal. No fluoroscopy was performed. Total images acquired: 10 IMPRESSION: Normal small bowel series.
[2021-08-05] MEDS: ATORVASTATIN 40 MG TAB PO SCH (20:25)
[2021-08-05] MEDS: MELATONIN 3 MG TABLET PO PRN (20:25)
[2021-08-05] MEDS: CEFTRIAXONE 1,000 MG in NA CHLORIDE 0.9% 50 ML IVPB SCH (20:29)
[2021-08-05] MEDS: Latanoprost/Pf [Latanoprost 0.005% Eye Drop] 7.5 ML Drops OPTH SCH (21:00)
[2021-08-05] MEDS: TIZANIDINE 4 MG TABLET PO SCH (22:31)
[2021-08-06] MEDS: METHYLPREDNISOLONE 40 MG INJ IV SCH ×2 (00:54→08:35)
[2021-08-06] MEDS: ALBUTEROL 2.5 MG/3 ML NEB SOL NEB SCH ×4 (01:02→19:50)
[2021-08-06] MEDS: IPRATROPIUM BROM 0.5MG/2.5ML NEB SCH ×4 (01:02→19:50)
[2021-08-06 03:56] LABS: Potassium 3.8 mmol/L (3.5-5.1)
[2021-08-06] MEDS: LEVOTHYROXINE SOD 0.075 MG TAB PO SCH (05:44)
--- NOTE | 2021-08-06 05:59 | P.PN ---
Date of Service: 08/06/21 Subjective: Continues to feel better, still on 4 L nasal cannula, wheezing has improved Diuresing with IV Lasix Hemoglobin has been stable since blood transfusion and discontinuation of Eliquis Son updated at bedside ROS: as noted above, otherwise negative Physical Exam General: Alert, In no apparent distress, Oriented x2 HEENT: Mucous membr. moist/pink Respiratory: b/l bases diminished, with mild wheeze Cardiovascular: Edema (improved), Irregular heart rate/rhythm Gastrointestinal: Soft and benign, Non-distended, No tenderness Musculoskeletal: No tenderness Integumentary: Bilateral lower extremity venous stasis dermatitis Neurological: Normal strength at 5/5 x4 extr, Mildly confused Problem List Acute hypoxemic respiratory failure secondary to acute on chronic D-CHF Acute on on chronic COPD exacerbation Anemia -acute on chronic; iron deficiency, h/o ?GI bleed Chronic atrial fibrillation on eliquis Patient's hypoxemia likely secondary to acute CHF and COPD exacerbation. Diuresis with IV Lasix Continue COPD treatment with steroids, nebs, add Dulera Pulmonology consulted, patient with no significant improvement, and questionable if has had a diagnosis COPD. Patient is a long-term smoker antibiotics empirically for COPD exacerbation Hemoglobin remained in the low sevens after 1 unit PRBC transfusion, received second unit on 08/04, hemoglobin now up to 9s, stable similar presentation ~1 yr ago, patient transfused pRBCs and transferred to [place] due to lack of GI coverage at that time GI consulted on 08/04, plan for EGD today 1 blood culture bottle is growing gram-positive cocci. Patient started on IV vancomycin. Serial blood cultures: no growth. ID consulted UA suggest UTI. Urine cultures pending: GNR - continue rocephin Continue home medications for atrial fibrillation. No anticoagulation given anemia and plan for EGD SCD for DVT prophylaxis. Dispo: anticipate dc home in ~2-3 days may need home O2 EGD today Time Spent Managing Pts Care (In Minutes): 35
[2021-08-06 08:04] LABS: Absolute Lymphocytes (CBC) 0.3 K/uL (0.7-4.9); Basophils % 0.2 % (0-1.3); Hematocrit 27.9 % (36.0-45.0); Lymphocytes % 4.7 % (15.3-44.8); MPV 8.4 fL (7.6-11.3); Protime INR 1.1; RBC Red Blood Cell Count 3.43 M/uL (3.86-4.86)
[2021-08-06] MEDS: DILTIAZEM HCL 120 MG SR CAP PO SCH (08:33)
[2021-08-06] MEDS: levETIRAcetam 500 MG TAB PO SCH ×2 (08:33→20:31)
[2021-08-06] MEDS: GABAPENTIN 300 MG CAP PO SCH ×3 (08:34→20:30)
[2021-08-06] MEDS: FUROSEMIDE 40 MG/4 ML VIAL IV SCH ×2 (08:34→16:07)
[2021-08-06] MEDS: PANTOPRAZOLE 40MG TABLET PO SCH (08:34)
[2021-08-06] MEDS ORDERED: POTASSIUM CL SA 10 MEQ TAB PO ONE (09:00)
--- NOTE | 2021-08-06 10:18 | P.PN ---
Subjective Date of Service: 08/06/21 Chief Complaint: Shortness of breath Patient seen examined at bedside, doing well no acute complaints. Probiotic started. Repeat blood cultures pending. WBC within normal range, afebrile and hemodynamically stable. Currently utilizing 4 L of oxygen via nasal cannula. Review of Systems 10-point ROS is otherwise unremarkable Physical Examination - Vital Signs Temperature: 97.8 F Blood Pressure: 123/57 Pulse: 96 Respirations: 18 Pulse Ox (%): 100 - Studies Laboratory Last Values WBC 3.10 K/uL (4.3-10.9) L D 08/02/21 08:08 RBC 2.91 M/uL (3.86-4.86) L 08/02/21 08:08 Hgb 7.2 g/dL (12.0-15.0) L 08/02/21 08:08 Hct 22.8 % (36.0-45.0) L 08/02/21 08:08 MCV 78.6 fL (80-100) L 08/02/21 08:08 MCH 24.8 pg (27.0-35.0) L 08/02/21 08:08 MCHC 31.5 g/dL (32.0-36.0) L 08/02/21 08:08 RDW 19.8 % (12.1-15.2) H 08/02/21 08:08 Plt Count 213 K/uL (152-406) 08/02/21 08:08 MPV 8.2 fL (7.6-11.3) 08/02/21 08:08 Neutrophils % 83.5 % (41.7-73.7) H 08/02/21 08:08 Lymphocytes % 13.4 % (15.3-44.8) L 08/02/21 08:08 Monocytes % 3.0 % (3.3-12.3) L 08/02/21 08:08 Eosinophils % 0.0 % (0-4.4) 08/02/21 08:08 Basophils % 0.1 % (0-1.3) 08/02/21 08:08 Absolute Neutrophils 2.6 K/uL (1.8-8.0) 08/02/21 08:08 Absolute Lymphocytes 0.4 K/uL (0.7-4.9) L 08/02/21 08:08 Absolute Monocytes 0.1 K/uL (0.1-1.3) 08/02/21 08:08 Absolute Eosinophils 0.0 K/uL (0-0.5) 08/02/21 08:08 Absolute Basophils 0.0 K/uL (0-0.5) 08/02/21 08:08 Platelet Estimate Adeq 08/01/21 13:30 Anisocytosis 1+ 08/01/21 13:30 Microcytosis 1+ 08/01/21 13:30 Morphology Comment Noted (NOT SEEN) 08/01/21 13:30 PT 18.0 SECONDS (9.5-12.5) H 08/01/21 13:30 INR 1.56 08/01/21 13:30 APTT 35.0 SECONDS (24.3-36.9) 08/01/21 13:30 pH Cancelled 08/02/21 03:40 pCO2 Cancelled 08/02/21 03:40 pO2 Cancelled 08/02/21 03:40 HCO3 Cancelled 08/02/21 03:40 Base Excess Cancelled 08/02/21 03:40 Oxyhemoglobin Cancelled 08/02/21 03:40 ABG O2 Sat (Measured) Cancelled 08/02/21 03:40 ABG Carboxyhemoglobin Cancelled 08/02/21 03:40 ABG Methemoglobin Cancelled 08/02/21 03:40 Other Total Hgb Cancelled 08/02/21 03:40 Inspired O2 Cancelled 08/02/21 03:40 Sodium 135 mmol/L (136-145) L 08/02/21 08:08 Potassium 3.6 mmol/L (3.5-5.1) 08/02/21 08:08 Chloride 96 mmol/L (98-107) L 08/02/21 08:08 Carbon Dioxide 32 mmol/L (21-32) 08/02/21 08:08 BUN 26 mg/dL (7-18) H 08/02/21 08:08 Creatinine 0.99 mg/dL (0.55-1.3) 08/02/21 08:08 Estimated GFR 54 mL/min (=/>90) L 08/02/21 08:08 Glucose 194 mg/dL (74-106) H 08/02/21 08:08 POC Glucose 175 mg/dL (65-120) H 08/01/21 20:06 Calcium 9.0 mg/dL (8.5-10.1) 08/02/21 08:08 Phosphorus 3.7 mg/dL (2.5-4.9) 08/02/21 08:08 Magnesium 2.3 mg/dL (1.8-2.4) 08/02/21 08:08 Total Bilirubin 0.3 mg/dL (0.2-1.0) 08/01/21 13:30 Direct Bilirubin 0.1 mg/dL (0-0.2) 08/01/21 13:30 AST 12 U/L (15-37) L 08/01/21 13:30 ALT 15 U/L (12-78) 08/01/21 13:30 Alkaline Phosphatase 150 U/L (45-117) H 08/01/21 13:30 Rapid Troponin I < 0.02 ng/mL (0.0-0.045) 08/01/21 13:30 Troponin I < 0.02 ng/mL (0.0-0.045) 08/02/21 08:08 NT-Pro-B Natriuret Pep 3856 pg/mL (<450) H 08/01/21 13:30 Serum Total Protein 7.3 g/dL (6.4-8.2) 08/01/21 13:30 Albumin 3.0 g/dL (3.4-5.0) L 08/01/21 13:30 Globulin 4.3 g/dL (2.3-3.5) H 08/01/21 13:30 Albumin/Globulin Ratio 0.7 (1.1-1.8) L 08/01/21 13:30 Triglycerides 58 mg/dL (<150) 08/02/21 08:08 Cholesterol 116 mg/dL (<200) 08/02/21 08:08 LDL Cholesterol, Calc 33 (<130) 08/02/21 08:08 HDL Cholesterol 71 mg/dL (40-60) H 08/02/21 08:08 Cholesterol/HDL Ratio 1.63 08/02/21 08:08 Lipase 92 U/L (73-393) 08/01/21 13:30 TSH 0.739 uIU/mL (0.360-3.740) 08/02/21 08:08 SARS-CoV-2 Rap RNA(RT-PCR) Negative (NEGATIVE) 08/01/21 12:36 Smear Scan Ok (OK) 08/01/21 13:30 ABO/Rh B POSITIVE 08/01/21 21:29 Solid Phase Ab Screen Negative 08/01/21 21:29 Crossmatch See Detail 08/01/21 21:29 Microbiology Data (last 24 hrs): 08/01/21 13:30 Blood - Blood Aerobic Blood Culture - Final Staphylococcus Simulans 08/01/21 13:30 Blood - Blood Blood Culture Gram Stain - Final 08/01/21 13:30 Blood - Blood Anaerobic Blood Culture - Final No growth in 5 days. 08/01/21 13:15 Blood - Blood Blood Culture Gram Stain - Final Assessment And Plan - Plan Physical exam: General: In no apparent distress, Obese HEENT: Atraumatic, Normocephalic Neck: Supple Respiratory: Other (Bilateral crackles/rales) Cardiovascular: Irregular heart rate/rhythm Gastrointestinal: Normal bowel sounds, Soft and benign Musculoskeletal: No clubbing, No swelling, No contractures Conclusions/Impression: Antibiotics: Rocephin Start: 08/03 Indication: UTI Assessment/plan Bacteremia Blood cultures obtained on 08/01 growing Staph Simulans in 2/4 bottles. Likely contaminant, repeat cultures pending. If repeat cultures are negative no need to treat as true bacteremia. No clear source of infection, patient without white count or fever. Urinary tract infection Urine culture growing E coli sensitive to Rocephin. Recommend treating for 5-7 day course. AFib, COPD, anemia -medical management per primary team -plan of care discussed with -thank you for consultation
[2021-08-06 10:52] LABS: Anisocytosis 1+; Blood Morphology Comment NOTED (NOT SEEN); Platelet Estimate ADEQ; White Blood Cell Scan OK (OK)
[2021-08-06 10:53] LABS: Ovalocytes 1+
[2021-08-06] MEDS: NA CHLORIDE 0.9% 1,000 ML ONE ×2 (12:55→13:25)
[2021-08-06] MEDS ORDERED: LIDOCAINE 1% MPF 30 ML VIAL ONE (12:55)
[2021-08-06] MEDS ORDERED: propofoL 200 MG/20 ML VIAL IV ONE ×2 (12:55→12:56)
[2021-08-06] MEDS ORDERED: GLYCOPYRROLATE 0.2 MG/ML SYR ONE (12:56)
[2021-08-06] MEDS ORDERED: LIDOCAINE 1% MPF 2 ML AMPULE ONE (13:42)
--- NOTE | 2021-08-06 13:53 | ENDO RPT ---
[address], [address] EGD PROCEDURE REPORT EXAM DATE: 08/06/2021 PATIENT NAME: Ashli Alvarez MR#: [id number] BIRTHDATE: 1940 ATTENDING: Tamir G[address] STATUS: inpatient - [facility] DISABILITIES CAREGIVER: Linh Sosa RN and Diana Donahue INDICATIONS: The patient is a 80 yr old Female here for an EGD due to iron deficiency anemia, hgb 7.0, FeSat 2.8% PROCEDURE PERFORMED: EGD with biopsy MEDICATIONS: Per Anesthesia. TOPICAL ANESTHETIC: none CONSENT: The patient understands the risks and benefits of the procedure and understands that these risks include, but are not limited to: sedation, allergic reaction, infection, perforation and/or bleeding. Alternative means of evaluation and treatment include, among others: physical exam, x-rays, and/or surgical intervention. The patient elects to proceed with this endoscopic procedure. DESCRIPTION OF PROCEDURE: During intra-op preparation period all mechanical medical equipment was checked for proper function. Hand hygiene and appropriate measures for infection prevention was taken. Procedure, possible complications, and alternatives including but not limited to the possibility of bleeding, perforation, tear, infection, sepsis, need for surgery, need for blood transfusion, and anesthesia related complications were explained to the patient. After the risks, benefits and alternatives of the procedure were thoroughly explained, Informed consent was verified, confirmed and timeout was successfully executed by the treatment team. The patient was placed in the left lateral position. The patient was anesthetized with topical anesthesia. Through the anesthetized oropharyngeal area, the scope was passed without any difficulty. The [id number] ([id number]) endoscope was introduced through the mouth and advanced to the third portion of the duodenum. Retroflexed views revealed no abnormalities. The gastroscope was then slowly withdrawn and removed. A small hiatal hernia was found Moderate gastritis with numerous dark heme streaks was found in the body and the antrum of the stomach. Multiple biopsies were obtained and sent to pathology. Small bowel biopsies obtained with history of iron deficiency anemia ADVERSE EVENTS: There were no complications. IMPRESSIONS: 1. Small hiatal hernia 2. Moderate gastritis with numerous dark heme streaks in the body and the antrum of the stomach, s/p biopsies 3. Small bowel biopsies obtained with history of iron deficiency anemia RECOMMENDATIONS: 1. await biopsy results 2. acid suppression therapy REPEAT EXAM: Tamir G[address]me[address] Dr eSigned: Tamir G[address]mez Dr 08/06/2021 1:53 PM cc: CPT CODES: ICD9 CODES: PATIENT NAME: Ashli AlvarezJaspreet MR#: [id number]
[2021-08-06] MEDS: HYDROCODONE/APAP 5/325 MG TAB PO PRN ×2 (16:07→22:21)
[2021-08-06] MEDS: predniSONE 20 MG TAB PO SCH (17:06)
[2021-08-06] MEDS: TIZANIDINE 4 MG TABLET PO SCH (20:29)
[2021-08-06] MEDS: LACTOBACILLUS/ACIDOPHILUS TAB PO SCH (20:29)
[2021-08-06] MEDS: ATORVASTATIN 40 MG TAB PO SCH (20:31)
[2021-08-06] MEDS: CEFTRIAXONE 1,000 MG in NA CHLORIDE 0.9% 50 ML IVPB SCH (20:32)
[2021-08-06] MEDS: Latanoprost/Pf [Latanoprost 0.005% Eye Drop] 7.5 ML Drops OPTH SCH (21:00)
[2021-08-06] MEDS: MELATONIN 3 MG TABLET PO PRN (22:20)
[2021-08-07] MEDS: IPRATROPIUM BROM 0.5MG/2.5ML NEB SCH ×4 (01:10→20:10)
[2021-08-07] MEDS: ALBUTEROL 2.5 MG/3 ML NEB SOL NEB SCH ×4 (01:10→20:10)
[2021-08-07] MEDS: LEVOTHYROXINE SOD 0.075 MG TAB PO SCH (05:48)
[2021-08-07] MEDS: DULERA 100/5 (MOMETASONE/FORMOTEROL) INHALER IH SCH ×3 (05:56→21:00)
[2021-08-07] MEDS: HYDROCODONE/APAP 5/325 MG TAB PO PRN ×2 (06:07→17:39)
--- NOTE | 2021-08-07 06:16 | P.PN ---
Date of Service: 08/07/21 Subjective: Continues to feel better, breathing more comfortably, down to 2 L nasal cannula Hemoglobin stable Continues chronic A. fib, heart rate are elevated this morning, patient is more physically active ROS: as noted above, otherwise negative Physical Exam General: Alert, In no apparent distress, Oriented x3 HEENT: Mucous membr. moist/pink Respiratory: b/l bases diminished, no wheeze/rhonchi Cardiovascular: Edema (improved), Irregular heart rate/rhythm, HR: 110 Gastrointestinal: Soft and benign, Non-distended, No tenderness Integumentary: Bilateral lower extremity venous stasis dermatitis Neurological: Normal strength at 5/5 x4 extr rosa in place Problem List Acute hypoxemic respiratory failure secondary to acute on chronic D-CHF Acute on on chronic COPD exacerbation Anemia -acute on chronic; iron deficiency UGI bleed - moderate gastritis w/ numerous dark heme streaks Chronic atrial fibrillation on eliquis Patient's hypoxemia secondary to acute CHF and COPD exacerbation complicated by anemia / UGI bleed Diuresis with IV Lasix, Continue COPD treatment with steroids, nebs, added Dulera Pulmonology consulted Hemoglobin remained in the low sevens after 1 unit PRBC transfusion, received second unit on 08/04, hemoglobin now up to 9s, stable Similar presentation ~1 yr ago, patient transfused pRBCs and transferred to [place] due to lack of GI coverage at that time GI consulted on 08/04, s/p EGD: gastritis 1 blood culture bottle is growing gram-positive cocci. Patient started on IV vancomycin. Serial blood cultures: no growth. ID consulted, dc'd vanc UA suggest UTI. Urine cultures pending: GNR - completed rocephin x 5 days Continue home medications for atrial fibrillation. if uncontrolled may need to transition to sotalol SCD for DVT prophylaxis. hold eliquis for 3 days s/p EGD cardiology consulted, patient may benefit / good candidate for watchman procedure Dispo: anticipate dc SNF in ~2-3 days Time Spent Managing Pts Care (In Minutes): 35
[2021-08-07 06:19] LABS: Absolute Lymphocytes (CBC) 0.6 K/uL (0.7-4.9); Basophils % 0.2 % (0-1.3); Hematocrit 30.8 % (36.0-45.0); Lymphocytes % 8.4 % (15.3-44.8); MPV 9.1 fL (7.6-11.3); RBC Red Blood Cell Count 3.81 M/uL (3.86-4.86)
[2021-08-07 06:51] LABS: Albumin 2.8 g/dL (3.4-5.0); Bilirubin Total 0.4 mg/dL (0.2-1.0); Protein, Total 6.2 g/dL (6.4-8.2)
[2021-08-07 06:52] LABS: Magnesium 2.2 mg/dL (1.8-2.4); Potassium 3.7 mmol/L (3.5-5.1)
--- NOTE | 2021-08-07 07:51 | RAD REPORT ---
EXAM DESCRIPTION: RAD - Chest Single View - 08/07/2021 6:42 am CLINICAL HISTORY: hypoxia, f/u pulm edea, r/o effusion COMPARISON: August 05 TECHNIQUE: AP portable chest image was obtained 08/07/2021 6:42 am . FINDINGS: Extensive interstitial lung disease is present with a decrease in prominence since the [facility] examination. Cardiomegaly has improved but not fully resolved. Central vasculature also impro roxi. Trachea remains midline. No pneumothorax or enlarging pleural effusion. Pleural fluid does appea r to have diminished. IMPRESSION: Partial resolution of the CHF/volume overload pattern since August 05.
[2021-08-07] MEDS: predniSONE 20 MG TAB PO SCH ×2 (08:56→21:43)
[2021-08-07] MEDS: PANTOPRAZOLE 40MG TABLET PO SCH (08:56)
[2021-08-07] MEDS: LACTOBACILLUS/ACIDOPHILUS TAB PO SCH ×2 (08:56→21:43)
[2021-08-07] MEDS: DILTIAZEM HCL 120 MG SR CAP PO SCH (08:56)
[2021-08-07] MEDS: levETIRAcetam 500 MG TAB PO SCH ×2 (08:56→21:43)
[2021-08-07] MEDS: FUROSEMIDE 40 MG/4 ML VIAL IV SCH ×2 (08:57→17:39)
[2021-08-07] MEDS: GABAPENTIN 300 MG CAP PO SCH ×3 (08:57→21:42)
[2021-08-07] MEDS ORDERED: POTASSIUM CL SA 10 MEQ TAB PO ONE (09:00)
--- NOTE | 2021-08-07 11:15 | P.CNS ---
Date of Consult: 08/07/21 Reason for Consult: COPD Chief Complaint: Shortness of breath History of Present Illness: Patient is 80 years of age active smoker diastolic heart failure chronic AFib admitted to the hospital with progressive dyspnea the also found to have chronic anemia there is some evidence of GI bleed decline in her hemoglobin Patient is currently doing very well alert responsive cooperative she only takes a short-acting bronchodilator at home on a p.r.n. basis Allergies codeine Allergy (Verified 11/13/19 19:38) confusion Home Medications: Acetaminophen [Tylenol] 2 tab PO Q8H PRN 11/04/19 Albuterol Sulfate [Proair Respiclick] 2 puff IH Q4H PRN 11/04/19 Diltiazem HCl [Diltiazem 24Hr ER] 240 mg PO DAILY 11/04/19 Gabapentin [Neurontin*] 600 mg PO TID 11/04/19 Hydrocodone Bit/Acetaminophen [Hydrocodon-Acetaminophen 5-325] 5 - 325 mg PO Q6H PRN 11/04/19 Ipratropium/Albuterol Sulfate [Iprat-Albut 0.5-3(2.5) mg/3 ml] 1 puff IH Q8H PRN 11/04/19 Latanoprost/Pf [Latanoprost 0.005% Eye Drop] 1 gtt OP BEDTIME 11/04/19 Levothyroxine Sodium 75 mcg PO DAILY 11/04/19 Melatonin [Melatonin*] 2 tab PO BEDTIME PRN 11/04/19 Ondansetron HCl [Zofran] 4 mg PO TID PRN 11/04/19 Pantoprazole [Protonix Tab*] 20 mg PO DAILY 11/04/19 Torsemide 10 mg PO DAILY 11/04/19 Apixaban [Eliquis] 5 mg PO BID #60 tablet 11/05/19 Atorvastatin Calcium [Lipitor] 40 mg PO BEDTIME #30 tab 11/05/19 levETIRAcetam [Keppra*] 500 mg PO BID #60 tab 11/19/19 Ibuprofen 200 mg PO PRN 08/02/21 Metformin HCl [Glucophage*] 500 mg PO BID 08/02/21 Tizanidine [Zanaflex*] 2 mg PO BEDTIME 08/02/21 - Past Medical/Surgical History Diabetic: No -: Multiple strokes -: Chronic AFib -: Active smoker possible COPD -: CHF -: GERD -: HTN -: DM -: hypothyroid -: glaucoma -: dvt and pe -: cracked vertebrae, bulging disk, sciatic nerve problem -: hysterectomy -: tonisillectomy - Family History Father Medical History: Heart disease - Social History Smoking Status: Current every day smoker Alcohol use: No CD- Drugs: No Caffeine use: Yes Place of Residence: Home Review of Systems 10-point ROS is otherwise unremarkable General: Weakness Respiratory: Shortness of Breath Cardiovascular: Edema Physical Examination Temp Pulse Resp BP Pulse Ox 97.1 F 104 H 16 137/57 L 95 08/07/21 08:00 08/07/21 08:57 08/07/21 08:00 08/07/21 08:57 08/07/21 08:00 General: Alert, Oriented x3 Neck: Supple Respiratory: Clear to auscultation bilaterally, Diminished Cardiovascular: Edema (2+) Gastrointestinal: Normal bowel sounds, Soft and benign - Problems (1) COPD (chronic obstructive pulmonary disease) Current Visit: Yes Status: Acute Plan: Patient is 80 years of age admitted with GI bleed E she has chronic COPD active smoker patient should be on a long-acting bronchodilators recommend trilogy 1 puff once a day EGD revealed mild gastritis small-bowel biopsies were also performed patient is stable vital signs reviewed chemistries and labs reviewed hemoglobin stable chest x-ray shows some cardiomegaly COPD changes echocardiogram normal left ventricular function patient may benefit from a watchman procedures she is high risk for bleeding patient has E coli in the urine 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 medication Qualifiers: Emphysema type: unspecified
--- NOTE | 2021-08-07 19:16 | CON ---
Date of Consultation: 08/07/2021 Reason For Consultation: Evaluation for left atrial appendage closure. History Of Present Illness: This 80-year-old female is admitted with significant anemia and required blood transfusion and had GI workup showed erosive esophagitis with chronic blood loss. She has atr ial fibrillation and history of stroke in the past and on anticoagulation. Denies having any symptom s. Past Medical History: Atrial fibrillation, diastolic heart failure, COPD, active smoker, hypertensio n, and diabetes. Medications: Refer to reconciliation sheet for detailed list. Allergies: CODEINE. Family History: No premature coronary artery disease or cancer. Social History: Active smoker. Does not drink or use any drugs. Review of Systems: All systems reviewed and they were negative except for as mentioned in HPI. Physical Examination: Vital Signs: Reviewed. Head and Neck: Pupils are equal and reactive to light. Intact eye movements. No JVD. No cervical lymphadenopathy. Neck is supple. Thyroid is not enlarged. Lungs: Clear to auscultation bilaterally. No rhonchi, rales, or crackles. No accessory muscle use. Heart: Irregularly irregular. No extra sounds. Abdomen: Soft, nontender. Bowel sounds positive. No organomegaly. No masses or hernia. No rigidi ty or rebound. Extremities: No edema, clubbing, or cyanosis. Intact pulses. Skin: No rash. Neurologic: Alert, awake, and oriented x3. No acute focal deficits appreciated. Investigations: White blood cell count 7.3 and hemoglobin 9.9. Sodium 140, BUN 40, and creatinine 0 .9. Hemoglobin when she came in was 7.0. Assessment And Recommendations: Atrial fibrillation, chronic with Evgeny-Vasc score of 6 and chronic G I blood loss requiring blood transfusion. Definitely, she is a candidate for left atrial appendage c losure. Discussed the procedure in length with the patient and her son, and we plan to proceed once the patient is clinically stable and we will arrange for this to be done as an outpatient. Recommend treatment with PPIs at least two weeks to be taken twice a day prior to scheduling the left atrial a ppendage closure procedure. SR/MODL Voice ID: [id number] Report ID: [id number]
[2021-08-07] MEDS: Latanoprost/Pf [Latanoprost 0.005% Eye Drop] 7.5 ML Drops OPTH SCH (21:00)
--- NOTE | 2021-08-07 21:36 | P.PN ---
Subjective Date of Service: 08/07/21 Chief Complaint: Shortness of breath, iron deficiency anemia Subjective: No new changes (Tolerating po diet. Refuses colonoscopy at this time. EGD yesterday revealed a small hiatal hernia, and moderate hemorrhagic gastritis. She is tolerating PPI therapy.) Review of Systems General: Weakness (Improved.) Respiratory: Shortness of Breath (Improved.) Physical Examination - Vital Signs Temperature: 98 F Blood Pressure: 144/78 Pulse: 97 Respirations: 19 Pulse Ox (%): 92 - Physical Exam General: Alert, In no apparent distress, Oriented x3, Cooperative HEENT: Atraumatic, Normocephalic, PERRLA, EOMI Neck: Supple Respiratory: Diminished Cardiovascular: Normal pulses Gastrointestinal: Soft and benign, No tenderness, No rebound, No guarding Neurological: Normal speech, Normal strength at 5/5 x4 extr Assessment And Plan - Current Problems (Diagnosis) (1) Iron deficiency anemia Current Visit: Yes Status: Acute (2) Dyspnea Current Visit: Yes Status: Acute (3) Acute on chronic diastolic heart failure Current Visit: Yes Status: Acute (4) COPD (chronic obstructive pulmonary disease) Current Visit: Yes Status: Acute Qualifiers: Emphysema type: unspecified (5) History of CVA (cerebrovascular accident) Current Visit: No Status: Acute (6) Afib Current Visit: No Status: Chronic Qualifiers: Atrial fibrillation type: unspecified Qualified Code(s): I48.91 - Unspecified atrial fibrillation - Plan REC: 1) continue PPI therapy for 3 months and then use OTC medications prn 2) will pursue colonoscopy when patient agrees, as inpatient or outpatient (believe she said none prior) 3) advance diet 4) GI clinic f/u
[2021-08-07] MEDS: ATORVASTATIN 40 MG TAB PO SCH (21:42)
[2021-08-07] MEDS: TIZANIDINE 4 MG TABLET PO SCH (21:50)
[2021-08-08] MEDS: HYDROCODONE/APAP 5/325 MG TAB PO PRN ×2 (01:46→10:28)
[2021-08-08] MEDS: ALBUTEROL 2.5 MG/3 ML NEB SOL NEB SCH ×4 (02:04→19:40)
[2021-08-08] MEDS: IPRATROPIUM BROM 0.5MG/2.5ML NEB SCH ×4 (02:04→19:40)
[2021-08-08] MEDS ORDERED: TRAMADOL HCL 50 MG TAB PO ONE (04:00)
[2021-08-08] MEDS: LEVOTHYROXINE SOD 0.075 MG TAB PO SCH (05:53)
--- NOTE | 2021-08-08 06:01 | P.PN ---
Date of Service: 08/08/21 Subjective: improving, continues to feel better each day overnight with R sciatica pain, improved this morning no new complaints heart rate improved, more rate controlled in 90s no bleeding, no abd pain ROS: as noted above, otherwise negative Physical Exam General: Alert, In no apparent distress, Oriented x3 HEENT: Mucous membr. moist/pink Respiratory: b/l bases diminished, no wheeze/rhonchi Cardiovascular: trace b/l Edema (improved), Irregular heart rate/rhythm, HR: 90s Gastrointestinal: Soft and benign, Non-distended, No tenderness Integumentary: Bilateral lower extremity venous stasis dermatitis rosa in place Problem List Acute hypoxemic respiratory failure secondary to acute on chronic D-CHF Acute on on chronic COPD exacerbation Anemia -acute on chronic; iron deficiency UGI bleed - moderate gastritis w/ numerous dark heme streaks Chronic atrial fibrillation on eliquis Patient's hypoxemia secondary to acute CHF and COPD exacerbation complicated by anemia / UGI bleed Diuresis with IV Lasix, Continue COPD treatment with steroids, nebs, added Dulera Pulmonology consulted Hemoglobin remained in the low 7s after 1 unit PRBC transfusion, received second unit on 08/04, hemoglobin now up to 9s, stable Similar presentation ~1 yr ago, patient transfused pRBCs and transferred to [place] due to lack of GI coverage at that time GI consulted on 08/04, s/p EGD: gastritis, heme-streaking 1 blood culture bottle is growing gram-positive cocci. Patient started on IV vancomycin. Serial blood cultures: no growth. ID consulted, dc'd vanc UA suggest UTI. Urine cultures pending: GNR - completed rocephin x 5 days Continue home Cardizem for atrial fibrillation. if uncontrolled may need to transition to sotalol hold eliquis for minimum 3 days s/p EGD cardiology consulted, patient may benefit / good candidate for watchman procedure, to be set up as outpatient VTE: SCDs Dispo: anticipate dc SNF in ~2-3 days - awaiting approval Time Spent Managing Pts Care (In Minutes): 35
[2021-08-08] MEDS: LACTOBACILLUS/ACIDOPHILUS TAB PO SCH ×2 (10:27→20:38)
[2021-08-08] MEDS: levETIRAcetam 500 MG TAB PO SCH ×2 (10:27→20:38)
[2021-08-08] MEDS: DILTIAZEM HCL 120 MG SR CAP PO SCH (10:27)
[2021-08-08] MEDS: GABAPENTIN 300 MG CAP PO SCH ×3 (10:28→20:38)
[2021-08-08] MEDS: FUROSEMIDE 40 MG/4 ML VIAL IV SCH (10:29)
[2021-08-08] MEDS: PANTOPRAZOLE 40MG TABLET PO SCH (10:29)
[2021-08-08] MEDS: DULERA 100/5 (MOMETASONE/FORMOTEROL) INHALER IH SCH ×2 (10:30→20:41)
[2021-08-08] MEDS: predniSONE 20 MG TAB PO SCH ×2 (10:30→20:39)
[2021-08-08 18:18] VITALS: BMI 33.0
[2021-08-08] MEDS: ATORVASTATIN 40 MG TAB PO SCH (20:38)
[2021-08-08] MEDS: TIZANIDINE 4 MG TABLET PO SCH (20:38)
[2021-08-08] MEDS: Latanoprost/Pf [Latanoprost 0.005% Eye Drop] 7.5 ML Drops OPTH SCH (20:43)
[2021-08-09] MEDS: IPRATROPIUM BROM 0.5MG/2.5ML NEB SCH ×2 (01:40→09:01)
[2021-08-09] MEDS: ALBUTEROL 2.5 MG/3 ML NEB SOL NEB SCH ×2 (01:40→09:01)
[2021-08-09] MEDS: HYDROCODONE/APAP 5/325 MG TAB PO PRN ×2 (02:41→15:03)
[2021-08-09] MEDS: LEVOTHYROXINE SOD 0.075 MG TAB PO SCH (05:26)
--- NOTE | 2021-08-09 06:08 | P.PN ---
Date of Service: 08/09/21 Subjective: improving, no new complaints/concerns breathing more comfortably, down to 2L NC ambulating with assistance / PT appetite improved rosa dc'd yesterday, voiding without issue no abd/epigastric pain ROS: as noted above, otherwise negative Physical Exam General: Alert, In no apparent distress, Oriented x3 HEENT: Mucous membr. moist/pink Respiratory: b/l bases diminished, no wheeze/rhonchi Cardiovascular: Irregular heart rate/rhythm, HR: 90s, no edema Gastrointestinal: Soft and benign, Non-distended, No tenderness Integumentary: Bilateral lower extremity venous stasis dermatitis Problem List Acute hypoxemic respiratory failure secondary to acute on chronic D-CHF Acute on on chronic COPD exacerbation Anemia -acute on chronic; iron deficiency UGI bleed - moderate gastritis w/ numerous dark heme streaks Chronic atrial fibrillation on eliquis Patient's hypoxemia secondary to acute CHF and COPD exacerbation complicated by anemia / UGI bleed Diuresed well with IV Lasix, transition back to p.o. Continue COPD treatment, decrease the steroids, added Dulera, as needed nebs Suspect scheduled nebs contributed patient's tachycardia Continue home Cardizem for atrial fibrillation. if uncontrolled may need to transition to sotalol Pulmonology consulted Hemoglobin remained in the low 7s after 1 unit PRBC transfusion, received second unit on 08/04, hemoglobin now up to 9s, stable Similar presentation ~1 yr ago, patient transfused pRBCs and transferred to [place] due to lack of GI coverage at that time GI consulted on 08/04, s/p EGD: gastritis, heme-streaking Blood culture x1: Gram-positive cocci, empirically started IV vancomycin, serial blood cultures without any further growth, ID consulted and agreed with discontinuation of vancomycin UA with bacteriuria/pyuria, patient was questionable UTI symptoms. completed rocephin x 5 days hold eliquis for minimum 3-5 days s/p EGD Repeat CBC tomorrow, if hemoglobin stable can consider reinitiation of Eliquis in next day or 2 cardiology consulted, patient may benefit / good candidate for watchman procedure, to be set up as outpatient VTE: SCDs Dispo: anticipate dc SNF in next ~2 days - awaiting approval Time Spent Managing Pts Care (In Minutes): 35
[2021-08-09 06:14] LABS: Potassium 3.6 mmol/L (3.5-5.1)
[2021-08-09] MEDS ORDERED: POTASSIUM CL SA 10 MEQ TAB PO ONE (09:00)
[2021-08-09] MEDS ORDERED: FUROSEMIDE 40 MG/4 ML VIAL IV SCH (09:00)
[2021-08-09] MEDS: GABAPENTIN 300 MG CAP PO SCH ×3 (09:00→21:45)
[2021-08-09] MEDS: levETIRAcetam 500 MG TAB PO SCH ×2 (09:00→21:44)
[2021-08-09] MEDS: PANTOPRAZOLE 40MG TABLET PO SCH ×2 (09:00→21:45)
[2021-08-09] MEDS: DULERA 100/5 (MOMETASONE/FORMOTEROL) INHALER IH SCH ×2 (09:00→21:48)
[2021-08-09] MEDS: LACTOBACILLUS/ACIDOPHILUS TAB PO SCH ×2 (09:00→21:44)
[2021-08-09] MEDS: DILTIAZEM HCL 120 MG SR CAP PO SCH (09:00)
[2021-08-09] MEDS ORDERED: IPRATROPIUM BROM 0.5MG/2.5ML NEB PRN (10:21)
[2021-08-09] MEDS ORDERED: ALBUTEROL 2.5 MG/3 ML NEB SOL NEB PRN (10:21)
[2021-08-09] MEDS: predniSONE 20 MG TAB PO SCH ×2 (10:27→21:45)
--- NOTE | 2021-08-09 13:30 | PN ---
Subjective: The patient is sitting in wheelchair. Denies any headache, nausea, vomiting, chest pain , abdominal pain, constipation, or diarrhea. Objective: Vital Signs: Temperature 97, pulse 100, respirations 18, blood pressure 138/72, currentl y on 2 L nasal cannula, doing 97%. Lungs: Basal crackles. Decreased breath sounds bilaterally at the bases. Heart: S1, S2. Regular. Abdomen: Soft. Bowel sounds present. Extremities: Trace edema. Laboratory Data: WBC 7.3, hemoglobin 9.9, platelets are 136. Chemistry shows sodium 138, potassium 3.6, chloride 93, bicarb 28, BUN 29, creatinine 0.8, glucose 208. Albumin level is 2.8. Assessment And Plan: 1.The patient is doing better. Blood cultures positive on 08/01 with Staphylococcus simulans, most likely contaminant. 2.Urinary tract infection, Escherichia coli. Completed Rocephin antibiotic course. 3.Anemia of chronic disease. 4.Chronic obstructive pulmonary disease. 5.Protein-calorie malnourishment. 6.Morbid obesity. 7.Atrial fibrillation. Continue supportive care. Consider stopping Protonix as patient is getting lactobacillus. We will follow the patient as needed. NF/MODL Voice ID: [id number] Report ID: [id number]
[2021-08-09] MEDS: Latanoprost/Pf [Latanoprost 0.005% Eye Drop] 7.5 ML Drops OPTH SCH (21:00)
[2021-08-09] MEDS: ATORVASTATIN 40 MG TAB PO SCH (21:45)
[2021-08-09] MEDS: TIZANIDINE 4 MG TABLET PO SCH (21:47)
[2021-08-10] MEDS: HYDROCODONE/APAP 5/325 MG TAB PO PRN ×2 (03:05→21:02)
[2021-08-10 05:58] LABS: Potassium 4.2 mmol/L (3.5-5.1)
[2021-08-10] MEDS: LEVOTHYROXINE SOD 0.075 MG TAB PO SCH (06:05)
--- NOTE | 2021-08-10 06:05 | P.PN ---
Date of Service: 08/10/21 Subjective: ROS: as noted above, otherwise negative Physical Exam General: Alert, In no apparent distress, Oriented x3 HEENT: Mucous membr. moist/pink Respiratory: b/l bases diminished, no wheeze/rhonchi Cardiovascular: Irregular heart rate/rhythm, HR: 90s, no edema Gastrointestinal: Soft and benign, Non-distended, No tenderness Integumentary: Bilateral lower extremity venous stasis dermatitis Problem List Acute hypoxemic respiratory failure secondary to acute on chronic D-CHF Acute on on chronic COPD exacerbation Anemia -acute on chronic; iron deficiency UGI bleed - moderate gastritis w/ numerous dark heme streaks Chronic atrial fibrillation on eliquis Patient's hypoxemia secondary to acute CHF and COPD exacerbation complicated by anemia / UGI bleed Diuresed well with IV Lasix, transition back to p.o. Continue COPD treatment, decrease the steroids, added Dulera, as needed nebs Suspect scheduled nebs contributed patient's tachycardia Continue home Cardizem for atrial fibrillation. if uncontrolled may need to transition to sotalol Pulmonology consulted Hemoglobin remained in the low 7s after 1 unit PRBC transfusion, received second unit on 08/04, hemoglobin now up to 9s, stable Similar presentation ~1 yr ago, patient transfused pRBCs and transferred to [place] due to lack of GI coverage at that time GI consulted on 08/04, s/p EGD: gastritis, heme-streaking Blood culture x1: Gram-positive cocci, empirically started IV vancomycin, serial blood cultures without any further growth, ID consulted and agreed with discontinuation of vancomycin UA with bacteriuria/pyuria, patient was questionable UTI symptoms. completed rocephin x 5 days hold eliquis for minimum 3-5 days s/p EGD Repeat CBC tomorrow, if hemoglobin stable can consider reinitiation of Eliquis in next day or 2 cardiology consulted, patient may benefit / good candidate for watchman procedure, to be set up as outpatient VTE: SCDs Dispo: anticipate dc SNF in next ~2 days - awaiting approval Time Spent Managing Pts Care (In Minutes): 35
[2021-08-10 06:16] LABS: Hematocrit 30.6 % (36.0-45.0); MPV 9.4 fL (7.6-11.3); RBC Red Blood Cell Count 3.78 M/uL (3.86-4.86)
[2021-08-10] MEDS: FUROSEMIDE 40 MG TABLET PO SCH (08:58)
[2021-08-10] MEDS: predniSONE 20 MG TAB PO SCH ×2 (08:58→22:03)
[2021-08-10] MEDS: levETIRAcetam 500 MG TAB PO SCH ×2 (08:58→22:04)
[2021-08-10] MEDS: DILTIAZEM HCL 120 MG SR CAP PO SCH (08:59)
[2021-08-10] MEDS: GABAPENTIN 300 MG CAP PO SCH ×3 (08:59→22:03)
[2021-08-10] MEDS: PANTOPRAZOLE 40MG TABLET PO SCH ×2 (08:59→22:05)
[2021-08-10] MEDS: LACTOBACILLUS/ACIDOPHILUS TAB PO SCH ×2 (08:59→22:03)
[2021-08-10] MEDS: DULERA 100/5 (MOMETASONE/FORMOTEROL) INHALER IH SCH ×2 (09:00→21:00)
--- NOTE | 2021-08-10 11:23 | P.PN ---
Subjective Date of Service: 08/10/21 Chief Complaint: Shortness of breath, iron deficiency anemia Patient seen examined at bedside, completed course of antibiotics. Review of Systems 10-point ROS is otherwise unremarkable Physical Examination - Vital Signs Temperature: 97.7 F Blood Pressure: 136/61 Pulse: 89 Respirations: 18 Pulse Ox (%): 94 - Studies Microbiology 08/01/21 13:15 Blood - Blood Aerobic Blood Culture - Final 08/01/21 13:15 Blood - Blood Blood Culture Gram Stain - Final 08/01/21 13:15 Blood - Blood Anaerobic Blood Culture - Final No growth in 5 days. 08/01/21 13:30 Blood - Blood Aerobic Blood Culture - Final Staphylococcus Simulans 08/01/21 13:30 Blood - Blood Blood Culture Gram Stain - Final 08/01/21 13:30 Blood - Blood Anaerobic Blood Culture - Final No growth in 5 days. 08/01/21 12:36 Nasopharnyx Influenza Type A Antigen Screen - Final 08/01/21 12:36 Nasopharnyx Influenza Type B Antigen Screen - Final Assessment And Plan - Plan Physical exam: General: In no apparent distress, Obese HEENT: Atraumatic, Normocephalic Neck: Supple Respiratory: Other (Bilateral crackles/rales) Cardiovascular: Irregular heart rate/rhythm Gastrointestinal: Normal bowel sounds, Soft and benign Musculoskeletal: No clubbing, No swelling, No contractures Conclusions/Impression: Antibiotics: Rocephin Start: 08/03 Indication: UTI Assessment/plan Bacteremia Blood cultures obtained on 08/01 growing Staph Simulans in 2/4 bottles. Likely contaminant, repeat cultures showed no growth. If repeat cultures are negative no need to treat as true bacteremia. No clear source of infection, patient without white count or fever. Urinary tract infection Urine culture growing E coli sensitive to Rocephin. Recommend treating for 5-7 day course. AFib, COPD, anemia -medical management per primary team -plan of care discussed with -thank you for consultation
[2021-08-10] MEDS: Latanoprost/Pf [Latanoprost 0.005% Eye Drop] 7.5 ML Drops OPTH SCH (21:00)
[2021-08-10] MEDS: ATORVASTATIN 40 MG TAB PO SCH (22:03)
[2021-08-10] MEDS: TIZANIDINE 4 MG TABLET PO SCH (22:04)
[2021-08-11] MEDS: LEVOTHYROXINE SOD 0.075 MG TAB PO SCH (06:55)
[2021-08-11] MEDS: DULERA 100/5 (MOMETASONE/FORMOTEROL) INHALER IH SCH (09:00)
[2021-08-11] MEDS: PANTOPRAZOLE 40MG TABLET PO SCH (09:42)
[2021-08-11] MEDS: DILTIAZEM HCL 120 MG SR CAP PO SCH (09:42)
[2021-08-11] MEDS: levETIRAcetam 500 MG TAB PO SCH (09:42)
[2021-08-11] MEDS: FUROSEMIDE 40 MG TABLET PO SCH (09:42)
[2021-08-11] MEDS: LACTOBACILLUS/ACIDOPHILUS TAB PO SCH (09:42)
[2021-08-11] MEDS: GABAPENTIN 300 MG CAP PO SCH (09:42)
[2021-08-11] MEDS: predniSONE 20 MG TAB PO SCH (09:43)
[2021-08-11 09:52] VITALS: O2SAT 98
--- NOTE | 2021-08-11 11:06 | P.PN ---
Subjective Date of Service: 08/11/21 Chief Complaint: Shortness of breath, iron deficiency anemia Patient seen examined at bedside, sleeping comfortably. Review of Systems 10-point ROS is otherwise unremarkable Physical Examination - Vital Signs Temperature: 97.1 F Blood Pressure: 134/60 Pulse: 94 Respirations: 18 Pulse Ox (%): 96 - Studies Laboratory Last Values WBC 3.10 K/uL (4.3-10.9) L D 08/02/21 08:08 RBC 2.91 M/uL (3.86-4.86) L 08/02/21 08:08 Hgb 7.2 g/dL (12.0-15.0) L 08/02/21 08:08 Hct 22.8 % (36.0-45.0) L 08/02/21 08:08 MCV 78.6 fL (80-100) L 08/02/21 08:08 MCH 24.8 pg (27.0-35.0) L 08/02/21 08:08 MCHC 31.5 g/dL (32.0-36.0) L 08/02/21 08:08 RDW 19.8 % (12.1-15.2) H 08/02/21 08:08 Plt Count 213 K/uL (152-406) 08/02/21 08:08 MPV 8.2 fL (7.6-11.3) 08/02/21 08:08 Neutrophils % 83.5 % (41.7-73.7) H 08/02/21 08:08 Lymphocytes % 13.4 % (15.3-44.8) L 08/02/21 08:08 Monocytes % 3.0 % (3.3-12.3) L 08/02/21 08:08 Eosinophils % 0.0 % (0-4.4) 08/02/21 08:08 Basophils % 0.1 % (0-1.3) 08/02/21 08:08 Absolute Neutrophils 2.6 K/uL (1.8-8.0) 08/02/21 08:08 Absolute Lymphocytes 0.4 K/uL (0.7-4.9) L 08/02/21 08:08 Absolute Monocytes 0.1 K/uL (0.1-1.3) 08/02/21 08:08 Absolute Eosinophils 0.0 K/uL (0-0.5) 08/02/21 08:08 Absolute Basophils 0.0 K/uL (0-0.5) 08/02/21 08:08 Platelet Estimate Adeq 08/01/21 13:30 Anisocytosis 1+ 08/01/21 13:30 Microcytosis 1+ 08/01/21 13:30 Morphology Comment Noted (NOT SEEN) 08/01/21 13:30 PT 18.0 SECONDS (9.5-12.5) H 08/01/21 13:30 INR 1.56 08/01/21 13:30 APTT 35.0 SECONDS (24.3-36.9) 08/01/21 13:30 pH Cancelled 08/02/21 03:40 pCO2 Cancelled 08/02/21 03:40 pO2 Cancelled 08/02/21 03:40 HCO3 Cancelled 08/02/21 03:40 Base Excess Cancelled 08/02/21 03:40 Oxyhemoglobin Cancelled 08/02/21 03:40 ABG O2 Sat (Measured) Cancelled 08/02/21 03:40 ABG Carboxyhemoglobin Cancelled 08/02/21 03:40 ABG Methemoglobin Cancelled 08/02/21 03:40 Other Total Hgb Cancelled 08/02/21 03:40 Inspired O2 Cancelled 08/02/21 03:40 Sodium 135 mmol/L (136-145) L 08/02/21 08:08 Potassium 3.6 mmol/L (3.5-5.1) 08/02/21 08:08 Chloride 96 mmol/L (98-107) L 08/02/21 08:08 Carbon Dioxide 32 mmol/L (21-32) 08/02/21 08:08 BUN 26 mg/dL (7-18) H 08/02/21 08:08 Creatinine 0.99 mg/dL (0.55-1.3) 08/02/21 08:08 Estimated GFR 54 mL/min (=/>90) L 08/02/21 08:08 Glucose 194 mg/dL (74-106) H 08/02/21 08:08 POC Glucose 175 mg/dL (65-120) H 08/01/21 20:06 Calcium 9.0 mg/dL (8.5-10.1) 08/02/21 08:08 Phosphorus 3.7 mg/dL (2.5-4.9) 08/02/21 08:08 Magnesium 2.3 mg/dL (1.8-2.4) 08/02/21 08:08 Total Bilirubin 0.3 mg/dL (0.2-1.0) 08/01/21 13:30 Direct Bilirubin 0.1 mg/dL (0-0.2) 08/01/21 13:30 AST 12 U/L (15-37) L 08/01/21 13:30 ALT 15 U/L (12-78) 08/01/21 13:30 Alkaline Phosphatase 150 U/L (45-117) H 08/01/21 13:30 Rapid Troponin I < 0.02 ng/mL (0.0-0.045) 08/01/21 13:30 Troponin I < 0.02 ng/mL (0.0-0.045) 08/02/21 08:08 NT-Pro-B Natriuret Pep 3856 pg/mL (<450) H 08/01/21 13:30 Serum Total Protein 7.3 g/dL (6.4-8.2) 08/01/21 13:30 Albumin 3.0 g/dL (3.4-5.0) L 08/01/21 13:30 Globulin 4.3 g/dL (2.3-3.5) H 08/01/21 13:30 Albumin/Globulin Ratio 0.7 (1.1-1.8) L 08/01/21 13:30 Triglycerides 58 mg/dL (<150) 08/02/21 08:08 Cholesterol 116 mg/dL (<200) 08/02/21 08:08 LDL Cholesterol, Calc 33 (<130) 08/02/21 08:08 HDL Cholesterol 71 mg/dL (40-60) H 08/02/21 08:08 Cholesterol/HDL Ratio 1.63 08/02/21 08:08 Lipase 92 U/L (73-393) 08/01/21 13:30 TSH 0.739 uIU/mL (0.360-3.740) 08/02/21 08:08 SARS-CoV-2 Rap RNA(RT-PCR) Negative (NEGATIVE) 08/01/21 12:36 Smear Scan Ok (OK) 08/01/21 13:30 ABO/Rh B POSITIVE 08/01/21 21:29 Solid Phase Ab Screen Negative 08/01/21 21:29 Crossmatch See Detail 08/01/21 21:29 Assessment And Plan - Plan Physical exam: General: In no apparent distress, Obese HEENT: Atraumatic, Normocephalic Neck: Supple Respiratory: Other (Bilateral crackles/rales) Cardiovascular: Irregular heart rate/rhythm Gastrointestinal: Normal bowel sounds, Soft and benign Musculoskeletal: No clubbing, No swelling, No contractures Conclusions/Impression: Antibiotics: Rocephin Start: 08/03 Indication: UTI Assessment/plan Bacteremia Blood cultures obtained on 08/01 growing Staph Simulans in 2/4 bottles. Likely contaminant, repeat cultures showed no growth--no need to treat as true bacteremia. No clear source of infection, patient without white count or fever. Urinary tract infection Urine culture growing E coli sensitive to Rocephin. Patient has completed antimicrobial course. AFib, COPD, anemia -medical management per primary team -plan of care discussed with -thank you for consultation
--- NOTE | 2021-08-11 13:06 | P.DS ---
Admission Date: 08/02/21 Discharge Date: 08/11/21 Disposition: TRANSFER TO [facility] Discharge Condition: GOOD Reason for Admission: Shortness of breath, iron deficiency anemia - Problems (1) Acute on chronic diastolic heart failure Current Visit: Yes Status: Acute (2) COPD exacerbation Current Visit: Yes Status: Acute (3) Anemia Current Visit: Yes Status: Acute (4) Chronic atrial fibrillation Current Visit: No Status: Acute Brief History of Present Illness: 80-year-old woman with a history of chronic diastolic heart failure, COPD, chronic atrial fibrillation, tobacco use currently smoking 10 cigarettes/day presented to the emergency department with a complaint of progressive shortness of breath of 1 week duration. Patient states that she used her inhalers at home without any improvement. She has a history of chronic anemia evaluated with EGD and colonoscopy which did not diagnose the origin of her anemia. Her hemoglobin in the ED is 7. Chest x-ray demonstrated vascular congestion. Patient given treatment for COPD exacerbation with partial improvement. She was hospitalized for further management. Hospital Course: Problem List Acute hypoxemic respiratory failure secondary to acute on chronic D-CHF Acute on on chronic COPD exacerbation Anemia -acute on chronic; iron deficiency UGI bleed - moderate hemorrhagic gastritis. Chronic atrial fibrillation on eliquis Patient's hypoxemia secondary to acute CHF and COPD exacerbation complicated by anemia / UGI bleed Diuresed well with IV Lasix and transitioned back to p.o. COPD exacerbation treated with steroids, scheduled nebs and Dulera Continued home dose Cardizem for atrial fibrillation. Patient seen by pulmonology-Dr. Christianson who assisted with management of her COPD. Patient transfused 2 unit PRBC for hemoglobin in the low 7s, hemoglobin now up to 9 and stable GI consulted on 08/04, s/p EGD: Moderate hemorrhagic gastritis. Patient treated with PPI. Eliquis resumed on day 5 post EGD. Blood culture x1: Gram-positive cocci, empirically started IV vancomycin, serial blood cultures without any further growth, ID consulted and agreed with discontinuation of vancomycin UA with bacteriuria/pyuria, patient was questionable UTI symptoms. completed rocephin x 5 days cardiology consulted, patient may benefit / good candidate for watchman procedure, to be set up as outpatient. Patient seen by PT who recommend skilled rehab. Patient accepted to [facility] for skilled rehab. Vital Signs/Physical Exam: Temp Pulse Resp BP Pulse Ox 97.1 F 94 H 18 134/60 96 08/11/21 11:06 08/11/21 11:06 08/11/21 11:06 08/11/21 11:06 08/11/21 11:06 General: Alert, In no apparent distress, Oriented x3 HEENT: Mucous membr. moist/pink Neck: Supple, JVD not distended Respiratory: Clear to auscultation bilaterally, Normal air movement Cardiovascular: No edema, Normal S1 S2, Irregular heart rate/rhythm Gastrointestinal: Normal bowel sounds, Soft and benign, Non-distended, No tenderness Musculoskeletal: No swelling Integumentary: No rashes Neurological: Normal strength at 5/5 x4 extr Laboratory Data at Discharge: WBC 8.60 K/uL (4.3-10.9) D 08/10/21 05:17 Hgb 9.6 g/dL (12.0-15.0) L 08/10/21 05:17 Hct 30.6 % (36.0-45.0) L 08/10/21 05:17 Plt Count 139 K/uL (152-406) L 08/10/21 05:17 PT 12.7 SECONDS (9.5-12.5) H 08/06/21 07:36 INR 1.10 08/06/21 07:36 APTT 35.0 SECONDS (24.3-36.9) 08/01/21 13:30 Sodium 137 mmol/L (136-145) 08/10/21 05:17 Potassium 4.2 mmol/L (3.5-5.1) 08/10/21 05:17 BUN 26 mg/dL (7-18) H 08/10/21 05:17 Creatinine 0.84 mg/dL (0.55-1.3) 08/10/21 05:17 Glucose 189 mg/dL (74-106) H 08/10/21 05:17 Phosphorus 3.7 mg/dL (2.5-4.9) 08/02/21 08:08 Magnesium 2.2 mg/dL (1.8-2.4) 08/07/21 04:25 Total Bilirubin 0.4 mg/dL (0.2-1.0) 08/07/21 04:25 AST 17 U/L (15-37) 08/07/21 04:25 ALT 20 U/L (12-78) 08/07/21 04:25 Alkaline Phosphatase 86 U/L (45-117) 08/07/21 04:25 Troponin I < 0.02 ng/mL (0.0-0.045) 08/02/21 08:08 Triglycerides 58 mg/dL (<150) 08/02/21 08:08 Cholesterol 116 mg/dL (<200) 08/02/21 08:08 HDL Cholesterol 71 mg/dL (40-60) H 08/02/21 08:08 Cholesterol/HDL Ratio 1.63 08/02/21 08:08 Lipase 92 U/L (73-393) 08/01/21 13:30 Home Medications: Acetaminophen [Tylenol] 2 tab PO Q8H PRN 11/04/19 Albuterol Sulfate [Proair Respiclick] 2 puff IH Q4H PRN 11/04/19 Diltiazem HCl [Diltiazem 24Hr ER] 240 mg PO DAILY 11/04/19 Gabapentin [Neurontin*] 600 mg PO TID 11/04/19 Hydrocodone Bit/Acetaminophen [Hydrocodon-Acetaminophen 5-325] 5 - 325 mg PO Q6H PRN 11/04/19 Ipratropium/Albuterol Sulfate [Iprat-Albut 0.5-3(2.5) mg/3 ml] 1 puff IH Q8H PRN 11/04/19 Latanoprost/Pf [Latanoprost 0.005% Eye Drop] 1 gtt OP BEDTIME 11/04/19 Levothyroxine Sodium 75 mcg PO DAILY 11/04/19 Melatonin [Melatonin*] 2 tab PO BEDTIME PRN 11/04/19 Ondansetron HCl [Zofran] 4 mg PO TID PRN 11/04/19 Pantoprazole [Protonix Tab*] 20 mg PO DAILY 11/04/19 Torsemide 10 mg PO DAILY 11/04/19 Apixaban [Eliquis] 5 mg PO BID #60 tablet 11/05/19 Atorvastatin Calcium [Lipitor] 40 mg PO BEDTIME #30 tab 11/05/19 levETIRAcetam [Keppra*] 500 mg PO BID #60 tab 11/19/19 Metformin HCl [Glucophage*] 500 mg PO BID 08/02/21 Tizanidine [Zanaflex*] 2 mg PO BEDTIME 08/02/21 Fluticasone/Umeclidin/Vilanter [Trelegy Ellipta 100-62.5-25] 1 each IH DAILY 30 Days #30 blst.w.dev 08/07/21 Albuterol Neb [Proventil 0.083% Neb Soln] 2.5 mg NEB Q0GBCMH PRN amp 08/10/21 Mometasone/Formoterol [Dulera 100 Mcg/5 Mcg Inhaler] 2 puff IH BID inhaler 08/10/21 predniSONE [Prednisone*] 10 mg PO BID 3 Days #6 tab 08/10/21 Ipratropium Neb [Atrovent*] 0.5 mg NEB [id number] PRN amp 08/11/21 New Medications: Fluticasone/Umeclidin/Vilanter [Trelegy Ellipta 100-62.5-25] 1 each IH DAILY 30 Days #30 blst.w.dev Physician Discharge Instructions: Found to have CHF and COPD exacerbation. Improved with treatment of these. Also found to be anemic. GI was consulted, and found to have moderate gastritis with heme streaking. Eliquis was held for 5 days, hemoglobin improved. Cardiology was consulted and plan for outpatient follow up to schedule watchman procedure. Ok to restart Eliquis on discharge. Monitor H/H. Diet: gi soft Activity: Fall precautions Followup: DEE DEE FUNEZ [Primary Care Provider] - Daniel Fay MD [ACTIVE - CAN ADMIT] - 1-2 Weeks (utility person- call to schedule an appointment) Time spent managing pt's care (in minutes): 42
[2021-08-11] MEDS: HYDROCODONE/APAP 5/325 MG TAB PO PRN (13:22)
[2021-08-11 14:41] VITALS: BP 128/64; TEMP 97.3
--- NOTE | 2021-08-12 07:48 | EKG ---
Test Date: 2021-08-11 Test Time: 23:44:23 Tape Calender: RT Bhat MEASUREMENT RESULTS: Intervals: Rate: 79 WI: QRSD: 74 QT: 484 QTc: 554 Wilder: P: WI: QRS: 96 T: 128 INTERPRETIVE STATEMENTS: Atrial fibrillation Rightward axis Low voltage QRS Cannot rule out Anteroseptal infarct, age undetermined Prolonged QT Abnormal ECG Compared to ECG 08/01/2021 16:20:29 Low QRS voltage now present Prolonged QT interval now present Myocardial infarct finding still present Electronically Signed On 08-12-21 07:47:59 SAUSAGE WRAPPER by Richmond Garza
== END 2021-08-11 14:40 | DRG 291 ==
LOC: ER 12:20 → ERHOLD 17:58 → 4TH 19:32 → OBSVTOIN 08-02 12:01 → 2ND 08-07 16:48
PROVIDERS: ADMIT Internal Medicine; ATTEND Internal Medicine
PROC: 30233N1 Transfusion of Nonautologous Red Blood Cells into Peripheral Vein, Percutaneous Approach (ICD-10-PCS; 2021-08-02)
PROC: 0DB78ZX Excision of Stomach, Pylorus, Via Natural or Artificial Opening Endoscopic, Diagnostic (ICD-10-PCS; principal; 2021-08-06 12:45)
DX: I11.0 Hypertensive heart disease with heart failure (principal); I50.33 Acute on chronic diastolic (congestive) heart failure; J96.01 Acute respiratory failure with hypoxia; K29.71 Gastritis, unspecified, with bleeding; I48.20 Chronic atrial fibrillation, unspecified; N39.0 Urinary tract infection, site not specified; E46 Unspecified protein-calorie malnutrition; J43.9 Emphysema, unspecified; F17.210 Nicotine dependence, cigarettes, uncomplicated; E03.9 Hypothyroidism, unspecified; D50.9 Iron deficiency anemia, unspecified; E11.9 Type 2 diabetes mellitus without complications; K44.9 Diaphragmatic hernia without obstruction or gangrene; D63.8 Anemia in other chronic diseases classified elsewhere; K21.9 Gastro-esophageal reflux disease without esophagitis; E66.01 Morbid (severe) obesity due to excess calories; D64.9 Anemia, unspecified; B96.20 Unspecified Escherichia coli [E. coli] as the cause of diseases classified elsewhere; Z88.5 Allergy status to narcotic agent; Z79.890 Hormone replacement therapy; Z79.01 Long term (current) use of anticoagulants; Z79.899 Other long term (current) drug therapy; Z68.33 Body mass index [BMI] 33.0-33.9, adult; Z79.84 Long term (current) use of oral hypoglycemic drugs; Z86.73 Personal history of transient ischemic attack (TIA), and cerebral infarction without residual deficits; Z86.718 Personal history of other venous thrombosis and embolism; Z86.711 Personal history of pulmonary embolism; Z90.710 Acquired absence of both cervix and uterus; Z20.822 Contact with and (suspected) exposure to COVID-19
CPT/HCPCS: 36415; 36430; 71045; 74250; 80048; 80053; 80061; 80076; 80202; 81001; 82947; 83010; 83540; 83615; 83690; 83735; 83880; 84100; 84132; 84145; 84443; 84466; 84484; 85014; 85018; 85025; 85027; 85044; 85610; 85730; 86140; 86850; 86900; 86901; 87040; 87077; 87086; 87088; 87186; 87205; 87804; 88305; 88312; 93005; 93306; 94760; 95819; 96374; 97110; 97116; 97161; 97530; 99285; G0378; J1940; J2250; J2704; J2920; J3010; J3370; J3480; J7030; J7040; J7050; J7512; J7606; P9016; U0003

== ENCOUNTER 2021-10-14 00:15 | Inpatient (IN) | payer OTHER ==
--- OUTSIDE RECORDS SUMMARY | 2021-10-14 00:26 | XMS REPORT | Continuity of Care Document ---
:1940 Author Organization [facility] t Address [address] [place] [address] Care Team Providers Name Role Phone ED Primary Care Physician Unavailable JOHN ARMENTA Attending Clinician Unavailable RODOLFO HACKETT Attending Clinician Unavailable Basilio TELLO Attending Clinician Unavailable Doctor Unassigned, Name Attending Clinician Unavailable Ed U[place] Attending Clinician KNOW Attending Clinician Unavailable JOHN ARMENTA Admitting Clinician Unavailable RODOLFO HACKETT Admitting Clinician Unavailable KNOW Admitting Clinician Unavailable Payers Payer Name Policy Type Policy Number Effective Date Expiration Date S jeniffer [facility] MEDICARE [id number] 2019 ADVANTAGE 00:00:00 PRATEEK/JOSE CORONEL [id number] 2021 ADV CHOICE PPO 00:00:00 MEDICAID OF [place] [id number] 2021 00:00:00 Problems Condition Condition Condition Status Onset Resolution Last Treating Co mments Source Name Details Category Date Date Treatment Clinician Date Abnormal Abnormal Disease Active 2019-08 Unive rs CXR CXR 1-15 ity of 00:00: [address] Chronic Chronic Disease Active 2019-08 Univers atrial atrial 1-15 ity [place] Hypokalemi Hypokalemi Disease Active 2019-08 U nivers a a 1-15 ity of 00:00: [address] Branch Symptomati Symptomati Disease Active 2019-08 U nivers c anemia c anemia 1-15 ity of 00:00: [address] Branch Acute Acute Disease Active 2019-08 Univers blood loss blood loss 1-14 it y of anemia anemia 00:00: [address] Branch GIB GIB Disease Active 2019-08 Univers (gastroint (gastroint 1-14 it y of estinal estinal 00:00: [place] bleeding) bleeding) 00 [facility] Branch Stroke Stroke Disease Active Univers ity of [facility] Seizures Seizures Disease Active Unive rs ity of [facility] Essential Essential Disease Active Uni vers hypertensi hypertensi it y of on on [facility] Hyperplast Hyperplast Disease Active U nivers ic colonic ic colonic it y of polyp polyp [facility] Rectal Rectal Disease Active Overview: Univer s polyp polyp Formattin ity of g of this [place] note Medical might be Branch different from the original. 10mm External External Disease Active Unive rs hemorrhoid hemorrhoid it y of s s [facility] Diverticul Diverticul Disease Active U nivers a of colon a of colon it y of [facility] Lipoma of Lipoma of Disease Active Overview: Univers colon colon Formattin ity of g of this [place] note Medical might be Branch different from the original. 15mm Allergies, Adverse Reactions, Alerts Allergy Allergy Status Severity Reaction(s) Onset Inactive Treating Comm ents Source Name Type Date Date Clinician CODEINE Allergy Active 2019-08 [facility]H 1-14 00:00: 00 CODEINE DRUG Active Unknown-Cmnt 2019-08 Uni vers INGREDI 1-14 ity of 00:00: [address] Codeine Drug Active Unknown - 2019-08 Other Univer s Allergy See comments 1-14 reaction( ity of 00:00: s): [place] [id number] confusion [facility] Branch Social History Social Habit Start Date Stop Date Quantity Comments Source History [facility] University o f Alcohol Comment [place] Med ical Branch Exposure to Not sure University of SARS-CoV-2 [facility] (event) Branch History of Cigarette Smoker Universi ty of tobacco use [facility] Branch Alcohol intake 2021-05-18 2021-05-18 Lifetime University of 00:00:00 00:00:00 non-drinker [facility] (finding) Branch Tobacco use and 2020-09-25 2020-09-25 Never used Universit y of exposure 00:00:00 00:00:00 [place] [facility] History SDOH 2020-09-25 2020-09-25 1 University o f Alcohol Frequency 00:00:00 00:00:00 [facility] edical Branch History [facility] 2020-09-25 2020-09-25 99 [place] o f Alcohol Std 00:00:00 00:00:00 [place] Medical Drinks Branch History [facility] 2020-09-25 2020-09-25 1 [place] o f Alcohol Binge 00:00:00 00:00:00 [place] [facility] al Branch Sex [birth year] Universit y of 00:00:00 00:00:00 [facility] Branch Smoking Status Start Date Stop Date Source Current every day smoker 2020-09-25 00:00:00 Uni versity of [facility] Medications Ordered Filled Start Stop Current Ordering Indication Dosage Frequency Signature Comments Components Source Medication Medication Date Date Medication? Clinician (SIG) Name Name ALBUTEROL 2020-08 Yes [id number] INHALE 2 Univers 90 2-06 PUFFS BY ity of mcg/actuati 00:00: MOUTH [place] on inhaler 00 EVERY 6 Medica l HOURS Branch NEEDED FOR WHEEZING OR SHORTNESS OF BREATH ALBUTEROL 2020-08 Yes [id number] INHALE 2 Univers 90 2-06 PUFFS BY ity of mcg/actuati 00:00: MOUTH [place] on inhaler 00 EVERY 6 Medica l HOURS Branch NEEDED FOR WHEEZING OR SHORTNESS OF BREATH GABAPENTIN 2020-08 Yes [id number] TAKE 1 Univers 300 mg 0-01 CAPSULE BY ity of capsule 00:00: MOUTH 3 [place] 00 TIMES A Medical DAY Branch GABAPENTIN 2020-08 Yes [id number] TAKE 1 Univers 300 mg 0-01 CAPSULE BY ity of capsule 00:00: MOUTH 3 [place] TIMES A Medical DAY Branch GABAPENTIN 2020-08 Yes [id number] TAKE 1 Univers 300 mg 0-01 CAPSULE BY ity of capsule 00:00: MOUTH 3 [place] 00 TIMES A Medical DAY Branch GABAPENTIN 2020-08 Yes [id number] TAKE 1 Univers 300 mg 0-01 CAPSULE BY ity of capsule 00:00: MOUTH 3 [place] 00 TIMES A Medical DAY Branch diltiazem Yes 120mg Take 1 Unive rs XR 120 mg 9-29 capsule by ity of 24 hr 00:00: mouth [place] capsule 00 every Medical evening. Branch diltiazem Yes 120mg Take 1 Unive rs XR 120 mg 9-29 capsule by ity of 24 hr 00:00: mouth [place] capsule 00 every Medical evening. Branch diltiazem 2021-0 Yes 120mg Take 1 Unive rs XR 120 mg 9-29 capsule by ity of 24 hr 00:00: mouth [place] capsule 00 every Medical evening. Branch diltiazem 0 Yes 120mg Take 1 Unive rs XR 120 mg 9-29 capsule by ity of 24 hr 00:00: mouth [place] capsule 00 every Medical evening. Branch ondansetron 0 Yes 4mg Take 4 mg U nivers [...] (eight) Medical hours as Branch needed. cyclobenzap 0 Yes 10mg Take 10 mg Univers rine [...] (six) Medical hours as Branch needed. ondansetron 0 Yes 4mg Take 4 mg U nivers [...] 9-20 each eye. ity of dpem 15:09: [place] [address] Medical Branch HYDROcodone Yes 1{tbl} Take 1 Un sophia -acetaminop 9-20 tablet by ity of hen 5-325 15:09: mouth [place] mg tablet 25 every 6 Medical (six) Branch hours as needed. traMADoL 50 Yes 50mg Take 50 mg Univers mg tablet 9-20 by mouth ity of 15:09: every 6 [place] 25 (six) Medical hours as Branch needed. [...] 9-20 each eye. ity of dpem 15:09: [place] [address] Medical Branch HYDROcodone Yes 1{tbl} Take 1 Un sophia -acetaminop 9-20 tablet by ity of hen 5-325 15:09: mouth [place] mg tablet 25 every 6 Medical (six) Branch hours as needed. traMADoL 50 0 Yes 50mg Take 50 mg Univers mg tablet 9-20 by mouth ity of 15:09: every 6 [place] 25 (six) Medical hours as Branch needed. levETIRAcet Yes [id number] 500mg Take 1 Univers am 500 mg 9-08 tablet by ity o f tablet 00:00: mouth 2 (two) Medical times Branch daily. levETIRAcet Yes [id number] 500mg Take 1 Univers am 500 mg 9-08 tablet by ity o f tablet 00:00: mouth 2 (two) Medical times Branch daily. levETIRAcet Yes [id number] 500mg Take 1 Univers am 500 mg 9-08 tablet by ity o f tablet 00:00: mouth 2 (two) Medical times Branch daily. levETIRAcet Yes [id number] 500mg Take 1 Univers am 500 mg 9-08 tablet by ity o f tablet 00:00: mouth (two) Medical times Branch daily. torsemide Yes [id number] 20mg Take 2 Un sophia 10 mg 7-12 tablets by ity of tablet 00:00: mouth 00 daily. Medical Branch torsemide Yes [id number] 20mg Take 2 Un sophia 10 mg 7-12 tablets by ity of tablet 00:00: mouth 00 daily. Medical Branch torsemide Yes [id number] 20mg Take 2 Un sophia 10 mg 7-12 tablets by ity of tablet 00:00: mouth [place] daily. Medical Branch torsemide Yes [id number] 20mg Take 2 Un sophia 10 mg 7-12 tablets by ity of tablet 00:00: mouth daily. Medical Branch albuterol 2020- No [id number] 2{puff} Inhale 2 Univers (VENTOLIN 3 12-06 Puffs ity of HFA) 90 00:00: 00:00 every 6 [place] mcg/actuati 00 :00 (six) Medical on inhaler hours as Branc h needed for Wheezing or Shortness of Breath. atorvastati Yes [id number] 40mg Take 1 Univers n 40 mg 2-11 tablet by ity of tablet 00:00: mouth at [place] 00 bedtime. Medical Branch apixaban Yes 5mg Take 1 Univers (ELIQUIS) 5 2-11 tablet by ity of mg tablet 00:00: mouth 2 (two) Medical times Branch daily. Indication s: Chronic AF diltiazem Yes [id number] 240mg Take 1 U nivers 240 mg 24 2-11 capsule by ity of hr capsule 00:00: mouth [place] 00 daily. Medical Branch pantoprazol Yes [id number] 20mg Take 1 Univers e 20 mg EC 2-11 tablet by ity of tablet 00:00: mouth [place] 00 daily. Medical Branch metFORMIN 0 Yes [id number] 500mg Take 1 U nivers 500 mg 2-11 tablet by ity of tablet 00:00: mouth 2 00 (two) Medical times Branch daily with meals. levothyroxi Yes [id number] 75ug Take 1 Univers ne 75 mcg 2-11 tablet by ity o f tablet 00:00: mouth [place] 00 every Medical morning. Branch atorvastati Yes [id number] 40mg Take 1 Univers n 40 mg 2-11 tablet by ity of tablet 00:00: mouth at [place] 00 bedtime. Medical Branch apixaban Yes 5mg Take 1 Univers (ELIQUIS) 5 2-11 tablet by ity of mg tablet 00:00: mouth 2 00 (two) Medical times Branch daily. Indication s: Chronic AF diltiazem Yes [id number] 240mg Take 1 U nivers 240 mg 24 2-11 capsule by ity of hr capsule 00:00: mouth [place] 00 daily. Medical Branch pantoprazol Yes [id number] 20mg Take 1 Univers e 20 mg EC 2-11 tablet by ity of tablet 00:00: mouth [place] 00 daily. Medical Branch metFORMIN Yes [id number] 500mg Take 1 U nivers 500 mg 2-11 tablet by ity of tablet 00:00: mouth 2 00 (two) Medical times Branch daily with meals. levothyroxi Yes [id number] 75ug Take 1 Univers ne 75 mcg 2-11 tablet by ity o f tablet 00:00: mouth [place] 00 every Medical morning. Branch atorvastati Yes [id number] 40mg Take 1 Univers n 40 mg 2-11 tablet by ity of tablet 00:00: mouth at [place] 00 bedtime. Medical Branch apixaban Yes 5mg Take 1 Univers (ELIQUIS) 5 2-11 tablet by ity of mg tablet 00:00: mouth 2 (two) Medical times Branch daily. Indication s: Chronic AF diltiazem Yes [id number] 240mg Take 1 U nivers 240 mg 24 2-11 capsule by ity of hr capsule 00:00: mouth 00 daily. Medical Branch pantoprazol Yes [id number] 20mg Take 1 Univers e 20 mg EC 2-11 tablet by ity of tablet 00:00: mouth 00 daily. Medical Branch metFORMIN Yes [id number] 500mg Take 1 U nivers 500 mg 2-11 tablet by ity of tablet 00:00: mouth 2 (two) Medical times Branch daily with meals. levothyroxi Yes [id number] 75ug Take 1 Univers ne 75 mcg 2-11 tablet by ity o f tablet 00:00: mouth 00 every Medical morning. Branch atorvastati Yes [id number] 40mg Take 1 Univers n 40 mg 2-11 tablet by ity of tablet 00:00: mouth at 00 bedtime. Medical Branch apixaban Yes 5mg Take 1 Univers (ELIQUIS) 5 2-11 tablet by ity of mg tablet 00:00: mouth 2 (two) Medical times Branch daily. Indication s: Chronic AF diltiazem Yes [id number] 240mg Take 1 U nivers 240 mg 24 2-11 capsule by ity of hr capsule 00:00: mouth 00 daily. Medical Branch pantoprazol Yes [id number] 20mg Take 1 Univers e 20 mg EC 2-11 tablet by ity of tablet 00:00: mouth 00 daily. Medical Branch metFORMIN Yes [id number] 500mg Take 1 U nivers 500 mg 2-11 tablet by ity of tablet 00:00: mouth 2 (two) Medical times Branch daily with meals. levothyroxi Yes [id number] 75ug Take 1 Univers ne 75 mcg 2-11 tablet by ity o f tablet 00:00: mouth 00 every Medical morning. Branch Immunizations Ordered Filled Immunization Date Status Comments [facility] e Immunization Name Name Influenza High Dose 2020-06-29 Completed Unive rsity of 00:00:00 [facility] Branch Influenza High Dose 2020-06-29 Completed Unive rsity of 00:00:00 [facility] Influenza High Dose 2020-06-29 Completed Unive rsity of 00:00:00 [facility] Influenza High Dose 2020-06-29 Completed Unive rsity of 00:00:00 [facility] Vital Signs Vital Name Observation Time Observation Value Comments Source WEIGHT 2020-07-12 05:33:00 68.992 kg HEIGHT 2020-07-12 05:33:00 152.4 cm WEIGHT 2020-07-12 05:33:00 68.992 kg HEIGHT 2020-07-12 05:33:00 152.4 cm Procedures Procedure Date / Time Performing Clinician Source Performed HOME HEALTH - OTHER 2021-08-27 06:01:00 [facility]igned, [facility] 2021-07-03 05:01:00 Doctor Unassigned, No [facility] MEDICAL 2021-06-23 05:01:00 Doctor Unassigned, No Univer [facility] RELEASE/CLEARANCE FORMS [facility] Encounters Start End Encounter Admission Attending Care Care Encounter Source Date/Time Date/Time Type Type Clinicians Facility Department ID 2021-06-04 Inpatient ARMENTA, [facility] Surgery [id number] SLE 11:31:23 SUNEAL 2020-07-12 Inpatient ER [facility] Gastro [id number] SLE 05:04:00 MP RASCON 2021-10-01 2021-10-01 Outpatient Luis TELLO [facility] [id number] Univers 00:00:00 00:00:00 SENDIL ity of [facility] 2021-08-27 2021-08-27 Orders Doctor DASH [id number] Univers 00:00:00 00:00:00 Only Unassigned, EVELIA [id number] ity of [place] [facility] [id number] [facility] [phone] [address] 2021-08-01 2021-08-01 Refill Ed [facility] [id number] Univers 00:00:00 00:00:00 Esequiel HEALTH [id number] it y of [place] 4.2.7.2.686 [facility] [phone] [facility] PRIMARY & 231 Branch SPECIALTY CARE 2021-07-28 2021-07-28 [facility] [id number] Univers 00:00:00 00:00:00 SENDIL [facility] [place] [facility] 2021-07-03 2021-07-03 Orders Doctor EKTA [id number] Univers 00:00:00 00:00:00 Only Unassigned, EVELIA [id number] ity of [place] [facility] 4.2.7.2.686 [place] [id number] [place] [address] Branch 2021-06-23 2021-06-23 Orders Doctor EKTA [id number] Univers 00:00:00 00:00:00 Only Unassigned, EVELIA [id number] ity of [place] [facility] 4.2.7.2.686 [place] [id number] [address] 2021-05-18 2021-05-18 Outpatient Luis TELLO [facility] [id number] Univers 16:00:00 23:59:00 SENDIL [facility] [place] [facility] 2019-12-22 2019-12-22 Outpatient KNOW, [facility] [id number] [facility] 01:02:00 01:02:00 DOES_NOT [id number] [facility] Results Test Description Test Time Test Comments Results Result Comments Source TISSUE EXAM 2020-07-17 Surgical Pathology 16:39:00 Report Case: [id number] Authorizing Provider: Ricki Hickey MD Collected: 07/14/2020 04:30 PM Ordering Location: [address] Received: 07/15/2020 08:08 AM Service Pathologist: [...] HYPERPLASTIC POLYPS. Signing Pathologist Direct Phone Line: [phone] rodrigo signed by Gayatri Dunn MD on 07/17/2020 at 4:39 PMPart A. Deeper sections are examined.[id number] x 3Preop diagnosis: iron deficiency anemia due [...] black, bisected and entirely submitted in C1. PA/pl A-C. Performed.[facility], Department of Pathology, [address] [place], [place] [id number], [facility], [facility], [address] [place] [address], [facility], Department of Pathology, [address] [place] [address], BASIC METABOLIC PANEL 2020-07-16 05:52:00 Test Item [...] NOT 1092) ACCURATE CRE ATININE CLEARANCE IN [place] EDICTING GLOMERULAR FILT RATION RATE. ESTIMATED GFR IS NOT APPLICABLE FOR DIALYSIS PATIENTS. Cardiac Cath Technologist ID - FARIDA MBASIC METABOLIC [id number] 05:39:00 Test Item Value Reference Range Interpretation [...] S NOT APPLICABLE FOR DIALYSIS PATIEN TS. Cardiac Cath Technologist ID - EDASIHEMOGLOBIN AND [id number] 05:27:00 Test Item Value Reference Range Interpretation Comments HEMOGLOBIN (BEAKER) (test code = 8.4 GM/DL 11.2-15.7 L 410) HEMATOCRIT (BEAKER) (test code = 28.1 % 34.1-44.9 L 411) Cardiac Cath Technologist ID - [id number] AND [id number] 22:58:00 Test Item Value Reference Range Interpretation Comments HEMOGLOBIN (BEAKER) (test code = 8.5 GM/DL 11.2-15.7 L 410) HEMATOCRIT (BEAKER) (test code = 28.6 % 34.1-44.9 L 411) Cardiac Cath Technologist ID - 6000BASIC METABOLIC [id number] 13:22:00 Test Item Value Reference Range Interpretation [...] S NOT APPLICABLE FOR DIALYSIS PATIEN TS. Cardiac Cath Technologist ID - EDASIHEMOGLOBIN AND [id number] 13:07:00 Test Item Value Reference Range Interpretation Comments HEMOGLOBIN (BEAKER) (test code = 9.0 GM/DL 11.2-15.7 L 410) HEMATOCRIT (BEAKER) (test code = 29.7 % 34.1-44.9 L 411) Cardiac Cath Technologist ID - [id number] AND [id number] 06:37:00 Test Item Value Reference Range Interpretation Comments HEMOGLOBIN (BEAKER) (test code = 11.2 GM/DL 11.2-15.7 410) HEMATOCRIT (BEAKER) (test code = 38.2 % 34.1-44.9 411) Cardiac Cath Technologist ID - [id number] AND [id number] 01:33:00 Test Item Value Reference Range Interpretation Comments HEMOGLOBIN (BEAKER) (test code = 8.9 GM/DL 11.2-15.7 L 410) HEMATOCRIT (BEAKER) (test code = 29.6 % 34.1-44.9 L 411) Cardiac Cath Technologist ID - [id number] AND [id number] 18:30:00 Test Item Value Reference Range Interpretation Comments HEMOGLOBIN (BEAKER) (test code = 9.4 GM/DL 11.2-15.7 L 410) HEMATOCRIT (ANA) (test code = 31.2 % 34.1-44.9 L 411) Cardiac Cath Technologist ID - [id number] 11:50:00 Test Item Value Reference Range Interpretation Comments FERRITIN (ANA) (test code = 22.38 ng/mL 5.00-275.00 361) Cardiac Cath Technologist ID - EDASICT, CHEST, WITHOUT [id number] 10:54:00Unlisted Reason for Exam - Click Yes and Enter Reason Below->YesUnlisted Reason for Exam->right apex opacity seen on CXR, hx of COPD [facility] [place] [facility] 1940 Sex: FFINAL [...] in 3 months.3. Pulmonary emphysema. Signed: Danna Ortegaeport Verified Date/Time: 07/13/2020 10:54:39 Reading Location: [facility] B1 C013Y CT Body Reading Room HEMOGLOBIN AND [id number] 10:39:00 Test Item Value Reference Range Interpretation Comments HEMOGLOBIN (BEAKER) (test code = 8.7 GM/DL 11.2-15.7 L 410) HEMATOCRIT (BEAKER) (test code = 28.5 % 34.1-44.9 L 411) Cardiac Cath Technologist ID - [id number] [id number] 10:05:00 Test Item Value Reference Range Interpretation Comments HEMOGLOBIN A1C (BEAKER) (test code = 6.0 % 4.3-6.1 368) [id number] 07:27:00 Test Item Value Reference Range Interpretation Comments HAPTOGLOBIN (BEAKER) (test code = 177 mg/dL 14-258 366) Cardiac Cath Technologist ID - EDASITSH/FREE T4 IF [id number] 06:24:00 Test Item Value Reference Range Interpretation Comments THYROID STIMULATING HORMONE 0.891 uIU/mL 0.350-4.940 (BEAKER) (test code = 772) Cardiac Cath Technologist ID - EDASIVITAMIN B12 AND [id number] 06:24:00 Test Item Value Reference Range Interpretation Comments VITAMIN B12 (BEAKER) (test code = 390 pg/mL 213-816 774) FOLATE (BEAKER) (test code = 362) 14.30 ng/mL >=7.00 Cardiac Cath Technologist ID - EDASIIRON, TIBC, % SAT. (WITHOUT FERRITIN)2020-07-13 06:11:00 Test Item Value Reference Range Interpretation Comments IRON (BEAKER) (test code = 547) 20.0 ug/dL 40.0-160.0 L TOTAL IRON BINDING CAPACITY 345 ug/dL 250-450 (BEAKER) (test code = 769) IRON % SATURATION (2) (BEAKER) 6 % 20-55 L (test code = 2594) Cardiac Cath Technologist ID - EDASIBASIC METABOLIC [id number] 05:51:00 Test Item Value Reference Range Interpretation [...] S NOT APPLICABLE FOR DIALYSIS PATIEN TS. Cardiac Cath Technologist ID - [id number] 05:51:00 Test Item Value Reference Range Interpretation Comments MAGNESIUM (BEAKER) (test code = 1.6 mg/dL 1.6-2.6 627) Cardiac Cath Technologist ID - [id number] 05:51:00 Test Item Value Reference Range Interpretation Comments PHOSPHORUS (BEAKER) (test code = 2.9 mg/dL 2.3-4.7 604) Cardiac Cath Technologist ID - EDASILACTATE DEHYDROGENASE (LDH)2020-07-13 05:51:00 Test Item Value Reference Range Interpretation Comments LACTATE DEHYDROGENASE (BEAKER) (test 232 U/L 125-220 H code = 635) Cardiac Cath Technologist ID - EDASIRETICULOCYTE [id number] 05:06:00 Test Item Value Reference Range Interpretation Comments RETICULOCYTE COUNT PCT (BEAKER) (test 2.3 % 0.5-1.7 H code = 575) Cardiac Cath Technologist ID - [id number] W/PLT COUNT & AUTO [id number] 05:06:00 Test Item Value Reference Range Interpretation [...] (BEAKER) (test code = 2801) HEMOGLOBIN AND [id number] 05:06:00 Test Item Value Reference Range Interpretation Comments HEMOGLOBIN (BEAKER) (test code = 8.5 GM/DL 11.2-15.7 L 410) HEMATOCRIT (BEAKER) (test code = 27.4 % 34.1-44.9 L 411) HEMOGLOBIN AND [id number] 19:14:00 Test Item Value Reference Range Interpretation Comments HEMOGLOBIN (BEAKER) (test code = 7.9 GM/DL 11.2-15.7 L 410) HEMATOCRIT (BEAKER) (test code = 25.7 % 34.1-44.9 L 411) Cardiac Cath Technologist ID - [id number]-COV2/RT-PCR ([facility])2020-07-12 17:19:00 Test Item Value Reference Range Interpretation Comments SARS-COV2/RT-PCR (test Negative Not Detected, Negative, code = 2261693) See external report for linked test SARS-COV-2 PERFORMING LAB [facility] (test code = 6421914) Negative result for this test determines that [...] a nasopharyngeal swab specimen collected from individuals susp ected of COVID-19 by their healthcare provider.This test [...] 564(g) of the Act.Fact Sheet for Healthcare Providers:https://www.[employer]/sites/default/files/product/documents/Fact_Shee c_YJ_Lkwnwnfda_Vysi_WPZS-ThD-5.pdfFact Sheet for Healthcare Patients:https://www.[employer]/sites/default/files/product/ documents/Gmhp_Hybet_Wcikomyn_Clcv_CPQG-JvV-7.pdfPerforming Laboratory:[facility], [place] [id number] 10:57:00 Test Item Value Reference Range Interpretation Comments MAGNESIUM (BEAKER) 1.7 mg/dL 1.6-2.6 Specimen slightly (test code = 627) hemolyzed Cardiac Cath Technologist ID - FARIDA [id number] 10:57:00 Test Item Value Reference Range Interpretation Comments PHOSPHORUS (BEAKER) 3.1 mg/dL 2.3-4.7 Specimen slightly (test code = 604) hemolyzed Cardiac Cath Technologist ID - FARIDA MBASIC METABOLIC [id number] 10:57:00 Test Item Value Reference Range Interpretation [...] S NOT APPLICABLE FOR DIALYSIS PATIEN TS. Cardiac Cath Technologist ID - FARIDA EPATIC FUNCTION [id number] 10:57:00 Test Item Value Reference Range Interpretation [...] Specimen slightly (test code = 347) hemolyzed Cardiac Cath Technologist ID - FARIDA MB-TYPE NATRIURETIC FACTOR (BNP)2020-07-12 10:56:00 Test Item Value Reference Range Interpretation Comments B-TYPE NATRIURETIC PEPTIDE (BEAKER) 188 pg/mL 0-100 H (test code = 700) Cardiac Cath Technologist ID - FARIDA [id number] 10:41:00 Test Item Value Reference Range Interpretation Comments PARTIAL THROMBOPLASTIN TIME 20.7 seconds 22.5-36.0 L (BEAKER) (test code = 760) PROTHROMBIN TIME/[id number] 10:20:00 Test Item Value Reference Range Interpretation [...] mechanical heart valves.RAD, CHEST, 1 VIEW, NON [id number] 10:03:00Reason for exam:->SOBShould this be performed at the bedside?->Yes [facility] [place] [facility] 1940 Sex: FFINAL [...] Velascoort Verified Date/Time: 07/12/2020 10:03:35 Reading Location: [address] Reading Room CBC W/AUTO [id number] 01:50:00 Test Item Value Reference Range Interpretation [...] 0.00 K/mm3 0.0-0.1 N NRBC#) BASIC METABOLIC [id number] 01:31:00 Test Item Value Reference Range Interpretation [...] GFR) formula.Chronic kidney disease is defined as [facility] er kidney damageor GFR <60 mL/min/1.73 m2 for >3 months. CREATININE (test code 0.80 mg/dL 0.55-1.02 N Note change in = CREAT) reference range due to change in reagent. BUN/CREATININE RATIO 11.3 10-20 N (test code = BUN/CREA) CALCIUM (test code = 8.9 mg/dL 8.5-10.1 N CA) BASIC METABOLIC [id number] 01:22:00 Test Item Value Reference Range Interpretation [...] code = CA) mg/dL 8.5-10.1 CBC W/AUTO [id number] 01:20:00 Test Item Value Reference Range Interpretation [...]
[2021-10-14] MEDS ORDERED: DIGOXIN 0.25 MG/ML AMP ONE (01:14)
[2021-10-14] MEDS ORDERED: NA CHLORIDE 0.9% 1,000 ML ONE (01:14)
[2021-10-14 01:16] LABS: Absolute Lymphocytes (CBC) 1.5 K/uL (0.7-4.9); Lymphocytes % 13.3 % (15.3-44.8); MPV 9.3 fL (7.6-11.3); RBC Red Blood Cell Count 1.13 M/uL (3.86-4.86)
[2021-10-14 01:17] LABS: Protime INR 1.89
[2021-10-14 01:18] LABS: Hematocrit 10.2 % (36.0-45.0)
[2021-10-14 01:20] LABS: Urine Blood Negative (Negative); Urine Glucose Negative (Negative); Urine Protein Negative (Negative); Urine Specific Gravity 1.015 (1.005-1.030)
[2021-10-14] MEDS ORDERED: VITAMIN K (ADULT) 10 MG/ML ONE (01:34)
[2021-10-14 01:48] LABS: Anisocytosis 3+; Blood Morphology Comment NOTED (NOT SEEN); Platelet Estimate ADEQ; Polychromasia 2+; White Blood Cell Scan OK (OK)
--- NOTE | 2021-10-14 02:42 | ER ---
Nurse's Notes [facility] Name: Ashli Alvarez Age: 80 yrs Sex: Female : 1940 Arrival Date: 10/14/2021 Time: 00:16 Bed 2 Private MD: Diagnosis: Chronic atrial fibrillation-with RVR;Anemia in neoplastic disease;Fall on same level, unspecified;Contusion of abdominal wall, initial encounter;Contusion of left breast, initial encounter;GI Bleed/ Gastrointestinal hemorrhage, unspecified Presentation: 10/14 00:16 Chief complaint: EMS states: called out for back pain, on seen pt was in a fib rvr with as6 a heart rate around 170 and blood pressure 80 systolic. Coronavirus screen: At this time, the client does not indicate any symptoms associated with coronavirus-19. Ebola Screen: No symptoms or risks identified at this time. 00:16 Method Of Arrival: EMS: [facility] as6 00:21 Initial Sepsis Screen: Does the patient meet any 2 criteria? No. Patient's initial as6 sepsis screen is negative. Does the patient have a suspected source of infection? No. Patient's initial sepsis screen is negative. Risk Assessment: Do you want to hurt yourself or someone else? Patient reports no desire to harm self or others. Onset of symptoms was October 13, 2021. Care prior to arrival: Medication(s) given: Normal saline infusion, IV initiated. 22 GA, in the left wrist. 00:21 Acuity: TIFFANIE 2 as6 Triage Assessment: 00:27 General: Appears ill, Behavior is calm, cooperative. Pain: Complains of pain in back. as6 Historical: - Allergies: 00:25 Codeine; as6 - PMHx: 00:25 Atrial fibrillation; Diabetes mellitus; Hypercholesterolemia; as6 - Immunization history:: Client reports receiving the 2nd dose of the Covid vaccine. - Social history:: Smoking status: Patient/guardian denies using tobacco, Stopped _ months ago 2. Screenin:45 Abuse screen: Denies threats or abuse. Denies injuries from another. Nutritional as6 screening: No deficits noted. Tuberculosis screening: No symptoms or risk factors identified. Fall Risk Fall in past 12 months (25 points). IV access (20 points). Ambulatory Aid- Crutches/Cane/Walker (15 pts). Gait- Weak (10 pts.). Mental Status- Oriented to own ability (0 pts). Total Perdomo Fall Scale indicates High Risk Score (45 or more points). Fall prevention measures have been instituted. Side Rails Up X 2 Frequent Obs/Assessments Occuring As available patient and family educated on Fall Prevention Program and Strategies. Assessment: 00:16 General: Appears ill, Behavior is calm, cooperative. Pain: Complains of pain in back. as6 Neuro: Level of Consciousness is awake, alert, obeys commands, Oriented to person, place, time, situation. Cardiovascular: Edema is 3+ to BLE pitting to BLE Rhythm is atrial fibrillation with rapid ventricular response. Respiratory: Airway is patent Trachea midline Respiratory effort is even, unlabored, Respiratory pattern is regular, symmetrical. Derm: Skin is fragile, is thin, with poor turgor has skin tears on r forearm, l forearm Bruising that is dark purple, on chest and left lower quadrant and right lower quadrant and right low back and right mid back and left mid back and left low back and lumbar area hematoma to l breast. 04:57 General: BLOOD TRANSFUSION PERFORMED. SEE PAPER CHARTING . as6 Vital Signs: 00:21 BP 118 / 56; Pulse 117; Resp 15 S; Temp 98.1(TE); Pulse Ox 100% on 3 lpm NC; Weight as6 77.11 kg (R); Height 5 ft. (152.40 cm) (R); Pain 9/10; 00:30 BP 100 / 50; Pulse 108; Resp 12; Pulse Ox 100% ; vc1 01:40 BP 100 / 48; Pulse 100; Resp 14; Pulse Ox 100% ; vc1 02:20 BP 106 / 65; Pulse 96; Resp 12 S; Pulse Ox 100% on R/A; vc1 03:00 BP 91 / 61; Pulse 99; Resp 17 S; Pulse Ox 100% on 3 lpm NC; as6 03:51 BP 98 / 54; Pulse 93; Resp 14 S; Pulse Ox 100% on 3 lpm NC; as6 04:56 BP 96 / 57; Pulse 94; Resp 10 S; Temp 97.9(TE); Pulse Ox 100% on 3 lpm NC; as6 00:21 Body Mass Index 33.20 (77.11 kg, 152.40 cm) as6 ED Course: 00:16 Patient arrived in ED. as6 00:17 Garry Laureano MD is Attending Physician. sirena 00:25 Triage completed. as6 00:27 Arm band placed on. EKG completed in triage. Results shown to MD. as6 00:31 Ricardo Cheatham, RN is Primary Nurse. as6 00:45 Inserted saline lock: 22 gauge in right antecubital area, using aseptic technique. as6 Maintain EMS IV. Dressing intact. Good blood return noted. Site clean \T\ dry. Gauge \T\ site: 24g R wrist. 00:46 Placed in gown. Bed in low position. Call light in reach. Side rails up X2. Cardiac as6 monitor on. Pulse ox on. NIBP on. Warm blanket given. 00:48 XRAY Chest (1 view) In Process Unspecified. EDMS 01:57 Basic Metabolic Panel Sent. tw5 01:57 LFT's Sent. tw5 01:57 Magnesium Sent. tw5 01:57 NT PRO-BNP Sent. tw5 01:57 Troponin HS Sent. tw5 02:23 Assisted provider with central line placement. Set up central line tray. Triple lumen as6 line placed in right femoral. Line placed by Garry Laureano MD Placement verified by blood return, Dressed with Tegaderm, Blood was collected. Patient tolerated well. Patient \T\ family education about procedure, CLABSI prevention and S/S of infection? Yes. Time-out/Briefing performed prior to start of procedure? Yes. Was handwashing/sanitizing done immediately prior to procedure? Yes. Was patient positioned to in a way to prevent air embolism? Yes. Was procedure site sterilized? Yes, with chlorhexidine. Was the site allowed to dry? Yes. Was local anesthetic and/or sedation utilized? Yes. During the procedure, did the Practitioner(s) maintain a sterile field? Yes. Were unused ports clamped during insertion? Yes. Was a 2nd qualified MD obtained after 3 unsuccessful insertion attempts? No. Was blood aspirated from each lumen? Yes. After the procedure, did the Practitioner(s) clean the site and apply a sterile dressing? Yes. 02:31 Macrina Boyle MD is Hospitalizing Provider. sirena 03:52 Patient admitted, IV remains in place. as6 Administered Medications: 01:21 Drug: Digoxin 0.5 mg Route: IVP; Site: left wrist; as6 03:52 Follow up: Response: No adverse reaction as6 01:21 Drug: NS 0.9% 1000 ml Route: IV; Rate: 125 ml/hr; Site: left wrist; as6 03:52 Follow up: IV Status: Infusion continued upon admission as6 01:43 Drug: Vitamin K1 (phytonadione) 10 mg Route: Sub-Q; Site: left lower abdomen; as6 03:52 Follow up: Response: No adverse reaction as6 03:40 Drug: ProTONIX (pantoprazole) 40 mg Route: IVP; Site: left wrist; as6 03:52 Follow up: Response: No adverse reaction as6 04:55 Drug: Magnesium Sulfate 2 grams Route: IVPB; Infused Over: 2 hrs; Site: right femoral; as6 06:43 Follow up: IV Status: Infusion continued upon admission as6 04:56 Drug: ProTONIX (pantoprazole) 8 mg/hr Route: IV; Rate: 25 ml/hr; Site: right femoral; as6 06:43 Follow up: IV Status: Infusion continued upon admission as6 Outcome: 02:41 Decision to Hospitalize by Provider. sirena 03:52 Admitted to ER Hold. Please see [facility] for further documentation. as6 03:52 Condition: stable 03:52 Instructed on the need for admit. 06:43 Patient left the ED. as6 Signatures: Dispatcher [employer] Garry Mera MD MD cha Wood, Tiffany tw5 Ricardo Cheatham RN RN as6 Deirdre Cook RN RN vc1 Corrections: (The following items were deleted from the chart) 03:50 00:16 Derm: Skin is fragile, is thin, with poor turgor has skin tears on r forearm, l as6 forearm as6
--- NOTE | 2021-10-14 02:42 | EDPHYS ---
Physician Documentation [facility] Name: Ashli Alvarez Age: 80 yrs Sex: Female : 1940 Arrival Date: 10/14/2021 Time: 00:16 Bed 2 Private MD: ED Physician Garry Laureano HPI: 10/14 00:33 This 80 yrs old Female presents to ER via EMS with complaints of fall, lifted sirena , bruising, eliquis, afib rvr. 00:33 The patient presents with abdominal pain abdominal distention. Onset: The sirena symptoms/episode began/occurred 2 day(s) ago. The patient presents with pain that is acute. The symptoms are located in the low back, lumbar area, left low back, left mid back, right mid back and right low back. Onset: The symptoms/episode began/occurred 2 day(s) ago. The pain does not radiate. Associated signs and symptoms: Pertinent positives: abdominal pain, chest pain, left breast hematoma, abd bruising. Modifying factors: The patient symptoms are alleviated by remaining still, the patient symptoms are aggravated by movement. Historical: - Allergies: 00:25 Codeine; as6 - PMHx: 00:25 Atrial fibrillation; Diabetes mellitus; Hypercholesterolemia; as6 - Immunization history:: Client reports receiving the 2nd dose of the Covid vaccine. - Social history:: Smoking status: Patient/guardian denies using tobacco, Stopped _ months ago 2. ROS: 00:36 Constitutional: Negative for fever, chills, and weight loss, Eyes: Negative for injury, sirena pain, redness, and discharge, ENT: Negative for injury, pain, and discharge, Neck: Negative for injury, pain, and swelling, Respiratory: Negative for shortness of breath, cough, wheezing, and pleuritic chest pain, Back: Negative for injury and pain, : Negative for injury, bleeding, discharge, and swelling, MS/Extremity: Negative for injury and deformity, Neuro: Negative for headache, weakness, numbness, tingling, and seizure, Psych: Negative for depression, anxiety, suicide ideation, homicidal ideation, and hallucinations, Allergy/Immunology: Negative for hives, rash, and allergies, Endocrine: Negative for neck swelling, polydipsia, polyuria, polyphagia, and marked weight changes, Hematologic/Lymphatic: Negative for swollen nodes, abnormal bleeding, and unusual bruising. 00:36 Cardiovascular: Positive for palpitations. 00:36 Respiratory: Positive for shortness of breath. 00:36 Abdomen/GI: Positive for abdominal pain, abdominal distension, of the right lower quadrant and left lower quadrant, ecchymosis all over lower abdomen, left breast. Exam: 00:36 Head/Face: Normocephalic, atraumatic. ENT: Nares patent. No nasal discharge, no sirena septal abnormalities noted. Tympanic membranes are normal and external auditory canals are clear. Oropharynx with no redness, swelling, or masses, exudates, or evidence of obstruction, uvula midline. Mucous membranes moist. Neck: Trachea midline, no thyromegaly or masses palpated, and no cervical lymphadenopathy. Supple, full range of motion without nuchal rigidity, or vertebral point tenderness. No Meningismus. Chest/axilla: Normal chest wall appearance and motion. Nontender with no deformity. No lesions are appreciated. Respiratory: Lungs have equal breath sounds bilaterally, clear to auscultation and percussion. No rales, rhonchi or wheezes noted. No increased work of breathing, no retractions or nasal flaring. Abdomen/GI: Soft, non-tender, with normal bowel sounds. No distension or tympany. No guarding or rebound. No evidence of tenderness throughout. Back: No spinal tenderness. No costovertebral tenderness. Full range of motion. Female : Normal external genitalia. MS/ Extremity: Pulses equal, no cyanosis. Neurovascular intact. Full, normal range of motion. Neuro: Awake and alert, GCS 15, oriented to person, place, time, and situation. Cranial nerves II-XII grossly intact. Motor strength 5/5 in all extremities. Sensory grossly intact. Cerebellar exam normal. Normal gait. Psych: Awake, alert, with orientation to person, place and time. Behavior, mood, and affect are within normal limits. 00:36 Constitutional: The patient appears frail. 00:36 Cardiovascular: Rate: tachycardic, Rhythm: irregularly irregular, Pulses: Pulses are 4+ in bilateral radial, brachial, femoral, popliteal, posterior tibial and and dorsalis pedis arteries.. Heart sounds: normal, Edema: is not appreciated, JVD: is not appreciated. 02:43 ECG was reviewed by the Attending Physician. sirena 03:07 Abdomen/GI: Inspection: abdomen appears normal, Bowel sounds: normal, Palpation: mild sirena abdominal tenderness, LARGE AREAS OF BRUISING, HEMARONAS. 05:13 Abdomen/GI: Rectal exam: rectal tone normal, Stool: guaiac positive, hemorrhoid(s), are sirena not appreciated, mass, is not appreciated, swelling, is not appreciated, Liver: no appreciated palpable abnormalities, Hernia: not appreciated. Vital Signs: 00:21 BP 118 / 56; Pulse 117; Resp 15 S; Temp 98.1(TE); Pulse Ox 100% on 3 lpm NC; Weight as6 77.11 kg (R); Height 5 ft. (152.40 cm) (R); Pain 9/10; 00:30 BP 100 / 50; Pulse 108; Resp 12; Pulse Ox 100% ; vc1 01:40 BP 100 / 48; Pulse 100; Resp 14; Pulse Ox 100% ; vc1 02:20 BP 106 / 65; Pulse 96; Resp 12 S; Pulse Ox 100% on R/A; vc1 03:00 BP 91 / 61; Pulse 99; Resp 17 S; Pulse Ox 100% on 3 lpm NC; as6 03:51 BP 98 / 54; Pulse 93; Resp 14 S; Pulse Ox 100% on 3 lpm NC; as6 04:56 BP 96 / 57; Pulse 94; Resp 10 S; Temp 97.9(TE); Pulse Ox 100% on 3 lpm NC; as6 00:21 Body Mass Index 33.20 (77.11 kg, 152.40 cm) as6 Procedures: 02:44 Central Line: the site was prepped with Betadine, in sterile fashion, a triple lumen sirena catheter was inserted, in the right femoral vein, in 2 attempts. placement was verified, by blood return, the site was dressed with using sterile technique, the patient tolerated the procedure, well. MDM: 00:17 Patient medically screened. sirena 02:41 Differential diagnosis: Obesity Osteoporosis GI Bleed, non-specific abd pain, Peptic sirena Ulcer Disease, Chest Wall Contusion Chest Wall Injury Pulmonary Contusion Rib Fracture. Data reviewed: vital signs, nurses notes, EMS record, lab test result(s), EKG, radiologic studies, CT scan, plain films. Data interpreted: meeting planner: rate is 117 beats/min, rhythm is atrial fibrillation. Test interpretation: by ED physician or midlevel provider: ECG, plain radiologic studies. Counseling: I had a detailed discussion with the patient and/or guardian regarding: the historical points, exam findings, and any diagnostic results supporting the discharge/admit diagnosis, lab results, radiology results, the need for further work-up and treatment in the hospital. 10/14 00:30 Order name: Basic Metabolic Panel; Complete Time: 03:39 [facility] 10/14 00:30 Order name: CBC with Diff; Complete Time: 01:59 [facility] 10/14 00:30 Order name: LFT's; Complete Time: 03:39 [facility] 10/14 00:30 Order name: Magnesium; Complete Time: 03:39 [facility] 10/14 00:30 Order name: NT PRO-BNP; Complete Time: 03:39 [facility] 10/14 00:30 Order name: PT-INR; Complete Time: 01:20 [facility] 10/14 00:30 Order name: Troponin HS; Complete Time: 03:39 [facility] 10/14 00:30 Order name: Type And Screen [facility] 10/14 00:30 Order name: Lipase; Complete Time: 03:39 [facility] 10/14 00:30 Order name: SARS-COV-2 RT PCR (Document "Date of Onset" if Symptomatic); Complete Time: [facility] :59 10/14 00:36 Order name: TSH [facility] 10/14 00:53 Order name: Thyroid Stimulating Hormone; Complete Time: 03:39 [facility] 10/14 00:54 Order name: Fresh Frozen Plasma [facility] 10/14 00:30 Order name: XRAY Chest (1 view) [facility] 10/14 00:30 Order name: EKG; Complete Time: 00:31 [facility] 10/14 00:30 Order name: Cardiac monitoring; Complete Time: 00:31 [facility] 10/14 00:30 Order name: EKG - Nurse/Tech; Complete Time: 00:31 [facility] 10/14 00:30 Order name: IV Saline Lock; Complete Time: 00:45 [facility] 10/14 00:33 Order name: CT Traumagram (Head C Spine CAP W Con) [facility] 10/14 00:54 Order name: Packed RBC Leukored [facility] 10/14 01:19 Order name: CBC Smear Scan; Complete Time: 01:59 [facility] 10/14 01:20 Order name: Urine Dipstick-Ancillary; Complete Time: 01:22 [facility] 10/14 03:39 Order name: Packed RBCs (Additional Unit) EDMS 10/14 00:30 Order name: Labs collected and sent; Complete Time: 00:45 [facility] 10/14 00:30 Order name: O2 Per Protocol; Complete Time: 00:31 [facility] 10/14 00:30 Order name: O2 Sat Monitoring; Complete Time: 00:31 [facility] 10/14 00:30 Order name: Urine Dipstick-Ancillary (obtain specimen); Complete Time: 01: [facility] 10/14 00:30 Order name: [place]; Complete Time: 01: [facility] 10/14 00:30 Order name: IV Saline Lock - Large Bore; Complete Time: 01: [facility] 10/14 01:20 Order name: Transfuse; Complete Time: 04:56 sirena EC:43 Rate is 115 beats/min. Rhythm is irregularly irregular. QRS [place] is Normal. [place] interval sirena is normal. QRS interval is normal. QT interval is normal. No Q waves. T waves are Normal. No ST changes noted. Clinical impression: Atrial Fibrillation. Interpreted by me. Reviewed by me. Administered Medications: 01:21 Drug: Digoxin 0.5 mg Route: IVP; Site: left wrist; as6 03:52 Follow up: Response: No adverse reaction as6 01:21 Drug: NS 0.9% 1000 ml Route: IV; Rate: 125 ml/hr; Site: left wrist; as6 03:52 Follow up: IV Status: Infusion continued upon admission as6 01:43 Drug: Vitamin K1 (phytonadione) 10 mg Route: Sub-Q; Site: left lower abdomen; as6 03:52 Follow up: Response: No adverse reaction as6 03:40 Drug: ProTONIX (pantoprazole) 40 mg Route: IVP; Site: left wrist; as6 03:52 Follow up: Response: No adverse reaction as6 04:55 Drug: Magnesium Sulfate 2 grams Route: IVPB; Infused Over: 2 hrs; Site: right femoral; as6 06:43 Follow up: IV Status: Infusion continued upon admission as6 04:56 Drug: ProTONIX (pantoprazole) 8 mg/hr Route: IV; Rate: 25 ml/hr; Site: right femoral; as6 06:43 Follow up: IV Status: Infusion continued upon admission as6 Disposition Summary: 10/14/21 02:41 Hospitalization Ordered Hospitalization Status: Inpatient Admission [facility] Provider: Macrina Boyle cha Location: Intensive Care Unit sirena Condition: Fair sirena Problem: new sirena Symptoms: have improved sirena Bed/Room Type: Standard [facility] Room Assignment: 6-(10/14/21 03:53) mw Diagnosis - Chronic atrial fibrillation - with RVR sirena - Anemia in neoplastic disease sirena - Fall on same level, unspecified sirena - Contusion of abdominal wall, initial encounter sirena - Contusion of left breast, initial encounter sirena - GI Bleed/ Gastrointestinal hemorrhage, unspecified sirena Forms: - Medication Reconciliation Form sirena - SBAR form sirena Signatures: Dispatcher [employer] EDMS Toyin Weaver RN RN mw Anderson, Corey, MD MD cha Attema, Lee, SUBSTANCE ABUSE THERAPIST-C SUBSTANCE ABUSE THERAPIST-Cla1 Ricardo Cheatham RN RN as6 Corrections: (The following items were deleted from the chart) 00:53 00:36 Thyroid Stimulating Hormone ordered. EDMS EDMS 03:53 02:41 sirena hoang
[2021-10-14] MEDS ORDERED: PANTOPRAZOLE 40 MG INJ ONE ×2 (02:50→03:07)
[2021-10-14 03:33] LABS: Albumin 2.3 g/dL (3.4-5.0); Bilirubin Direct 0.2 mg/dL (0-0.2); Bilirubin Total 0.6 mg/dL (0.2-1.0); Potassium 4.7 mmol/L (3.5-5.1); Protein, Total 5.3 g/dL (6.4-8.2); Thyroid Stimulating Hormone 1.84 uIU/mL (0.360-3.740); Troponin High Sensitivity 11.6 pg/mL (<58.9)
[2021-10-14 03:34] LABS: Magnesium 1.3 mg/dL (1.8-2.4)
[2021-10-14] MEDS ORDERED: NA CHLORIDE 0.9% 250 ML ONE ×3 (03:36→15:42)
[2021-10-14] MEDS ORDERED: Magnesium Sulfate 2gm IVPB 2 G/50 ML BAG IV ONE ×3 (03:37→10:00)
--- NOTE | 2021-10-14 03:58 | P.HP ---
Certification for Inpatient Patient admitted to: Inpatient With expected LOS: >2 Midnights Patient will require the following post-hospital care: None Practitioner: I am a practitioner with admitting privileges, knowledge of patient current condition, hospital course, and medical plan of care. Services: Services provided to patient in accordance with Admission requirements found in Title 42 Section 412.3 of the Code of Federal Regulations Patient History Date of Service: 10/14/21 Primary Care Provider: None Reason for admission: Acute blood loss anemia History of Present Illness: 80-year-old female with history of atrial fibrillation on chronic anticoagulation therapy with Eliquis, chronic diastolic congestive heart failure, COPD on home oxygen who was recently released from a rehab facility on September 18 currently living at home with her sister presented to the emergency department for weakness, fall, A. fib RVR. Patient had a fall from chair approximately 1.5 weeks ago which required a lift assist at that time over the course the next 2 days patient and her sister noted significant swelling to the left breast as well as bruising to the left flank and abdomen area. Tonight patient was having severe back pain and called EMS for evaluation was noted to be in A. fib RVR with a rate of 170 and a systolic blood pressure of around 80. Upon arrival to the ER patient was rate controlled with a heart rate around 9200 still in A. fib blood pressure better around 100 systolic. Patient was evaluated in the emergency department her labs were significant for hemoglobin 3.4 hematocrit 10.2 white blood cell count 1.13 sodium 134 BUN 37 GFR 50 glucose 142 magnesium 1.3 BNP 2140 Covid negative chest x-ray without acute changes CT chest abdomen pelvis with IV contrast pending for further evaluation of left breast hematoma. I also performed Hemoccult testing which was positive for occult blood. Patient does have history of hemorrhagic gastritis approximately 1 year prior at which time she was taken off her Eliquis for about 5 days and then resumed on it. It had been recommended in the past the patient receive watchman procedure but she has not had this done. Patient need to be admitted to the ICU given severe anemia and presence of occult blood as well as large left breast hematoma. General surgery and GI will be consulted. Will admit for further evaluation and management. Allergies codeine Allergy (Verified 11/13/19 19:38) confusion Home Medications: Acetaminophen [Tylenol] 2 tab PO Q8H PRN 11/04/19 Albuterol Sulfate [Proair Respiclick] 2 puff IH Q4H PRN 11/04/19 Diltiazem HCl [Diltiazem 24Hr ER] 240 mg PO DAILY 11/04/19 Gabapentin [Neurontin*] 600 mg PO TID 11/04/19 Hydrocodone Bit/Acetaminophen [Hydrocodon-Acetaminophen 5-325] 5 - 325 mg PO Q6H PRN 11/04/19 Ipratropium/Albuterol Sulfate [Iprat-Albut 0.5-3(2.5) mg/3 ml] 1 puff IH Q8H PRN 11/04/19 Latanoprost/Pf [Latanoprost 0.005% Eye Drop] 1 gtt OP BEDTIME 11/04/19 Levothyroxine Sodium 75 mcg PO DAILY 11/04/19 Melatonin [Melatonin*] 2 tab PO BEDTIME PRN 11/04/19 Pantoprazole [Protonix Tab*] 20 mg PO DAILY 11/04/19 Torsemide 10 mg PO DAILY 11/04/19 ondansetron HCL [Zofran] 4 mg PO TID PRN 11/04/19 Apixaban [Eliquis] 5 mg PO BID #60 tablet 11/05/19 Atorvastatin Calcium [Lipitor] 40 mg PO BEDTIME #30 tab 11/05/19 levETIRAcetam [Keppra*] 500 mg PO BID #60 tab 11/19/19 Metformin HCl [Glucophage*] 500 mg PO BID 08/02/21 Tizanidine [Zanaflex*] 2 mg PO BEDTIME 08/02/21 Fluticasone/Umeclidin/Vilanter [Trelegy Ellipta 100-62.5-25] 1 each IH DAILY 30 Days #30 blst.w.dev 08/07/21 Albuterol Neb [Proventil 0.083% Neb Soln] 2.5 mg NEB [id number] PRN amp 08/10/21 Mometasone/Formoterol [Dulera 100 Mcg/5 Mcg Inhaler] 2 puff IH BID inhaler 08/10/21 predniSONE [Prednisone*] 10 mg PO BID 3 Days #6 tab 08/10/21 Ipratropium Neb [Atrovent*] 0.5 mg NEB [id number] PRN amp 08/11/21 - Past Medical/Surgical History Diabetic: No -: Multiple strokes -: Chronic AFib on Eliquis -: COPD on home O2 -: Diastolic CHF -: GERD -: HTN -: DM -: hypothyroid -: glaucoma -: dvt and pe -: cracked vertebrae, bulging disk, sciatic nerve problem -: hysterectomy -: tonisillectomy Psychosocial/ Personal History: Patient lives at home with her sister - Family History Father -: Heart disease - Social History Smoking Status: Former smoker Alcohol use: No CD- Drugs: No Caffeine use: Yes Place of Residence: Home Review of Systems 10-point ROS is otherwise unremarkable Cardiovascular: Chest Pain, As per HPI Gastrointestinal: Abdominal Pain Integumentary: Bruising, As per HPI Physical Examination - Physical Exam General: Alert, In no apparent distress, Oriented x3 HEENT: Atraumatic, PERRLA, Mucous membr. moist/pink, EOMI, Sclerae nonicteric Neck: Supple, 2+ carotid pulse no bruit, No LAD, Without JVD or thyroid abnormality Respiratory: Clear to auscultation bilaterally, Normal air movement Cardiovascular: Normal S1 S2, Edema (3+ edema lower extremities), Irregular heart rate/rhythm (A. fib, rate controlled) Capillary refill: <2 Seconds Gastrointestinal: Normal bowel sounds, No tenderness Musculoskeletal: No contractures, No tenderness Integumentary: No rashes, Other (Extensive bruising noted as well as large hematoma to the left breast bruising noted to left flank, entire lower abdomen, epigastric region. Also skin tear to right thigh area) Neurological: Normal speech, Normal strength at 5/5 x4 extr, Normal tone, Normal affect Urinary: Worley catheter Rectal: Other (Guaiac positive stool) - Studies Laboratory Data (last 24 hrs) 10/14/21 02:21: Sodium 134 L, Potassium 4.7, BUN 37 H, Creatinine 1.06, Glucose 142 H, Magnesium 1.3 L* D, Total Bilirubin 0.6, AST 12 L, ALT 15, Alkaline Phosphatase 67, Lipase 35 L 10/14/21 00:42: PT 21.9 H, INR 1.89 10/14/21 00:42: WBC 11.40 H, Hgb 3.4 L*, Hct 10.2 L*, Plt Count 289 Assessment and Plan - Plan Assessment: Severe acute blood loss anemia secondary to large left breast hematoma and suspected upper GI bleedon Eliquis Chronic hypoxic respiratory failure secondary to COPD on home oxygen3 L Chronic diastolic congestive heart failure Atrial fibrillation on chronic anticoagulation therapyEliquis Hypomagnesemia Hypothyroidism Borderline diabetes with hyperglycemia Seizure disorder Hyperlipidemia Plan: Severe acute blood loss anemia secondary to large left breast hematoma and suspected upper GI bleedon Eliquis: Patient to be transfused 2 units packed blood cells at this time we will repeat posttransfusion H&H 2 hours after patient likely require another 2 units after this will aim for goal hemoglobin of 8 given history of COPD/CHF. General surgery to be consulted for evaluation of left breast hematoma, GI to be consulted for suspected upper GI bleed given elevated BUN to creatinine ratio as well as positive guaiac and history of hemorrhagic gastritis. Patient on PPI drip will continue this time admitted to the ICU for the time being. N.p.o. in case of endoscopy. Appreciate further input from GI and general surgery. Chronic hypoxic respiratory failure secondary to COPD on home oxygen3 L: Continue supplemental oxygen as needed, no expiratory wheezing noted at this time as needed nebulizer treatments. Chronic diastolic congestive heart failure: As blood pressure tolerates will provide patient with Lasix after blood transfusions, obtain and restart medications when appropriate. Atrial fibrillation on chronic anticoagulation therapyEliquis: Hold Eliquis, monitor on telemetry restart home medications as appropriate when tolerating p.o. May require IV push doses of beta-blockers/calcium channel blockers for rate control. Hypomagnesemia: Replaced in ER, protocol in place. Hypothyroidism: Continue medications as appropriate Borderline diabetes with hyperglycemia: Patient reports she has never been told she was diabetic but was started on Metformin, will obtain A1c level. If patient remains hyperglycemic will order every 6 Accu-Chek and sliding scale insulin. Seizure disorder: Patient takes Keppra 500 mg p.o. bid he reports he only had 1 seizure 1 to 2 years ago. Hyperlipidemia: Continue home medications when appropriate. DVT PPX: SCDshold Elilorraine Code status: Full Discharge Plan: Home Plan to discharge in: Greater than 2 days - Advance Directives Does patient have a Living Will: Yes Does patient have a Durable POA for Healthcare: No - Code Status/Comfort Care Code Status Assessed: Yes (Full code) Critical Care: No Time Spent Managing Pts Care (In Minutes): 55
[2021-10-14] MEDS ORDERED: ONDANSETRON 4 MG/2 ML VIAL IV PRN (07:42)
[2021-10-14] MEDS ORDERED: PANTOPRAZOLE INJ 80 MG in NA CHLORIDE 0.9% 250 ML IV SCH (08:15)
--- NOTE | 2021-10-14 08:41 | RAD REPORT ---
EXAM DESCRIPTION: Yazmin Single View10/14/2021 12:48 am CLINICAL HISTORY: Cough COMPARISON: 2020 FINDINGS: Haziness over the mid and lower left lung. Right lung appears clear of acute infiltrate. Heart is mildly to moderately enlarged IMPRESSION: Haziness over the mid and lower left lung may represent a a breast mass and should be co rrelated clinically
--- NOTE | 2021-10-14 10:58 | RAD REPORT ---
EXAM DESCRIPTION: CT - Head C Spine Cap Joana Caban - 10/14/2021 6:38 am CLINICAL HISTORY: PAIN COMPARISON: None. TECHNIQUE: CT HEAD C-SPINE WITHOUT CHEST ABDOMEN PELVIS WITH IV CONTRAST on 10/14/2021 12:33 AM MAILROOM ASSOCIATE This exam was performed according to our departmental dose-optimization program, which includes autom ated exposure control, adjustment of the mA and/or kV according to patient size and/or use of iterati ve reconstruction technique. FINDINGS: Brain: There is no acute hemorrhage, mass effect or midline shift. There is encephalomalac ia within the medial right occipital and parietal lobes. There is no hydrocephalus. There is no signi ficant volume loss for age. The calvarium is intact. Orbits and globes are unremarkable. The paranasal sinuses are clear. Mastoid air cells are clear. Cervical Spine: There is no acute fracture. Alignment is anatomic. There is [id number] diffuse facet arthritis bilaterally. Disc spaces are maintained. Vascular: Thoracic aorta is normal in course and caliber without aneurysm or dissection. Pulmonary ar teries are adequately opacified without acute or chronic filling defects. Abdominal aorta is densely calcified without aneurysm. Pelvic arteries are patent without aneurysm or occlusion. Chest: The heart is normal in size. There is no pericardial effusion. Intrathoracic lymph nodes are n ot enlarged. There is no pleural effusion, pleural thickening or pneumothorax. Central airways are patent. There i s a large soft tissue mass within the left breast measuring 9.7 x 4.8 cm. There is mild upper lung ce ntrilobular and paraseptal emphysema. Abdomen: The liver is normal in appearance. There is moderate intra and extrahepatic biliary dilatati on. The pancreas and spleen are normal in appearance. Adrenal glands are normal. There is moderate bi lateral renal atrophy. There is no free air. There is no retroperitoneal adenopathy. Pelvis: There is moderate diverticulosis of the left colon. Urinary bladder contains a Worley catheter as well as some fluid and air. There is no free fluid. Appendix is not clearly seen. Skeleton: There is an old compression fracture of L4 with moderate narrowing of the central canal. IMPRESSION: Large left breast mass versus hematoma. Recommend diagnostic mammogram and ultrasound. Old L4 compression fracture. No definite acute posttraumatic findings. Electronically signed by: Jayant Stinson MD 10/14/2021 4:45 AM MAILROOM ASSOCIATE Due to temporary technical issues with the PACS/Fluency reporting system, reports are being signed by the in house radiologist without review as a courtesy to ensure prompt reporting. The interpreting r adiologist is fully responsible for the content of the report.
--- NOTE | 2021-10-14 11:14 | EKG ---
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
[2021-10-14] MEDS ORDERED: SODIUM CHLORIDE 0.9% 10ML INJ IV PRN (12:27)
[2021-10-14] MEDS: ACETAMINOPHEN 325 MG TABLET PO PRN (12:54)
--- NOTE | 2021-10-14 14:48 | P.PN ---
Subjective Date of Service: 10/14/21 Primary Care Provider: None Chief Complaint: Acute blood loss anemia Subjective: No new changes Physical Examination - Vital Signs Temperature: 97.1 F Blood Pressure: 136/63 Pulse: 89 Respirations: 15 Pulse Ox (%): 100 - Studies Laboratory Data (last 24 hrs) 10/14/21 02:21: Sodium 134 L, Potassium 4.7, BUN 37 H, Creatinine 1.06, Glucose 142 H, Magnesium 1.3 L* D, Total Bilirubin 0.6, AST 12 L, ALT 15, Alkaline Phosphatase 67, Lipase 35 L 10/14/21 00:42: PT 21.9 H, INR 1.89 10/14/21 00:42: WBC 11.40 H, Hgb 3.4 L*, Hct 10.2 L*, Plt Count 289 Assessment And Plan Physician Review: Patient Assessed, Agree with Above Assessment and Plan Physician Review Additional Text: 10/14/21 14:45 Physical Exam General: Alert, In no apparent distress, Oriented x3 HEENT: Atraumatic, PERRLA, Mucous membr. moist/pink, EOMI, Sclerae nonicteric Neck: Supple, 2+ carotid pulse no bruit, No LAD, Without JVD or thyroid abnormality Respiratory: Clear to auscultation bilaterally, bruising over anterior chest wall extending from mid breast bilaterally down to upper abdominal wall Cardiovascular: Normal S1 S2, Edema (3+ edema lower extremities), Irregular heart rate/rhythm (A. fib, rate controlled) Capillary refill: <2 Seconds Gastrointestinal: Normal bowel sounds, No tenderness Musculoskeletal: No contractures, No tenderness Integumentary: No rashes, Other (Extensive bruising noted as well as large hematoma to the left breast bruising noted to left flank, entire lower abdomen, epigastric region. Also skin tear to right thigh area) Neurological: Normal speech, Normal strength at 5/5 x4 extr, Normal tone, Normal affect Urinary: Worley catheter Rectal: Other (Guaiac positive stool) - Studies Laboratory Data (last 24 hrs) 10/14/21 02:21: Sodium 134 L, Potassium 4.7, BUN 37 H, Creatinine 1.06, Glucose 142 H, Magnesium 1.3 L* D, Total Bilirubin 0.6, AST 12 L, ALT 15, Alkaline Phosphatase 67, Lipase 35 L 10/14/21 00:42: PT 21.9 H, INR 1.89 10/14/21 00:42: WBC 11.40 H, Hgb 3.4 L*, Hct 10.2 L*, Plt Count 289 Assessment and Plan - Plan Assessment: Severe acute blood loss anemia secondary to large left breast hematoma and suspected upper GI bleedon Eliquis Chronic hypoxic respiratory failure secondary to COPD on home oxygen3 L Chronic diastolic congestive heart failure Atrial fibrillation on chronic anticoagulation therapyEliquis Hypomagnesemia Hypothyroidism Borderline diabetes with hyperglycemia Seizure disorder Hyperlipidemia Plan: Severe acute blood loss anemia secondary to large anterior chest wall and breast hematomalikely due to post fall in setting of Eliquis use Noted occult blood positive., GI evaluation done does not recommend further intervention was scope at this time, feels anemia is likely due to hematoma Continue to hold Eliquis Dose 3 unit PRBC today and monitor repeat H&H Chronic hypoxic respiratory failure secondary to COPD on home oxygen3 L: Continue supplemental oxygen as needed, no expiratory wheezing noted at this time as needed nebulizer treatments. Chronic diastolic congestive heart failure: As blood pressure tolerates will provide patient with Lasix after blood transfusions, obtain and restart medi cations when appropriate. Atrial fibrillation on chronic anticoagulation therapyEliquis: Hold Eliquis, monitor on telemetry restart home medications as appropriate when tolerating p.o. May require IV push doses of beta-blockers/calcium channel blockers for rate control. Hypomagnesemia: Replaced in ER, protocol in place. Hypothyroidism: Continue medications as appropriate Borderline diabetes with hyperglycemia: Patient reports she has never been told she was diabetic but was started on Metformin, will obtain A1c level. If patient remains hyperglycemic will order every 6 Accu-Chek and sliding scale insulin. Seizure disorder: Patient takes Keppra 500 mg p.o. bid he reports he only had 1 seizure 1 to 2 years ago. Hyperlipidemia: Continue home medications when appropriate. Weakness/recurrent fallsobtain PT and OT evaluation, may need SNF or home PT DVT PPX: SCDshold Damion Code status: Full Discharge Plan: Home
[2021-10-14 19:53] LABS: Potassium 3.5 mmol/L (3.5-5.1)
[2021-10-14] MEDS ORDERED: POTASSIUM CL SA 10 MEQ TAB PO ONE (21:03)
[2021-10-14] MEDS: HYDROCODONE/APAP 5/325 MG TAB PO PRN (21:17)
[2021-10-14] MEDS: ATORVASTATIN 40 MG TAB PO SCH (21:17)
[2021-10-14] MEDS: PANTOPRAZOLE 40 MG INJ IVP SCH (21:17)
[2021-10-14] MEDS: levETIRAcetam 500 MG TAB PO SCH (21:18)
[2021-10-14] MEDS: GABAPENTIN 100 MG CAP PO SCH (21:22)
[2021-10-14] MEDS: TIZANIDINE 4 MG TABLET PO SCH (21:25)
[2021-10-14 21:30] LABS: Magnesium 2.5 mg/dL (1.8-2.4)
[2021-10-15] MEDS: IPRATROPIUM BROM 0.5MG/2.5ML NEB PRN ×2 (03:49→19:30)
[2021-10-15] MEDS: ALBUTEROL 2.5 MG/3 ML NEB SOL NEB PRN ×2 (03:49→19:30)
[2021-10-15 05:20] LABS: Absolute Lymphocytes (CBC) 1.2 K/uL (0.7-4.9); Hematocrit 30.2 % (36.0-45.0); MPV 8.6 fL (7.6-11.3); RBC Red Blood Cell Count 3.43 M/uL (3.86-4.86)
[2021-10-15 05:48] LABS: Albumin 2.2 g/dL (3.4-5.0); Bilirubin Total 1.2 mg/dL (0.2-1.0); Magnesium 2.3 mg/dL (1.8-2.4); Potassium 3.7 mmol/L (3.5-5.1); Protein, Total 5.2 g/dL (6.4-8.2); Thyroid Stimulating Hormone 2.71 uIU/mL (0.360-3.740)
[2021-10-15] MEDS: HYDROCODONE/APAP 5/325 MG TAB PO PRN ×2 (07:41→13:38)
[2021-10-15] MEDS: GABAPENTIN 100 MG CAP PO SCH ×3 (08:07→20:24)
[2021-10-15] MEDS: levETIRAcetam 500 MG TAB PO SCH ×2 (08:07→20:24)
[2021-10-15] MEDS: DILTIAZEM HCL 120 MG SR CAP PO SCH (08:07)
[2021-10-15] MEDS: PANTOPRAZOLE 40 MG INJ IVP SCH ×2 (08:07→20:24)
[2021-10-15] MEDS: CITALOPRAM 10 MG TABLET PO SCH (08:07)
[2021-10-15] MEDS: LEVOTHYROXINE SOD 0.075 MG TAB PO SCH (08:08)
[2021-10-15 08:18] LABS: Anisocytosis 1+; Blood Morphology Comment NOTED (NOT SEEN); Macrocytosis SLIGHT; Ovalocytes 1+; Platelet Estimate ADEQ; Polychromasia SLIGHT
--- NOTE | 2021-10-15 09:30 | P.PN ---
Subjective Date of Service: 10/15/21 Primary Care Provider: None Chief Complaint: Acute blood loss anemia Subjective: No new changes, No C/O voiced (Still feels weak State weakness at home but able to transfer independently) Physical Examination - Vital Signs Temperature: 97.5 F Blood Pressure: 108/53 Pulse: 111 Respirations: 14 Pulse Ox (%): 100 Assessment And Plan Physician Review: Patient Assessed, Agree with Above Assessment and Plan Physician Review Additional Text: 10/14/21 14:45 Physical Exam General: Alert, In no apparent distress, Oriented x3 HEENT: Atraumatic, PERRLA, Mucous membr. moist/pink, EOMI, Sclerae nonicteric Neck: Supple, 2+ carotid pulse no bruit, No LAD, Without JVD or thyroid abnormality Respiratory: Clear to auscultation bilaterally, bruising over anterior chest wall extending from mid breast bilaterally down to upper abdominal wall and flank Cardiovascular: Normal S1 S2, Edema (3+ edema lower extremities), Irregular heart rate/rhythm (A. fib, rate controlled) Capillary refill: <2 Seconds Gastrointestinal: Normal bowel sounds, No tenderness Musculoskeletal: No contractures, No tenderness Integumentary: No other rashes, skin tear to right thigh area) Neurological: Normal speech, Normal strength at 5/5 x4 extr, Normal tone, Normal affect Urinary: Worley catheter Rectal: Other (Guaiac positive stool) - Studies Laboratory Data (last 24 hrs) 10/14/21 02:21: Sodium 134 L, Potassium 4.7, BUN 37 H, Creatinine 1.06, Glucose 142 H, Magnesium 1.3 L* D, Total Bilirubin 0.6, AST 12 L, ALT 15, Alkaline Phosphatase 67, Lipase 35 L 10/14/21 00:42: PT 21.9 H, INR 1.89 10/14/21 00:42: WBC 11.40 H, Hgb 3.4 L*, Hct 10.2 L*, Plt Count 289 Assessment and Plan - Plan Assessment: Severe acute blood loss anemia secondary to large left breast hematoma and suspected upper GI bleedon Eliquis Chronic hypoxic respiratory failure secondary to COPD on home oxygen3 L Chronic diastolic congestive heart failure Atrial fibrillation on chronic anticoagulation therapyEliquis Hypomagnesemia Hypothyroidism Borderline diabetes with hyperglycemia Seizure disorder Hyperlipidemia Plan: Severe acute blood loss anemia secondary to large anterior chest wall and breast hematoma Hemoglobin improved from 3.4 to 9.7 now with 3 units PRBC and has remained stable Likely due to post- fall with extensive hematoma in setting of Eliquis use Noted occult blood positive. GI evaluation done does not recommend further intervention was scope at this time, feels anemia is likely due to hematoma Continue to hold Eliquis -We will transfer from ICU to floor Chronic hypoxic respiratory failure secondary to COPD on home oxygen3 L: Continue supplemental oxygen as needed, stable Chronic diastolic congestive heart failure: Volume status stable, avoid fluid overload Atrial fibrillation on chronic anticoagulation therapyon hold Eliquis: Continue home meds Hypomagnesemia: Repleted Hypothyroidism: Continue medications as appropriate DM with hyperglycemia: Controlled glucose, hemoglobin A1c of 5.9, continue Metformin, Accu-Chek and sliding scale insulin. Seizure disorder: Patient takes Keppra 500 mg p.o. bid he reports he only had 1 seizure 1 to 2 years ago. Hyperlipidemia: Continue home medications when appropriate. Weakness/recurrent fallstransfer to floor, given weakness and recent recurrent falls may need SNF, follow PT and OT eval DVT PPX: Jim Bruno Code status: Full Discharge Plan: Home 10/15/21 09:26 10/15/21 09:29
[2021-10-15] MEDS: ACETAMINOPHEN 325 MG TABLET PO PRN (17:38)
[2021-10-15] MEDS: TIZANIDINE 4 MG TABLET PO SCH (20:24)
[2021-10-15] MEDS: ATORVASTATIN 40 MG TAB PO SCH (20:24)
[2021-10-16] MEDS: HYDROCODONE/APAP 5/325 MG TAB PO PRN ×3 (02:36→20:11)
[2021-10-16 05:08] LABS: Absolute Lymphocytes (CBC) 0.7 K/uL (0.7-4.9); Hematocrit 28.8 % (36.0-45.0); Lymphocytes % 11.5 % (15.3-44.8); MPV 8.5 fL (7.6-11.3); RBC Red Blood Cell Count 3.24 M/uL (3.86-4.86)
[2021-10-16 05:26] LABS: ALT/SGPT 14 U/L (12-78); AST/SGOT 15 U/L (15-37); Alkaline Phosphatase 63 U/L (45-117); BUN Blood Urea Nitrogen 13 mg/dL (7-18); Bicarbonate 31 mmol/L (21-32); Bilirubin Total 0.9 mg/dL (0.2-1.0); Glucose Level 106 mg/dL (74-106); Magnesium 1.9 mg/dL (1.8-2.4); Potassium 3.8 mmol/L (3.5-5.1); Protein, Total 4.9 g/dL (6.4-8.2); Sodium Level 138 mmol/L (136-145)
[2021-10-16] MEDS: PANTOPRAZOLE 40 MG INJ IVP SCH ×2 (08:28→19:50)
[2021-10-16] MEDS: levETIRAcetam 500 MG TAB PO SCH ×2 (08:28→19:50)
[2021-10-16] MEDS: DILTIAZEM HCL 120 MG SR CAP PO SCH (08:28)
[2021-10-16] MEDS: CITALOPRAM 10 MG TABLET PO SCH (08:29)
[2021-10-16] MEDS: GABAPENTIN 100 MG CAP PO SCH ×3 (08:29→19:50)
[2021-10-16] MEDS: LEVOTHYROXINE SOD 0.075 MG TAB PO SCH (08:29)
[2021-10-16] MEDS ORDERED: POTASSIUM 25 MEQ EFFERV TAB PO ONE (09:00)
--- NOTE | 2021-10-16 12:25 | P.DS ---
Admission Date: 10/14/21 Discharge Date: 10/16/21 Primary Care Provider: None Disposition: ROUTINE DISCHARGE Discharge Condition: FAIR Reason for Admission: Acute blood loss anemia Brief History of Present Illness: History of Present Illness: 80-year-old female with history of atrial fibrillation on chronic anticoagulation therapy with Eliquis, chronic diastolic congestive heart failure, COPD on home oxygen who was recently released from a rehab facility on September 18 currently living at home with her sister presented to the emergency department for weakness, fall, A. fib RVR. Patient had a fall from chair approximately 1.5 weeks ago which required a lift assist at that time over the course the next 2 days patient and her sister noted significant swelling to the left breast as well as bruising to the left flank and abdomen area. Tonight patient was having severe back pain and called EMS for evaluation was noted to be in A. fib RVR with a rate of 170 and a systolic blood pressure of around 80. Upon arrival to the ER patient was rate controlled with a heart rate around 9200 still in A. fib blood pressure better around 100 systolic. Patient was evaluated in the emergency department her labs were significant for hemoglobin 3.4 hematocrit 10.2 white blood cell count 1.13 sodium 134 BUN 37 GFR 50 glucose 142 magnesium 1.3 BNP 2140 Covid negative chest x-ray without acute changes CT chest abdomen pelvis with IV contrast pending for further evaluation of left breast hematoma. I also performed Hemoccult testing which was positive for occult blood. Patient does have history of hemorrhagic gastritis approximately 1 year prior at which time she was taken off her Eliquis for about 5 days and then resumed on it. It had been recommended in the past the patient receive watchman procedure but she has not had this done. Patient need to be admitted to the ICU given severe anemia and presence of occult blood as well as large left breast hematoma. General surgery and GI will be consulted. Will admit for further evaluation and management. Hospital Course: Hospital course Patient was admitted with post fall and extensive hematoma around the anterior chest wall involving bilateral breasts although more prominent over the left breast and extending to the flanks. Her hemoglobin was low at 3.5 with repeat of 4. She was given 3 unit PRBC as well as Lasix with improvement in her hemoglobin to 9.7 and remained stable after that 24 hours to 9.5 today. She was evaluated by GI for her brown stool on rectal exam and felt not to have any GI issues at this time. Patient blood pressure as well as fatigue significantly improved post transfusion. Patient denies any new symptoms. She is anxious to go home. She was noted to be free but she repeatedly insists that she is already on home physical therapy following a recent rehab stay. Since no evidence of further bleed now patient will be discharged home. Her Eliquis was held and advised to continue to hold until hematoma completely resolve. She is advised to follow-up with her PCP in 1 week to determine when to restart Eliquis. - Physical Exam General: Alert, In no apparent distress, Oriented x3 HEENT: Atraumatic, PERRLA, Mucous membr. moist/pink, EOMI, Sclerae nonicteric Neck: Supple, 2+ carotid pulse no bruit, No LAD, Without JVD or thyroid abnormality Respiratory: Clear to auscultation bilaterally, Normal air movement Cardiovascular: Normal S1 S2, Edema (3+ edema lower extremities), Irregular heart rate/rhythm (A. fib, rate controlled) Capillary refill: <2 Seconds Gastrointestinal: Normal bowel sounds, No tenderness Musculoskeletal: No contractures, No tenderness Integumentary: No rashes, fading area of bruising over her flanks, still fading area of ecchymosis although still palpable hematoma over the left breast extending to the right breast, healing area of skin tear to right thigh area) Neurological: Normal speech, Normal strength at 5/5 x4 extr, Normal tone, Normal affect Rectal: Other (Guaiac positive stool) Vital Signs/Physical Exam: Temp Pulse Resp BP Pulse Ox 96.5 F L 84 14 105/52 L 100 10/16/21 08:00 10/16/21 12:00 10/16/21 12:00 10/16/21 12:00 10/16/21 12:00 Laboratory Data at Discharge: WBC 6.00 K/uL (4.3-10.9) D 10/16/21 04:15 Hgb 9.5 g/dL (12.0-15.0) L 10/16/21 04:15 Hct 28.8 % (36.0-45.0) L 10/16/21 04:15 Plt Count 180 K/uL (152-406) 10/16/21 04:15 PT 21.9 SECONDS (9.5-12.5) H 10/14/21 00:42 INR 1.89 10/14/21 00:42 Sodium 138 mmol/L (136-145) 10/16/21 04:15 Potassium 3.8 mmol/L (3.5-5.1) 10/16/21 04:15 BUN 13 mg/dL (7-18) 10/16/21 04:15 Creatinine 0.61 mg/dL (0.55-1.3) 10/16/21 04:15 Glucose 106 mg/dL (74-106) 10/16/21 04:15 Magnesium 1.9 mg/dL (1.8-2.4) 10/16/21 04:15 Total Bilirubin 0.9 mg/dL (0.2-1.0) 10/16/21 04:15 AST 15 U/L (15-37) 10/16/21 04:15 ALT 14 U/L (12-78) 10/16/21 04:15 Alkaline Phosphatase 63 U/L (45-117) 10/16/21 04:15 Lipase 35 U/L (73-393) L 10/14/21 02:21 Home Medications: Acetaminophen [Tylenol] 2 tab PO Q8H PRN 11/04/19 Albuterol Sulfate [Proair Respiclick] 2 puff IH Q4H PRN 11/04/19 Diltiazem HCl [Diltiazem 24Hr ER] 240 mg PO DAILY 11/04/19 Gabapentin [Neurontin*] 100 mg PO TID 11/04/19 Hydrocodone Bit/Acetaminophen [Hydrocodon-Acetaminophen 5-325] 5 - 325 mg PO QID 11/04/19 Ipratropium/Albuterol Sulfate [Iprat-Albut 0.5-3(2.5) mg/3 ml] 1 puff IH Q8H PRN 11/04/19 Latanoprost/Pf [Latanoprost 0.005% Eye Drop] 1 gtt OP BEDTIME 11/04/19 Levothyroxine Sodium 75 mcg PO DAILY 11/04/19 Melatonin [Melatonin*] 2 tab PO BEDTIME PRN 11/04/19 Pantoprazole [Protonix Tab*] 20 mg PO DAILY 11/04/19 Torsemide 20 mg PO DAILY 11/04/19 ondansetron HCL [Zofran] 4 mg PO TID PRN 11/04/19 Apixaban [Eliquis] 5 mg PO BID #60 tablet 11/05/19 Atorvastatin Calcium [Lipitor] 40 mg PO BEDTIME #30 tab 11/05/19 levETIRAcetam [Keppra*] 500 mg PO BID #60 tab 11/19/19 Metformin HCl [Glucophage*] 500 mg PO BID 08/02/21 Tizanidine [Zanaflex*] 2 mg PO BEDTIME 08/02/21 Fluticasone/Umeclidin/Vilanter [Trelegy Ellipta 100-62.5-25] 1 each IH DAILY 30 Days #30 blst.w.dev 08/07/21 Albuterol Neb [Proventil 0.083% Neb Soln] 2.5 mg NEB [id number] PRN amp 08/10/21 Mometasone/Formoterol [Dulera 100 Mcg/5 Mcg Inhaler] 2 puff IH BID inhaler 08/10/21 predniSONE [Prednisone*] 10 mg PO BID 3 Days #6 tab 08/10/21 Ipratropium Neb [Atrovent*] 0.5 mg NEB [id number] PRN amp 08/11/21 Atorvastatin Calcium 40 mg PO BEDTIME 10/14/21 Citalopram [Celexa] 10 mg PO DAILY 10/14/21 Omeprazole 20 mg PO BID 10/14/21 Potassium Chloride 20 meq PO DAILY 10/14/21 Diet: AHA Activity: Ad frances Followup: Unknown,U [Primary Care Provider] - Time spent managing pt's care (in minutes): 36
--- NOTE | 2021-10-16 15:12 | P.PN ---
Subjective Date of Service: 10/16/21 Primary Care Provider: None Chief Complaint: Acute blood loss anemia Subjective: No new changes, Tolerating diet Physical Examination - Vital Signs Temperature: 96.9 F Blood Pressure: 118/63 Pulse: 87 Respirations: 16 Pulse Ox (%): 99 Assessment And Plan Discharge Plan: Home Physician Review: Patient Assessed, Agree with Above Assessment and Plan Physician Review Additional Text: 10/14/21 14:45 Physical Exam General: Alert, In no apparent distress, Oriented x3 HEENT: Atraumatic, PERRLA, Mucous membr. moist/pink, EOMI, Sclerae nonicteric Neck: Supple, 2+ carotid pulse no bruit, No LAD, Without JVD or thyroid abnormality Respiratory: Clear to auscultation bilaterally, bruising over anterior chest wall extending from mid breast bilaterally down to upper abdominal wall and flank Cardiovascular: Normal S1 S2, Edema (3+ edema lower extremities), Irregular heart rate/rhythm (A. fib, rate controlled) Capillary refill: <2 Seconds Gastrointestinal: Normal bowel sounds, No tenderness Musculoskeletal: No contractures, No tenderness Integumentary: No other rashes, skin tear to right thigh area) Neurological: Normal speech, Normal strength at 5/5 x4 extr, Normal tone, Normal affect Urinary: Worley catheter Rectal: Other (Guaiac positive stool) - Studies Laboratory Data (last 24 hrs) 10/14/21 02:21: Sodium 134 L, Potassium 4.7, BUN 37 H, Creatinine 1.06, Glucose 142 H, Magnesium 1.3 L* D, Total Bilirubin 0.6, AST 12 L, ALT 15, Alkaline Phosphatase 67, Lipase 35 L 10/14/21 00:42: PT 21.9 H, INR 1.89 10/14/21 00:42: WBC 11.40 H, Hgb 3.4 L*, Hct 10.2 L*, Plt Count 289 Assessment and Plan - Plan Assessment: Severe acute blood loss anemia secondary to large left breast hematoma and suspected upper GI bleedon Eliquis Chronic hypoxic respiratory failure secondary to COPD on home oxygen3 L Chronic diastolic congestive heart failure Atrial fibrillation on chronic anticoagulation therapyEliquis Hypomagnesemia Hypothyroidism Borderline diabetes with hyperglycemia Seizure disorder Hyperlipidemia Plan: Severe acute blood loss anemia secondary to large anterior chest wall and breast hematoma Hemoglobin improved from 3.4 to 9.7 now with 3 units PRBC and has remained stable Likely due to post- fall with extensive hematoma in setting of Eliquis use Noted occult blood positive. GI evaluation done does not recommend further intervention was scope at this time, feels anemia is likely due to hematoma Continue to hold Eliquis -We will transfer from ICU to floor Chronic hypoxic respiratory failure secondary to COPD on home oxygen3 L: Continue supplemental oxygen as needed, stable Chronic diastolic congestive heart failure: Volume status stable, avoid fluid overload Atrial fibrillation on chronic anticoagulation therapyon hold Eliquis: Continue home meds Hypomagnesemia: Repleted Hypothyroidism: Continue medications as appropriate DM with hyperglycemia: Controlled glucose, hemoglobin A1c of 5.9, continue Metformin, Accu-Chek and sliding scale insulin. Seizure disorder: Patient takes Keppra 500 mg p.o. bid he reports he only had 1 seizure 1 to 2 years ago. Hyperlipidemia: Continue home medications when appropriate. Weakness/recurrent fallstoo weak to transfer , initially refusing rehab but now agreeable -will consult rehab team -c/w PT and OT eval DVT PPX: Jim Bruno Code status: Full Discharge Plan: Home 10/15/21 09:26 10/15/21 09:29 10/16/21 15:11
--- NOTE | 2021-10-16 15:14 | P.PN ---
Subjective Date of Service: 10/15/21 Primary Care Provider: None Chief Complaint: Acute blood loss anemia, hematoma trunk Subjective: No new changes, Tolerating diet, Improving Review of Systems Respiratory: Shortness of Breath (no) Gastrointestinal: Nausea (no), Vomiting (no), Abdominal Pain (no) Integumentary: Bruising (unchanged) Physical Examination - Vital Signs Temperature: 96.9 F Blood Pressure: 118/63 Pulse: 87 Respirations: 16 Pulse Ox (%): 99 - Physical Exam General: Alert, In no apparent distress, Oriented x3, Cooperative HEENT: Normocephalic, EOMI, Sclerae nonicteric Neck: Supple Respiratory: Normal air movement Gastrointestinal: Soft and benign Integumentary: Other (unchanged bruises and hematomas) Assessment And Plan - Plan f/u at my office one week after discharge Physician Review: Patient Assessed, Agree with Above Assessment and Plan
--- NOTE | 2021-10-16 15:57 | CON ---
Date of Consultation: 10/14/2021 History Of Present Illness: The is the case of an 80-year-old patient admitted to the hospital in th e ICU with a history of atrial fibrillation, anticoagulation, who fell several weeks ago. She was do ing fine. She recently was discharged from rehab, living with her sister after the fall. She did no t think much of it until yesterday. She feels weakness, brought to the hospital, found to have ecchy mosis that she claims has been there for some time, but her hemoglobin was 3. The patient admitted t o the ICU and started in blood transfusion and a surgical consult was obtained. At time of our evalu ation, the patient is awake, alert, comfortable, talkative, GCS of 15. No major pain. She just noti ahmet blue discoloration over the area of the chest and even abdomen and even flank. She states it has been there for several days since she fell about almost 2 weeks ago. She has not seen any changes o n it. She denies any loss of consciousness after she fell and she has been at home okay since then. She just came for the weakness. Past Medical History: Strokes, atrial fibrillation, COPD, GERD, hypertension, diabetes, glaucoma, an d hypothyroidism. Past Surgical History: Include hysterectomy and tonsillectomy. Social History: She does not smoke. She does not drink alcohol, although she used to smoke. Person lives at home with her sister. Family History: Noncontributory. Review of Systems: No shortness of breath. No chest pain. She does have some weakness. Abdomen; no abdominal pain at this moment, she sees the bruises that we described above. Physical Examination: General: The patient is awake and alert. HEENT: Pupils are equal and reactive, anicteric. Neck: Supple. Chest: Clear. Bilateral breath sounds. Abdomen: Soft and depressible. No guarding or rebound. No peritoneal signs. Extremities: Good capillary refill. Integumentary: The patient has bruises all to the torso, chest including the breast region and then also on the flank and lower abdomen follow the pattern of possible fall in the past. It looked like this bruise has been there for some time already. It looked stable. No fluctuance either not expand ing. No open areas. No active bleeding. Laboratory Data: WBC count was 11.4 with hemoglobin of 3.4 and platelets of 289. INR is 1.89. Crea tinine was 1.06. Potassium 4.7. CAT scan of the head C-spine, chest, abdomen, and pelvis interprete d by Dr. Canada as large left breast mass versus hematoma. This is the area that we have all ecchym osis. The patient did not feel a breast mass in that region only after she developed the ecchymosis and apparently has all L4 compression fraction. Assessment And Plan: This is an 80-year-old patient, status post fall several weeks ago. Apparently , she bled at that moment. She has also some ecchymosis after that what brought her to the emergency room at this moment, but she was feeling weak and found to have a hemoglobin of 3. The medical doct ors are working on that already. I do not see any pulsatile or expanding hematoma at this moment is not even tender. She has this bulging in the breast itself, also ecchymosis over that region so the possibility of a hematoma is there. For the surgical standpoint, we are going to stabilize her medic ally, blood transfusion. We are going to keep an eye on the ecchymosis, make sure is not expanding a nd she is awake and alert. She is talkative. She is not in pain right now. She understands and obv iously trying to avoid any surgical intervention. She understands in the future, if all the ecchymos is goes down and this large area in the breast remained that she may need evacuation of a hematoma, b ut this morning important also to do a formal mammogram whenever all this stable as an outpatient to make sure we do not confuse that with any neoplasia. She understands that she is very cooperative. I will follow the patient with you. NOA/MICHAEL Voice ID: [id number] Report ID: [id number]
[2021-10-16] MEDS: ATORVASTATIN 40 MG TAB PO SCH (19:50)
[2021-10-16] MEDS: TIZANIDINE 4 MG TABLET PO SCH (19:51)
[2021-10-17 06:32] LABS: Absolute Lymphocytes (CBC) 1.1 K/uL (0.7-4.9); Hematocrit 31.4 % (36.0-45.0); Lymphocytes % 15.7 % (15.3-44.8); MPV 8.1 fL (7.6-11.3); RBC Red Blood Cell Count 3.52 M/uL (3.86-4.86)
[2021-10-17 06:54] LABS: Bilirubin Total 0.8 mg/dL (0.2-1.0); Magnesium 1.7 mg/dL (1.8-2.4); Potassium 4.4 mmol/L (3.5-5.1); Protein, Total 5.3 g/dL (6.4-8.2)
[2021-10-17] MEDS: LEVOTHYROXINE SOD 0.075 MG TAB PO SCH (08:43)
[2021-10-17] MEDS: GABAPENTIN 100 MG CAP PO SCH ×3 (08:43→20:17)
[2021-10-17] MEDS: levETIRAcetam 500 MG TAB PO SCH ×2 (08:43→20:17)
[2021-10-17] MEDS: CITALOPRAM 10 MG TABLET PO SCH (08:44)
[2021-10-17] MEDS: HYDROCODONE/APAP 5/325 MG TAB PO PRN ×2 (08:46→15:18)
[2021-10-17] MEDS: PANTOPRAZOLE 40 MG INJ IVP SCH ×2 (08:47→20:17)
[2021-10-17] MEDS: DILTIAZEM HCL 120 MG SR CAP PO SCH (09:25)
--- NOTE | 2021-10-17 11:44 | P.PN ---
Subjective Date of Service: 10/17/21 Primary Care Provider: None Chief Complaint: Acute blood loss anemia, hematoma trunk Subjective: No new changes (Feels fine, awaiting rehab States improved weakness) Physical Examination - Vital Signs Temperature: 97.3 F Blood Pressure: 138/59 Pulse: 87 Respirations: 22 Pulse Ox (%): 99 Assessment And Plan Physician Review: Patient Assessed, Agree with Above Assessment and Plan Physician Review Additional Text: 10/14/21 14:45 Physical Exam General: Alert, elderly female, frail HEENT: Atraumatic, PERRLA, Mucous membr. moist/pink, EOMI, Sclerae nonicteric Neck: Supple, 2+ carotid pulse no bruit, No LAD, Without JVD or thyroid abnormality Respiratory: Clear to auscultation bilaterally, bruising over anterior chest wall extending from mid breast bilaterally down to upper abdominal wall and flank Cardiovascular: Normal S1 S2, improving to 2+ bilateral pedal edema , Irregular heart rate/rhythm (A. fib, rate controlled) Capillary refill: <2 Seconds Gastrointestinal: Normal bowel sounds, No tenderness Musculoskeletal: No contractures, No tenderness Integumentary: No other rashes, skin tear to right thigh area) Neurological: Normal speech, Normal strength at 5/5 x4 extr, Normal tone, Normal affect Urinary: Worley catheter Rectal: Other (Guaiac positive stool) - Studies Hemoglobin at 10.2 Assessment and Plan - Plan Assessment: Severe acute blood loss anemia secondary to large left breast hematoma and suspected upper GI bleedon Eliquis Chronic hypoxic respiratory failure secondary to COPD on home oxygen3 L Chronic diastolic congestive heart failure Atrial fibrillation on chronic anticoagulation therapyEliquis Hypomagnesemia Hypothyroidism Borderline diabetes with hyperglycemia Seizure disorder Hyperlipidemia Plan: Severe acute blood loss anemia secondary to large anterior chest wall and breast hematomahemoglobin improved to 10.2 now -Status post 3 unit PRBC H&H improved from 3.4 -Likely due to post- fall with extensive hematoma in setting of Eliquis use Noted occult blood positive. GI evaluation done does not recommend further intervention was scope at this time, feels anemia is likely due to hematoma -Continue to hold Eliquis Chronic hypoxic respiratory failure secondary to COPD on home oxygen3 L: Continue supplemental oxygen as needed, stable Chronic diastolic congestive heart failure: Mild fluid overload, continue Lasix Atrial fibrillation on chronic anticoagulation therapyon hold Eliquis: Continue home meds Hypomagnesemia: Repleted Hypothyroidism: Continue medications as appropriate DM with hyperglycemia: Controlled glucose, hemoglobin A1c of 5.9, continue Metformin, Accu-Chek and sliding scale insulin. Seizure disorder: Continue Keppra 500 mg p.o. bid (he reports he only had 1 seizure 1 to 2 years ago) Hyperlipidemia: Continue home medications when appropriate. Weakness/recurrent fallsFree and weak, continue PT/OT Initially refusing rehab but agreeable now Follow-up plan for rehab team evaluation after the weekend DVT PPX: Jim Bruno Code status: Full Discharge Plan: Home 10/17/21 11:40
[2021-10-17] MEDS ORDERED: FUROSEMIDE 40 MG/4 ML VIAL IV ONE (11:47)
--- NOTE | 2021-10-17 12:35 | PN ---
Date of Progress Note: 10/17/2021 Diagnoses: Status post fall, multiple trunk hematomas. Subjective: The patient is doing well. No complaint. Cooperative. No shortness of breath. No vián st pain. GCS of 15. Review of Systems: Ten points otherwise unremarkable. See the H and P. Physical Examination: General: The patient is awake, alert. Chest: Bilateral breath sounds. Abdomen: Soft and depressible. No guarding or rebound. Extremities: Good capillary refill. Integumentary: Shows ecchymosis to be stable, not expanding, nonpulsatile. Laboratory Data: Hemoglobin is 10.2 with WBC count of 7.1. Plan: From the surgical standpoint, we are going to continue conservative treatment. I have explain ed to her the importance of following up in my office when she gets discharged to monitor those hemat omas and see the terminal at one point if we are going to do actively removing them or we going to le t them just dissolve on their own. At the same time, we have to make sure that she has her normal ma mmograms. We explained everything about that already. NOA/MICHAEL Voice ID: [id number] Report ID: [id number]
[2021-10-17] MEDS ORDERED: MAGNESIUM SULFATE 1 gm IVPB 1 GM/100 ML BAG IV ONE (19:02)
[2021-10-17] MEDS: ATORVASTATIN 40 MG TAB PO SCH (20:16)
[2021-10-17] MEDS: TIZANIDINE 4 MG TABLET PO SCH (20:17)
[2021-10-17] MEDS ORDERED: NA CHLORIDE 0.9% 250 ML IV ONE (23:56)
[2021-10-18] MEDS: IPRATROPIUM BROM 0.5MG/2.5ML NEB PRN (03:40)
[2021-10-18] MEDS: HYDROCODONE/APAP 5/325 MG TAB PO PRN ×2 (07:19→15:27)
[2021-10-18] MEDS ORDERED: MAGNESIUM OXIDE 400 MG TAB PO ONE (07:29)
[2021-10-18 08:41] LABS: Absolute Lymphocytes (CBC) 1.2 K/uL (0.7-4.9); Hematocrit 34.4 % (36.0-45.0); Lymphocytes % 13.6 % (15.3-44.8); MPV 8.2 fL (7.6-11.3); RBC Red Blood Cell Count 3.85 M/uL (3.86-4.86)
[2021-10-18] MEDS: GABAPENTIN 100 MG CAP PO SCH ×3 (08:42→21:07)
[2021-10-18] MEDS: DILTIAZEM HCL 120 MG SR CAP PO SCH (08:43)
[2021-10-18] MEDS: levETIRAcetam 500 MG TAB PO SCH ×2 (08:43→21:07)
[2021-10-18] MEDS: TORSEMIDE 20 MG TAB PO SCH (08:43)
[2021-10-18] MEDS: LEVOTHYROXINE SOD 0.075 MG TAB PO SCH (08:43)
[2021-10-18] MEDS: CITALOPRAM 10 MG TABLET PO SCH (08:43)
[2021-10-18] MEDS: PANTOPRAZOLE 40 MG INJ IVP SCH ×2 (08:44→21:07)
[2021-10-18 08:55] LABS: ALT/SGPT 14 U/L (12-78); AST/SGOT 10 U/L (15-37); Alkaline Phosphatase 72 U/L (45-117); BUN Blood Urea Nitrogen 12 mg/dL (7-18); Bicarbonate 33 mmol/L (21-32); Glucose Level 94 mg/dL (74-106); Magnesium 1.6 mg/dL (1.8-2.4); Potassium 3.2 mmol/L (3.5-5.1); Protein, Total 5.5 g/dL (6.4-8.2); Sodium Level 138 mmol/L (136-145)
[2021-10-18 09:26] LABS: Anisocytosis 1+; Blood Morphology Comment NOTED (NOT SEEN); Platelet Estimate ADEQ; Polychromasia SLIGHT; White Blood Cell Scan OK (OK)
[2021-10-18] MEDS ORDERED: POTASSIUM 25 MEQ EFFERV TAB PO ONE (09:56)
[2021-10-18] MEDS ORDERED: Magnesium Sulfate 2gm IVPB 2 G/50 ML BAG IV ONE (09:56)
--- NOTE | 2021-10-18 10:00 | P.PN ---
Subjective Date of Service: 10/18/21 Primary Care Provider: None Chief Complaint: Acute blood loss anemia, hematoma trunk Subjective: No new changes, No C/O voiced, Tolerating diet Physical Examination - Vital Signs Temperature: 97.5 F Blood Pressure: 122/59 Pulse: 94 Respirations: 19 Pulse Ox (%): 94 Assessment And Plan Physician Review: Patient Assessed, Agree with Above Assessment and Plan Physician Review Additional Text: Physical Exam General: Alert, elderly female, frail HEENT: Atraumatic, PERRLA, Mucous membr. moist/pink, EOMI, Sclerae nonicteric Neck: Supple, 2+ carotid pulse no bruit, No LAD, Without JVD or thyroid abnormality Respiratory: Clear to auscultation bilaterally, bruising over anterior chest wall extending from mid breast bilaterally down to upper abdominal wall and flank Cardiovascular: Normal S1 S2, improving to 2+ bilateral pedal edema , Irregular heart rate/rhythm (A. fib, rate controlled) Capillary refill: <2 Seconds Gastrointestinal: Normal bowel sounds, No tenderness Musculoskeletal: No contractures, No tenderness Integumentary: No other rashes, skin tear to right thigh area) Neurological: Normal speech, Normal strength at 5/5 x4 extr, Normal tone, Normal affect Urinary: Worley catheter Rectal: Other (Guaiac positive stool) - Studies Hemoglobin at 11.3 Assessment: Severe acute blood loss anemia secondary to large left breast hematoma and suspected upper GI bleedon Eliquis Chronic hypoxic respiratory failure secondary to COPD on home oxygen3 L Chronic diastolic congestive heart failure Atrial fibrillation on chronic anticoagulation therapyEliquis Hypomagnesemia Hypothyroidism Borderline diabetes with hyperglycemia Seizure disorder Hyperlipidemia Plan: Severe acute blood loss anemia secondary to large anterior chest wall and breast hematomahemoglobin still improving to 11.4 now -admitted with h/h of 3.4 and given 3 units PRBC -Likely due to post- fall with extensive hematoma in setting of Eliquis use Noted occult blood positive. GI evaluation done does not recommend further intervention was scope at this time, feels anemia is likely due to hematoma -Continue to hold Eliquis Chronic hypoxic respiratory failure secondary to COPD on home oxygen3 L: Continue supplemental oxygen as needed, stable Chronic diastolic congestive heart failure: Mild fluid overload, continue Torsemide -recurrent low mg and potassium - will replete today and start daily kcl and mag bid Atrial fibrillation on chronic anticoagulation therapyon hold Eliquis: Continue home meds Hypomagnesemia: Repleted Hypothyroidism: Continue medications as appropriate DM with hyperglycemia: Controlled glucose, hemoglobin A1c of 5.9, continue Metformin, Accu-Chek and sliding scale insulin. Seizure disorder: Continue Keppra 500 mg p.o. bid Hyperlipidemia: Continue home medications when appropriate. Weakness/recurrent fallsstill frail continue PT/OT Initially refusing rehab but agreeable now Follow-up plan for rehab team evaluation after the weekend DVT PPX: Jim Bruno Code status: Full Discharge Plan:to rehab or SNF when accepted 10/17/21 11:40 10/18/21 09:58
[2021-10-18 16:53] LABS: Magnesium 1.8 mg/dL (1.8-2.4); Potassium 4.1 mmol/L (3.5-5.1)
[2021-10-18] MEDS: MAGNESIUM CHLORIDE 64 MG TAB PO SCH (21:07)
[2021-10-18] MEDS: ATORVASTATIN 40 MG TAB PO SCH (21:08)
[2021-10-18] MEDS: TIZANIDINE 4 MG TABLET PO SCH (21:08)
[2021-10-19] MEDS ORDERED: NA CHLORIDE 0.9% 250 ML IV PRN (00:53)
[2021-10-19] MEDS: ALBUTEROL 2.5 MG/3 ML NEB SOL NEB PRN ×2 (03:40→13:43)
[2021-10-19 05:04] LABS: ALT/SGPT 12 U/L (12-78); Albumin 1.8 g/dL (3.4-5.0); Alkaline Phosphatase 65 U/L (45-117); BUN Blood Urea Nitrogen 14 mg/dL (7-18); Bicarbonate 31 mmol/L (21-32); Bilirubin Total 0.9 mg/dL (0.2-1.0); Glucose Level 113 mg/dL (74-106); Protein, Total 5.1 g/dL (6.4-8.2); Sodium Level 139 mmol/L (136-145)
[2021-10-19 05:06] LABS: AST/SGOT 18 U/L (15-37); Magnesium 1.8 mg/dL (1.8-2.4); Potassium 4.2 mmol/L (3.5-5.1)
[2021-10-19 06:53] LABS: Absolute Lymphocytes (CBC) 1.1 K/uL (0.7-4.9); Hematocrit 31.6 % (36.0-45.0); Lymphocytes % 14.5 % (15.3-44.8); RBC Red Blood Cell Count 3.57 M/uL (3.86-4.86)
[2021-10-19] MEDS: HYDROCODONE/APAP 5/325 MG TAB PO PRN ×3 (07:55→21:57)
[2021-10-19] MEDS: DILTIAZEM HCL 120 MG SR CAP PO SCH (09:00)
[2021-10-19] MEDS: TORSEMIDE 20 MG TAB PO SCH (09:00)
[2021-10-19] MEDS ORDERED: MAGNESIUM SULFATE 1 gm IVPB 1 GM/100 ML BAG IV ONE (09:00)
[2021-10-19] MEDS: POTASSIUM CL SA 10 MEQ TAB PO SCH (09:26)
[2021-10-19] MEDS: PANTOPRAZOLE 40 MG INJ IVP SCH ×2 (09:26→21:52)
[2021-10-19] MEDS: GABAPENTIN 100 MG CAP PO SCH ×3 (09:27→21:53)
[2021-10-19] MEDS: LEVOTHYROXINE SOD 0.075 MG TAB PO SCH (09:27)
[2021-10-19] MEDS: CITALOPRAM 10 MG TABLET PO SCH (09:27)
[2021-10-19] MEDS: levETIRAcetam 500 MG TAB PO SCH ×2 (09:28→21:53)
[2021-10-19] MEDS: MAGNESIUM CHLORIDE 64 MG TAB PO SCH ×2 (09:30→21:53)
[2021-10-19 10:35] LABS: Anisocytosis 1+; Blood Morphology Comment NOTED (NOT SEEN); Platelet Estimate ADEQ; Poikilocytosis SLIGHT; White Blood Cell Scan OK (OK)
[2021-10-19 10:36] LABS: Burr Cells FEW; Elliptocytes 1+
--- NOTE | 2021-10-19 11:02 | PN ---
Date of Progress Note: 10/19/2021 Reason For Service: Multiple body contusions with hematoma. Subjective: The patient is doing better today. We are concerned mostly and trying to see her ambula tion status, so when she goes home, trying to minimize the chance of this happening again. She feels better, tolerating diet. No nausea. No vomiting. Passing flatus. Objective: Chest: Clear. Abdomen: Soft and depressible. No guarding or rebound. Still has hematoma, some bruises present, e specially in the area of the chest, but has not changed and has not expanded. Laboratory Data: The blood work shows a hemoglobin of 10.3 with hematocrit 31.6 and platelets of 222 . INR is 1.89 that is from few days ago. Creatinine is 0.6. Plan: Today in rehab, we are going to trying to work on ambulation and safe transfer. From the surg ical standpoint, still no plans to surgical intervention, although we explained to the patient in the future we have to evaluate those hematomas to see if they have to be evacuated electively or make amin re there was no other pathology, especially in the breast lumps. NOA/MODL Voice ID: [id number] Report ID: [id number]
[2021-10-19] MEDS: IPRATROPIUM BROM 0.5MG/2.5ML NEB PRN (13:43)
[2021-10-19] MEDS: TIZANIDINE 4 MG TABLET PO SCH (21:52)
[2021-10-19] MEDS: ATORVASTATIN 40 MG TAB PO SCH (21:52)
--- NOTE | 2021-10-19 23:59 | P.PN ---
Subjective Date of Service: 10/19/21 PATIENT IS CLINICALLY DOING WELL. HEMATOMA IS RESOLVING. CLINICAL SYMPTOMS ARE IMPROVING; H&H STABLE Review of Systems 10-point ROS is otherwise unremarkable Physical Examination - Vital Signs Temperature: 97.1 F Blood Pressure: 113/55 Pulse: 92 Respirations: 18 Pulse Ox (%): 97 - Physical Exam General: Alert, In no apparent distress, Oriented x3 HEENT: Atraumatic, PERRLA, EOMI Neck: Supple, JVD not distended Respiratory: Clear to auscultation bilaterally, Normal air movement Cardiovascular: Regular rate/rhythm, Normal S1 S2 Gastrointestinal: Normal bowel sounds, No tenderness Musculoskeletal: No tenderness Integumentary: Skin breakdown, Tenderness/swelling, Erythema, Warmth Neurological: Normal speech, Normal tone, Normal affect Lymphatics: No axilla or inguinal lymphadenopathy - Studies Medications List Reviewed: Yes Assessment & Plan - Problems (Diagnosis) (1) Acute on chronic diastolic heart failure Current Visit: No Status: Acute (2) Anemia Current Visit: No Status: Acute (3) Anticoagulated Current Visit: No Status: Acute (4) Chronic atrial fibrillation Current Visit: No Status: Acute - Plan Plan: 1. Heart failure is compensated; medication for rate control 2. Hemoglobin is improving. 3. Continue out of bed and ambulating 4. Inpatient rehab evaluation 5. GI and DVT prophylaxis Discharge Plan: Home Plan to discharge in: Greater than 2 days - Advance Directives Does patient have a Living Will: No Does patient have a Durable POA for Healthcare: No - Code Status/Comfort Care Code Status Assessed: Yes Code Status: Full Code Physician Review: Patient Assessed, Agree with Above Assessment and Plan Critical Care: No Time Spent Managing PTS Care (In Minutes): 35
[2021-10-20 06:02] LABS: Absolute Lymphocytes (CBC) 1.4 K/uL (0.7-4.9); Hematocrit 29.4 % (36.0-45.0); Lymphocytes % 20.1 % (15.3-44.8); MPV 7.8 fL (7.6-11.3); RBC Red Blood Cell Count 3.32 M/uL (3.86-4.86)
[2021-10-20 06:17] LABS: Protime INR 0.95
[2021-10-20 06:26] LABS: ALT/SGPT 11 U/L (12-78); AST/SGOT 11 U/L (15-37); Albumin 1.7 g/dL (3.4-5.0); Alkaline Phosphatase 63 U/L (45-117); BUN Blood Urea Nitrogen 14 mg/dL (7-18); Bicarbonate 32 mmol/L (21-32); Bilirubin Total 0.5 mg/dL (0.2-1.0); Glucose Level 136 mg/dL (74-106); HDL Cholesterol 51 mg/dL (40-60); LDL Cholesterol, Calculated 36 (<130); Magnesium 1.8 mg/dL (1.8-2.4); Phosphorus 2.2 mg/dL (2.5-4.9); Sodium Level 139 mmol/L (136-145)
[2021-10-20] MEDS ORDERED: MAGNESIUM SULFATE 1 gm IVPB 1 GM/100 ML BAG IV ONE (06:40)
[2021-10-20 06:45] LABS: Folic Acid, (Folate) 5.3 ng/mL (3.1-17.5)
[2021-10-20] MEDS: PANTOPRAZOLE 40 MG INJ IVP SCH ×2 (08:15→20:24)
[2021-10-20] MEDS: POTASSIUM CL SA 10 MEQ TAB PO SCH (08:15)
[2021-10-20] MEDS: MAGNESIUM CHLORIDE 64 MG TAB PO SCH ×2 (08:15→20:23)
[2021-10-20] MEDS: GABAPENTIN 100 MG CAP PO SCH ×3 (08:15→20:24)
[2021-10-20] MEDS: LEVOTHYROXINE SOD 0.075 MG TAB PO SCH (08:16)
[2021-10-20] MEDS: HYDROCODONE/APAP 5/325 MG TAB PO PRN ×3 (08:16→20:24)
[2021-10-20] MEDS: levETIRAcetam 500 MG TAB PO SCH ×2 (08:16→20:24)
[2021-10-20] MEDS: TORSEMIDE 20 MG TAB PO SCH (08:49)
[2021-10-20] MEDS: DILTIAZEM HCL 120 MG SR CAP PO SCH (09:00)
[2021-10-20] MEDS: CITALOPRAM 10 MG TABLET PO SCH (09:00)
[2021-10-20] MEDS: IPRATROPIUM BROM 0.5MG/2.5ML NEB PRN ×3 (09:11→19:38)
--- NOTE | 2021-10-20 12:46 | PN ---
Date of Progress Note: 10/20/2021 Diagnosis: Status post fall, ecchymosis, some multiple trunk hematomas. Subjective: The patient is doing better. Will be working on the ambulation of this patient and safe ambulation. The patient feels better too, recovering her appetite. No more expanding of hematoma. Objective: CHEST: Clear. ABDOMEN: Soft and depressible. No guarding or rebound. EXTREMITIES: Good capillary refill. INTEGUMENTARY: Stable hematomas. Laboratory Data: Blood work shows a hemoglobin of 9.5 with platelets of 223 and the creatinine is 0. 62, glucose 136. Plan: Continue with training for ambulation. It is imperative that she watch her house too for any object that could be in her way in and may be contributed to her falling again in the future. From t he surgical standpoint, once she gets discharged, we will also going to follow her up. We mentioned that to her a few times in our office. We have to clarify the hematomas in the breast, although we b elieve this hematomas are still you can have an obscure pathology there that may have to be different iated once the inflammation goes down. She understands the importance of mammograms. We will follow the patient with you. NOA/MICHAEL Voice ID: [id number] Report ID: [id number]
[2021-10-20] MEDS: TIZANIDINE 4 MG TABLET PO SCH (20:24)
[2021-10-20] MEDS: ATORVASTATIN 40 MG TAB PO SCH (20:24)
[2021-10-21] MEDS: HYDROCODONE/APAP 7.5/325 MG TAB PO PRN ×4 (05:11→23:13)
[2021-10-21 06:38] LABS: Hematocrit 31.4 % (36.0-45.0); Lymphocytes % 13.7 % (15.3-44.8); MPV 7.8 fL (7.6-11.3)
[2021-10-21 06:53] LABS: ALT/SGPT 14 U/L (12-78); AST/SGOT 12 U/L (15-37); Albumin 1.9 g/dL (3.4-5.0); Alkaline Phosphatase 67 U/L (45-117); BUN Blood Urea Nitrogen 13 mg/dL (7-18); Bicarbonate 33 mmol/L (21-32); Bilirubin Total 0.6 mg/dL (0.2-1.0); Glucose Level 99 mg/dL (74-106); Magnesium 1.8 mg/dL (1.8-2.4); Potassium 4.2 mmol/L (3.5-5.1); Protein, Total 5.1 g/dL (6.4-8.2); Sodium Level 137 mmol/L (136-145)
[2021-10-21 07:51] LABS: Anisocytosis 1+; Blood Morphology Comment NOTED (NOT SEEN); Platelet Estimate ADEQ; White Blood Cell Scan OK (OK)
[2021-10-21 07:52] LABS: Macrocytosis SLIGHT
[2021-10-21] MEDS: IPRATROPIUM BROM 0.5MG/2.5ML NEB PRN ×2 (08:26→19:12)
[2021-10-21] MEDS: DILTIAZEM HCL 120 MG SR CAP PO SCH (09:16)
[2021-10-21] MEDS: CITALOPRAM 10 MG TABLET PO SCH (09:17)
[2021-10-21] MEDS: levETIRAcetam 500 MG TAB PO SCH ×2 (09:17→20:37)
[2021-10-21] MEDS: MAGNESIUM CHLORIDE 64 MG TAB PO SCH ×2 (09:17→20:39)
[2021-10-21] MEDS: LEVOTHYROXINE SOD 0.075 MG TAB PO SCH (09:17)
[2021-10-21] MEDS: GABAPENTIN 100 MG CAP PO SCH ×3 (09:17→20:37)
[2021-10-21] MEDS: POTASSIUM CL SA 10 MEQ TAB PO SCH (09:17)
[2021-10-21] MEDS: TORSEMIDE 20 MG TAB PO SCH (09:17)
[2021-10-21] MEDS: PANTOPRAZOLE 40 MG INJ IVP SCH ×2 (09:19→20:39)
--- NOTE | 2021-10-21 11:05 | PN ---
Date of Progress Note: 10/21/2021 Reason For Service: Status post fall, multiple trunk and extremities ecchymoses and hematomas, contu sions. Subjective: The patient is doing better. Starting to mobilize a little bit better. Also, diet is t olerating. The soreness is less. There is no expanding of the ecchymosis. Objective: Chest: Clear. Abdomen: Soft and depressible. Integumentary: Shows multiple hematomas, palpable in multiple parts of the body, torso back, flank, chest, and extremities. No expanding. No pulsatile. Laboratory Data: The hemoglobin is 10, hematocrit of 31.4, platelets 223. Creatinine is 0.56. Assessment: Multiple hematomas, status post fall. Plan: Continue care for ambulation. When the patient gets discharged, once again explained to her t he importance of following up in the office in case we need to do a physical exam and she might be du e for a breast neoplasia workup. NOA/MICHAEL Voice ID: [id number] Report ID: [id number]
[2021-10-21] MEDS ORDERED: METOPROLOL TAR 25 MG TAB PO ONE (13:14)
--- NOTE | 2021-10-21 13:17 | P.PN ---
Date of Service: 10/20/21 Subjective PATIENT IS CLINICALLY DOING WELL. HEMATOMA IS RESOLVING. CLINICAL SYMPTOMS ARE IMPROVING; H&H STABLE Review of Systems 10-point ROS is otherwise unremarkable Physical Examination - Vital Signs Reviewed - Physical Exam General: Alert, In no apparent distress, Oriented x3 Respiratory: Clear to auscultation bilaterally, Normal air movement Cardiovascular: Regular rate/rhythm, Normal S1 S2 Gastrointestinal: Normal bowel sounds, No tenderness Integumentary: Skin breakdown, Tenderness/swelling, Erythema, Warmth Neurological: Normal speech, Normal tone, Normal affect Assessment & Plan - Problems (Diagnosis) (1) Acute on chronic diastolic heart failure Current Visit: No Status: Acute (2) Anemia Current Visit: No Status: Acute (3) Anticoagulated Current Visit: No Status: Acute (4) Chronic atrial fibrillation Current Visit: No Status: Acute - Plan Continue plan of care as mentioned below: 1. Heart failure is compensated; medication for rate control; may add low-dose beta-jayson therapy 2. Hemoglobin is improving. 3. Continue out of bed and ambulating 4. Inpatient rehab evaluation 5. GI and DVT prophylaxis Discharge Plan: Home Plan to discharge in: Greater than 2 days - Advance Directives Does patient have a Living Will: No Does patient have a Durable POA for Healthcare: No - Code Status/Comfort Care Code Status Assessed: Yes Code Status: Full Code Physician Review: Patient Assessed, Agree with Above Assessment and Plan Critical Care: No Time Spent Managing PTS Care (In Minutes): 35
--- NOTE | 2021-10-21 13:17 | P.PN ---
Date of Service: 10/21/21 Subjective Continues to slowly improve with no new complaints. Review of Systems 10-point ROS is otherwise unremarkable Physical Examination - Vital Signs Reviewed - Physical Exam General: Alert, In no apparent distress, Oriented x3 Respiratory: Clear to auscultation bilaterally, Normal air movement Cardiovascular: Regular rate/rhythm, Normal S1 S2 Gastrointestinal: Normal bowel sounds, No tenderness Integumentary: Skin breakdown, Tenderness/swelling, Erythema, Warmth Neurological: Normal speech, Normal tone, Normal affect Assessment & Plan - Problems (Diagnosis) (1) Acute on chronic diastolic heart failure Current Visit: No Status: Acute (2) Anemia Current Visit: No Status: Acute (3) Anticoagulated Current Visit: No Status: Acute (4) Chronic atrial fibrillation Current Visit: No Status: Acute - Plan Continue plan of care as mentioned below: 1. Heart failure is compensated; medication for rate control; may add low-dose beta-jayson therapy 2. Hemoglobin is improving. 3. Continue out of bed and ambulating 4. Inpatient rehab evaluation 5. GI and DVT prophylaxis Discharge Plan: Home Plan to discharge in: Greater than 2 days - Advance Directives Does patient have a Living Will: No Does patient have a Durable POA for Healthcare: No - Code Status/Comfort Care Code Status Assessed: Yes Code Status: Full Code Physician Review: Patient Assessed, Agree with Above Assessment and Plan Critical Care: No Time Spent Managing PTS Care (In Minutes): 35
[2021-10-21] MEDS: METOPROLOL TAR 25 MG TAB PO SCH (17:40)
[2021-10-21] MEDS: ALBUTEROL 2.5 MG/3 ML NEB SOL NEB PRN (19:12)
[2021-10-21] MEDS: ATORVASTATIN 40 MG TAB PO SCH (20:37)
[2021-10-21] MEDS: TIZANIDINE 4 MG TABLET PO SCH (20:38)
[2021-10-22] MEDS: ALBUTEROL 2.5 MG/3 ML NEB SOL NEB PRN ×2 (01:42→13:52)
[2021-10-22] MEDS: IPRATROPIUM BROM 0.5MG/2.5ML NEB PRN ×2 (01:42→13:52)
[2021-10-22] MEDS ORDERED: NA CHLORIDE 0.9% 250 ML IV ONE (04:36)
[2021-10-22 05:09] VITALS: BMI 33.4
[2021-10-22] MEDS: METOPROLOL TAR 25 MG TAB PO SCH ×2 (05:16→18:00)
[2021-10-22 06:13] LABS: Absolute Lymphocytes (CBC) 1.2 K/uL (0.7-4.9); Hematocrit 33.9 % (36.0-45.0); Lymphocytes % 17.8 % (15.3-44.8); MPV 8.1 fL (7.6-11.3); RBC Red Blood Cell Count 3.76 M/uL (3.86-4.86)
[2021-10-22 06:32] LABS: ALT/SGPT 14 U/L (12-78); AST/SGOT 13 U/L (15-37); Albumin 2.1 g/dL (3.4-5.0); Alkaline Phosphatase 73 U/L (45-117); BUN Blood Urea Nitrogen 15 mg/dL (7-18); Bicarbonate 33 mmol/L (21-32); Bilirubin Total 0.6 mg/dL (0.2-1.0); Glucose Level 98 mg/dL (74-106); Magnesium 1.6 mg/dL (1.8-2.4); Potassium 4.1 mmol/L (3.5-5.1); Protein, Total 5.5 g/dL (6.4-8.2); Sodium Level 138 mmol/L (136-145)
[2021-10-22] MEDS ORDERED: MAGNESIUM SULFATE 1 gm IVPB 1 GM/100 ML BAG IV ONE (07:00)
[2021-10-22] MEDS: LEVOTHYROXINE SOD 0.075 MG TAB PO SCH (09:46)
[2021-10-22] MEDS: POTASSIUM CL SA 10 MEQ TAB PO SCH (09:46)
[2021-10-22] MEDS: levETIRAcetam 500 MG TAB PO SCH (09:46)
[2021-10-22] MEDS: DILTIAZEM HCL 120 MG SR CAP PO SCH (09:47)
[2021-10-22] MEDS: CITALOPRAM 10 MG TABLET PO SCH (09:47)
[2021-10-22] MEDS: GABAPENTIN 100 MG CAP PO SCH ×2 (09:47→15:17)
[2021-10-22] MEDS: PANTOPRAZOLE 40 MG INJ IVP SCH (09:48)
[2021-10-22] MEDS: MAGNESIUM CHLORIDE 64 MG TAB PO SCH (09:51)
[2021-10-22] MEDS: HYDROCODONE/APAP 7.5/325 MG TAB PO PRN (15:17)
[2021-10-22 16:17] VITALS: BP 106/62; TEMP 98.1
[2021-10-22 18:08] VITALS: O2SAT 94
[2021-10-23] MEDS ORDERED: TORSEMIDE 20 MG TAB PO SCH (09:00)
== END 2021-10-22 05:55 | DRG 604 ==
LOC: ER 00:15 → ERHOLD 03:41 → 3RD-ICU 05:14 → 2ND 10-16 20:45
PROVIDERS: ADMIT Internal Medicine; ATTEND Hospitalist
PROC: 06HY33Z Insertion of Infusion Device into Lower Vein, Percutaneous Approach (ICD-10-PCS; principal; 2021-10-14)
PROC: 30233N1 Transfusion of Nonautologous Red Blood Cells into Peripheral Vein, Percutaneous Approach (ICD-10-PCS; 2021-10-14)
DX: S20.02XA Contusion of left breast, initial encounter (principal); I50.33 Acute on chronic diastolic (congestive) heart failure; I48.20 Chronic atrial fibrillation, unspecified; K92.2 Gastrointestinal hemorrhage, unspecified; D62 Acute posthemorrhagic anemia; J96.11 Chronic respiratory failure with hypoxia; I11.0 Hypertensive heart disease with heart failure; L89.151 Pressure ulcer of sacral region, stage 1; J44.9 Chronic obstructive pulmonary disease, unspecified; G40.909 Epilepsy, unspecified, not intractable, without status epilepticus; E83.42 Hypomagnesemia; E78.5 Hyperlipidemia, unspecified; E03.9 Hypothyroidism, unspecified; K21.9 Gastro-esophageal reflux disease without esophagitis; S30.1XXA Contusion of abdominal wall, initial encounter; R73.03 Prediabetes; R73.9 Hyperglycemia, unspecified; W07.XXXA Fall from chair, initial encounter; Z79.01 Long term (current) use of anticoagulants; Z99.81 Dependence on supplemental oxygen; Z88.5 Allergy status to narcotic agent; Z79.890 Hormone replacement therapy; Z79.84 Long term (current) use of oral hypoglycemic drugs; Z87.891 Personal history of nicotine dependence; Z79.52 Long term (current) use of systemic steroids; Z79.899 Other long term (current) drug therapy; Z86.73 Personal history of transient ischemic attack (TIA), and cerebral infarction without residual deficits; Z86.718 Personal history of other venous thrombosis and embolism; Z86.711 Personal history of pulmonary embolism; Z20.822 Contact with and (suspected) exposure to COVID-19
CPT/HCPCS: 36415; 70450; 71045; 71260; 72125; 74177; 80048; 80053; 80061; 80076; 81003; 82533; 82607; 82746; 82947; 83036; 83540; 83690; 83735; 83880; 84100; 84132; 84439; 84443; 84484; 85018; 85025; 85044; 85610; 85730; 86850; 86900; 86901; 93005; 94640; 96361; 96365; 96366; 96368; 96372; 96375; 97110; 97161; 97165; 97530; 99251; 99285; C9113; J1160; J1940; J3430; J3475; J7030; J7050; P9016; P9059; Q9967; U0003

== ENCOUNTER 2023-04-17 08:12 | Inpatient (IN) | payer OTHER ==
--- OUTSIDE RECORDS SUMMARY | 2023-04-17 08:21 | XMS REPORT | Continuity of Care Document ---
:1940 Author Organization [facility] t Address [address] [facility] [address] [place] [address] Care Team Providers Name Role Phone DARRYN FERMIN Primary Care Physician Unavailable CELY ARMENTA Attending Clinician Unavailable MP HACKETT Attending Clinician Unavailable SUDARSHAN JARAMILLO Attending Clinician Unavailable SUDARSHAN JARAMILLO Attending Clinician Unavailable RASHAD COLINDRES Attending Clinician Unavailable CELINA TELLO K.HJaspreet Attending Clinician Unavailable Omer UPTON, Celina K.HJaspreet Attending Clinician Doctor Unassigned, [place] Attending Clinician Unavailable Rashad Colindres MD Attending Clinician BHARAT PRATER Attending Clinician Unavailable BHARAT PRATER Attending Clinician Unavailable Pob, [facility] Lab Main Attending Clinician Unavailable SG CEDENO Attending Clinician Unavailable SG CEDENO Attending Clinician Unavailable Esequiel Ward MD Attending Clinician Larry POST Attending Clinician Unavailable Larry Jordan Attending Clinician ESEQUIEL WARD Attending Clinician Unavailable Lab, [place] [facility] Attending Clinician Unavailable KNOW, DOES_NOT Attending Clinician Unavailable CELY ARMENTA Admitting Clinician Unavailable MP HACKETT Admitting Clinician Unavailable RASHAD COLINDRES Admitting Clinician Unavailable SG CEDENO Admitting Clinician Unavailable Larry POST Admitting Clinician Unavailable KNOW, DOES_NOT Admitting Clinician Unavailable Payers Payer Name Policy Type Policy Number Effective Date Expiration Date S jeniffer BCBS MEDICARE [id number] 2019 ADVANTAGE 00:00:00 [employer] [id number] 2022 MCARE ADV CHOICE 00:00:00 PPO [facility] [id number] 2022 PLUS 00:00:00 MEDICAID OF [place] [id number] 2021 2022 00:00:00 00:00:00 MANAGED MEDICARE [id number] 2016 HMO GENERIC 00:00:00 MEDICARE PART A [id number] 2020 \\T\\ B 00:00:00 Problems Condition Condition Condition Status Onset Resolution Last Treating Co mments Source Name Details Category Date Date Treatment Clinician Date Longstandi Longstandi Disease Active 2021-08 U nivers ng ng 1-29 [place]y [place] atrial atrial 00 Medical fibrillati fibrillati Br anch on on Pre-operat Pre-operat Disease Active 2021-08 U nivers joseph joseph 1-28 ity of cardiovasc cardiovasc [place] ular 00 Medical examinatio examinatio Br anch n n Chronic Chronic Disease Recurre 2019-[address] [facility] atrial atrial nce 1-15 [facility] Me dical on on 00 Center Hypokalemi Hypokalemi Disease Active 2019-[address] [facility] 1[facility]15 [facility] Symptomati Symptomati Disease Active 2019-[address] c anemia c anemia 1-15 [facility] Abnormal Abnormal Disease Active 2019-08 [facility] Acute Acute Disease Active 2019-[address] [facility] blood loss blood loss 1-14 Gloria kes anemia anemia 00:00: Medical 00 Center GIB GIB Disease Active 2019-[address] [facility] [address] (gastroint (gastroint 1-14 Gloria kes estinal estinal 00:00: Medical bleeding) bleeding) 00 Cent er Lipoma of Lipoma of Disease Active Overview: Univers colon colon Formattin ity of g of this [place] note Medical might be Branch different from the original. 15mm Stroke Stroke Disease Active Univers ity of [facility] Seizures Seizures Disease Active Unive rs ity of [facility] Essential Essential Disease Active Uni vers hypertensi hypertensi it y of on on [facility] Hyperplast Hyperplast Disease Active U nivers ic colonic ic colonic it y of polyp polyp [facility] Rectal Rectal Disease Active Overview: Univer s polyp polyp Formattin ity of g of this [place] note Medical might be Branch different from the original. 10mm External External Disease Active Unive rs hemorrhoid hemorrhoid it y of s s [facility] Diverticul Diverticul Disease Active U nivers a of colon a of colon it y of [facility] Lipoma of Lipoma of Disease Active Overview: Univers colon colon Formattin ity of g of this [place] note Medical might be Branch different from the original. 15mm Allergies, Adverse Reactions, Alerts Allergy Allergy Status Severity Reaction(s) Onset Inactive Treating Comm ents Source Name Type Date Date Clinician Codeine Drug Active 2019-[address] [address] Allergy 1-14 reaction( [facility] 00:00: s): [place] [id number] confusion Center CODEINE DRUG Active Unknown-Cmnt 2019-08 Uni vers INGREDI 1-14 ity of 00:00: [place] [id number] Medical Branch Codeine Drug Active Unknown - 2019-08 Other Univer s Intolera See comments 1-14 reaction( ity of nce 00:00: s): [place] [id number] stomach [facility] ache Branch CODEINE Allergy Active 2019-08 [facility] 1-14 00:00: 00 Social History Social Habit Start Date Stop Date Quantity Comments Source History SDOH University o f Alcohol Comment [place] Med ical Branch Gender identity Universit y of [facility] Sexual orientation Univer sity of [facility] History of tobacco Cigarette Smoker University of use [facility] History SDOH [facility] Alcohol Binge Medical Nandini ter History SDOH [facility] Alcohol Std Drinks Medica l Center Exposure to 2022-12-27 2023-01-06 Not sure University of SARS-CoV-2 (event) 00:00:00 13:42:00 [facility] History of Social 2022-10-21 2022-10-21 Univers ity of function 00:00:00 00:00:00 [facility] Tobacco use and 2020-09-25 2020-09-25 Smokeless Universit y of exposure 00:00:00 00:00:00 tobacco non-user [facility] Alcohol intake 2020-07-15 2020-07-[address] Aleena es 00:00:00 00:00:00 non-drinker Medical Jyoti causey (finding) History SDOH 2020-07-14 2020-07-[address] [facility] Alcohol Frequency 00:00:00 00:00:00 [facility] Center Sex Assigned At [birth year] JORGE [place] 00:00:00 00:00:00 Medical Center Smoking Status Start Date Stop Date Source Smokes tobacco daily 2020-09-25 00:00:00 Univers ity [facility] Medications Ordered Filled Start Stop Current Ordering Indication Dosage Frequency Signature Comments Components Source Medication Medication Date Date Medication? Clinician (SIG) Name Name HYDROcodone Yes 1{tbl} Take 1 Un sophia -acetaminop 5-11 tablet by ity of hen 5-325 14:06: mouth [place] mg tablet 14 every 6 Medical (six) Branch hours as needed. tiZANidine Yes 2mg Take 1 Unive rs 2 mg 5-11 capsule by ity of capsule 14:06: mouth [place] 14 every Medical evening. Branch ipratropium Yes ipratropiu Univers -albuteroL 5-11 m 0.5 ity of 0.5 mg-3 14:06: mg-albuter [place] mg(2.5 mg 14 ol 3 mg Medical base)/3 mL (2.5 mg Branch nebulizer base)/3 mL solution nebulizati on soln HYDROcodone Yes 1{tbl} Take 1 Un [facility] -acetaminop 5-11 tablet by ity of hen 5-325 14:06: mouth [place] mg tablet 14 every 6 Medical (six) Branch hours as needed. tiZANidine Yes 2mg Take 1 Unive rs 2 mg 5-11 capsule by ity of capsule 14:06: mouth [place] 14 every Medical evening. Branch ipratropium Yes ipratropiu Univers -albuteroL 5-11 m 0.5 ity of 0.5 mg-3 14:06: mg-albuter [place] mg(2.5 mg 14 ol 3 mg Medical base)/3 mL (2.5 mg Branch nebulizer base)/3 mL solution nebulizati on soln HYDROcodone 0 Yes 1{tbl} Take 1 Un [facility] -acetaminop 5-11 tablet by ity of hen 5-325 14:06: mouth [place] mg tablet 14 every 6 Medical (six) Branch hours as needed. tiZANidine 2022-0 Yes 2mg Take 1 Unive rs 2 mg 5-11 capsule by ity of capsule 14:06: mouth [place] 14 every Medical evening. Branch ipratropium 0 Yes ipratropiu Univers -albuteroL 5-11 m 0.5 ity of 0.5 mg-3 14:06: mg-albuter [place] mg(2.5 mg 14 ol 3 mg Medical base)/3 mL (2.5 mg Branch nebulizer base)/3 mL solution nebulizati on soln HYDROcodone Yes 1{tbl} Take 1 Un [facility] -acetaminop 5-11 tablet by ity of hen 5-325 14:06: mouth [place] mg tablet 14 every 6 Medical (six) Branch hours as needed. tiZANidine 2022-0 Yes 2mg Take 1 Unive rs 2 mg 5-11 capsule by ity of capsule 14:06: mouth [place] 14 every Medical evening. Branch ipratropium 0 Yes ipratropiu Univers -albuteroL 5-11 m 0.5 ity of 0.5 mg-3 14:06: mg-albuter [place] mg(2.5 mg 14 ol 3 mg Medical base)/3 mL (2.5 mg Branch nebulizer base)/3 mL solution nebulizati on soln HYDROcodone Yes 1{tbl} Take 1 Un [facility] -acetaminop 5-11 tablet by ity of hen 5-325 14:06: mouth [place] mg tablet 14 every 6 Medical (six) Branch hours as needed. tiZANidine 2022-0 Yes 2mg Take 1 Unive rs 2 mg 5-11 capsule by ity of capsule 14:06: mouth [place] 14 every Medical evening. Branch ipratropium 2022-0 Yes ipratropiu Univers -albuteroL 5-11 m 0.5 ity of 0.5 mg-3 14:06: mg-albuter [place] mg(2.5 mg 14 ol 3 mg Medical base)/3 mL (2.5 mg Branch nebulizer base)/3 mL solution nebulizati on soln HYDROcodone Yes 1{tbl} Take 1 Un [facility] -acetaminop 5-11 tablet by ity of hen 5-325 14:06: mouth [place] mg tablet 14 every 6 Medical (six) Branch hours as needed. tiZANidine 0 Yes 2mg Take 1 Unive rs 2 mg 5-11 capsule by ity of capsule 14:06: mouth [place] 14 every Medical evening. Branch ipratropium Yes ipratropiu Univers -albuteroL 5-11 m 0.5 ity of 0.5 mg-3 14:06: mg-albuter [place] mg(2.5 mg 14 ol 3 mg Medical base)/3 mL (2.5 mg Branch nebulizer base)/3 mL solution nebulizati on soln HYDROcodone Yes 1{tbl} Take 1 Un [facility]ia -acetaminop 5-11 tablet by ity of hen 5-325 14:06: mouth [place] mg tablet 14 every 6 Medical (six) Branch hours as needed. tiZANidine Yes 2mg Take 1 Unive rs 2 mg 5-11 capsule by ity of capsule 14:06: mouth [place] 14 every Medical evening. Branch ipratropium Yes ipratropiu Univers -albuteroL 5-11 m 0.5 ity of 0.5 mg-3 14:06: mg-albuter [place] mg(2.5 mg 14 ol 3 mg Medical base)/3 mL (2.5 mg Branch nebulizer base)/3 mL solution nebulizati on soln DILTIAZEM 0 Yes [id number] 120mg TAKE 1 U nivers 120 mg 24 4-27 CAPSULE BY ity of hr capsule 00:00: MOUTH [place] 00 EVERY Medical EVENING Branch DILTIAZEM 2022-0 Yes [id number] 120mg TAKE 1 U nivers 120 mg 24 4-27 CAPSULE BY ity of hr capsule 00:00: MOUTH [place] 00 EVERY Medical EVENING Branch DILTIAZEM 2022-0 Yes [id number] 120mg TAKE 1 U nivers 120 mg 24 4-27 CAPSULE BY ity of hr capsule 00:00: MOUTH [place] 00 EVERY Medical EVENING Branch DILTIAZEM 3-0 Yes [id number] 120mg TAKE 1 U nivers 120 mg 24 4-27 CAPSULE BY ity of hr capsule 00:00: MOUTH [place] 00 EVERY Medical EVENING Branch DILTIAZEM 3-0 Yes [id number] 120mg TAKE 1 U nivers 120 mg 24 4-27 CAPSULE BY ity of hr capsule 00:00: MOUTH [place] 00 EVERY Medical EVENING Branch DILTIAZEM 3-0 Yes [id number] 120mg TAKE 1 U nivers 120 mg 24 4-27 CAPSULE BY ity of hr capsule 00:00: MOUTH [place] 00 EVERY Medical EVENING Branch DILTIAZEM 3-0 Yes [id number] 120mg TAKE 1 U nivers 120 mg 24 4-27 CAPSULE BY ity of hr capsule 00:00: [facility] 00 EVERY Medical EVENING Branch amiodarone 3-0 3- No 200mg Take 200 U nivers 200 mg 2-23 02-23 mg by ity of tablet 09:39: 00:00 mouth in [place] 49 :00 the Medical morning. Branch amiodarone 2022-0 3- No 200mg Take 200 U nivers 200 mg 2-23 02-23 mg by ity of tablet 09:39: 00:00 mouth in [place] 49 :00 the Medical morning. Branch amiodarone 2022-0 3- No 200mg Take 200 U nivers 200 mg 2-23 02-23 mg by ity of tablet 09:39: 00:00 mouth in [place] 49 :00 the Medical morning. Branch metoprolol 2022-0 Yes [id number] 50mg Take 1 Univers succinate 2-23 tablet by ity o f XL 50 mg 24 00:00: mouth [place] hr tablet 00 the Medical morning. Branch metoprolol 2022-0 Yes [id number] 50mg Take 1 Univers succinate 2-23 tablet by ity o f XL 50 mg 24 00:00: mouth [place] hr tablet 00 the Medical morning. Branch metoprolol 3-0 Yes [id number] 50mg Take 1 Univers succinate 2-23 tablet by ity o f XL 50 mg 24 00:00: mouth [place] hr tablet 00 the Medical morning. Branch metoprolol 2022-0 Yes [id number] 50mg Take 1 Univers succinate 2-23 tablet by ity o f XL 50 mg 24 00:00: mouth in [place] hr tablet 00 the Medical morning. Branch metoprolol 3-0 Yes [id number] 50mg Take 1 Univers succinate 2-23 tablet by ity o f XL 50 mg 24 00:00: mouth [place] hr tablet 00 the Medical morning. Branch metoprolol 3-0 Yes [id number] 50mg Take 1 Univers succinate 2-23 tablet by ity o f XL 50 mg 24 00:00: mouth in [place] hr tablet 00 the Medical morning. Branch metoprolol 3-0 Yes [id number] 50mg Take 1 Univers succinate 2-23 tablet by ity o f XL 50 mg 24 00:00: mouth [place] hr tablet 00 the Medical morning. Branch metoprolol 3-0 Yes [id number] 50mg Take 1 Univers succinate 2-23 tablet by ity o f XL 50 mg 24 00:00: mouth [place] hr tablet 00 the Medical morning. Branch metoprolol 3-0 Yes [id number] 50mg Take 1 Univers succinate 2-23 tablet by ity o f XL 50 mg 24 00:00: mouth [place] hr tablet 00 the Medical morning. Branch tiZANidine 3-0 Yes 2mg Take 2 mg Un [facility] 2 mg 1-31 by mouth ity of capsule 11:40: every [place] [address] evening. Medical Branch tiZANidine 3-0 Yes 2mg Take 2 mg Un [facility] 2 mg 1-31 by mouth ity of capsule 11:40: every [place] [address] evening. Medical Branch tiZANidine 2023-0 Yes 2mg Take 2 mg Un [facility] 2 mg 1-31 by mouth ity of capsule 11:40: every [place] [address] evening. Medical Branch tiZANidine 2023-0 Yes 2mg Take 2 mg Un [facility] 2 mg 1-31 by mouth ity of capsule 11:40: every [place] [address] evening. Medical Branch tiZANidine 2023-0 Yes 2mg Take 2 mg Un [facility] 2 mg 1-31 by mouth ity of capsule 11:40: every [place] [address] evening. Medical Branch tiZANidine 2023-0 Yes 2mg Take 2 mg Un [facility] 2 mg 1-31 by mouth ity of capsule 11:40: every [place] [address] evening. Medical Branch tiZANidine 2023-0 Yes 2mg Take 2 mg Un [facility] 2 mg 1-31 by mouth ity of capsule 11:40: every [place] 47 evening. Medical Branch tiZANidine 2023-0 Yes 2mg Take 2 mg Un [facility] 2 mg 1-31 by mouth ity of capsule 11:40: every [place] 47 evening. Medical Branch tiZANidine 2023-0 Yes 2mg Take 2 mg Un [facility] 2 mg 1-31 by mouth ity of capsule 11:40: every [place] [address] evening. Medical Branch amiodarone 2023-0 Yes 200mg Take 200 Un [facility] 200 mg 1-31 mg by ity of tablet 11:40: mouth in [place] [address] the Medical morning. Branch amiodarone 2023-0 Yes 200mg Take 200 Un [facility] 200 mg 1-31 mg by ity of tablet 11:40: mouth in [place] [address] the Medical morning. Branch amiodarone 2023-0 Yes 200mg Take 200 Un [facility] 200 mg 1-31 mg by ity of tablet 11:40: mouth in [place] [address] the Medical morning. Branch amiodarone 2023-0 Yes 200mg Take 200 Un [facility] 200 mg 1-31 mg by ity of tablet 11:40: mouth in [place] [address] the Medical morning. Branch amiodarone 2023-0 Yes 200mg Take 200 Un [facility] 200 mg 1-31 mg by ity of tablet 11:40: mouth in [place] [address] the Medical morning. Branch amiodarone 2023-0 Yes 200mg Take 200 Un [facility] 200 mg 1-31 mg by ity of tablet 11:40: mouth in [place] [address] the Medical morning. Branch HYDROcodone 2023-0 Yes 1{tbl} Take 1 Un [facility] -acetaminop 1-31 tablet by ity of hen 5-325 11:27: mouth [place] mg tablet 00 every 6 Medical (six) Branch hours as needed. atorvastati 2023-0 Yes 20mg Take 20 mg Univers n 20 mg 1-31 by mouth ity of tablet 11:27: at [place] 00 bedtime. Medical Branch HYDROcodone 2023-0 Yes 1{tbl} Take 1 Un [facility] -acetaminop 1-31 tablet by ity of hen 5-325 11:27: mouth [place] mg tablet 00 every 6 Medical (six) Branch hours as needed. atorvastati 2022-0 Yes 20mg Take 20 mg Univers n 20 mg 1-31 by mouth ity of tablet 11:27: at [place] 00 bedtime. Medical Branch HYDROcodone 2022-0 Yes 1{tbl} Take 1 Un [facility] -acetaminop 1-31 tablet by ity of hen 5-325 11:27: mouth [place] mg tablet 00 every 6 Medical (six) Branch hours as needed. atorvastati 2022-0 Yes 20mg Take 20 mg Univers n 20 mg 1-31 by mouth ity of tablet 11:27: at [place] 00 bedtime. Medical Branch HYDROcodone 2022-0 Yes 1{tbl} Take 1 Un [facility] -acetaminop 1-31 tablet by ity of hen 5-325 11:27: mouth [place] mg tablet 00 every 6 Medical (six) Branch hours as needed. atorvastati 2022-0 Yes 20mg Take 20 mg Univers n 20 mg 1-31 by mouth ity of tablet 11:27: at [place] 00 bedtime. Medical Branch HYDROcodone 2022-0 Yes 1{tbl} Take 1 Un [facility] -acetaminop 1-31 tablet by ity of hen 5-325 11:27: mouth [place] mg tablet 00 every 6 Medical (six) Branch hours as needed. atorvastati 2022-0 Yes 20mg Take 20 mg Univers n 20 mg 1-31 by mouth ity of tablet 11:27: at [place] 00 bedtime. Medical Branch HYDROcodone 2022-0 Yes 1{tbl} Take 1 Un [facility] -acetaminop 1-31 tablet by ity of hen 5-325 11:27: mouth [place] mg tablet 00 every 6 Medical (six) Branch hours as needed. atorvastati 2022-0 Yes 20mg Take 20 mg Univers n 20 mg 1-31 by mouth ity of tablet 11:27: at [place] 00 bedtime. Medical Branch HYDROcodone 2022-0 Yes 1{tbl} Take 1 Un [facility] -acetaminop 1-31 tablet by ity of hen 5-325 11:27: mouth [place] mg tablet 00 every 6 Medical (six) Branch hours as needed. atorvastati 2022-0 Yes 20mg Take 20 mg Univers n 20 mg 1-31 by mouth ity of tablet 11:27: at [place] 00 bedtime. Medical Branch HYDROcodone 2022-0 Yes 1{tbl} Take 1 Un [facility]ia -acetaminop 1-31 tablet by ity of hen 5-325 11:27: mouth [place] mg tablet 00 every 6 Medical (six) Branch hours as needed. atorvastati 2022-0 Yes 20mg Take 20 mg Univers n 20 mg 1-31 by mouth ity of tablet 11:27: at [place] 00 bedtime. Medical Branch HYDROcodone 2022-0 Yes 1{tbl} Take 1 Un [facility]ia -acetaminop 1-31 tablet by ity of hen 5-325 11:27: mouth [place] mg tablet 00 every 6 Medical (six) Branch hours as needed. atorvastati 2022-0 Yes 20mg Take 20 mg Univers n 20 mg 1-31 by mouth ity of tablet 11:27: at [place] 00 bedtime. Medical Branch atorvastati 2022-0 Yes 20mg Take 20 mg Univers n 20 mg 1-31 by mouth ity of tablet 11:27: at [place] 00 bedtime. Medical Branch atorvastati 2022-0 Yes 20mg Take 20 mg Univers n 20 mg 1-31 by mouth ity of tablet 11:27: at [place] 00 bedtime. Medical Branch atorvastati 2022-0 Yes 20mg Take 20 mg Univers n 20 mg 1-31 by mouth ity of tablet 11:27: at [place] 00 bedtime. Medical Branch atorvastati 2022-0 Yes 20mg Take 20 mg Univers n 20 mg 1-31 by mouth ity of tablet 11:27: at [place] 00 bedtime. Medical Branch atorvastati 2022-0 Yes 20mg Take 20 mg Univers n 20 mg 1-31 by mouth ity of tablet 11:27: at [place] 00 bedtime. Medical Branch atorvastati 2022-0 Yes 20mg Take 20 mg Univers n 20 mg 1-31 by mouth ity of tablet 11:27: at [place] 00 bedtime. Medical Branch atorvastati 2022-0 Yes 20mg Take 20 mg Univers n 20 mg 1-31 by mouth ity of tablet 11:27: at [place] 00 bedtime. Medical Branch diltiazem 2022-0 Yes [id number] 120mg Take 1 U nivers 120 mg 24 1-31 capsule by ity of hr capsule 00:00: mouth [place] 00 every Medical evening. Branch diltiazem 2022-0 Yes [id number] 120mg Take 1 U nivers 120 mg 24 1-31 capsule by ity of hr capsule 00:00: mouth [place] 00 every Medical evening. Branch diltiazem 2022-0 Yes [id number] 120mg Take 1 U nivers 120 mg 24 1-31 capsule by ity of hr capsule 00:00: mouth [place] 00 every Medical evening. Branch diltiazem 2022-0 Yes [id number] 120mg Take 1 U nivers 120 mg 24 1-31 capsule by ity of hr capsule 00:00: mouth [place] 00 every Medical evening. Branch diltiazem 2022-0 Yes [id number] 120mg Take 1 U nivers 120 mg 24 1-31 capsule by ity of hr capsule 00:00: mouth [place] 00 every Medical evening. Branch diltiazem 2022-0 Yes [id number] 120mg Take 1 U nivers 120 mg 24 1-31 capsule by ity of hr capsule 00:00: mouth [place] 00 every Medical evening. Branch diltiazem 2022-0 Yes [id number] 120mg Take 1 U nivers 120 mg 24 1-31 capsule by ity of hr capsule 00:00: mouth [place] 00 every Medical evening. Branch diltiazem 2022-0 Yes [id number] 120mg Take 1 U nivers 120 mg 24 1-31 capsule by ity of hr capsule 00:00: mouth [place] 00 every Medical evening. Branch diltiazem 2022-0 3- No [id number] 120mg Take 1 Univers 120 mg 24 09-28- capsule by ity of hr capsule 00:00: 00:00 mouth [place] 00 :00 every Medical evening. Branch diltiazem 2022-0 3- No [id number] 120mg Take 1 Univers 120 mg 24 09-28- capsule by ity of hr capsule 00:00: 00:00 mouth [place] 00 :00 every Medical evening. Branch pantoprazol 2021-08 Yes 40mg 40 mg, Univ ers e 09-26 Oral, ity of (PROTONIX) 15:00: DAILY, [place] EC tablet 00 First dose Medi rodrigue 40 mg on Lorraine Isaac 07/27/22 at 0900, Until Discontinu ed, Routine sennosides- 2021-08 Yes 1{tbl} 1 tablet, Univers docusate 1-29 Oral, ity of sodium 15:00: DAILY, [place] (SENOKOT-S) 00 First dose Me dical 8.6-50 mg on Tue per tablet 07/27/22 1 tablet at 0900, Until Discontinu ed, Routine spironolact 2021-08 Yes 25mg 25 mg, [facility] ers one 09-26 Oral, ity of (ALDACTONE) 15:00: [place] tablet 25 00 First dose Medi rodrigue mg on Tue07/27/22 at 0900, Until Discontinu ed, Routine furosemide 2021-08 Yes 20mg 20 mg, [facility] rs (LASIX) 09-26 Oral, ity of tablet 20 15:00: DAILY, [place] mg 00 First dose Medical on Tue07/27/22 at 0900, Until Discontinu ed, Routine digoxin 2021-08- No 125ug 125 mcg, [facility] ers (LANOXIN) 09-26 Oral, ity of tablet 125 15:00: 19:07 DAILY, [place] mcg 00 :31 First dose Medical (after Branch last modificati on) on Tue07/27/22 at 0900, Until Discontinu ed, Routine digoxin 2021-08 No 125ug 125 mcg, [facility] ers (LANOXIN) 09-26 Oral, ity of tablet 125 15:00: 19:07 DAILY, [place] mcg 00 :31 First dose Medical (after Branch last modificati on) on Tue07/27/22 at 0900, Until Discontinu ed, Routine pantoprazol 2021-08- No 40mg 40 mg, Uni vers e 09-26 Oral, ity of (PROTONIX) 15:00: 22:45 DAILY, [place] EC tablet 00 :33 First dose Medi rodrigue 40 mg on Tue07/27/22 at 0900, Until Discontinu ed, Routine sennosides- 2021-08- No 1{tbl} 1 tablet, [facility] 09-26 Oral, ity of sodium 15:00: 22:45 DAILY, [place] (SENOKOT-S) 00 :33 First dose Me dical 8.6-50 mg on Tue per tablet 07/27/22 1 tablet at 0900, Until Discontinu ed, Routine spironolact 2021-08- No 25mg 25 mg, Uni vers one 09-26 Oral, ity of (ALDACTONE) 15:00: 22:45 DAILY, [place] as tablet 25 00 :33 First dose Medi rodrigue mg on [facility] Branch 07/27/22 at 0900, Until Discontinu ed, Routine furosemide 2021-08 No 20mg 20 mg, Univ ers (LASIX) 09-26 Oral, ity of tablet 20 15:00: 22:45 DAILY, [place] mg 00 :33 First dose Medical on [facility] Branch 07/27/22 at 0900, Until Discontinu ed, Routine latanoprost 2021-[address] in Un [facility] 0.005 % 09-26 each eye. ity of dpem 14:45: Medical Branch HYDROcodone 2021-08 Yes 1{tbl} Take 1 Un [facility] -acetaminop 09-26 tablet by ity of hen 5-325 14:45: mouth [place] mg tablet 29 every 6 Medical (six) Branch hours as needed. atorvastati 2021-08 Yes 20mg Take 20 mg Univers n 20 mg 09-26 by mouth ity of tablet 14:45: at [place] 29 bedtime. Medical Branch tiZANidine 2021-08 Yes 2mg Take 2 mg [facility] 2 mg 09-26 by mouth ity of capsule 14:45: every [place] 29 evening. Medical Branch acetic acid 2021-08 Yes acetic Univ ers 0.25 % 09-26 acid 0.25 ity of irrigation 14:45: % [place] solution irrigation Medic al solution Branch ipratropium 2021-08 Yes ipratropiu Univers -albuteroL 09-26 m 0.5 ity of 0.5 mg-3 14:45: mg-albuter [place] mg(2.5 mg 29 ol 3 mg Medical base)/3 mL (2.5 mg Branch nebulizer base)/3 mL solution nebulizati on soln latanoprost 2021-[address] in Un [place] 0.005 % 09-26 each eye. ity of dpem 14:45: Medical Branch HYDROcodone 2021-08 Yes 1{tbl} Take 1 Un [facility] -acetaminop 09-26 tablet by ity of hen 5-325 14:45: mouth [place] mg tablet 29 every 6 Medical (six) Branch hours as needed. atorvastati 2021-08 Yes 20mg Take 20 mg Univers n 20 mg 09-26 by mouth ity of tablet 14:45: at bedtime. Medical Branch tiZANidine 2021-08 Yes 2mg Take 2 mg [facility] [place] 2 mg 09-26 by mouth ity of capsule 14:45: every evening. Medical Branch acetic acid 2021-08 Yes acetic Univ ers 0.25 % 09-26 acid 0.25 ity of irrigation 14:45: % [place] solution irrigation Medic al solution Branch ipratropium 2021-08 Yes ipratropiu Univers -albuteroL 09-26 m 0.5 ity of 0.5 mg-3 14:45: mg-albuter [place] mg(2.5 mg 29 ol 3 mg Medical base)/3 mL (2.5 mg Branch nebulizer base)/3 mL solution nebulizati on soln latanoprost 2021-[address] in Un [facility] 0.005 % 09-26 each eye. ity of dpem 14:45: Medical Branch acetic acid 2021-08 Yes acetic Univ ers 0.25 % 09-26 acid 0.25 ity of irrigation 14:45: % solution 29 irrigation Medic al solution Branch ipratropium 2021-08 Yes ipratropiu [facility] -albuteroL - m 0.5 ity of 0.5 mg-3 14:45: mg-albuter [place] mg(2.5 mg 29 ol 3 mg Medical base)/3 mL (2.5 mg Branch nebulizer base)/3 mL solution nebulizati on soln latanoprost 2021-[address] in [place] 0.005 % 09-26 each eye. ity of dpem 14:45: Medical Branch acetic acid 2021-08 Yes acetic Univ ers 0.25 % 09-26 acid 0.25 ity of irrigation 14:45: % [place] solution 29 irrigation Medic al solution Branch ipratropium 2021-08 Yes ipratropiu Univers -albuteroL 1-29 m 0.5 ity of 0.5 mg-3 14:45: mg-albuter [place] mg(2.5 mg 29 ol 3 mg Medical base)/3 mL (2.5 mg Branch nebulizer base)/3 mL solution nebulizati on soln latanoprost 2021-[address] in [place] 0.005 % 09-26 each eye. ity of dpem 14:45: [place] 29 Medical Branch acetic acid 2021-08 Yes acetic Univ ers 0.25 % 09-26 acid 0.25 ity of irrigation 14:45: % [place] solution 29 irrigation Medic al solution Branch ipratropium 2021-08 Yes ipratropiu Univers -albuteroL - m 0.5 ity of 0.5 mg-3 14:45: mg-albuter [place] mg(2.5 mg 29 ol 3 mg Medical base)/3 mL (2.5 mg Branch nebulizer base)/3 mL solution nebulizati on soln latanoprost 2021-[address] in [place] 0.005 % 09-26 each eye. ity of dpem 14:45: 29 Medical Branch acetic acid 2021-08 Yes acetic Univ ers 0.25 % 09-26 acid 0.25 ity of irrigation 14:45: % [place] solution 29 irrigation Medic al solution Branch ipratropium 2021-08 Yes ipratropiu Univers -albuteroL -29 m 0.5 ity of 0.5 mg-3 14:45: mg-albuter [place] mg(2.5 mg 29 ol 3 mg Medical base)/3 mL (2.5 mg Branch nebulizer base)/3 mL solution nebulizati on soln latanoprost 2021-[address] in [place] 0.005 % 09-26 each eye. ity of dpem 14:45: [place] 29 Medical Branch acetic acid 2021-08 Yes acetic Univ ers 0.25 % 09-26 acid 0.25 ity of irrigation 14:45: % [place] solution 29 irrigation Medic al solution Branch ipratropium 2021-08 Yes ipratropiu Univers -albuteroL 1-29 m 0.5 ity of 0.5 mg-3 14:45: mg-albuter [place] mg(2.5 mg 29 ol 3 mg Medical base)/3 mL (2.5 mg Branch nebulizer base)/3 mL solution nebulizati on soln latanoprost 2021-[address] in [place] 0.005 % 09-26 each eye. ity of dpem 14:45: [place] 29 Medical Branch acetic acid 2021-08 Yes acetic Univ ers 0.25 % 09-26 acid 0.25 ity of irrigation 14:45: % [place] solution 29 irrigation Medic al solution Branch ipratropium 2021-08 Yes ipratropiu Univers -albuteroL 1-29 m 0.5 ity of 0.5 mg-3 14:45: mg-albuter [place] mg(2.5 mg 29 ol 3 mg Medical base)/3 mL (2.5 mg Branch nebulizer base)/3 mL solution nebulizati on soln latanoprost 2021-[address] in [place] 0.005 % 09-26 each eye. ity of dpem 14:45: [place] 29 Medical Branch acetic acid 2021-08 Yes acetic Univ ers 0.25 % 09-26 acid 0.25 ity of irrigation 14:45: % [place] solution 29 irrigation Medic al solution Branch ipratropium 2021-08 Yes ipratropiu Univers -albuteroL 1-29 m 0.5 ity of 0.5 mg-3 14:45: mg-albuter [place] mg(2.5 mg 29 ol 3 mg Medical base)/3 mL (2.5 mg Branch nebulizer base)/3 mL solution nebulizati on soln latanoprost 2021-[address] in [place] 0.005 % 09-26 each eye. ity of dpem 14:45: [place] 29 Medical Branch acetic acid 2021-08 Yes acetic Univ ers 0.25 % 09-26 acid 0.25 ity of irrigation 14:45: % [place] solution 29 irrigation Medic al solution Branch ipratropium 2021-08 Yes ipratropiu Univers -albuteroL 1-29 m 0.5 ity of 0.5 mg-3 14:45: mg-albuter [place] mg(2.5 mg 29 ol 3 mg Medical base)/3 mL (2.5 mg Branch nebulizer base)/3 mL solution nebulizati on soln latanoprost 2021-[address] in [place] 0.005 % 09-26 each eye. ity of dpem 14:45: [place] 29 Medical Branch acetic acid 2021-08 Yes acetic Univ ers 0.25 % 09-26 acid 0.25 ity of irrigation 14:45: % [place] solution 29 irrigation Medic al solution Branch ipratropium 2021-08 Yes ipratropiu Univers -albuteroL 09-26 m 0.5 ity of 0.5 mg-3 14:45: mg-albuter [place] mg(2.5 mg 29 ol 3 mg Medical base)/3 mL (2.5 mg Branch nebulizer base)/3 mL solution nebulizati on soln latanoprost 2021-[address] in [place] 0.005 % 09-26 each eye. ity of dpem 14:45: [place] 29 Medical Branch acetic acid 2021-08 Yes acetic Univ ers 0.25 % 09-26 acid 0.25 ity of irrigation 14:45: % [place] solution 29 irrigation Medic al solution Branch latanoprost 2021-[address] in [facility] [place] 0.005 % 09-26 each eye. ity of dpem 14:45: [place] Medical Branch acetic acid 2021-08 Yes acetic Univ ers 0.25 % 09-26 acid 0.25 ity of irrigation 14:45: % [place] solution 29 irrigation Medic al solution Branch latanoprost 2021-[address] in [place] 0.005 % 09-26 each eye. ity of dpem 14:45: [place] 29 Medical Branch acetic acid 2021-08 Yes acetic Univ ers 0.25 % 09-26 acid 0.25 ity of irrigation 14:45: % [place] solution 29 irrigation Medic al solution Branch latanoprost 2021-[address] in [facility] [place] 0.005 % 09-26 each eye. ity of dpem 14:45: [place] 29 Medical Branch acetic acid 2021-08 Yes acetic Univ ers 0.25 % 09-26 acid 0.25 ity of irrigation 14:45: % [place] solution 29 irrigation Medic al solution Branch latanoprost 2021-[address] in [place] 0.005 % 09-26 each eye. ity of dpem 14:45: [place] 29 Medical Branch acetic acid 2021-08 Yes acetic Univ ers 0.25 % 09-26 acid 0.25 ity of irrigation 14:45: % [place] solution 29 irrigation Medic al solution Branch latanoprost 2021-[address] in [facility] [place] 0.005 % 09-26 each eye. ity of dpem 14:45: Medical Branch acetic acid 2021-08 Yes acetic Univ ers 0.25 % 09-26 acid 0.25 ity of irrigation 14:45: % [place] solution irrigation Medic al solution Branch latanoprost 2021-[address] in [facility] [place] 0.005 % 09-26 each eye. ity of dpem 14:45: Medical Branch acetic acid 2021-08 Yes acetic Univ ers 0.25 % 09-26 acid 0.25 ity of irrigation 14:45: % solution irrigation Medic al solution Branch cyclobenzap 2021-08- No 10mg Take 10 mg Univers rine 10 mg 09-26 by mouth 3 it y of tablet 13:36: 00:00 (three) [place] 46 :00 times Medical daily. Branch traMADoL 50 2021-08- No 50mg Take 50 mg Univers mg tablet 09-26 by mouth ity o f 13:36: 00:00 every 6 [place] 46 :00 (six) Medical hours as Branch needed. acetaminoph 2021-08- No acetaminop Univers en-codeine 09-26 hen 300 ity o f 300-30 mg 13:36: 00:00 mg-codeine [place] tablet 46 :00 30 mg Medical tablet Branch methylnaltr 2021-08- No Relistor U nivers exone 09-26 150 mg ity of (RELISTOR) 13:36: 00:00 tablet [place] 150 mg Tab 46 :00 Take 1 Medical tablet Branch every day by oral route as needed for 28 days. KCL 20 mEq 2021-08- No potassium U nivers tablet 09-26 chloride ity of 13:36: 00:00 ER 20 mEq [place] 46 :00 tablet,ext Medical ended Branch release(pa rt/cryst) predniSONE 2021-08- No prednisone Univers 10 mg 09-26 10 mg ity of tablet 13:36: 00:00 tablet [place] 46 :00 Medical Branch torsemide 2021-08- No torsemide [place] 20 mg 09-26 20 mg ity of tablet 13:36: 00:00 tablet [place] 46 :00 Medical Branch cyclobenzap 2021-08- No 10mg Take 10 mg Univers rine 10 mg 09-26 by mouth 3 it y of tablet 13:36: 00:00 (three) [place] 46 :00 times Medical daily. Branch traMADoL 50 2021-08- No 50mg Take 50 mg Univers mg tablet 09-26 by mouth ity o f 13:36: 00:00 every 6 [place] 46 :00 (six) Medical hours as Branch needed. acetaminoph 2021-08- No acetaminop Univers en-codeine 09-26 hen 300 ity o f 300-30 mg 13:36: 00:00 mg-codeine [place] tablet 46 :00 30 mg Medical tablet Branch methylnaltr 2021-08- No Relistor U nivers exone 09-26 150 mg ity of (RELISTOR) 13:36: 00:00 tablet [place] 150 mg Tab 46 :00 Take 1 Medical tablet Branch every day by oral route as needed for 28 days. KCL 20 mEq 2021-08- No potassium U nivers tablet 09-26 chloride ity of 13:36: 00:00 ER 20 mEq [place] 46 :00 tablet,ext Medical ended Branch release(pa rt/cryst) predniSONE 2021-08- No prednisone Univers 10 mg 09-26 10 mg ity of tablet 13:36: 00:00 tablet [place] 46 :00 Medical Branch torsemide 2021-08- No torsemide [place] 20 mg 09-26 20 mg ity of tablet 13:36: 00:00 tablet [place] 46 :00 Medical Branch levothyroxi 2021-08 Yes 75ug 75 mcg, Uni vers ne 09-26 Oral, ity of (SYNTHROID) 12:00: QAM-0600, [place] tablet 75 00 First dose Medi rodrigue mcg on Tue Branch 07/27/22 at 0600, Until Discontinu ed, Routine levothyroxi 2021-08- No 75ug 75 mcg, [place] ne 09-26 Oral, ity of (SYNTHROID) 12:00: 22:45 QAM-0600, [place] tablet 75 00 :33 First dose Medi rodrigue mcg on Tu Branch 07/27/22 at 0600, Until Discontinu ed, Routine iopamidol 2021-08- No [id number] 80mL 80 mL, Univers (ISOVUE 09-26 Intravenou ity o f 370-500 mL) 04:15: 04:30 s, ONCE, 1 [place] injection 00 :00 dose, On Medica l 80 mL [facility] 07/26/22 at 2230, Routine iopamidol 2021-08- No [id number] 80mL 80 mL, Univers (ISOVUE 09-26 Intravenou ity o f 370-500 mL) 04:15: 04:30 s, ONCE, 1 [place] injection 00 :00 dose, On Medica l 80 mL [facility] 07/26/22 at 2230, Routine atorvastati 2021-08 Yes 20mg 20 mg, Univ ers n (LIPITOR) 09-26 Oral, QHS, it y of tablet 20 03:00: First dose [place] mg 00 on [facility] 07/26/22 Branch at 2100, Until Discontinu ed, Routine atorvastati 2021-08- No 20mg 20 mg, Uni vers n (LIPITOR) 09-26 Oral, QHS, i ty of tablet 20 03:00: 22:45 First dose [place] mg 00 :33 on [facility] 07/26/22 Branch at 2100, Until Discontinu ed, Routine amiodarone 2021-08 Yes 200mg 200 mg, Uni vers (PACERONE) 09-26 Oral, BID, ity of tablet 200 02:00: First dose [place] mg 00 on [facility] 07/26/22 Branch at 2000, Until Discontinu ed, Routine budesonide- 2021-08 Yes 2{puff} 2 Puff, Univers formoteroL 09-26 Inhalation ity of (SYMBICORT) 02:00: , BID, [place] 80-4.5 00 First dose Medical mcg/actuati on [facility] Branch on inhaler 07/26/22 2 Puff at 2000, Until Discontinu ed, Routine levETIRAcet 2021-08 Yes 500mg 500 mg, [place] am (KEPPRA) 09-26 Oral, BID, it y of tablet 500 02:00: First dose [place] mg 00 on [facility] 07/26/22 Branch at 2000, Until Discontinu ed, Routine gabapentin 2021-08 Yes 100mg 100 mg, Uni vers (NEURONTIN) 09-26 Oral, TID, it y of capsule 100 02:00: First dose [place] mg 00 on [facility] 07/26/22 Branch at 2000, Until Discontinu ed, Routine apixaban 2021-08 Yes 5mg 5 mg, Univers (ELIQUIS) 09-26 Oral, BID, ity of tablet 5 mg 02:00: First dose [place] 00 on [facility] 07/26/22 Branch at 2000, Until Discontinu ed, Routine
Indicatio ns: Non-Valvul ar Atrial Fibrillati on amiodarone 2021-08- No 200mg 200 mg, [place] (PACERONE) 09-26 Oral, BID, it y of tablet 200 02:00: 22:45 First dose [place] mg 00 :33 on [facility] 07/26/22 Branch at 1999, Until Discontinu ed, Routine budesonide- 2021-08 No 2{puff} 2 Puff, Univers formoteroL 09-26 Inhalation it y of (SYMBICORT) 02:00: 22:45 , BID, [place] 80-4.5 00 :33 First dose Medical mcg/actuati on [facility] Branch on inhaler 07/26/22 2 Puff at 1999, Until Discontinu ed, Routine levETIRAcet 2021-08 No 500mg 500 mg, U nivers am (KEPPRA) 09-26 Oral, BID, i ty of tablet 500 02:00: 22:45 First dose [place] mg 00 :33 on [facility] 07/26/22 Branch at 2000, Until Discontinu ed, Routine gabapentin 2021-08 No 100mg 100 mg, [place] (NEURONTIN) 09-26 Oral, TID, i ty of capsule 100 02:00: 22:45 First dose [place] mg 00 :33 on [facility] 07/26/22 Branch at 2000, Until Discontinu ed, Routine apixaban 2021-08 No 5mg 5 mg, Univers (ELIQUIS) -29 07-27 Oral, BID, ity of tablet 5 mg 02:00: 22:45 First dose [place] 00 :33 on [facility] 07/26/22 Branch at 1999, Until Discontinu ed, Routine
Indicatio ns: Non-Valvul ar Atrial Fibrillati on gabapentin 2021-08 Yes [id number] 100mg Take 1 Univers 100 mg 1-29 capsule by ity of capsule 00:00: mouth in [address] and 1 capsule at noon and 1 capsule in the evening. sucralfate 2021-08 Yes [id number] 1000mg Take 10 mL Univers 100 mg/mL 1-29 by mouth ity of suspension 00:00: before [place] [address] meals and Medical [facility] bedtime. gabapentin 2021-08 Yes [id number] 100mg Take 1 Univers 100 mg 1-29 capsule by ity of capsule 00:00: mouth in [address] and 1 capsule at noon and 1 capsule in the evening. sucralfate 2021-08 Yes [id number] 1000mg Take 10 mL Univers 100 mg/mL 1-29 by mouth ity of suspension 00:00: before [place] [address] meals and Medical [facility] bedtime. gabapentin 2021-08 Yes [id number] 100mg Take 1 Univers 100 mg 1-29 capsule by ity of capsule 00:00: mouth in [address] and 1 capsule at noon and 1 capsule in the evening. sucralfate 2021-08 Yes [id number] 1000mg Take 10 mL Univers 100 mg/mL 1-29 by mouth ity of suspension 00:00: before [place] [address] meals and Medical [facility] bedtime. gabapentin 2021-08 Yes [id number] 100mg Take 1 Univers 100 mg 1-29 capsule by ity of capsule 00:00: mouth in [address] and 1 capsule at noon and 1 capsule in the evening. sucralfate 2021-08 Yes [id number] 1000mg Take 10 mL Univers 100 mg/mL 1-29 by mouth ity of suspension 00:00: before [place] [address] meals and [facility] bedtime. gabapentin 2021-08 Yes [id number] 100mg Take 1 Univers 100 mg 1-29 capsule by ity of capsule 00:00: mouth in [place] 00 the Medical morning Branch and 1 capsule at noon and 1 capsule in the evening. sucralfate 2021- Yes [id number] 1000mg Take 10 mL Univers 100 mg/mL 1-29 by mouth ity of suspension 00:00: before [place] 00 meals and Medical at [place] bedtime. gabapentin 2021- Yes [id number] 100mg Take 1 Univers 100 mg 1-29 capsule by ity of capsule 00:00: mouth in [place] [address] the [facility] morning [place] and 1 capsule at noon and 1 capsule in the evening. sucralfate 2021-08 Yes [id number] 1000mg Take 10 mL Univers 100 mg/mL 1-29 by mouth ity of suspension 00:00: before [place] 00 meals and Medical at [place] bedtime. gabapentin 2021-08 Yes [id number] 100mg Take 1 Univers 100 mg 1-29 capsule by ity of capsule 00:00: mouth in [address] and 1 capsule at noon and 1 capsule in the evening. sucralfate 2021-08 Yes [id number] 1000mg Take 10 mL Univers 100 mg/mL 1-29 by mouth ity of suspension 00:00: before [place] 00 meals and Medical at [place] bedtime. gabapentin 2021-08 Yes [id number] 100mg Take 1 Univers 100 mg 1-29 capsule by ity of capsule 00:00: mouth in [place] [address] [facility] and 1 capsule at noon and 1 capsule in the evening. sucralfate 2021-08 Yes [id number] 1000mg Take 10 mL Univers 100 mg/mL 1-29 by mouth ity of suspension 00:00: before [place] 00 meals and Medical at [place] bedtime. gabapentin 2021- Yes [id number] 100mg Take 1 Univers 100 mg 1-29 capsule by ity of capsule 00:00: mouth in [place] [address] the [facility] morning [place] and 1 capsule at noon and 1 capsule in the evening. sucralfate 2021- Yes [id number] 1000mg Take 10 mL Univers 100 mg/mL 1-29 by mouth ity of suspension 00:00: before [place] [address] meals and Medical at [place] bedtime. gabapentin 2021- Yes [id number] 100mg Take 1 Univers 100 mg 1-29 capsule by ity of capsule 00:00: mouth in [place] [address] the [facility] morning [place] and 1 capsule at noon and 1 capsule in the evening. sucralfate 2021- Yes [id number] 1000mg Take 10 mL Univers 100 mg/mL 1-29 by mouth ity of suspension 00:00: before [place] 00 meals and Medical at [place] bedtime. gabapentin 2021- Yes [id number] 100mg Take 1 Univers 100 mg 1-29 capsule by ity of capsule 00:00: mouth in [address] and 1 capsule at noon and 1 capsule in the evening. sucralfate 2021-08 Yes [id number] 1000mg Take 10 mL Univers 100 mg/mL 1-29 by mouth ity of suspension 00:00: before [place] 00 meals and Medical at [place] bedtime. gabapentin 2021-08 Yes [id number] 100mg Take 1 Univers 100 mg 1-29 capsule by ity of capsule 00:00: mouth in [address] and 1 capsule at noon and 1 capsule in the evening. sucralfate 2021-08 Yes [id number] 1000mg Take 10 mL Univers 100 mg/mL 1-29 by mouth ity of suspension 00:00: before [place] [address] meals and Medical at [place] bedtime. gabapentin 2021-08 Yes [id number] 100mg Take 1 Univers 100 mg 1-29 capsule by ity of capsule 00:00: mouth in [address] and 1 capsule at noon and 1 capsule in the evening. sucralfate 2021-08 Yes [id number] 1000mg Take 10 mL Univers 100 mg/mL 1-29 by mouth ity of suspension 00:00: before [place] [address] meals and Medical at [place] bedtime. gabapentin 2021- Yes [id number] 100mg Take 1 Univers 100 mg 1-29 capsule by ity of capsule 00:00: mouth in [address] and 1 capsule at noon and 1 capsule in the evening. sucralfate 2021- Yes [id number] 1000mg Take 10 mL Univers 100 mg/mL 1-29 by mouth ity of suspension 00:00: before [place] [address] meals and Medical at [place] bedtime. gabapentin 2021- Yes [id number] 100mg Take 1 Univers 100 mg 1-29 capsule by ity of capsule 00:00: mouth in [address] and 1 capsule at noon and 1 capsule in the evening. sucralfate 2021-08 Yes [id number] 1000mg Take 10 mL Univers 100 mg/mL 1-29 by mouth ity of suspension 00:00: before [place] 00 meals and Medical at [place] bedtime. gabapentin 2021-08 Yes [id number] 100mg Take 1 Univers 100 mg 1-29 capsule by ity of capsule 00:00: mouth in [place] 00 the Medical morning Branch and 1 capsule at noon and 1 capsule in the evening. sucralfate 2021-08 Yes [id number] 1000mg Take 10 mL Univers 100 mg/mL 1-29 by mouth ity of suspension 00:00: before [place] 00 meals and Medical at [place] bedtime. gabapentin 2021-08 Yes [id number] 100mg Take 1 Univers 100 mg 1-29 capsule by ity of capsule 00:00: mouth in [place] [address] the [facility] morning Branch and 1 capsule at noon and 1 capsule in the evening. sucralfate 2021-08 Yes [id number] 1000mg Take 10 mL Univers 100 mg/mL 1-29 by mouth ity of suspension 00:00: before [place] [address] meals and Medical at [place] bedtime. gabapentin 2021-08 Yes [id number] 100mg Take 1 Univers 100 mg 1-29 capsule by ity of capsule 00:00: mouth in [place] [address] the [facility] morning Branch and 1 capsule at noon and 1 capsule in the evening. sucralfate 2021-08 Yes [id number] 1000mg Take 10 mL Univers 100 mg/mL 1-29 by mouth ity of suspension 00:00: before [place] [address] meals and Medical at [place] bedtime. amiodarone 2021-08- No [id number] Take 1 Univers 200 mg 1-29 03-06 tablet by ity of tablet 00:00: 05:59 mouth 2 [place] 00 :00 (two) [facility] daily for 6 days, THEN 1 tablet daily for 90 days. amiodarone 2021-08- No [id number] Take 1 Univers 200 mg 1-29 03-06 tablet by ity of tablet 00:00: 05:59 mouth 2 [place] 00 :00 (two) [facility] daily for 6 days, THEN 1 tablet daily for 90 days. amiodarone 2021-08- No [id number] Take 1 Univers 200 mg 1-29 - tablet by ity of tablet 00:00: 00:00 mouth 2 [place] 00 :00 (two) Medical times Branch daily for 6 days, THEN 1 tablet daily for 90 days. amiodarone 2021-08 No [id number] Take 1 Univers 200 mg 09-26 tablet by ity of tablet 00:00: 00:00 mouth 2 [place] 00 :00 (two) Medical times [place] daily for 6 days, THEN 1 tablet daily for 90 days. amiodarone 2021-08 No [id number] Take 1 Univers 200 mg 09-26 tablet by ity of tablet 00:00: 00:00 mouth 2 [place] 00 :00 (two) Medical times [place] daily for 6 days, THEN 1 tablet daily for 90 days. polyethylen 2021-08 No 17g 17 g, Univ ers e glycol 09-25 Oral, ity of 3350 powder 22:45: 22:54 ONCE, 1 [place] 17 g 00 :00 dose, On Medical [facility] 07/26/22 at 1645, Routine polyethylen 2021-08 No 17g 17 g, Univ ers e glycol 09-25 Oral, ity of 3350 powder 22:45: 22:54 ONCE, 1 [place] 17 g 00 :00 dose, On [facility] 07/26/22 at 1645, Routine diltiazem 2021-08 Yes 240mg 240 mg, Univ ers XR 09-25 Oral, ity of (DILT-XR) 22:30: DAILY, [place] capsule 240 00 First dose Me dical mg on [facility] 07/26/22 at 1630, Until Discontinu ed, Routine sucralfate 2021-08 Yes 1g 1,000 mg Uni vers (CARAFATE) 09-25 (1 g), ity of 100 mg/mL 22:30: Oral, [place] suspension 00 AC+HS, Medical 1,000 mg First dose Branc h on Tue07/26/22 at 1630, Until Discontinu ed, Routine diltiazem 2021-08 No 240mg 240 mg, Uni vers XR 09-25 Oral, ity of (DILT-XR) 22:30: 22:45 DAILY, [place] capsule 240 00 :33 First dose Me dical mg on [facility] 07/26/22 at 1630, Until Discontinu ed, Routine sucralfate 2021-08 No 1g 1,000 mg [place] (CARAFATE) 09-25 (1 g), ity of 100 mg/mL 22:30: 22:45 Oral, [place] suspension 00 :33 AC+HS, Medical 1,000 mg First dose Branc h on Tue07/26/22 at 1630, Until Discontinu ed, Routine HYDROcodone 2021-08- No 1{tbl} 1 tablet, Univers -acetaminop 09-25 Oral, ity of hen (NORCO 21:56: 21:51 Q6HPRN, [place] 5) 5-325 mg 48 :39 Starting Medi rodrigue tablet 1 on Tue tablet 07/26/22 at 1556, Until Tue07/28/22 at 1551, Routine, Pain (scale 7-10) HYDROcodone 2021-08 No 1{tbl} 1 tablet, Univers -acetaminop 09-25 Oral, ity of hen (NORCO 21:56: 22:45 Q6HPRN, [place] 5) 5-325 mg 48 :33 Starting Medi rodrigue tablet 1 on Tue Branch tablet 07/26/22 at 1556, Until Tue07/27/22 at 1645, Routine, Pain (scale 7-10) nitroglycer 2021-08 Yes .4mg 0.4 mg, Uni vers in 09-25 Sublingual ity of (NITROSTAT) 21:54: , Q5MIN [place] sublingual 03 PRN, Medical tablet 0.4 Starting Branc h mg on Tue07/26/22 at 1554, Until Discontinu ed, Routine, Chest pain nitroglycer 2021-08- No .4mg 0.4 mg, [place] in 09-25 Sublingual ity of (NITROSTAT) 21:54: 22:45 , Q5MIN [place] sublingual 03 :33 PRN, Medical tablet 0.4 Starting Branc h mg on Tue07/26/22 at 1554, Until Tue07/27/22 at 1645, Routine, Chest pain ondansetron 2021-08 Yes 4mg 4 mg, Slow Univers (ZOFRAN 09-25 IV Push, ity of (PF)) 21:53: Q6HPRN, [place] injection 4 41 Starting Medi rodrigue mg on Mon Branch 07/26/22 at 1553, Until Discontinu ed, Routine, Nausea and Vomiting (N/V) ondansetron 2021-08 No 4mg 4 mg, Slow Univers (ZOFRAN 09-25 IV Push, ity of (PF)) 21:53: 22:45 Q6HPRN, [place] injection 4 41 :33 Starting Medi rodrigue mg on Tue Branch 07/26/22 at 1553, Until Tue07/27/22 at 1645, Routine, Nausea and Vomiting (N/V) acetaminoph 2021-08 Yes 650mg 650 mg, [place] en 09-25 Oral, ity of (TYLENOL) 21:52: Q6HPRN, [place] tablet 650 29 Starting Medic al mg on Tue Branch 07/26/22 at 1552, Until Discontinu ed, Routine, Pain (scale 1-3) acetaminoph 2021-08- No 650mg 650 mg, U nivers en 09-25 Oral, ity of (TYLENOL) 21:52: 22:45 Q6HPRN, [place] tablet 650 29 :33 Starting Medic al mg on Tue Branch 07/26/22 at 1552, Until Tue07/27/22 at 1645, Routine, Pain (scale 1-3) ipratropium 2021-08 Yes 3mL 3 mL, Unive rs -albuteroL 09-25 Inhalation ity of (DUONEB) 21:48: , TIDPRN, [place] 0.5 mg-3 05 Starting Medical mg(2.5 mg on Mon Branch base)/3 mL 07/26/22 nebulizer at 1548, solution 3 Until mL Discontinu ed, Routine, Wheezing ipratropium 2021-08 No 3mL 3 mL, Univ ers -albuteroL 09-25 Inhalation it y of (DUONEB) 21:48: 22:45 , TIDPRN, [place] 0.5 mg-3 05 :33 Starting Medical mg(2.5 mg on Mon Branch base)/3 mL 07/26/22 nebulizer at 1548, solution 3 Until Tue mL 07/27/22 at 1645, Routine, Wheezing albuterol 2021-08 Yes 2{puff} 2 Puff, [place] (VENTOLIN) 09-25 Inhalation ity of inhaler 2 21:45: , Q6HPRN, [place] Puff 39 Starting Medical on Tue Branch 07/26/22 at 1545, Until Discontinu ed, Routine, Wheezing, Shortness of Breath albuterol 2021-08- No 2{puff} 2 Puff, U nivers (VENTOLIN) 09-25 Inhalation it y of inhaler 2 21:45: 22:45 , Q6HPRN, [place] Puff 39 :33 Starting Medical on Tue Branch 07/26/22 at 1545, Until Tue07/27/22 at 1645, Routine, Wheezing, Shortness of Breath lidocaine 2021-08- No ONCE INTRA U nivers 1% (PF) 09-25 PROCEDURE, ity o f (XYLOCAINE) 14:48: 14:48 Starting [place] injection 08 :08 on [facility] 07/26/22 Branch at 0848, Until Discontinu ed, Routine, CV Intraproce dure acetaminoph 2021-08 Yes acetaminop Univers en-codeine 18 hen 300 ity of 300-30 mg 09:59: mg-codeine [place] tablet 44 30 mg Medical tablet Branch acetic acid 2021-08 Yes acetic Univ ers 0.25 % 18 acid 0.25 ity of irrigation 09:59: % [place] solution 44 irrigation Medic al solution Branch ipratropium 2021-08 Yes ipratropiu [facility] -albuteroL 18 m 0.5 ity of 0.5 mg-3 09:59: mg-albuter [place] as mg(2.5 mg 44 ol 3 mg Medical base)/3 mL (2.5 mg Branch nebulizer base)/3 mL solution nebulizati on soln methylnaltr 2021-08 Yes Relistor [facility] exone -18 150 mg ity of (RELISTOR) 09:59: tablet [place] 150 mg Tab 44 Take 1 Medical tablet Branch every day by oral route as needed for 28 days. KCL 20 mEq 2021-08 Yes potassium [facility] tablet 1-18 chloride ity of 09:59: ER 20 mEq 44 tablet,ext Medical ended Branch release(pa rt/cryst) predniSONE 2021-08 Yes prednisone U nivers 10 mg 1-18 10 mg ity of tablet 09:59: tablet 44 Medical Branch torsemide 2021-08 Yes torsemide Uni vers 20 mg 1-18 20 mg ity of tablet 09:59: tablet 44 Medical Branch cyclobenzap Yes 10mg Take 10 mg [facility] rine 10 mg 9-29 by mouth 3 ity of tablet 12:04: (three) [place] 03 times Medical daily. Branch latanoprost Yes Place in [facility] 0.005 % 9-29 each eye. ity of dpem 12:04: [place] [facility] Branch HYDROcodone Yes 1{tbl} Take 1 [facility] -acetaminop 9-29 tablet by ity of hen 5-325 12:04: mouth [place] mg tablet 03 every 6 Medical (six) Branch hours as needed. traMADoL 50 Yes 50mg Take 50 mg [facility] mg tablet 9-29 by mouth ity of 12:04: every 6 [place] 03 (six) Medical hours as Branch needed. atorvastati Yes 20mg Take 20 mg [facility] n 20 mg 9-29 by mouth ity of tablet 12:04: at [place] 03 bedtime. Medical Branch tiZANidine Yes 2mg Take 2 mg [facility] 2 mg 9-29 by mouth ity of capsule 12:04: every [place] 03 evening. Medical Branch cyclobenzap Yes 10mg Take 10 mg [facility] rine 10 mg 9-29 by mouth 3 ity of tablet 12:04: (three) [place] 03 times Medical daily. Branch latanoprost Yes Place in [facility] 0.005 % 9-29 each eye. ity of dpem 12:04: [place] [facility] HYDROcodone Yes 1{tbl} Take 1 [facility] -acetaminop 9-29 tablet by ity of hen 5-325 12:04: mouth [place] mg tablet 03 every 6 Medical (six) Branch hours as needed. traMADoL 50 0 Yes 50mg Take 50 mg [facility] mg tablet 9-29 by mouth ity of 12:04: every 6 [place] 03 (six) Medical hours as Branch needed. atorvastati 2021-0 Yes 20mg Take 20 mg [facility] n 20 mg 9-29 by mouth ity of tablet 12:04: at [place] 03 bedtime. Medical Branch tiZANidine 0 Yes 2mg Take 2 mg [facility] 2 mg 9-29 by mouth ity of capsule 12:04: every [place] 03 evening. Medical Branch cyclobenzap 0 Yes 10mg Take 10 mg [facility] rine 10 mg 9-29 by mouth 3 ity of tablet 12:04: (three) [place] 03 times Medical daily. Branch latanoprost [address] in [facility] 0.005 % 9-29 each eye. ity of dpem 12:04: [place] 03 Medical Branch HYDROcodone 0 Yes 1{tbl} Take 1 [facility] -acetaminop 9-29 tablet by ity of hen 5-325 12:04: mouth [place] mg tablet 03 every 6 Medical (six) Branch hours as needed. traMADoL 50 2021-0 Yes 50mg Take 50 mg [facility] mg tablet 9-29 by mouth ity of 12:04: every 6 [place] 03 (six) Medical hours as Branch needed. atorvastati 0 Yes 20mg Take 20 mg [facility] n 20 mg 9-29 by mouth ity of tablet 12:04: at [place] 03 bedtime. Medical Branch tiZANidine 0 Yes 2mg Take 2 mg [facility] 2 mg 9-29 by mouth ity of capsule 12:04: every [place] 03 evening. Medical Branch cyclobenzap 0 Yes 10mg Take 10 mg [facility] rine 10 mg 9-29 by mouth 3 ity of tablet 12:04: (three) [place] 03 times Medical daily. Branch latanoprost [address] in [facility] 0.005 % 9-29 each eye. ity of dpem 12:04: [place] 03 Medical Branch HYDROcodone 2021-0 Yes 1{tbl} Take 1 [facility] -acetaminop 9-29 tablet by ity of hen 5-325 12:04: mouth [place] mg tablet 03 every 6 Medical (six) Branch hours as needed. traMADoL 50 2021-0 Yes 50mg Take 50 mg [facility] mg tablet 9-29 by mouth ity of 12:04: every 6 [place] 03 (six) Medical hours as Branch needed. atorvastati Yes 20mg Take 20 mg [facility] n 20 mg 9-29 by mouth ity of tablet 12:04: at [place] 03 bedtime. Medical Branch tiZANidine Yes 2mg Take 2 mg [facility] 2 mg 9-29 by mouth ity of capsule 12:04: every [place] 03 evening. Medical Branch cyclobenzap Yes 10mg Take 10 mg [facility] rine 10 mg 9-29 by mouth 3 ity of tablet 12:04: (three) [place] 03 times Medical daily. Branch latanoprost Yes Place in [facility] 0.005 % 9-29 each eye. ity of dpem 12:04: [place] 03 Medical Branch HYDROcodone Yes 1{tbl} Take 1 [facility] -acetaminop 9-29 tablet by ity of hen 5-325 12:04: mouth [place] mg tablet 03 every 6 Medical (six) Branch hours as needed. traMADoL 50 Yes 50mg Take 50 mg [facility] mg tablet 9-29 by mouth ity of 12:04: every 6 [place] 03 (six) Medical hours as Branch needed. atorvastati Yes 20mg Take 20 mg [facility] n 20 mg 9-29 by mouth ity of tablet 12:04: at [place] [address] bedtime. Medical Branch tiZANidine Yes 2mg Take 2 mg [facility] 2 mg 9-29 by mouth ity of capsule 12:04: every [place] 03 evening. Medical Branch tc 2021- No [id number] 40.5mCi 40.5 [facility] 16:45: 16:45 , [place] (MYOVIEW) 00 :00 Intravenou Medi rodrigue injection s, ONCE, 1 Bran ch 40.5 dose, On [facility] 05/11/22 at 1145, Routine regadenoson 2021- No [id number] .4mg 0.4 mg, IV Univers (LEXISCAN) 05-11 [place], ity of injection 15:00: 16:43 ONCE, 1 [place] 0.4 mg 00 :00 dose, On [facility] Branch 05/11/22 at 1000, Routine
tribunal member approving Restricted medication : SAMEERA WREN tc 202- No [id number] 15.9mCi 15.9 Unive rs 99m-tetrofo 05-11 [facility] ty of smin 14:15: 14:04 , [place] (MYOVIEW) 00 :00 Intravenou Medi rodrigue injection s, ONCE, 1 Bran ch 15.9 [facility], [facility] at [facility]15, Routine cyclobenzap 2021-0 Yes 10mg Take 10 mg [facility] rine 10 mg 7-25 by mouth 3 ity of tablet 14:03: (three) [place] 40 times Medical daily. Branch latanoprost [address] in [facility] 0.005 % 7-25 each eye. ity of dpem 14:03: [place] [address] Medical Branch HYDROcodone 2021-0 Yes 1{tbl} Take 1 [facility] -acetaminop 7-25 tablet by ity of hen 5-325 14:03: mouth [place] mg tablet 40 every 6 Medical (six) Branch hours as needed. traMADoL 50 2-0 Yes 50mg Take 50 mg Univers mg tablet 7-25 by mouth ity of 14:03: every 6 [place] 40 (six) Medical hours as Branch needed. cyclobenzap 2022-0 Yes 10mg Take 10 mg [facility] rine 10 mg 7-25 by mouth 3 ity of tablet 14:03: (three) [place] 40 times Medical daily. Branch latanoprost 2021-[address] in [facility] 0.005 % 7-25 each eye. ity of dpem 14:03: [place] [address] Medical Branch HYDROcodone 2021-0 Yes 1{tbl} Take 1 [facility] -acetaminop 7-25 tablet by ity of hen 5-325 14:03: mouth [place] mg tablet 40 every 6 Medical (six) Branch hours as needed. traMADoL 50 2022-0 Yes 50mg Take 50 mg [facility] mg tablet 7-25 by mouth ity of 14:03: every 6 [place] 40 (six) Medical hours as Branch needed. cyclobenzap 2022-0 Yes 10mg Take 10 mg [facility] rine 10 mg 7-25 by mouth 3 ity of tablet 14:03: (three) [place] 40 times Medical daily. Branch latanoprost 2-[address] in [facility] 0.005 % 7-25 each eye. ity of dpem 14:03: [place] 40 Medical Branch HYDROcodone 2-0 Yes 1{tbl} Take 1 [facility] -acetaminop 7-25 tablet by ity of hen 5-325 14:03: mouth [place] mg tablet 40 every 6 Medical (six) Branch hours as needed. traMADoL 50 2-0 Yes 50mg Take 50 mg [facility] mg tablet 7-25 by mouth ity of 14:03: every 6 [place] 40 (six) Medical hours as Branch needed. cyclobenzap 2022-0 Yes 10mg Take 10 mg [facility] rine 10 mg 7-25 by mouth 3 ity of tablet 14:03: (three) [place] 40 times Medical daily. Branch latanoprost 2-[address] in [facility] 0.005 % 7-25 each eye. ity of dpem 14:03: [place] 40 Medical Branch HYDROcodone 2-0 Yes 1{tbl} Take 1 [facility] -acetaminop 7-25 tablet by ity of hen 5-325 14:03: mouth [place] mg tablet 40 every 6 Medical (six) Branch hours as needed. traMADoL 50 2-0 Yes 50mg Take 50 mg Univers mg tablet 7-25 by mouth ity of 14:03: every 6 [place] 40 (six) Medical hours as Branch needed. cyclobenzap 2022-0 Yes 10mg Take 10 mg [facility] rine 10 mg 7-25 by mouth 3 ity of tablet 14:03: (three) [place] 40 times Medical daily. Branch latanoprost 2-[address] in [facility] 0.005 % 7-25 each eye. ity of dpem 14:03: [place] 40 Medical Branch HYDROcodone 2-0 Yes 1{tbl} Take 1 [facility] -acetaminop 7-25 tablet by ity of hen 5-325 14:03: mouth [place] mg tablet 40 every 6 Medical (six) Branch hours as needed. traMADoL 50 2022-0 Yes 50mg Take 50 mg Univers mg tablet 7-25 by mouth ity of 14:03: every 6 [place] 40 (six) Medical hours as Branch needed. cyclobenzap 2022-0 Yes 10mg Take 10 mg Univers rine 10 mg 7-25 by mouth 3 ity of tablet 14:03: (three) [place] 40 times Medical daily. Branch latanoprost Yes Place in [facility] 0.005 % 7-25 each eye. ity of dpem 14:03: [place] 40 Medical Branch HYDROcodone Yes 1{tbl} Take 1 [facility] -acetaminop 7-25 tablet by ity of hen 5-325 14:03: mouth [place] mg tablet 40 every 6 Medical (six) Branch hours as needed. traMADoL 50 Yes 50mg Take 50 mg Univers mg tablet 7-25 by mouth ity of 14:03: every 6 [place] 40 (six) Medical hours as Branch needed. atorvastati Yes 20mg Take 20 mg Univers n 20 mg 7-25 by mouth ity of tablet 14:03: at [place] [address] bedtime. Medical Branch atorvastati Yes 20mg Take 20 mg Univers n 20 mg 7-25 by mouth ity of tablet 14:03: at [place] [address] bedtime. Medical Branch atorvastati Yes 20mg Take 20 mg Univers n 20 mg 7-25 by mouth ity of tablet 14:03: at [place] [address] bedtime. Medical Branch atorvastati Yes 20mg Take 20 mg Univers n 20 mg 7-25 by mouth ity of tablet 14:03: at [place] [address] bedtime. Medical Branch atorvastati Yes 20mg Take 20 mg Univers n 20 mg 7-25 by mouth ity of tablet 14:03: at [place] 06 bedtime. Medical Branch atorvastati Yes 20mg Take 20 mg Univers n 20 mg 7-25 by mouth ity of tablet 14:03: at [place] [address] bedtime. Medical Branch furosemide 0 Yes Univers 20 mg 5-05 ity of tablet 00:00: [place] 00 Medical Branch omeprazole 2021-0 Yes Univers 20 mg 5-05 ity of capsule 00:00: [place] 00 Medical Branch spironolact 2021-0 Yes Univer s one 25 mg 5-05 ity of tablet 00:00: [place] 00 Medical Branch furosemide 2021-0 Yes Univers 20 mg 5-05 ity of tablet 00:00: [place] 00 Medical Branch omeprazole 2022-0 Yes Univers 20 mg 5-05 ity of capsule 00:00: [place] 00 Medical Branch spironolact 2022-0 Yes Univer s one 25 mg 5-05 ity of tablet 00:00: [place] 00 Medical Branch furosemide 2022-0 Yes Univers 20 mg 5-05 ity of tablet 00:00: [place] [address] Medical Branch omeprazole 2022-0 Yes Univers 20 mg 5-05 ity of capsule 00:00: [place] 00 Medical Branch spironolact 2022-0 Yes Univer s one 25 mg 5-05 ity of tablet 00:00: [place] [address] Medical Branch furosemide 2022-0 Yes Univers 20 mg 5-05 ity of tablet 00:00: [place] [address] Medical Branch omeprazole 2022-0 Yes Univers 20 mg 5-05 ity of capsule 00:00: [place] [address] Medical Branch spironolact 2-0 Yes Univer s one 25 mg 5-05 ity of tablet 00:00: [place] [address] Medical Branch furosemide 2022-0 Yes Univers 20 mg 5-05 ity of tablet 00:00: [place] [address] Medical Branch omeprazole 2022-0 Yes Univers 20 mg 5-05 ity of capsule 00:00: [place] [address] Medical Branch spironolact 2-0 Yes Univer s one 25 mg 5-05 ity of tablet 00:00: [place] [address] Medical Branch furosemide 2022-0 Yes Univers 20 mg 5-05 ity of tablet 00:00: [place] [address] Medical Branch omeprazole 2022-0 Yes Univers 20 mg 5-05 ity of capsule 00:00: [place] [address] Medical Branch spironolact 2022-0 Yes Univer s one 25 mg 5-05 ity of tablet 00:00: [place] [address] Medical Branch furosemide 2022-0 Yes Univers 20 mg 5-05 ity of tablet 00:00: [place] [address] Medical Branch omeprazole 2022-0 Yes Univers 20 mg 5-05 ity of capsule 00:00: [place] [address] Medical Branch spironolact 2022-0 Yes Univer s one 25 mg 5-05 ity of tablet 00:00: [place] [address] Medical Branch furosemide 2022-0 Yes Univers 20 mg 5-05 ity of tablet 00:00: [place] [address] Medical Branch omeprazole 2022-0 Yes Univers 20 mg 5-05 ity of capsule 00:00: [place] [address] Medical Branch spironolact 2022-0 Yes Univer s one 25 mg 5-05 ity of tablet 00:00: [place] 00 Medical Branch furosemide 2022-0 Yes Univers 20 mg 5-05 ity of tablet 00:00: [place] [address] Medical Branch omeprazole 2022-0 Yes Univers 20 mg 5-05 ity of capsule 00:00: [place] [address] Medical Branch spironolact 2022-0 Yes Univer s one 25 mg 5-05 ity of tablet 00:00: [place] [address] Medical Branch furosemide 2022-0 Yes Univers 20 mg 5-05 ity of tablet 00:00: [place] [address] Medical Branch omeprazole 2022-0 Yes Univers 20 mg 5-05 ity of capsule 00:00: [place] [address] Medical Branch spironolact 2-0 Yes Univer s one 25 mg 5-05 ity of tablet 00:00: [place] [address] Medical Branch furosemide 2022-0 Yes Univers 20 mg 5-05 ity of tablet 00:00: [place] [address] Medical Branch omeprazole 2022-0 Yes Univers 20 mg 5-05 ity of capsule 00:00: [place] [address] Medical Branch spironolact 2-0 Yes Univer s one 25 mg 5-05 ity of tablet 00:00: [place] [address] Medical Branch furosemide 2022-0 Yes Univers 20 mg 5-05 ity of tablet 00:00: [place] [address] Medical Branch omeprazole 2022-0 Yes Univers 20 mg 5-05 ity of capsule 00:00: [place] [address] Medical Branch spironolact 2022-0 Yes Univer s one 25 mg 5-05 ity of tablet 00:00: [place] [address] Medical Branch furosemide 2022-0 Yes Univers 20 mg 5-05 ity of tablet 00:00: [place] [address] Medical Branch omeprazole 2022-0 Yes Univers 20 mg 5-05 ity of capsule 00:00: [place] [address] Medical Branch spironolact 2022-0 Yes Univer s one 25 mg 5-05 ity of tablet 00:00: [place] [address] Medical Branch furosemide 2022-0 Yes 20mg Take 20 mg U nivers 20 mg 5-05 by mouth ity of tablet 00:00: in the [place] [address] morning. Medical Branch omeprazole 2022-0 Yes Univers 20 mg 5-05 ity of capsule 00:00: [place] [address] Medical Branch spironolact 2022-0 Yes 25mg Take 25 mg Univers one 25 mg 5-05 by mouth ity of tablet 00:00: in the [place] 00 morning. Medical Branch furosemide 2022-0 Yes 20mg Take 20 mg U nivers 20 mg 5-05 by mouth ity of tablet 00:00: in the [place] 00 morning. Medical Branch omeprazole 2022-0 Yes Univers 20 mg 5-05 ity of capsule 00:00: [place] 00 Medical Branch spironolact 2022-0 Yes 25mg Take 25 mg Univers one 25 mg 5-05 by mouth ity of tablet 00:00: in the [place] 00 morning. Medical Branch furosemide 2022-0 Yes 20mg Take 20 mg U nivers 20 mg 5-05 by mouth ity of tablet 00:00: in the [place] 00 morning. Medical Branch omeprazole 2022-0 Yes Univers 20 mg 5-05 ity of capsule 00:00: [place] 00 Medical Branch spironolact 2022-0 Yes 25mg Take 25 mg Univers one 25 mg 5-05 by mouth ity of tablet 00:00: in the [place] morning. Medical Branch furosemide 2022-0 Yes 20mg Take 20 mg U nivers 20 mg 5-05 by mouth ity of tablet 00:00: in the [place] 00 morning. Medical Branch omeprazole 2022-0 Yes Univers 20 mg 5-05 ity of capsule 00:00: [place] 00 Medical Branch spironolact 2022-0 Yes 25mg Take 25 mg Univers one 25 mg 5-05 by mouth ity of tablet 00:00: in the [place] 00 morning. Medical Branch furosemide 2022-0 Yes 20mg Take 20 mg U nivers 20 mg 5-05 by mouth ity of tablet 00:00: in the [place] 00 morning. Medical Branch omeprazole 2022-0 Yes Univers 20 mg 5-05 ity of capsule 00:00: [place] 00 Medical Branch spironolact 2022-0 Yes 25mg Take 25 mg [facility] one 25 mg 5-05 by mouth ity of tablet 00:00: in the [place] 00 morning. Medical Branch furosemide 2022-0 Yes 20mg Take 20 mg U nivers 20 mg 5-05 by mouth ity of tablet 00:00: in the [place] 00 morning. Medical Branch omeprazole 2022-0 Yes Univers 20 mg 5-05 ity of capsule 00:00: [place] 00 Medical Branch spironolact 2022-0 Yes 25mg Take 25 mg [facility] one 25 mg 5-05 by mouth ity of tablet 00:00: in the [place] 00 morning. Medical Branch furosemide 2022-0 Yes 20mg Take 20 mg U nivers 20 mg 5-05 by mouth ity of tablet 00:00: in the [place] 00 morning. Medical Branch omeprazole 2022-0 Yes Univers 20 mg 5-05 ity of capsule 00:00: [place] 00 Medical Branch spironolact 2022-0 Yes 25mg Take 25 mg [facility] one 25 mg 5-05 by mouth ity of tablet 00:00: in the [place] 00 morning. Medical Branch furosemide 2022-0 Yes 20mg Take 20 mg U nivers 20 mg 5-05 by mouth ity of tablet 00:00: in the [place] 00 morning. Medical Branch omeprazole 2022-0 Yes Univers 20 mg 5-05 ity of capsule 00:00: [place] 00 Medical Branch spironolact 2022-0 Yes 25mg Take 25 mg Univers one 25 mg 5-05 by mouth ity of tablet 00:00: in the [place] 00 morning. Medical Branch furosemide 2022-0 Yes 20mg Take 20 mg U nivers 20 mg 5-05 by mouth ity of tablet 00:00: in the [place] 00 morning. Medical Branch omeprazole 2022-0 Yes Univers 20 mg 5-05 ity of capsule 00:00: [place] 00 Medical Branch spironolact 2022-0 Yes 25mg Take 25 mg Univers one 25 mg 5-05 by mouth ity of tablet 00:00: in the [place] 00 morning. Medical Branch furosemide 2022-0 Yes 20mg Take 20 mg U nivers 20 mg 5-05 by mouth ity of tablet 00:00: in the [place] 00 morning. Medical Branch omeprazole 2022-0 Yes Univers 20 mg 5-05 ity of capsule 00:00: [place] 00 Medical Branch spironolact 2022-0 Yes 25mg Take 1 Univ ers one 25 mg 5-05 tablet by ity o f tablet 00:00: mouth in [place] 00 the Medical morning. Branch furosemide 2022-0 Yes 20mg Take 20 mg U nivers 20 mg 5-05 by mouth ity of tablet 00:00: in the [place] 00 morning. Medical Branch omeprazole 2022-0 Yes Univers 20 mg 5-05 ity of capsule 00:00: [place] 00 Medical Branch spironolact 2022-0 Yes 25mg Take 1 Univ ers one 25 mg 5-05 tablet by ity o f tablet 00:00: mouth in [place] the morning. Branch furosemide 2022-0 Yes 20mg Take 20 mg U nivers 20 mg 5-05 by mouth ity of tablet 00:00: in the [place] morning. Medical Branch omeprazole 2022-0 Yes Univers 20 mg 5-05 ity of capsule 00:00: [place] 00 Medical Branch spironolact 2022-0 Yes 25mg Take 1 Univ ers one 25 mg 5-05 tablet by ity o f tablet 00:00: mouth in [place] the morning. Branch furosemide 2022-0 Yes 20mg Take 20 mg U nivers 20 mg 5-05 by mouth ity of tablet 00:00: in the [place] morning. Medical Branch omeprazole 2022-0 Yes Univers 20 mg 5-05 ity of capsule 00:00: [place] 00 Medical Branch spironolact 2022-0 Yes 25mg Take 1 Univ ers one 25 mg 5-05 tablet by ity o f tablet 00:00: mouth in [place] the morning. Branch furosemide 2022-0 Yes 20mg Take 20 mg U nivers 20 mg 5-05 by mouth ity of tablet 00:00: in the [place] morning. Medical Branch omeprazole 2022-0 Yes Univers 20 mg 5-05 ity of capsule 00:00: [place] 00 Medical Branch spironolact 2022-0 Yes 25mg Take 1 Univ ers one 25 mg 5-05 tablet by ity o f tablet 00:00: mouth in [place] the morning. Branch furosemide 2022-0 Yes 20mg Take 20 mg U nivers 20 mg 5-05 by mouth ity of tablet 00:00: in the [place] morning. Medical Branch omeprazole 2022-0 Yes [facility] 20 mg 5-05 ity of capsule 00:00: [place] 00 Medical Branch spironolact 2022-0 Yes 25mg Take 1 Univ ers one 25 mg 5-05 tablet by ity o f tablet 00:00: mouth in [place] the morning. Branch furosemide 2022-0 Yes 20mg Take 20 mg U nivers 20 mg 5-05 by mouth ity of tablet 00:00: in the [place] morning. Medical Branch omeprazole 2022-0 Yes Univers 20 mg 5-05 ity of capsule 00:00: [place] [address] Medical Branch spironolact 0 Yes 25mg Take 1 Univ ers one 25 mg 5-05 tablet by ity o f tablet 00:00: mouth in [place] [address] the Medical morning. Branch citalopram Yes Univers 10 mg 5-02 ity of tablet 00:00: [place] [address] Medical Branch digoxin 125 Yes Univer s mcg (0.125 5-02 ity of mg) tablet 00:00: [place] [address] Medical Branch TRELEGY Yes Univers ELLIPTA 5-02 ity of 100-62.5-25 00:00: [place] mcg DsDv Medical Branch citalopram Yes Univers 10 mg 5-02 ity of tablet 00:00: [place] [address] Medical Branch digoxin 125 Yes Univer s mcg (0.125 5-02 ity of mg) tablet 00:00: [place] [address] Medical Branch TRELEGY Yes Univers ELLIPTA 5-02 ity of 100-62.5-25 00:00: [place] mcg DsDv Medical Branch citalopram Yes Univers 10 mg 5-02 ity of tablet 00:00: [place] [address] Medical Branch digoxin 125 Yes Univer s mcg (0.125 5-02 ity of mg) tablet 00:00: [place] [address] Medical Branch TRELEGY Yes Univers ELLIPTA 5-02 ity of 100-62.5-25 00:00: [place] mcg DsDv Medical Branch citalopram Yes Univers 10 mg 5-02 ity of tablet 00:00: [place] [address] Medical Branch digoxin 125 Yes Univer s mcg (0.125 5-02 ity of mg) tablet 00:00: [place] [address] Medical Branch TRELEGY Yes Univers ELLIPTA 5-02 ity of 100-62.5-25 00:00: [place] mcg DsDv Medical Branch citalopram Yes Univers 10 mg 5-02 ity of tablet 00:00: [place] [address] Medical Branch digoxin 125 0 Yes Univer s mcg (0.125 5-02 ity of mg) tablet 00:00: [place] [address] Medical Branch TRELEGY 0 Yes Univers ELLIPTA 5-02 ity of 100-62.5-25 00:00: [place] mcg DsDv Medical Branch citalopram Yes Univers 10 mg 5-02 ity of tablet 00:00: [place] Medical Branch digoxin 125 0 Yes Univer s mcg (0.125 5-02 ity of mg) tablet 00:00: [place] Medical Branch TRELEGY 0 Yes Univers ELLIPTA 5-02 ity of 100-62.5-25 00:00: [place] mcg DsDv Medical Branch citalopram Yes Univers 10 mg 5-02 ity of tablet 00:00: [place] Medical Branch digoxin 125 Yes Univer s mcg (0.125 5-02 ity of mg) tablet 00:00: [place] Medical Branch TRELEGY Yes Univers ELLIPTA 5-02 ity of 100-62.5-25 00:00: [place] mcg DsDv Medical Branch citalopram Yes Univers 10 mg 5-02 ity of tablet 00:00: [place] [address] Medical Branch digoxin 125 Yes Univer s mcg (0.125 5-02 ity of mg) tablet 00:00: [place] [address] Medical Branch TRELEGY Yes Univers ELLIPTA 5-02 ity of 100-62.5-25 00:00: [place] mcg DsDv Medical Branch citalopram Yes Univers 10 mg 5-02 ity of tablet 00:00: [place] [address] Medical Branch digoxin 125 2021-0 Yes Univer s mcg (0.125 5-02 ity of mg) tablet 00:00: [place] [address] Medical Branch TRELEGY 0 Yes Univers ELLIPTA 5-02 ity of 100-62.5-25 00:00: [place] mcg DsDv Medical Branch citalopram 0 Yes Univers 10 mg 5-02 ity of tablet 00:00: [place] [address] Medical Branch digoxin 125 0 Yes Univer s mcg (0.125 5-02 ity of mg) tablet 00:00: [place] [address] Medical Branch TRELEGY 0 Yes Univers ELLIPTA 5-02 ity of 100-62.5-25 00:00: [place] mcg DsDv Medical Branch citalopram 2022-0 Yes [facility] 10 mg 5-02 ity of tablet 00:00: [place] 00 Medical Branch digoxin 125 Yes Univer s mcg (0.125 5-02 ity of mg) tablet 00:00: [place] 00 Medical Branch TRELEGY 0 Yes Univers ELLIPTA 5-02 ity of 100-62.5-25 00:00: [place] mcg DsDv 00 Medical Branch TRELEGY 2021-0 Yes Univers ELLIPTA 5-02 ity of 100-62.5-25 00:00: [place] mcg DsDv 00 Medical Branch TRELEGY 2021-0 Yes Univers ELLIPTA 5-02 ity of 100-62.5-25 00:00: [place] mcg DsDv 00 Medical Branch TRELEGY 2021-0 Yes Univers ELLIPTA 5-02 ity of 100-62.5-25 00:00: [place] mcg DsDv 00 Medical Branch TRELEGY 2021-0 Yes Univers ELLIPTA 5-02 ity of 100-62.5-25 00:00: [place] mcg DsDv 00 Medical Branch TRELEGY 2021-0 Yes Univers ELLIPTA 5-02 ity of 100-62.5-25 00:00: [place] mcg DsDv 00 Medical Branch TRELEGY 2021-0 Yes Univers ELLIPTA 5-02 ity of 100-62.5-25 00:00: [place] mcg DsDv 00 Medical Branch TRELEGY 2021-0 Yes Univers ELLIPTA 5-02 ity of 100-62.5-25 00:00: [place] mcg DsDv 00 Medical Branch TRELEGY 2021-0 Yes Univers ELLIPTA 5-02 ity of 100-62.5-25 00:00: [place] mcg DsDv 00 Medical Branch TRELEGY 2021-0 Yes Univers ELLIPTA 5-02 ity of 100-62.5-25 00:00: [place] mcg DsDv 00 Medical Branch TRELEGY 2021-0 Yes Univers ELLIPTA 5-02 ity of 100-62.5-25 00:00: [place] mcg DsDv 00 Medical Branch TRELEGY 2021-0 Yes Univers ELLIPTA 5-02 ity of 100-62.5-25 00:00: [place] mcg DsDv 00 Medical Branch TRELEGY 2021-0 Yes Univers ELLIPTA 5-02 ity of 100-62.5-25 00:00: [place] mcg DsDv 00 Medical Branch TRELEGY 0 Yes Univers ELLIPTA 5-02 ity of 100-62.5-25 00:00: [place] mcg DsDv 00 Medical Branch TRELEGY 2021-0 Yes Univers ELLIPTA 5-02 ity of 100-62.5-25 00:00: [place] mcg DsDv 00 Medical Branch TRELEGY 2021-0 Yes Univers ELLIPTA 5-02 ity of 100-62.5-25 00:00: [place] mcg DsDv 00 [facility] TRELEGY 2021-0 Yes [facility] ELLIPTA 5-02 ity of 100-62.5-25 00:00: [place] mcg DsDv 00 [facility] TRELEGY 2021-0 Yes [facility] ELLIPTA 5-02 ity of 100-62.5-25 00:00: [place] mcg DsDv 00 [facility] TRELEGY 0 Yes [facility] ELLIPTA 5-02 ity of 100-62.5-25 00:00: [place] mcg DsDv 00 [facility] citalopram 2021-0 2021- No [facility] 10 mg 12-28 ity of tablet 00:00: 00:00 [place] 00 :00 [facility] digoxin 125 2021-0 2021- No [facility] rs mcg (0.125 507-27 ity of mg) tablet 00:00: 00:00 [place] 00 :00 [facility] citalopram 2021-0 2021- No [facility] 10 mg 12-2829 ity of tablet 00:00: 00:00 [place] 00 :00 [facility] digoxin 125 2021-0 2- No [facility] rs mcg (0.125 12-28 ity of mg) tablet 00:00: 00:00 [place] 00 :00 [facility] SANTYL 250 0 Yes [facility] unit/gram 4-04 ity of ointment 00:00: [place] 00 [facility] ondansetron 2021-0 Yes Univer s 4 mg 4-04 ity of disintegrat 00:00: [place] ing tablet 00 Medical [facility] SANTYL 250 2021-0 Yes [facility] unit/gram 4-04 ity of ointment 00:00: [place] 00 [facility] ondansetron 2021-0 Yes Univer s 4 mg 4-04 ity of disintegrat 00:00: [place] ing tablet 00 [facility] SANTYL 250 0 Yes [facility] unit/gram 4-04 ity of ointment 00:00: [place] [facility] ondansetron 0 Yes Un[facility] s 4 mg 4-04 ity of disintegrat 00:00: [place] ing tablet Medical Branch SANTYL 250 0 Yes [facility] unit/gram 4-04 ity of ointment 00:00: [place] [facility] ondansetron 0 Yes Un[facility] s 4 mg 4-04 ity of disintegrat 00:00: [place] ing tablet 00 [facility] SANTYL 250 0 Yes [facility] unit/gram 4-04 ity of ointment 00:00: [place] [facility] ondansetron Yes Un[facility] s 4 mg 4-04 ity of disintegrat 00:00: [place] ing tablet Medical Branch SANTYL 250 0 Yes [facility] unit/gram 4-04 ity of ointment 00:00: [place] [facility] ondansetron 0 Yes Un[facility] s 4 mg 4-04 ity of disintegrat 00:00: [place] ing tablet Medical Branch SANTYL 250 0 Yes [facility] unit/gram 4-04 ity of ointment 00:00: [place] [facility] ondansetron 0 Yes Un[facility] s 4 mg 4-04 ity of disintegrat 00:00: [place] ing tablet Medical Branch SANTYL 250 0 Yes [facility] unit/gram 4-04 ity of ointment 00:00: [place] [facility] ondansetron 0 Yes Univer s 4 mg 4-04 ity of disintegrat 00:00: [place] ing tablet Medical Branch SANTYL 250 0 Yes [facility] unit/gram 4-04 ity of ointment 00:00: [place] [facility] ondansetron 2021-0 Yes Un[facility] s 4 mg 4-04 ity of disintegrat 00:00: [place] ing tablet 00 [facility] SANTYL 250 0 Yes [facility] unit/gram 4-04 ity of ointment 00:00: [place] [facility] ondansetron 2021-0 Yes Un[facility] s 4 mg 4-04 ity of disintegrat 00:00: [place] ing tablet 00 [facility] SANTYL 250 2022-0 Yes [facility] unit/gram 4-04 ity of ointment 00:00: [place] 00 [facility] ondansetron 2021-0 Yes Un[facility] s 4 mg 4-04 ity of disintegrat 00:00: [place] ing tablet 00 [facility] SANTYL 250 2021-0 Yes [facility] unit/gram 4-04 ity of ointment 00:00: [place] 00 [facility] ondansetron 2021-0 Yes Un[facility] s 4 mg 4-04 ity of disintegrat 00:00: [place] ing tablet 00 [facility] SANTYL 250 2021-0 Yes [facility] unit/gram 4-04 ity of ointment 00:00: [place] 00 [facility] ondansetron 2021-0 Yes Un[facility] s 4 mg 4-04 ity of disintegrat 00:00: [place] ing tablet 00 Medical [facility] SANTYL 250 0 Yes [facility] unit/gram 4-04 ity of ointment 00:00: [place] 00 [facility] ondansetron 2021-0 Yes Un[facility] s 4 mg 4-04 ity of disintegrat 00:00: [place] ing tablet 00 Medical [facility] SANTYL 250 2021-0 Yes [facility] unit/gram 4-04 ity of ointment 00:00: [place] 00 [facility] ondansetron 2021-0 Yes Un[facility] 4 mg 4-04 ity of disintegrat 00:00: [place] ing tablet 00 [facility] SANTYL 250 2021-0 Yes [facility] unit/gram 4-04 ity of ointment 00:00: [place] 00 [facility] ondansetron 2021-0 Yes Un[facility] s 4 mg 4-04 ity of disintegrat 00:00: [place] ing tablet 00 [facility] SANTYL 250 2021-0 Yes [facility] unit/gram 4-04 ity of ointment 00:00: [place] 00 [facility] ondansetron 2021-0 Yes Univer s 4 mg 4-04 ity of disintegrat 00:00: [place] ing tablet 00 [facility] SANTYL 250 2021-0 Yes [facility] unit/gram 4-04 ity of ointment 00:00: [place] 00 [facility] ondansetron 2021-0 Yes Univer s 4 mg 4-04 ity of disintegrat 00:00: [place] ing tablet 00 [facility] SANTYL 250 2021-0 Yes [facility] unit/gram 4-04 ity of ointment 00:00: [place] 00 [facility] ondansetron 0 Yes Univer s 4 mg 4-04 ity of disintegrat 00:00: [place] ing tablet 00 [facility] SANTYL 250 0 Yes [facility] unit/gram 4-04 ity of ointment 00:00: [place] [facility] ondansetron 0 Yes Univer s 4 mg 4-04 ity of disintegrat 00:00: [place] ing tablet 00 [facility] SANTYL 250 0 Yes [facility] unit/gram 4-04 ity of ointment 00:00: [place] [facility] ondansetron 0 Yes Univer s 4 mg 4-04 ity of disintegrat 00:00: [place] ing tablet 00 [facility] SANTYL 250 0 Yes [facility] unit/gram 4-04 ity of ointment 00:00: [place] [facility] ondansetron 0 Yes Univer s 4 mg 4-04 ity of disintegrat 00:00: [place] ing tablet 00 [facility] SANTYL 250 0 Yes [facility] unit/gram 4-04 ity of ointment 00:00: [place] [facility] ondansetron 0 Yes Univer s 4 mg 4-04 ity of disintegrat 00:00: [place] ing tablet 00 [facility] SANTYL 250 0 Yes [facility] unit/gram 4-04 ity of ointment 00:00: [place] [facility] ondansetron 0 Yes Univer s 4 mg 4-04 ity of disintegrat 00:00: [place] ing tablet 00 [facility] SANTYL 250 2021-0 Yes [facility] unit/gram 4-04 ity of ointment 00:00: [place] [facility] ondansetron 0 Yes Univer s 4 mg 4-04 ity of disintegrat 00:00: [place] ing tablet 00 [facility] SANTYL 250 2021-0 Yes [facility] unit/gram 4-04 ity of ointment 00:00: [place] [facility] ondansetron 0 Yes Univer s 4 mg 4-04 ity of disintegrat 00:00: [place] ing tablet 00 [facility] SANTYL 250 2021-0 Yes [facility] unit/gram 4-04 ity of ointment 00:00: [place] 00 [facility] ondansetron Yes Univer s 4 mg 4-04 ity of disintegrat 00:00: [place] ing tablet 00 [facility] SANTYL 250 Yes [facility] unit/gram 4-04 ity of ointment 00:00: [place] [facility] ondansetron Yes Univer s 4 mg 4-04 ity of disintegrat 00:00: [place] ing tablet 00 [facility] SANTYL 250 Yes [facility] unit/gram 4-04 ity of ointment 00:00: [place] [facility] ondansetron Yes Univer s 4 mg 4-04 ity of disintegrat 00:00: [place] ing tablet 00 [facility] ALBUTEROL 2020-08 Yes [id number] INHALE 2 [facility] 90 2-06 PUFFS BY ity of mcg/actuati 00:00: MOUTH [place] on inhaler 00 EVERY 6 Medica l HOURS Branch NEEDED FOR WHEEZING OR SHORTNESS OF BREATH ALBUTEROL 2020-08 Yes [id number] INHALE 2 [facility] 90 2-06 PUFFS BY ity of mcg/actuati 00:00: MOUTH [place] on inhaler 00 EVERY 6 Medica l HOURS Branch NEEDED FOR WHEEZING OR SHORTNESS OF BREATH ALBUTEROL 2020-08 Yes [id number] INHALE 2 [facility] 90 2-06 PUFFS BY ity of mcg/actuati 00:00: MOUTH [place] on inhaler 00 EVERY 6 Medica l HOURS Branch NEEDED FOR WHEEZING OR SHORTNESS OF BREATH ALBUTEROL 2020-08 Yes [id number] INHALE 2 [facility] 90 2-06 PUFFS BY ity of mcg/actuati 00:00: MOUTH [place] on inhaler 00 EVERY 6 Medica l HOURS Branch NEEDED FOR WHEEZING OR SHORTNESS OF BREATH ALBUTEROL 2020-08 Yes [id number] INHALE 2 [facility] 90 2-06 PUFFS BY ity of mcg/actuati 00:00: MOUTH [place] on inhaler 00 EVERY 6 Medica l HOURS Branch NEEDED FOR WHEEZING OR SHORTNESS OF BREATH ALBUTEROL 2020-08 Yes [id number] INHALE 2 [facility] 90 2-06 PUFFS BY ity of mcg/actuati 00:00: MOUTH [place] on inhaler 00 EVERY 6 Medica l HOURS Branch NEEDED FOR WHEEZING OR SHORTNESS OF BREATH ALBUTEROL 2020-08 Yes [id number] INHALE 2 [facility] 90 2-06 PUFFS BY ity of mcg/actuati 00:00: MOUTH [place] on inhaler 00 EVERY 6 Medica l HOURS Branch NEEDED FOR WHEEZING OR SHORTNESS OF BREATH ALBUTEROL 2020-08 Yes [id number] INHALE 2 [facility] 90 2-06 PUFFS BY ity of mcg/actuati 00:00: MOUTH [place] on inhaler 00 EVERY 6 Medica l HOURS Branch NEEDED FOR WHEEZING OR SHORTNESS OF BREATH ALBUTEROL 2020-08 Yes [id number] INHALE 2 [facility] 90 2-06 PUFFS BY ity of mcg/actuati 00:00: MOUTH [place] on inhaler 00 EVERY 6 Medica l HOURS Branch NEEDED FOR WHEEZING OR SHORTNESS OF BREATH ALBUTEROL 2020-08 Yes [id number] INHALE 2 [facility] 90 2-06 PUFFS BY ity of mcg/actuati 00:00: MOUTH [place] on inhaler 00 EVERY 6 Medica l HOURS Branch NEEDED FOR WHEEZING OR SHORTNESS OF BREATH ALBUTEROL 2020-08 Yes [id number] INHALE 2 [facility] 90 2-06 PUFFS BY ity of mcg/actuati 00:00: MOUTH [place] on inhaler 00 EVERY 6 Medica l HOURS Branch NEEDED FOR WHEEZING OR SHORTNESS OF BREATH ALBUTEROL 2020-08 Yes [id number] INHALE 2 [facility] 90 2-06 PUFFS BY ity of mcg/actuati 00:00: MOUTH [place] on inhaler 00 EVERY 6 Medica l HOURS Branch NEEDED FOR WHEEZING OR SHORTNESS OF BREATH ALBUTEROL 2020-08 Yes [id number] INHALE 2 [facility] 90 2-06 PUFFS BY ity of mcg/actuati 00:00: MOUTH [place] on inhaler 00 EVERY 6 Medica l HOURS Branch NEEDED FOR WHEEZING OR SHORTNESS OF BREATH ALBUTEROL 2020-08 Yes [id number] INHALE 2 [facility] 90 2-06 PUFFS BY ity of mcg/actuati 00:00: MOUTH [place] on inhaler 00 EVERY 6 Medica l HOURS Branch NEEDED FOR WHEEZING OR SHORTNESS OF BREATH ALBUTEROL 2020-08 Yes [id number] INHALE 2 [facility] 90 2-06 PUFFS BY ity of mcg/actuati 00:00: MOUTH [place] on inhaler 00 EVERY 6 Medica l HOURS Branch NEEDED FOR WHEEZING OR SHORTNESS OF BREATH ALBUTEROL 2020-08 Yes [id number] INHALE 2 [facility] 90 2-06 PUFFS BY ity of mcg/actuati 00:00: MOUTH [place] on inhaler 00 EVERY 6 Medica l HOURS Branch NEEDED FOR WHEEZING OR SHORTNESS OF BREATH ALBUTEROL 2020-08 Yes [id number] INHALE 2 [facility] 90 2-06 PUFFS BY ity of mcg/actuati 00:00: MOUTH [place] on inhaler 00 EVERY 6 Medica l HOURS Branch NEEDED FOR WHEEZING OR SHORTNESS OF BREATH ALBUTEROL 2020-08 Yes [id number] INHALE 2 [facility] 90 2-06 PUFFS BY ity of mcg/actuati 00:00: MOUTH [place] on inhaler 00 EVERY 6 Medica l HOURS Branch NEEDED FOR WHEEZING OR SHORTNESS OF BREATH ALBUTEROL 2020-08 Yes [id number] INHALE 2 [facility] 90 2-06 PUFFS BY ity of mcg/actuati 00:00: MOUTH [place] on inhaler 00 EVERY 6 Medica l HOURS Branch NEEDED FOR WHEEZING OR SHORTNESS OF BREATH ALBUTEROL 2020-08 Yes [id number] INHALE 2 [facility] 90 2-06 PUFFS BY ity of mcg/actuati 00:00: MOUTH [place] on inhaler 00 EVERY 6 Medica l HOURS Branch NEEDED FOR WHEEZING OR SHORTNESS OF BREATH ALBUTEROL 2020-08 Yes [id number] INHALE 2 [facility] 90 2-06 PUFFS BY ity of mcg/actuati 00:00: MOUTH [place] on inhaler 00 EVERY 6 Medica l HOURS Branch NEEDED FOR WHEEZING OR SHORTNESS OF BREATH ALBUTEROL 2020-08 Yes [id number] INHALE 2 [facility] 90 2-06 PUFFS BY ity of mcg/actuati 00:00: MOUTH [place] on inhaler 00 EVERY 6 Medica l HOURS Branch NEEDED FOR WHEEZING OR SHORTNESS OF BREATH ALBUTEROL 2020-08 Yes [id number] INHALE 2 [facility] 90 2-06 PUFFS BY ity of mcg/actuati 00:00: MOUTH [place] on inhaler 00 EVERY 6 Medica l HOURS Branch NEEDED FOR WHEEZING OR SHORTNESS OF BREATH ALBUTEROL 2020-08 Yes [id number] INHALE 2 [facility] 90 2-06 PUFFS BY ity of mcg/actuati 00:00: MOUTH [place] on inhaler 00 EVERY 6 Medica l HOURS Branch NEEDED FOR WHEEZING OR SHORTNESS OF BREATH ALBUTEROL 2020-08 Yes [id number] INHALE 2 [facility] 90 2-06 PUFFS BY ity of mcg/actuati 00:00: MOUTH [place] on inhaler 00 EVERY 6 Medica l HOURS Branch NEEDED FOR WHEEZING OR SHORTNESS OF BREATH ALBUTEROL 2020-08 Yes [id number] INHALE 2 [facility] 90 2-06 PUFFS BY ity of mcg/actuati 00:00: MOUTH [place] on inhaler 00 EVERY 6 Medica l HOURS Branch NEEDED FOR WHEEZING OR SHORTNESS OF BREATH ALBUTEROL 2020-08 Yes [id number] INHALE 2 [facility] 90 2-06 PUFFS BY ity of mcg/actuati 00:00: MOUTH [place] on inhaler 00 EVERY 6 Medica l HOURS Branch NEEDED FOR WHEEZING OR SHORTNESS OF BREATH ALBUTEROL 2020-08 Yes [id number] INHALE 2 [facility] 90 2-06 PUFFS BY ity of mcg/actuati 00:00: MOUTH [place] on inhaler 00 EVERY 6 Medica l HOURS Branch NEEDED FOR WHEEZING OR SHORTNESS OF BREATH ALBUTEROL 2020-08 Yes [id number] INHALE 2 [facility] 90 2-06 PUFFS BY ity of mcg/actuati 00:00: MOUTH [place] on inhaler 00 EVERY 6 Medica l HOURS Branch NEEDED FOR WHEEZING OR SHORTNESS OF BREATH GABAPENTIN 2020-08 Yes [id number] TAKE 1 [facility] 300 mg 0-01 CAPSULE BY ity of capsule 00:00: MOUTH 3 [place] 00 TIMES A Medical DAY Branch GABAPENTIN 2020-08 Yes [id number] TAKE 1 [facility] 300 mg 0-01 CAPSULE BY ity of capsule 00:00: MOUTH 3 [place] 00 TIMES A Medical DAY Branch GABAPENTIN 2020- Yes [id number] TAKE 1 [facility] 300 mg 0-01 CAPSULE BY ity of capsule 00:00: MOUTH 3 [place] 00 TIMES A Medical DAY Branch GABAPENTIN 2020- Yes [id number] TAKE 1 [facility] 300 mg 0-01 CAPSULE BY ity of capsule 00:00: MOUTH 3 [place] 00 TIMES A Medical DAY Branch GABAPENTIN 2020- Yes [id number] TAKE 1 [facility] 300 mg 0-01 CAPSULE BY ity of capsule 00:00: MOUTH 3 [place] 00 TIMES A Medical DAY Branch GABAPENTIN 2020- Yes [id number] TAKE 1 [facility] 300 mg 0-01 CAPSULE BY ity of capsule 00:00: MOUTH 3 [place] 00 TIMES A Medical DAY Branch GABAPENTIN 2020- Yes [id number] TAKE 1 [facility] 300 mg 0-01 CAPSULE BY ity of capsule 00:00: MOUTH 3 [place] 00 TIMES A Medical DAY Branch GABAPENTIN 2020- Yes [id number] TAKE 1 [facility] 300 mg 0-01 CAPSULE BY ity of capsule 00:00: MOUTH 3 00 TIMES A Medical DAY Branch GABAPENTIN 2020- Yes [id number] TAKE 1 [facility] 300 mg 0-01 CAPSULE BY ity of capsule 00:00: MOUTH 3 TIMES A Medical DAY Branch GABAPENTIN 2020- Yes [id number] TAKE 1 [facility] 300 mg 0-01 CAPSULE BY ity of capsule 00:00: MOUTH 3 [place] TIMES A Medical DAY Branch GABAPENTIN 2020- Yes [id number] TAKE 1 [facility] 300 mg 0-01 CAPSULE BY ity of capsule 00:00: MOUTH 3 [place] TIMES A Medical DAY Branch GABAPENTIN 2020- 2022- No [id number] TAKE 1 [facility] 300 mg 0-01 11-29 CAPSULE BY ity of capsule 00:00: 00:00 MOUTH 3 [place] 00 :00 TIMES A Medical DAY Branch GABAPENTIN 2020- 2022- No [id number] TAKE 1 [facility] 300 mg 0-01 11-29 CAPSULE BY ity of capsule 00:00: 00:00 MOUTH 3 [place] 00 :00 TIMES A Medical DAY Branch levETIRAcet 2020-0 Yes [id number] 500mg Take 1 [facility] am 500 mg 9-08 tablet by ity o f tablet 00:00: mouth 2 [place] (two) Medical times Branch daily. levETIRAcet 2020-0 Yes [id number] 500mg Take 1 [facility] am 500 mg 9-08 tablet by ity o f tablet 00:00: mouth 2 [place] (two) Medical times Branch daily. levETIRAcet 2020-0 Yes [id number] 500mg Take 1 [facility] am 500 mg 9-08 tablet by ity o f tablet 00:00: mouth 2 [place] (two) Medical times Branch daily. levETIRAcet 2020-0 Yes [id number] 500mg Take 1 [facility] am 500 mg 9-08 tablet by ity o f tablet 00:00: mouth 2 [place] (two) Medical times Branch daily. levETIRAcet 2020-0 Yes [id number] 500mg Take 1 [facility] am 500 mg 9-08 tablet by ity o f tablet 00:00: mouth 2 [place] (two) Medical times Branch daily. levETIRAcet 2020-0 Yes [id number] 500mg Take 1 [facility] am 500 mg 9-08 tablet by ity o f tablet 00:00: mouth (two) Medical times Branch daily. levETIRAcet 2020-0 Yes [id number] 500mg Take 1 [facility] am 500 mg 9-08 tablet by ity o f tablet 00:00: mouth (two) Medical times Branch daily. levETIRAcet 2020-0 Yes [id number] 500mg Take 1 [facility] am 500 mg 9-08 tablet by ity o f tablet 00:00: mouth (two) Medical times Branch daily. levETIRAcet 2020-0 Yes [id number] 500mg Take 1 [facility] am 500 mg 9-08 tablet by ity o f tablet 00:00: mouth (two) Medical times Branch daily. levETIRAcet 2020-0 Yes [id number] 500mg Take 1 [facility] am 500 mg 9-08 tablet by ity o f tablet 00:00: mouth (two) Medical times Branch daily. levETIRAcet 2020-0 Yes [id number] 500mg Take 1 [facility] am 500 mg 9-08 tablet by ity o f tablet 00:00: mouth (two) Medical times Branch daily. levETIRAcet 2020-0 Yes [id number] 500mg Take 1 [facility] am 500 mg 9-08 tablet by ity o f tablet 00:00: mouth (two) Medical times Branch daily. levETIRAcet 2020-0 Yes [id number] 500mg Take 1 [facility] am 500 mg 9-08 tablet by ity o f tablet 00:00: mouth (two) Medical times Branch daily. levETIRAcet 2020-0 Yes [id number] 500mg Take 1 [facility] am 500 mg 9-08 tablet by ity o f tablet 00:00: mouth (two) Medical times Branch daily. levETIRAcet 2020-0 Yes [id number] 500mg Take 1 [facility] am 500 mg 9-08 tablet by ity o f tablet 00:00: mouth (two) Medical times Branch daily. levETIRAcet 2020-0 Yes [id number] 500mg Take 1 [facility] am 500 mg 9-08 tablet by ity o f tablet 00:00: mouth (two) Medical times Branch daily. levETIRAcet 2020-0 Yes [id number] 500mg Take 1 [facility] am 500 mg 9-08 tablet by ity o f tablet 00:00: mouth (two) Medical times Branch daily. levETIRAcet 2020-0 Yes [id number] 500mg Take 1 [facility] am 500 mg 9-08 tablet by ity o f tablet 00:00: mouth (two) Medical times Branch daily. levETIRAcet 2020-0 Yes [id number] 500mg Take 1 [facility] am 500 mg 9-08 tablet by ity o f tablet 00:00: mouth (two) Medical times Branch daily. levETIRAcet 2020-0 Yes [id number] 500mg Take 1 [facility] am 500 mg 9-08 tablet by ity o f tablet 00:00: mouth (two) Medical times Branch daily. levETIRAcet 2020-0 Yes [id number] 500mg Take 1 [facility] am 500 mg 9-08 tablet by ity o f tablet 00:00: mouth (two) Medical times Branch daily. levETIRAcet 2020-0 Yes [id number] 500mg Take 1 [facility] am 500 mg 9-08 tablet by ity o f tablet 00:00: mouth (two) Medical times Branch daily. levETIRAcet 2020-0 Yes [id number] 500mg Take 1 [facility] am 500 mg 9-08 tablet by ity o f tablet 00:00: mouth (two) Medical times Branch daily. levETIRAcet 2020-0 Yes [id number] 500mg Take 1 [facility] am 500 mg 9-08 tablet by ity o f tablet 00:00: mouth (two) Medical times Branch daily. levETIRAcet 2020-0 Yes [id number] 500mg Take 1 [facility] am 500 mg 9-08 tablet by ity o f tablet 00:00: mouth (two) Medical times Branch daily. levETIRAcet 1-0 Yes [id number] 500mg Take 1 [facility] am 500 mg 9-08 tablet by ity o f tablet 00:00: mouth (two) Medical times Branch daily. levETIRAcet 1-0 Yes [id number] 500mg Take 1 [facility] am 500 mg 9-08 tablet by ity o f tablet 00:00: mouth (two) Medical times Branch daily. levETIRAcet 2020-0 Yes [id number] 500mg Take 1 [facility] am 500 mg 9-08 tablet by ity o f tablet 00:00: mouth (two) Medical times Branch daily. levETIRAcet 2020-0 Yes [id number] 500mg Take 1 [facility] am 500 mg 9-08 tablet by ity o f tablet 00:00: mouth (two) Medical times Branch daily. diltiazem 2020-0 Yes [id number] 240mg Take 1 U nivers 240 mg 24 2-11 capsule by ity of hr capsule 00:00: mouth daily. Medical Branch metFORMIN 2020-0 Yes [id number] 500mg Take 1 U nivers 500 mg 2-11 tablet by ity of tablet 00:00: mouth (two) Medical times Branch daily with meals. levothyroxi 2020-0 Yes [id number] 75ug Take 1 [facility] ne 75 mcg 2-11 tablet by ity o f tablet 00:00: mouth every Medical morning. Branch apixaban 0 Yes 5mg Take 1 [facility] (ELIQUIS) 5 2-11 tablet by ity of mg tablet 00:00: mouth (two) Medical times Branch daily. Indication s: Chronic AF diltiazem 2020-0 Yes [id number] 240mg Take 1 U nivers 240 mg 24 2-11 capsule by ity of hr capsule 00:00: mouth daily. Medical Branch metFORMIN 2020-0 Yes [id number] 500mg Take 1 U nivers 500 mg 2-11 tablet by ity of tablet 00:00: mouth (two) Medical times Branch daily with meals. levothyroxi 2020-0 Yes [id number] 75ug Take 1 [facility] ne 75 mcg 2-11 tablet by ity o f tablet 00:00: mouth 00 every Medical morning. Branch apixaban 2020-0 Yes 5mg Take 1 [facility] (ELIQUIS) 5 2-11 tablet by ity of mg tablet 00:00: mouth (two) Medical times Branch daily. Indication s: Chronic AF diltiazem 2020-0 Yes [id number] 240mg Take 1 U nivers 240 mg 24 2-11 capsule by ity of hr capsule 00:00: mouth 00 daily. Medical Branch metFORMIN 2020-0 Yes [id number] 500mg Take 1 U nivers 500 mg 2-11 tablet by ity of tablet 00:00: mouth (two) Medical times Branch daily with meals. levothyroxi 2020-0 Yes [id number] 75ug Take 1 [facility] ne 75 mcg 2-11 tablet by ity o f tablet 00:00: mouth [place] 00 every Medical morning. Branch apixaban 2020-0 Yes 5mg Take 1 [facility] (ELIQUIS) 5 2-11 tablet by ity of mg tablet 00:00: mouth 2 00 (two) Medical times Branch daily. Indication s: Chronic AF diltiazem 2020-0 Yes [id number] 240mg Take 1 U nivers 240 mg 24 2-11 capsule by ity of hr capsule 00:00: mouth 00 daily. Medical Branch metFORMIN 2020-0 Yes [id number] 500mg Take 1 U nivers 500 mg 2-11 tablet by ity of tablet 00:00: mouth (two) Medical times Branch daily with meals. levothyroxi 2020-0 Yes [id number] 75ug Take 1 [facility] ne 75 mcg 2-11 tablet by ity o f tablet 00:00: mouth 00 every Medical morning. Branch apixaban 2020-0 Yes 5mg Take 1 [facility] (ELIQUIS) 5 2-11 tablet by ity of mg tablet 00:00: mouth (two) Medical times Branch daily. Indication s: Chronic AF diltiazem 2020-0 Yes [id number] 240mg Take 1 U nivers 240 mg 24 2-11 capsule by ity of hr capsule 00:00: mouth [place] 00 daily. Medical Branch metFORMIN 2020-0 Yes [id number] 500mg Take 1 U nivers 500 mg 2-11 tablet by ity of tablet 00:00: mouth (two) Medical times Branch daily with meals. levothyroxi 2020-0 Yes [id number] 75ug Take 1 [facility] ne 75 mcg 2-11 tablet by ity o f tablet 00:00: mouth [place] 00 every Medical morning. Branch apixaban 2020-0 Yes 5mg Take 1 [facility] (ELIQUIS) 5 2-11 tablet by ity of mg tablet 00:00: mouth 2 00 (two) Medical times Branch daily. Indication s: Chronic AF metFORMIN 2020-0 Yes [id number] 500mg Take 1 U nivers 500 mg 2-11 tablet by ity of tablet 00:00: mouth (two) Medical times Branch daily with meals. levothyroxi 2020-0 Yes [id number] 75ug Take 1 [facility] ne 75 mcg 2-11 tablet by ity o f tablet 00:00: mouth every Medical morning. Branch apixaban 2020-0 Yes 5mg Take 1 [facility] (ELIQUIS) 5 2-11 tablet by ity of mg tablet 00:00: mouth (two) Medical times Branch daily. Indication s: Chronic AF metFORMIN 2020-0 Yes [id number] 500mg Take 1 U nivers 500 mg 2-11 tablet by ity of tablet 00:00: mouth (two) Medical times Branch daily with meals. levothyroxi 2020-0 Yes [id number] 75ug Take 1 [facility] ne 75 mcg 2-11 tablet by ity o f tablet 00:00: mouth every Medical morning. Branch apixaban 0 Yes 5mg Take 1 [facility] (ELIQUIS) 5 2-11 tablet by ity of mg tablet 00:00: mouth (two) Medical times Branch daily. Indication s: Chronic AF metFORMIN 2020-0 Yes [id number] 500mg Take 1 U nivers 500 mg 2-11 tablet by ity of tablet 00:00: mouth (two) Medical times Branch daily with meals. levothyroxi 2020-0 Yes [id number] 75ug Take 1 [facility] ne 75 mcg 2-11 tablet by ity o f tablet 00:00: mouth every Medical morning. Branch apixaban 2020-0 Yes 5mg Take 1 [facility] (ELIQUIS) 5 2-11 tablet by ity of mg tablet 00:00: mouth (two) Medical times Branch daily. Indication s: Chronic AF metFORMIN 2020-0 Yes [id number] 500mg Take 1 U nivers 500 mg 2-11 tablet by ity of tablet 00:00: mouth (two) Medical times Branch daily with meals. levothyroxi 2020-0 Yes [id number] 75ug Take 1 [facility] ne 75 mcg 2-11 tablet by ity o f tablet 00:00: mouth 00 every Medical morning. Branch apixaban 0 Yes 5mg Take 1 [facility] (ELIQUIS) 5 2-11 tablet by ity of mg tablet 00:00: mouth (two) Medical times Branch daily. Indication s: Chronic AF metFORMIN 2020-0 Yes [id number] 500mg Take 1 [facility] nivers 500 mg 2-11 tablet by ity of tablet 00:00: mouth (two) Medical times Branch daily with meals. levothyroxi 2020-0 Yes [id number] 75ug Take 1 [facility] ne 75 mcg 2-11 tablet by ity o f tablet 00:00: mouth 00 every Medical morning. Branch apixaban 0 Yes 5mg Take 1 [facility] (ELIQUIS) 5 2-11 tablet by ity of mg tablet 00:00: mouth (two) Medical times Branch daily. Indication s: Chronic AF metFORMIN 0 Yes [id number] 500mg Take 1 [facility] nivers 500 mg 2-11 tablet by ity of tablet 00:00: mouth (two) Medical times Branch daily with meals. levothyroxi 2020-0 Yes [id number] 75ug Take 1 [facility] ne 75 mcg 2-11 tablet by ity o f tablet 00:00: mouth every Medical morning. Branch apixaban 0 Yes 5mg Take 1 [facility] (ELIQUIS) 5 2-11 tablet by ity of mg tablet 00:00: mouth (two) Medical times Branch daily. Indication s: Chronic AF metFORMIN 2020-0 Yes [id number] 500mg Take 1 U nivers 500 mg 2-11 tablet by ity of tablet 00:00: mouth (two) Medical times Branch daily with meals. levothyroxi 2020-0 Yes [id number] 75ug Take 1 [facility] ne 75 mcg 2-11 tablet by ity o f tablet 00:00: mouth 00 every Medical morning. Branch apixaban 2020-0 Yes 5mg Take 1 [facility] (ELIQUIS) 5 2-11 tablet by ity of mg tablet 00:00: mouth (two) Medical times Branch daily. Indication s: Chronic AF metFORMIN 2020-0 Yes [id number] 500mg Take 1 U nivers 500 mg 2-11 tablet by ity of tablet 00:00: mouth (two) Medical times Branch daily with meals. levothyroxi 2020-0 Yes [id number] 75ug Take 1 [facility] mcg 2-11 tablet by [facility] o f tablet 00:00: mouth 00 every Medical morning. Branch apixaban 2020-0 Yes 5mg Take 1 [facility] (ELIQUIS) 5 2-11 tablet by [facility] of mg tablet 00:00: mouth (two) Medical times Branch daily. Indication s: Chronic AF metFORMIN 2020-0 Yes [id number] 500mg Take 1 [facility] 500 mg 2-11 tablet by [facility] of tablet 00:00: mouth (two) Medical times Branch daily with meals. levothyroxi 2020-0 Yes [id number] 75ug Take 1 [facility] 75 mcg 2-11 tablet by [facility]y o f tablet 00:00: mouth every Medical morning. Branch apixaban 0 Yes 5mg Take 1 [facility] (ELIQUIS) 5 2-11 tablet by [facility]y of mg tablet 00:00: mouth (two) Medical times Branch daily. Indication s: Chronic AF metFORMIN 2020-0 Yes [id number] 500mg Take 1 [facility] 500 mg 2-11 tablet by [facility] of tablet 00:00: mouth (two) Medical times Branch daily with meals. levothyroxi 2020-0 Yes [id number] 75ug Take 1 [facility] 75 mcg 2-11 tablet by [facility]y o f tablet 00:00: mouth every Medical morning. Branch apixaban 2020-0 Yes 5mg Take 1 [facility] (ELIQUIS) 5 2-11 tablet by [facility] of mg tablet 00:00: mouth (two) Medical times Branch daily. Indication s: Chronic AF metFORMIN 2020-0 Yes [id number] 500mg Take 1 [facility] 500 mg 2-11 tablet by [facility] of tablet 00:00: mouth (two) Medical times Branch daily with meals. levothyroxi 2020-0 Yes [id number] 75ug Take 1 [facility] 75 mcg 2-11 tablet by [facility]y o f tablet 00:00: mouth 00 every Medical morning. Branch apixaban 2020-0 Yes 5mg Take 1 [facility] (ELIQUIS) 5 2-11 tablet by [facility]y of mg tablet 00:00: mouth (two) Medical times Branch daily. Indication s: Chronic AF metFORMIN 2020-0 Yes [id number] 500mg Take 1 [facility] 500 mg 2-11 tablet by [facility] of tablet 00:00: mouth (two) Medical times Branch daily with meals. levothyroxi 2020-0 Yes [id number] 75ug Take 1 [facility] 75 mcg 2-11 tablet by [facility] o f tablet 00:00: mouth 00 every Medical morning. Branch apixaban 0 Yes 5mg Take 1 [facility] (ELIQUIS) 5 2-11 tablet by [facility]y of mg tablet 00:00: mouth (two) Medical times Branch daily. Indication s: Chronic AF metFORMIN 2020-0 Yes [id number] 500mg Take 1 [facility] 500 mg 2-11 tablet by [facility] of tablet 00:00: mouth (two) Medical times Branch daily with meals. levothyroxi 2020-0 Yes [id number] 75ug Take 1 [facility] 75 mcg 2-11 tablet by [facility]y o f tablet 00:00: mouth every Medical morning. Branch apixaban 0 Yes 5mg Take 1 [facility] (ELIQUIS) 5 2-11 tablet by [facility] of mg tablet 00:00: mouth (two) Medical times Branch daily. Indication s: Chronic AF metFORMIN 2020-0 Yes [id number] 500mg Take 1 [facility] 500 mg 2-11 tablet by [facility] of tablet 00:00: mouth (two) Medical times Branch daily with meals. levothyroxi 2020-0 Yes [id number] 75ug Take 1 [facility] 75 mcg 2-11 tablet by [facility] o f tablet 00:00: mouth 00 every Medical morning. Branch apixaban 0 Yes 5mg Take 1 [facility] (ELIQUIS) 5 2-11 tablet by [facility] of mg tablet 00:00: mouth (two) Medical times Branch daily. Indication s: Chronic AF metFORMIN 2020-0 Yes [id number] 500mg Take 1 [facility] 500 mg 2-11 tablet by [facility] of tablet 00:00: mouth (two) Medical times Branch daily with meals. levothyroxi 2020-0 Yes [id number] 75ug Take 1 [facility] 75 mcg 2-11 tablet by [facility] o f tablet 00:00: mouth [place] 00 every Medical morning. Branch apixaban 0 Yes 5mg Take 1 [facility] (ELIQUIS) 5 2-11 tablet by [facility] of mg tablet 00:00: mouth 2 (two) Medical times Branch daily. Indication s: Chronic AF metFORMIN 2020-0 Yes [id number] 500mg Take 1 [facility] 500 mg 2-11 tablet by [facility] of tablet 00:00: mouth (two) Medical times Branch daily with meals. levothyroxi 0 Yes [id number] 75ug Take 1 [facility] 75 mcg 2-11 tablet by [facility] o f tablet 00:00: mouth 00 every Medical morning. Branch apixaban 0 Yes 5mg Take 1 [facility] (ELIQUIS) 5 2-11 tablet by [facility] of mg tablet 00:00: mouth (two) Medical times Branch daily. Indication s: Chronic AF diltiazem 0 Yes [id number] 240mg Take 1 [facility] 240 mg 24 2-11 capsule by [facility] of hr capsule 00:00: mouth 00 daily. Medical Branch metFORMIN 0 Yes [id number] 500mg Take 1 [facility] 500 mg 2-11 tablet by [facility] of tablet 00:00: mouth (two) Medical times Branch daily with meals. levothyroxi 2020-0 Yes [id number] 75ug Take 1 [facility] 75 mcg 2-11 tablet by [facility] o f tablet 00:00: mouth [place] 00 every Medical morning. Branch apixaban 0 Yes 5mg Take 1 [facility] (ELIQUIS) 5 2-11 tablet by [facility] of mg tablet 00:00: mouth (two) Medical times Branch daily. Indication s: Chronic AF diltiazem 2020-0 Yes [id number] 240mg Take 1 [facility] 240 mg 24 2-11 capsule by [facility] of hr capsule 00:00: mouth [place] 00 daily. Medical Branch metFORMIN 2020-0 Yes [id number] 500mg Take 1 [facility] 500 mg 2-11 tablet by [facility] of tablet 00:00: mouth 2 (two) Medical times Branch daily with meals. levothyroxi 2021-0 Yes [id number] 75ug Take 1 [facility] 75 mcg 2-11 tablet by [facility] o f tablet 00:00: mouth [place] 00 every Medical morning. Branch apixaban Yes 5mg Take 1 [facility] (ELIQUIS) 5 2-11 tablet by [facility] of mg tablet 00:00: mouth (two) Medical times Branch daily. Indication s: Chronic AF diltiazem Yes [id number] 240mg Take 1 [facility] 240 mg 24 2-11 capsule by [facility] of hr capsule 00:00: mouth [place] 00 daily. Medical Branch metFORMIN Yes [id number] 500mg Take 1 [facility] 500 mg 2-11 tablet by [facility] of tablet 00:00: mouth (two) Medical times Branch daily with meals. levothyroxi Yes [id number] 75ug Take 1 [facility] 75 mcg 2-11 tablet by [facility] o f tablet 00:00: mouth 00 every Medical morning. Branch apixaban Yes 5mg Take 1 [facility] (ELIQUIS) 5 2-11 tablet by [facility] of mg tablet 00:00: mouth (two) Medical times Branch daily. Indication s: Chronic AF diltiazem Yes [id number] 240mg Take 1 [facility] 240 mg 24 2-11 capsule by [facility] of hr capsule 00:00: mouth [place] 00 daily. Medical Branch metFORMIN Yes [id number] 500mg Take 1 [facility] 500 mg 2-11 tablet by [facility] of tablet 00:00: mouth (two) Medical times Branch daily with meals. levothyroxi Yes [id number] 75ug Take 1 [facility] 75 mcg 2-11 tablet by [facility] o f tablet 00:00: mouth [place] 00 every Medical morning. Branch apixaban Yes 5mg Take 1 [facility] (ELIQUIS) 5 2-11 tablet by [facility] of mg tablet 00:00: mouth (two) Medical times Branch daily. Indication s: Chronic AF diltiazem 0 Yes [id number] 240mg Take 1 [facility] 240 mg 24 2-11 capsule by [facility] of hr capsule 00:00: mouth [place] 00 daily. Medical Branch metFORMIN 2021-0 Yes [id number] 500mg Take 1 [facility] 500 mg 2-11 tablet by [facility] of tablet 00:00: mouth 2 00 (two) Medical times Branch daily with meals. levothyroxi 2020-0 Yes [id number] 75ug Take 1 [facility] 75 mcg 2-11 tablet by [facility] o f tablet 00:00: mouth [place] 00 every Medical morning. Branch apixaban 0 Yes 5mg Take 1 [facility] (ELIQUIS) 5 2-11 tablet by [facility] of mg tablet 00:00: mouth 2 00 (two) Medical times Branch daily. Indication s: Chronic AF diltiazem 2020-0 Yes [id number] 240mg Take 1 [facility] 240 mg 24 2-11 capsule by [facility] of hr capsule 00:00: mouth [place] 00 daily. Medical Branch metFORMIN 2020-0 Yes [id number] 500mg Take 1 [facility] 500 mg 2-11 tablet by [facility] of tablet 00:00: mouth 00 (two) Medical times Branch daily with meals. levothyroxi 2020-0 Yes [id number] 75ug Take 1 [facility] 75 mcg 2-11 tablet by ity o f tablet 00:00: mouth [place] 00 every Medical morning. Branch apixaban 0 Yes 5mg Take 1 [facility] (ELIQUIS) 5 2-11 tablet by ity of mg tablet 00:00: mouth (two) Medical times Branch daily. Indication s: Chronic AF diltiazem 2020-0 Yes [id number] 240mg Take 1 [facility] 240 mg 24 2-11 capsule by [facility] of hr capsule 00:00: mouth [place] 00 daily. Medical Branch metFORMIN 2020-0 Yes [id number] 500mg Take 1 [facility] 500 mg 2-11 tablet by [facility] of tablet 00:00: mouth 2 00 (two) Medical times Branch daily with meals. levothyroxi 2020-0 Yes [id number] 75ug Take 1 [facility] 75 mcg 2-11 tablet by ity o f tablet 00:00: mouth [place] 00 every Medical morning. Branch apixaban 2020-0 Yes 5mg Take 1 [facility] (ELIQUIS) 5 2-11 tablet by ity of mg tablet 00:00: mouth 2 00 (two) Medical times Branch daily. Indication s: Chronic AF diltiazem 2021-0 Yes [id number] 240mg Take 1 [facility] 240 mg 24 2-11 capsule by [facility]y of hr capsule 00:00: mouth [place] 00 daily. Medical Branch metFORMIN Yes [id number] 500mg Take 1 [facility] 500 mg 2-11 tablet by [facility] of tablet 00:00: mouth 2 [place] 00 (two) Medical times Branch daily with meals. levothyroxi Yes [id number] 75ug Take 1 [facility] ne 75 mcg 2-11 tablet by ity o f tablet 00:00: mouth [place] 00 every Medical morning. Branch apixaban Yes 5mg Take 1 [facility] (ELIQUIS) 5 2-11 tablet by ity of mg tablet 00:00: mouth 2 [place] 00 (two) Medical times Branch daily. Indication s: Chronic AF diltiazem 2022- No [id number] 240mg Take 1 [facility] 240 mg 24 209-28 capsule by [facility] of hr capsule 00:00: 00:00 mouth [place] 00 :00 daily. Medical Branch diltiazem 2022- No [id number] 240mg Take 1 [facility] 240 mg 24 209-28 capsule by [facility]y of hr capsule 00:00: 00:00 mouth [place] 00 :00 daily. Medical Branch diltiazem 2022- No [id number] 240mg Take 1 [facility] 240 mg 24 209-28 capsule by [facility] of hr capsule 00:00: 00:00 mouth [place] 00 :00 daily. Medical Branch levothyroxi 2019-08 Yes 75ug Take [address] [facility] 1-18 mcg by [facility] (SYNTHROID, 15:34: mouth Medic al LEVOTHROID) 29 Every Center 75 MCG morning on tablet an empty stomach. apixaban Yes 1{tbl} QD Take 1 [facility]5 mg Tab 00:00: mouth Medica l tablet 00 daily. Center atorvastati Yes 10mg QD Take [address] [facility] (Lipitor) 3-09 by mouth [facility] 10 MG 00:00: nightly. Medical tablet 00 Center Immunizations Ordered Filled Immunization Date Status Comments [facility] e Immunization Name Name SARS-COV-2 COVID-19 2021-07-07 Completed Unive rsity of PFIZER VACCINE 00:00:00 [facility] Branch SARS-COV-2 COVID-19 2021-07-07 Completed Unive rsity of PFIZER VACCINE 00:00:00 [place] [facility] Branch SARS-COV-2 COVID-19 2021-07-07 Completed Unive rsity of PFIZER VACCINE 00:00:00 [facility] Branch SARS-COV-2 COVID-19 2021-07-07 Completed Unive rsity of PFIZER VACCINE 00:00:00 [facility] Branch SARS-COV-2 COVID-19 2021-07-07 Completed Unive rsity of PFIZER VACCINE 00:00:00 [facility] Branch SARS-COV-2 COVID-19 2021-07-07 Completed Unive rsity of PFIZER VACCINE 00:00:00 [facility] Branch SARS-COV-2 COVID-19 2021-07-07 Completed Unive rsity of PFIZER VACCINE 00:00:00 [facility] Branch SARS-COV-2 COVID-19 2021-07-07 Completed Unive rsity of PFIZER VACCINE 00:00:00 [facility] Branch SARS-COV-2 COVID-19 2021-07-07 Completed Unive rsity of PFIZER VACCINE 00:00:00 [facility] Branch SARS-COV-2 COVID-19 2021-07-07 Completed Unive rsity of PFIZER VACCINE 00:00:00 [facility] Branch SARS-COV-2 COVID-19 2021-07-07 Completed Unive rsity of PFIZER VACCINE 00:00:00 [facility] Branch SARS-COV-2 COVID-19 2021-07-07 Completed Unive rsity of PFIZER VACCINE 00:00:00 [facility] Branch SARS-COV-2 COVID-19 2021-07-07 Completed Unive rsity of PFIZER VACCINE 00:00:00 [facility] Branch SARS-COV-2 COVID-19 2021-07-07 Completed Unive rsity of PFIZER VACCINE 00:00:00 [facility] Branch SARS-COV-2 COVID-19 2021-07-07 Completed Unive rsity of PFIZER VACCINE 00:00:00 [facility] SARS-COV-2 COVID-19 2021-07-07 Completed Unive rsity of PFIZER VACCINE 00:00:00 [facility] Branch SARS-COV-2 COVID-19 2021-07-07 Completed Unive rsity of PFIZER VACCINE 00:00:00 [facility] SARS-COV-2 COVID-19 2021-07-07 Completed Unive rsity of PFIZER VACCINE 00:00:00 [facility] SARS-COV-2 COVID-19 2021-07-07 Completed Unive rsity of PFIZER VACCINE 00:00:00 [facility] SARS-COV-2 COVID-19 2021-07-07 Completed Unive rsity of PFIZER VACCINE 00:00:00 [facility] Branch SARS-COV-2 COVID-19 2021-07-07 Completed Unive rsity of PFIZER VACCINE 00:00:00 [facility] SARS-COV-2 COVID-19 2021-07-07 Completed Unive rsity of PFIZER VACCINE 00:00:00 [facility] SARS-COV-2 COVID-19 2021-07-07 Completed Unive rsity of PFIZER VACCINE 00:00:00 [facility] SARS-COV-2 COVID-19 2021-07-07 Completed Unive rsity of PFIZER VACCINE 00:00:00 [facility] SARS-COV-2 COVID-19 2021-07-07 Completed Unive rsity of PFIZER VACCINE 00:00:00 [facility] SARS-COV-2 COVID-19 2021-07-07 Completed Unive rsity of PFIZER VACCINE 00:00:00 [facility] SARS-COV-2 COVID-19 2021-07-07 Completed Unive rsity of PFIZER VACCINE 00:00:00 [facility] SARS-COV-2 COVID-19 2021-07-07 Completed Unive rsity of PFIZER VACCINE 00:00:00 [facility] SARS-COV-2 COVID-19 2021-07-07 Completed Unive rsity of PFIZER VACCINE 00:00:00 [facility] SARS-COV-2 COVID-19 2020-12-03 Completed Unive rsity of PFIZER VACCINE 00:00:00 [facility] SARS-COV-2 COVID-19 2020-12-03 Completed Unive rsity of PFIZER VACCINE 00:00:00 [facility] SARS-COV-2 COVID-19 2020-12-03 Completed Unive rsity of PFIZER VACCINE 00:00:00 [place] [facility] SARS-COV-2 COVID-19 2020-12-03 Completed Unive rsity of PFIZER VACCINE 00:00:00 [facility] Branch SARS-COV-2 COVID-19 2020-12-03 Completed Unive rsity of PFIZER VACCINE 00:00:00 [facility] Branch SARS-COV-2 COVID-19 2020-12-03 Completed Unive rsity of PFIZER VACCINE 00:00:00 [facility] Branch SARS-COV-2 COVID-19 2020-12-03 Completed Unive rsity of PFIZER VACCINE 00:00:00 [facility] Branch SARS-COV-2 COVID-19 2020-12-03 Completed Unive rsity of PFIZER VACCINE 00:00:00 [facility] Branch SARS-COV-2 COVID-19 2020-12-03 Completed Unive rsity of PFIZER VACCINE 00:00:00 [facility] Branch SARS-COV-2 COVID-19 2020-12-03 Completed Unive rsity of PFIZER VACCINE 00:00:00 [facility] Branch SARS-COV-2 COVID-19 2020-12-03 Completed Unive rsity of PFIZER VACCINE 00:00:00 [facility] Branch SARS-COV-2 COVID-19 2020-12-03 Completed Unive rsity of PFIZER VACCINE 00:00:00 [facility] Branch SARS-COV-2 COVID-19 2020-12-03 Completed Unive rsity of PFIZER VACCINE 00:00:00 [facility] Branch SARS-COV-2 COVID-19 2020-12-03 Completed Unive rsity of PFIZER VACCINE 00:00:00 [facility] Branch SARS-COV-2 COVID-19 2020-12-03 Completed Unive rsity of PFIZER VACCINE 00:00:00 [facility] Branch SARS-COV-2 COVID-19 2020-12-03 Completed Unive rsity of PFIZER VACCINE 00:00:00 [facility] Branch SARS-COV-2 COVID-19 2020-12-03 Completed Unive rsity of PFIZER VACCINE 00:00:00 [facility] SARS-COV-2 COVID-19 2020-12-03 Completed Unive rsity of PFIZER VACCINE 00:00:00 [facility] Branch SARS-COV-2 COVID-19 2020-12-03 Completed Unive rsity of PFIZER VACCINE 00:00:00 [facility] Branch SARS-COV-2 COVID-19 2020-12-03 Completed Unive rsity of PFIZER VACCINE 00:00:00 [facility] Branch SARS-COV-2 COVID-19 2020-12-03 Completed Unive rsity of PFIZER VACCINE 00:00:00 [facility] Branch SARS-COV-2 COVID-19 2020-12-03 Completed Unive [facility]ity of PFIZER VACCINE 00:00:00 [facility] Branch SARS-COV-2 COVID-19 2020-12-03 Completed Unive [facility] of PFIZER VACCINE 00:00:00 [facility] Branch SARS-COV-2 COVID-19 2020-12-03 Completed Unive [facility]ity of PFIZER VACCINE 00:00:00 [facility] Branch SARS-COV-2 COVID-19 2020-12-03 Completed Unive rsity of PFIZER VACCINE 00:00:00 [facility] Branch SARS-COV-2 COVID-19 2020-12-03 Completed Unive rsity of PFIZER VACCINE 00:00:00 [facility] Branch SARS-COV-2 COVID-19 2020-12-03 Completed Unive rsity of PFIZER VACCINE 00:00:00 [facility] Branch SARS-COV-2 COVID-19 2020-12-03 Completed Unive rsity of PFIZER VACCINE 00:00:00 [facility] Branch SARS-COV-2 COVID-19 2020-12-03 Completed Unive rsity of PFIZER VACCINE 00:00:00 [facility] Branch SARS-COV-2 COVID-19 2020-11-05 Completed Unive rsity of PFIZER VACCINE 00:00:00 [facility] Branch SARS-COV-2 COVID-19 2020-11-05 Completed Unive rsity of PFIZER VACCINE 00:00:00 [facility] Branch SARS-COV-2 COVID-19 2020-11-05 Completed Unive rsity of PFIZER VACCINE 00:00:00 [facility] Branch SARS-COV-2 COVID-19 2020-11-05 Completed Unive rsity of PFIZER VACCINE 00:00:00 [facility] SARS-COV-2 COVID-19 2020-11-05 Completed Unive rsity of PFIZER VACCINE 00:00:00 [facility] Branch SARS-COV-2 COVID-19 2020-11-05 Completed Unive rsity of PFIZER VACCINE 00:00:00 [facility] Branch SARS-COV-2 COVID-19 2020-11-05 Completed Unive rsity of PFIZER VACCINE 00:00:00 [facility] Branch SARS-COV-2 COVID-19 2020-11-05 Completed Unive rsity of PFIZER VACCINE 00:00:00 [facility] Branch SARS-COV-2 COVID-19 2020-11-05 Completed Unive rsity of PFIZER VACCINE 00:00:00 [facility] Branch SARS-COV-2 COVID-19 2020-11-05 Completed Unive rsity of PFIZER VACCINE 00:00:00 [facility] Branch SARS-COV-2 COVID-19 2020-11-05 Completed Unive rsity of PFIZER VACCINE 00:00:00 [facility] Branch SARS-COV-2 COVID-19 2020-11-05 Completed Unive rsity of PFIZER VACCINE 00:00:00 [facility] Branch SARS-COV-2 COVID-19 2020-11-05 Completed Unive rsity of PFIZER VACCINE 00:00:00 [facility] Branch SARS-COV-2 COVID-19 2020-11-05 Completed Unive rsity of PFIZER VACCINE 00:00:00 [facility] Branch SARS-COV-2 COVID-19 2020-11-05 Completed Unive rsity of PFIZER VACCINE 00:00:00 [facility] Branch SARS-COV-2 COVID-19 2020-11-05 Completed Unive rsity of PFIZER VACCINE 00:00:00 [facility] Branch SARS-COV-2 COVID-19 2020-11-05 Completed Unive rsity of PFIZER VACCINE 00:00:00 [facility] Branch SARS-COV-2 COVID-19 2020-11-05 Completed Unive rsity of PFIZER VACCINE 00:00:00 [facility] Branch SARS-COV-2 COVID-19 2020-11-05 Completed Unive rsity of PFIZER VACCINE 00:00:00 [facility] Branch SARS-COV-2 COVID-19 2020-11-05 Completed Unive rsity of PFIZER VACCINE 00:00:00 [facility] Branch SARS-COV-2 COVID-19 2020-11-05 Completed Unive rsity of PFIZER VACCINE 00:00:00 [facility] SARS-COV-2 COVID-19 2020-11-05 Completed Unive rsity of PFIZER VACCINE 00:00:00 [facility] SARS-COV-2 COVID-19 2020-11-05 Completed Unive rsity of PFIZER VACCINE 00:00:00 [facility] SARS-COV-2 COVID-19 2020-11-05 Completed Unive [facility]ity of PFIZER VACCINE 00:00:00 [facility] Branch SARS-COV-2 COVID-19 2020-11-05 Completed Unive rsity of PFIZER VACCINE 00:00:00 [facility] SARS-COV-2 COVID-19 2020-11-05 Completed Unive rsity of PFIZER VACCINE 00:00:00 [facility] SARS-COV-2 COVID-19 2020-11-05 Completed Unive rsity of PFIZER VACCINE 00:00:00 [facility] SARS-COV-2 COVID-19 2020-11-05 Completed Unive rsity of PFIZER VACCINE 00:00:00 [facility] SARS-COV-2 COVID-19 2020-11-05 Completed Unive rsity of PFIZER VACCINE 00:00:00 [facility] Influenza High Dose 2020-06-29 Completed Unive rsity of 00:00:00 [facility] Influenza High Dose 2020-06-29 Completed Unive rsity of 00:00:00 [facility] Influenza High Dose 2020-06-29 Completed Unive rsity of 00:00:00 [facility] Influenza High Dose 2020-06-29 Completed Unive [facility]ity of 00:00:00 [facility] Influenza High Dose 2020-06-29 Completed Unive [facility]ity of 00:00:00 [facility] Influenza High Dose 2020-06-29 Completed Unive [facility]ity of 00:00:00 [facility] Influenza High Dose 2020-06-29 Completed Unive rsity of 00:00:00 [facility] Influenza High Dose 2020-06-29 Completed Unive [facility]ity of 00:00:00 [facility] Influenza High Dose 2020-06-29 Completed Unive rsity of 00:00:00 [facility] Influenza High Dose 2020-06-29 Completed Unive rsity of 00:00:00 [facility] Influenza High Dose 2020-06-29 Completed Unive rsity of 00:00:00 [facility] Influenza High Dose 2020-06-29 Completed Unive rsity of 00:00:00 [facility] Influenza High Dose 2020-06-29 Completed Unive rsity of 00:00:00 [facility] Influenza High Dose 2020-06-29 Completed Unive rsity of 00:00:00 [facility] Influenza High Dose 2020-06-29 Completed Unive rsity of 00:00:00 [facility] Influenza High Dose 2020-06-29 Completed Unive rsity of 00:00:00 [facility] Influenza High Dose 2020-06-29 Completed Unive rsity of 00:00:00 [facility] Influenza High Dose 2020-06-29 Completed Unive rsity of 00:00:00 [facility] Influenza High Dose 2020-06-29 Completed Unive rsity of 00:00:00 [facility] Influenza High Dose 2020-06-29 Completed Unive rsity of 00:00:00 [facility] Influenza High Dose 2020-06-29 Completed Unive rsity of 00:00:00 [facility] Influenza High Dose 2020-06-29 Completed Unive rsity of 00:00:00 [facility] Influenza High Dose 2020-06-29 Completed Unive rsity of 00:00:00 [facility] Influenza High Dose 2020-06-29 Completed Unive rsity of 00:00:00 [facility] Influenza High Dose 2020-06-29 Completed Unive rsity of 00:00:00 [facility] Influenza High Dose 2020-06-29 Completed Unive [facility]ity of 00:00:00 [facility] Influenza High Dose 2020-06-29 Completed Unive rsity of 00:00:00 [facility] Influenza High Dose 2020-06-29 Completed Unive [facility]ity of 00:00:00 [facility] Influenza High Dose 2020-06-29 Completed Unive [facility]ity of 00:00:00 [facility] Vital Signs Vital Name Observation Time Observation Value Comments Source WEIGHT 2020-07-12 68.992 kg 05:33:00 HEIGHT 2020-07-12 152.4 cm 05:33:00 Systolic blood 2023-01-06 108 mm[Hg] [facility] pressure 19:08:00 [facility] Diastolic blood 2023-01-06 46 mm[Hg] [facility] f pressure 19:08:00 [facility] Heart rate 2023-01-06 64 /min [facility] of 19:08:00 [facility] Body temperature 2023-01-06 36.56 [facility] 19:08:00 [facility] Body weight 2023-01-06 69.4 kg University of 19:08:00 [facility] BMI 2023-01-06 29.88 kg/m2 University of 19:08:00 [facility] Oxygen saturation 2023-01-06 94 /min [facility] in Arterial blood 19:08:00 [place] [facility] by Pulse oximetry Branch Systolic blood 2022-10-21 113 mm[Hg] [facility] pressure 15:22:00 [facility] Diastolic blood 2022-10-21 58 mm[Hg] University o f pressure 15:22:00 [facility] Heart rate 2022-10-21 111 /min University of 15:22:00 [facility] Respiratory rate 2022-10-21 19 /min University of 15:22:00 [facility] Body height 2022-10-21 152.4 cm University of 15:22:00 [facility] Body weight 2022-10-21 65.772 kg University of 15:22:00 [facility] BMI 2022-10-21 28.32 kg/m2 University of 15:22:00 [facility] Oxygen saturation 2022-10-21 88 /min 90 % University of in Arterial blood 15:22:00 [facility] rodrigue by Pulse oximetry Branch Systolic blood 2022-09-28 137 mm[Hg] University of pressure 17:32:00 [facility] Diastolic blood 2022-09-28 62 mm[Hg] University o f pressure 17:32:00 [facility] Heart rate 2022-09-28 118 /min University of 17:32:00 [facility] Body height 2022-09-28 152.4 cm University of 17:32:00 [facility] Body weight 2022-09-28 65.772 kg University of 17:32:00 [facility] BMI 2022-09-28 28.32 kg/m2 University of 17:32:00 [facility] Oxygen saturation 2022-09-28 95 /min University of in Arterial blood 17:32:00 [facility] by Pulse oximetry Branch Body temperature 2022-09-28 36.83 Margaret University of 17:29:00 [facility] Systolic blood 2022-07-27 128 mm[Hg] University of pressure 17:04:00 [facility] Diastolic blood 2022-07-27 45 mm[Hg] University o f pressure 17:04:00 [facility] Heart rate 2022-07-27 67 /min University of 17:04:00 [facility] Body temperature 2022-07-27 36.83 Margaret University of 17:04:00 [facility] Respiratory rate 2022-07-27 18 /min University of 17:04:00 [facility] Oxygen saturation 2022-07-27 91 /min University in Arterial blood 17:04:00 [facility] by Pulse oximetry [place] Body height 2022-07-26 152.4 cm University of 21:05:00 [facility] Body weight 2022-07-26 67.994 kg University of 21:05:00 [facility] BMI 2022-07-26 29.28 kg/m2 University of 21:05:00 [facility] Systolic blood 2022-07-26 149 mm[Hg] University of pressure 15:48:00 [facility] Diastolic blood 2022-07-26 57 mm[Hg] University o f pressure 15:48:00 [facility] Body weight 2022-07-26 66.679 kg University of 13:00:00 [facility] BMI 2022-07-26 29.28 kg/m2 University of 13:00:00 [facility] Systolic blood 2022-05-27 126 mm[Hg] University of pressure 17:10:00 [facility] Diastolic blood 2022-05-27 71 mm[Hg] University o f pressure 17:10:00 [facility] Heart rate 2022-05-27 78 /min University of 17:10:00 [facility] Body weight 2022-05-27 66.679 kg patient University of 17:10:00 reported [facility] BMI 2022-05-27 28.71 kg/m2 University of 17:10:00 [facility] Oxygen saturation 2022-05-27 93 /min [facility] in Arterial blood 17:10:00 [facility] by Pulse oximetry [place] WEIGHT 2020-07-12 68.992 kg 05:33:00 HEIGHT 2020-07-12 152.4 cm 05:33:00 Procedures Procedure Date / Time Performing Clinician Source Performed MEDICAL RELEASE/CLEARANCE 2023-02-21 05:01:00 Doctor Unassigned, [facility] FORMS [facility] PATIENT FINANCIAL 2022-10-21 15:06:51 Doctor Unassigned, [facility] POLICY [facility] HB ECG ROUTINE & RHYTHM 2022-09-28 17:38:51 Celina Tello [facility] HB ECG ROUTINE & RHYTHM 2022-07-27 16:42:56 Xiomara Reina [facility] MAGNESIUM 2022-07-27 11:21:00 [facility] BAS[facility]OLIC PANEL (NA, 2022-07-27 11:21:00 Michael Sauceda [facility] K, CL, CO2, GLUCOSE, BUN, [facility] CREATININE, CA) CBC WITH DIFF 2022-07-27 11:21:00 Sohail [facility] MAGNESIUM 2022-07-27 11:21:00 Sohail [facility] BASIC METABOLIC PANEL (NA, 2022-07-27 11:21:00 Michael Sauceda [facility] K, CL, CO2, GLUCOSE, BUN, [facility] CREATININE, CA) CBC WITH DIFF 2022-07-27 11:21:00 Michael [facility] ANGIOGRAM CHEST 2022-07-27 04:24:[address] [facility] POCT ACT HIGH RANGE 2022-07-26 18:14:00 Bernadine [facility] POCT ACT HIGH RANGE 2022-07-26 18:14:00 Bernadine [facility] ELECTROPHYSIOLOGY PROCEDURE 2022-07-26 18:00:00 Bernadine [facility] ELECTROPHYSIOLOGY PROCEDURE 2022-07-26 18:00:00 Bernadine [facility] POCT ACT HIGH RANGE 2022-07-26 17:36:00 Bernadine [facility] POCT ACT HIGH RANGE 2022-07-26 17:36:00 Bernadine [facility] POCT ACT HIGH RANGE 2022-07-26 17:02:00 Sewani, Rashad [facility] POCT ACT HIGH RANGE 2022-07-26 17:02:00 Bernadine, [facility] POCT ACT HIGH RANGE 2022-07-26 16:35:00 Bernadine, [facility] POCT ACT HIGH RANGE 2022-07-26 16:35:00 Bernadine, [facility] POCT ACT HIGH RANGE 2022-07-26 15:46:00 Bernadine, [facility] POCT ACT HIGH RANGE 2022-07-26 15:46:00 Bernadine, [facility] POCT ACT HIGH RANGE 2022-07-26 15:28:00 Bernadine [facility] POCT ACT HIGH RANGE 2022-07-26 15:28:00 Bernadine [facility] BURT INTRA OP ONLY 2022-07-26 14:38:00 Bernadine [facility] (GUIDANCE) [facility] BURT INTRA OP ONLY 2022-07-26 14:38:00 Bernadine [facility] ([facility]) [facility] HB ECG ROUTINE & RHYTHM 2022-07-26 13:16:41 [facility]HYTHM 2022-07-26 [facility] [place] MY[facility]ARD[facility] PERFUSION 2022-05-11 17:25:00 Omer Sendbibiana [facility] STRESS AND REST [facility] [place] MYOCARDIUM PERFUSION 2022-05-11 17:25:00 Omer Sendbibiana [facility] STRESS AND REST [facility] [place] MYOCARDIUM PERFUSION 2022-05-11 17:25:00 Omer, Sendbibiana [facility] STRESS AND REST [facility] [place] MYOCARDIUM PERFUSION 2022-05-11 17:25:00 Omer, Sendbibiana [facility] STRESS AND REST [facility] [place] Plan of Care Planned Activity Planned Date Details Comments Source Future Scheduled 2023-04-29 Influenza Vaccine (#1) [facility] 00:[facility]:00 [code = Influenza Medical Ce nter Vaccine (#1)] Future Scheduled 2022-08-[address] [facility] 00:00:00 (12+) [code = Medical Center DEPRESSION SCREENING (12+)] Future Scheduled 2022-08-29 FALLS RISK SCREENING [facility] 00:00:00 [code = FALLS RISK Medical C enter SCREENING] Future Scheduled 2021-07-[address] [facility] 00:00:00 Counseling and Medical Cente r Screening (12+) [code = Tobacco Cessation Counseling and Screening (12+)] Future Scheduled 2020-08-[address] [facility] 00:00:00 WELLNESS (YEAR 2 or Medical Center FIRST YEAR if no IPPE) [code = MEDICARE ANNUAL WELLNESS (YEAR 2 or FIRST YEAR if no IPPE)] Future Scheduled 1990 SHINGLES VACCINES ([address] [facility] 00:00:00 of 2) [code = SHINGLES Medic al Center VACCINES (1 of 2)] Future Scheduled 1959-11-03 DTAP/TDAP/TD VACCINES [facility] 00:00:00 (1 - Tdap) [code = Medical C enter DTAP/TDAP/TD VACCINES (1 - Tdap)] Future Scheduled 1946 PNEUMOCOCCAL 65+ YRS [facility] 00:00:00 (1 - PCV) [code = Medical Ce nter PNEUMOCOCCAL 65+ YRS (1 - PCV)] Future Scheduled 1941-05-05 COVID-19 VACCINE (#1) [facility] 00:00:00 [code = COVID-[address] VACCINE (#1)] Future Scheduled 1940 DXA SCAN [code = DXA [facility] Test 00:00:00 SCAN] [facility] Encounters Start End Encounter Admission Attending Care Care Encounter Source Date/Time Date/Time Type Type Clinicians Facility Department ID 2021-06-04 Inpatient ARMENTA, [facility] Surgery [id number] [facility] 11:31:23 SUNEAL 2020-07-12 Inpatient ER SHIEKH [facility] Gastro [id number] [facility] 05:04:00 MP RASCON 2023-04-07 2023-04-07 Outpatient Luis TELLO [facility] [id number] Univers 14:30:00 14:30:00 SENDIL justyna [facility] 2023-03-31 2023-03-31 [facility] [id number] Univers 00:00:00 00:00:00 Sendil Basilio SEPULVED[place] 350.1.13.10 ity of [place] [id number] [address] 2023-02-22 2023-02-22 [facility]phone [facility] [id number] Univers 00:00:00 00:00:00 Sendil Basilio [place] 350.1.13.10 ity of [place] [id number] [address] 2023-02-21 2023-02-21 Orders Doctor EKTA 1.2.840.114 [id number] Univers 00:00:00 00:00:00 Only Unassigned, EVELIA 350.1.13.10 ity of [place] [facility] 4.2.7.2.686 [place] [id number] [address] 2023-01-25 2023-01-25 Outpatient R OMER [facility] [id number] Univers 13:00:00 13:00:00 SENDIL [facility] 2023-01-06 2023-01-06 Office [facility] 1.2.840.114 [id number] Univers 14:20:00 14:20:00 Visit Rashad COCO 350.1.13.10 i ty of [place] [id number] [address] 2023-01-06 2023-01-06 Outpatient R BERNADINE [facility] [id number] Univers 14:20:00 14:18:08 RASHAD ity [facility] 2022-12-23 2022-12-23 Outpatient R BERNADINE [facility] [id number] Univers 08:00:00 08:00:00 RASHAD ity [facility] 2022-12-22 2022-12-22 Refill Omer [facility] 1.2.840.114 [id number] Univers 00:00:00 00:00:00 Sendil Juaquin. COCO 350.1.13.10 it[place] of [place] [id number] Oh dical NAL 059 [facility] 2022-11-11 2022-11-11 Outpatient R [facility] [id number] Univers 14:30:00 14:30:00 BHARAT PRATER [facility] 2022-11-04 2022-11-04 Outpatient R [facility] [id number] Univers 14:30:00 14:30:00 [facility] 2022-10-28 2022-10-28 Outpatient R [facility] [id number] Univers 13:45:00 13:45:00 INDUSTRY [facility] 2022-10-27 2022-10-27 [facility] [id number] Univers 08:25:27 23:59:00 RASHAD [facility] 2022-10-21 2022-10-21 [facility] [id number] Univers 09:00:00 09:47:23 [facility] 2022-10-21 2022-10-21 [facility] 1.2.840.114 [id number] Univers 09:00:00 09:20:00 Visit [facility] COCO 350.1.13.10 i ty of [place] [id number] Oh dical NAL 059 [facility] 2022-10-21 2022-10-21 Orders Doctor EKTA 1.2.840.114 [id number] Univers 00:00:00 00:00:00 Only Unassigned, EVELIA 350.1.13.10 ity of [place] [facility] 4.2.7.2.686 [place] [id number] [address] 2022-10-14 2022-10-14 Outpatient R [facility] [id number] Univers 14:30:00 14:30:00 BHARAT PRATER ity [facility] 2022-09-29 2022-09-29 Telephone Omer PAALEXYS 1.2.207.454 [id number] Univers 00:00:00 00:00:00 Celina SEPULVEDA 350.1.13.10 ity of [facility] 4.2.7.2.[place] [id number] Oh dical NAL 059 [facility] 2022-09-28 2022-09-28 Lead Care Manager Jose Raul, Adc Lab Main [facility] 1.2.8 40.114 [id number] Univers 12:45:00 13:00:00 Visit Celina Tello 350.1.13. 10 ity of [place] [id number] Oh dical SETH 353 [facility] 2022-09-28 2022-09-28 Outpatient R OMER [facility] [id number] Univers 11:00:00 11:59:22 [facility] 2022-09-28 2022-09-28 Office Omer [facility] 1.2.840.114 [id number] Univers 11:00:00 11:59:22 Visit Celina SEPULVEDA 350.1.13.10 ity of [place] [id number] Oh dicnh SETH 9 [facility] 2022-09-23 2022-09-23 Outpatient R BERNADINE [facility] [id number] Univers 09:00:00 09:00:00 [facility] 2022-09-09 2022-09-09 Outpatient R BERNADINE [facility] [id number] Univers 11:20:00 11:20:00 RASHAD marc [facility] 2022-07-26 2022-07-27 Outpatient R SG CEDENO [facility] 1 [id number] Univers 06:33:00 14:45:00 SG [facility] 2022-07-26 2022-07-27 [facility] Rashad Colindres 1.2.840.114 [id number] Univers 06:33:00 14:45:00 Encounter AddySg roldan 350.1.13.10 ity of [facility] 4.2.7.2.686 [place] [id number] [facility] [address] [place] 2022-07-26 2022-07-26 Surgery GRACE Colindres 1.2.840.114 [id number] Univers 07:30:00 11:30:00 Rashad EVELIA 350.1.13.10 it y of [facility] 4.2.7.2.686 [place] [id number] [facility] [address] [place] 2022-07-20 2022-07-20 Lead Care Manager Jose Raul, Rey Lab Main [facility] 1.2.8 40.114 [id number] Univers 15:00:00 15:15:00 Visit Rashad ColindresPETER 350.1.13.10 ity [facility] [place] [id number] Oh dical NAL 353 [facility] 2022-07-20 2022-07-20 Outpatient R [facility] [id number] Univers 15:00:00 15:00:00 RASHAD ity of [facility] 2022-06-10 2022-06-10 Telephone GRACE Colindres 1.2.782.677 [id number] Univers 00:00:00 00:00:00 Rashad EVELIA 350.1.13.10 it y [facility] 4.2.7.2.686 [place] [id number] [facility] [address] [place] 2022-06-01 2022-06-01 Telephone [facility] 1.2.128.971 [id number] Univers 00:00:00 00:00:00 Sendbibiana SEPULVEDA 350.1.13.10 ity of [place] [id number] Oh dical NAL 059 [facility] 2022-05-27 2022-05-27 Office [facility] 1.2.840.114 [id number] Univers 11:40:00 12:00:00 Visit Rashad [place] 350.1.13.10 i ty of [place] [id number] Oh dical NAL 059 Branch [facility] 2022-05-27 2022-05-27 Outpatient R BERNADINE [facility] [id number] Univers 11:40:00 11:40:00 RASHAD ity of [facility] 2022-05-11 2022-05-11 [facility] 1.2.840.114 [id number] Univers 08:46:36 23:59:00 Encounter Sendil Basilio [place] 350.1.13.10 it[place] C[place] [id number] [facility] rodrigue [address] [place] 2022-05-11 2022-05-11 [facility] 1.2.840.114 [id number] Univers 08:46:23 23:59:00 Encounter Sendil LarryJaspreetSimiJaspreet [place] 350.1.13.10 ity of [place] 4[place] [id number] [facility] rodrigue [address] [place] 2022-05-11 2022-05-11 [facility] 1.2.840.114 [id number] Univers 08:44:34 08:45:00 Encounter Sendil JuaquinJaspreet [place] 350.1.13.10 it[place] of [place] [id number] [facility] rodrigue [address] [place] 2022-05-11 2022-05-11 [facility] [id number] Univers 08:43:51 08:43:00 SENDIL ity of [facility] 2022-05-11 2022-05-11 [facility] 1.2.840.114 [id number] Univers 08:30:00 08:43:00 Encounter Sendil LarryJaspreetSimiJaspreet [place] 350.1.13.10 it[place] of [place] [id number] [facility] [address] [place] 2022-04-27 2022-04-27 [facility] 1.2.840.114 [id number] Univers 09:00:00 09:07:00 Encounter Sendbibiana [place]PUL[place] 350.1.13.10 ity of [place] [id number] [facility] [address] 2022-04-27 2022-04-27 [facility] [id number] Univers 00:00:00 09:07:00 SENDIL ity [facility] 2022-04-27 2022-04-27 [facility] [id number] Univers 00:00:00 00:00:00 SENDIL ity [facility] 2022-04-22 2022-04-22 Telephone [facility] [id number] Univers 00:00:00 00:00:00 Sendil Basilio SE[place] 350.1.13.10 ity of [place] 4.2.7.2.686 [facility] [id number] Oh dical NAL 059 [facility] 2022-04-16 2022-04-16 [facility] [id number] Univers 16:00:00 16:00:00 [facility] 2022-04-09 2022-04-09 Orders Doctor EKTA 1.2.840.114 [id number] Univers 00:00:00 00:00:00 Only Unassigned, EVELIA 350.1.13.10 ity of [place] [facility] 4.2.7.2.686 [place] [id number] [facility] [address] 2022-03-22 2022-03-22 Outpatient [facility] [id number] Univers 13:00:00 23:59:00 SENDIL itjustyna [facility] 2022-03-22 2022-03-22 Office [facility] 1.2.840.114 [id number] Univers 14:00:00 14:36:16 Visit Celina SEPULVEDA 350.1.13.10 ity of [place] [facility] [phone] Oh dical NAL [address] [place] [address] 2022-03-22 2022-03-22 Outpatient R OMER [facility] [id number] Univers 14:00:00 14:36:16 SENDIL ity [facility] 2022-03-22 2022-03-22 [facility] [id number] Univers 14:00:00 14:00:00 SENDIL ity [facility] 2022-03-08 2022-03-08 Marko Ward [facility] 1.2.840.114 [id number] Univers 00:00:00 00:00:00 [facility] 350.1.13.10 it y of [place] [facility] [id number] [facility] PRIMARY & [address] SPECIALTY CARE 2022-03-05 2022-03-05 Outpatient [facility] [id number] Univers 11:20:00 11:20:00 RASHAD ity [facility] 2022-02-26 2022-02-26 Outpatient [facility] [id number] Univers 10:00:00 10:00:00 RASHAD ity [facility] 2022-01-14 2022-01-14 Outpatient [facility] [id number] Univers 09:30:00 10:01:37 SENDIL ity [facility] 2022-01-14 2022-01-14 Office [facility] 1.2.840.114 [id number] Univers 09:30:00 10:01:37 Visit Sendbibiana SEPULVEDA 350.1.13.10 ity of [place] 4.[place] [facility] [id number] Oh dical NAL [address] [place] [address] 2022-01-14 2022-01-14 Orders Doctor EKTA 1.2.840.114 [id number] Univers 00:00:00 00:00:00 Only Unassigned, EVELIA 350.1.13.10 ity of [place] [facility] 4.2.7.2.686 [place] [id number] [place] [address] [address] 2022-01-12 2022-01-12 Outpatient [facility] [id number] Univers 14:00:00 14:00:00 SENDIL ity of [facility] 2021-12-20 2021-12-20 Telephone Omer [facility] 1.2.894.223 [id number] Univers 00:00:00 00:00:00 Sendil Basilio SEPULVED[place] 350.1.13.10 ity of [place] [id number] Oh dicnh NAL 9 [facility] 2021-12-16 2021-12-16 Emergency X CAROL, K [facility] ERT [id number] Univers 18:38:00 22:18:00 ity of [facility] 2021-12-16 2021-12-16 Emergency Carol, [facility] 1.2.840.114 [id number] Univers 18:38:00 22:18:00 Nichole COCO 350.1.13.10 i ty of [place] [id number] [facility] [address] [place] 2021-12-16 2021-12-16 Emergency X CAROL, K [facility] ERT [id number] Univers 18:38:00 22:18:00 ity of [facility] 2021-12-16 2021-12-16 Telephone Omer [facility] 1.2.014.569 [id number] Univers 00:00:00 00:00:00 Sendil Basilio SE[place] 350.1.13.10 ity of [place] [id number] Oh dicrose NAL 9 [facility] 2021-12-16 2021-12-16 Orders Doctor DASH 1.2.840.114 [id number] Univers 00:00:00 00:00:00 Only Unassigned, EVELIA 350.1.13.10 ity of [facility] 4.2.7.2.686 [place] [id number] [facility] [address] [place] 2021-10-28 2021-10-28 Outpatient R [facility] [id number] Univers 00:00:00 00:00:00 ity of [facility] 2021-10-28 2021-10-28 Orders Doctor EKTA 1.2.840.114 [id number] Univers 00:00:00 00:00:00 Only Unassigned, EVELIA 350.1.13.10 ity of [place] [facility] 4.2.7.2.686 [place] as [id number] [facility] [address] 2021-10-01 2021-10-01 [facility] [id number] Univers 11:00:00 11:00:00 SENDIL ity [facility] 2021-10-01 2021-10-01 [facility] [id number] Univers 00:00:00 00:00:00 SENDIL ity [facility] 2021-08-27 2021-08-27 Orders Doctor EKTA 1.2.840.114 [id number] Univers 00:00:00 00:00:00 Only Unassigned, EVELIA 350.1.13.10 ity of [place] [facility] 4.2.7.2.686 [place] as [id number] [address] 2021-08-01 2021-08-01 [facility] 1.2.840.114 [id number] Univers 00:00:00 00:00:00 [facility] 350.1.13.10 it y of [place] 4.[place].2.[place] [facility] [phone] [facility] PRIMARY & [address] SPECIALTY CARE 2021-07-28 2021-07-28 Outpatient OMER [facility] [id number] Univers 00:00:00 00:00:00 SENDIL ity [facility] 2021-07-28 2021-07-28 [facility] [id number] Univers 00:00:00 00:00:00 SENDIL ity [facility] 2021-07-03 2021-07-03 [facility]phone [facility] 1.2.885.755 [id number] Univers 00:00:00 00:00:00 Sendil Basilio [place] 350.1.13.10 ity [facility] 4[place]2.[place].2.[place] [facility] [id number] [address] 2021-07-03 2021-07-03 Orders Doctor EKTA 1.2.840.114 [id number] Univers 00:00:00 00:00:00 Only Unassigned, EVELIA 350.1.13.10 ity of [place] [facility] 4.2.7.2.686 [place] [id number] [facility] [address] [place] 2021-06-25 2021-06-25 Outpatient R ED [facility] [id number] Univers 15:00:00 15:00:00 ESEQUIEL ity [facility] 2021-06-23 2021-06-23 Telephone [facility] [id number] [facility] 00:00:00 00:00:00 Sendbibiana Sepulveda [id number] ity [place] [phone] [place] dical nal 059 [facility] 2021-06-23 2021-06-23 Orders Doctor EKTA 1.2.840.114 [id number] Univers 00:00:00 00:00:00 Only Unassigned, EVELIA [id number] ity of [place] [facility] [id number] [place] as [phone] [facility] [address] [place] 2021-06-22 2021-06-22 EKTA Joe [id number] Univers 00:00:00 00:00:00 Celina ALTAMIRANO [id number] ity of [facility] 4.2.7.2.686 [place] [phone] [facility] [address] [place] 2021-06-15 2021-06-15 [facility] [id number] Univers 13:45:15 23:59:00 Encounter Celina Sepulveda 350.1.13.10 ity [place] [phone] Oh dical nal 843 [facility] 2021-06-15 2021-06-15 [id number] Univers 14:00:00 14:00:00 SENDIL ity of [facility] 2021-06-08 2021-06-08 [facility] [id number] Univers 10:45:00 10:45:00 ESEQUIEL ity [facility] 2021-06-05 2021-06-05 [facility] [id number] Univers 14:30:00 14:30:00 ESEQUIEL ity [facility] 2021-05-29 2021-05-[facility] 1.2.840.114 [id number] Univers 00:00:00 00:00:00 [facility] 350.1.13.10 [place] [phone] [facility] Primary & [facility] Specialty Care 2021-05-27 2021-05-27 Telephone [facility] [id number] Univers 00:00:00 00:00:00 Celina Sepulveda 350.1.13.10 it[place] [phone] [place] dical nal 059 [facility] 2021-05-18 2021-05-18 [facility] 1.2.840.114 [id number] Univers 16:00:00 23:59:00 Encounter Celina Sepulveda 350.1.13.10 it[place] of [place] [phone] [place] dical nal 846 [facility] 2021-05-18 2021-05-18 [facility] [id number] Univers 16:00:00 23:59:00 [facility] 2021-05-18 2021-05-18 Office [facility] 1.2.840.114 [id number] Univers 15:04:37 16:12:47 Visit Celina Sepulveda 350.1.13.10 [place] [phone] Oh dical nal 059 [facility] 2021-05-18 2021-05-18 Outpatient R OMER [facility] [id number] Univers 15:00:00 15:00:00 SENDIL ity [facility] 2021-05-06 2021-05-06 [facility] 1.2.840.114 [id number] Univers 00:00:00 00:00:00 Esequiel HEALTH 350.1.13.10 it y of [place] 4.2.7.2.686 [facility] [phone] [facility] Primary & [address] [facility]ty [facility] 2021-05-06 2021-05-06 Refill [facility] 1.2.840.114 [id number] Univers 00:00:00 00:00:00 Esequiel HEALTH 350.1.13.10 [place] [phone] [facility] Primary & [address] [facility] 2021-04-20 2021-04-20 Outpatient Luis TELLO [facility] [id number] Univers 15:30:00 15:30:00 [facility] 2021-03-09 2021-03-09 Lead Care Manager Lab, [facility] 1.2.840.11 [id number] Univers 16:00:50 16:15:50 Visit Ed [facility] 350.1.13.10 [place] [facility] [phone] [facility] Primary & 357 Branch Specialty Care 2021-03-09 2021-03-09 Office [facility] 1.2.840.114 [id number] Univers 14:34:05 15:04:05 Visit [facility] HEALTH 350.1.13.10 it y of [place] 4.2.7.2.686 [facility] s [facility] [phone] [facility] Primary & [address] [facility] 2021-03-09 2021-03-09 [facility] [id number] Univers 14:30:00 14:30:00 [facility] 2021-03-07 2021-03-07 Telephone [facility] 1.2.840.114 [id number] Univers 00:00:00 00:00:00 Esequiel HEALTH 350.1.13.10 it y of [place] 4.2.7.2.686 [facility] [id number] [facility] Primary & [address] [facility] 2021-03-04 2021-03-04 Outpatient R ED [facility] [id number] Univers 14:30:00 14:30:00 ESEQUIEL ity [facility] 2021-02-26 2021-02-26 [facility] [id number] Univers 15:00:00 15:00:00 ESEQUIEL ity [facility] 2021-02-19 2021-02-19 Telephone [facility] 1.2.840.114 [id number] Univers 00:00:00 00:00:00 Esequiel HEALTH 350.1.13.10 it y of [place] 4.2.7.2.686 [facility] [phone] [facility] Primary & 365 Branch Specialty Care 2021-02-13 2021-02-13 Telephone [facility] 1.2.840.114 [id number] Univers 00:00:00 00:00:00 Esequiel HEALTH 350.1.13.10 it y of [place] 4.2.7.2.686 [facility] [id number] [facility] Primary & [address] [facility] 2021-02-02 2021-02-02 Telephone [facility] 1.2.840.114 [id number] Univers 00:00:00 00:00:00 Esequiel HEALTH 350.1.13.10 it y of [place] 4.2.7.2.686 [facility] [id number] [facility] Primary & [address] [facility] 2021-01-28 2021-01-28 Outpatient R ED [facility] [id number] Univers 14:30:00 14:30:00 ESEQUIEL ity [facility] 2021-01-19 2021-01-19 [facility] [id number] Univers 15:00:00 15:00:00 ESEQUIEL ity [facility] 2021-01-12 2021-01-12 [facility] [id number] Univers 14:00:00 14:00:00 [facility] 2021-01-12 2021-01-12 [facility] 1.2.840.114 [id number] Univers 00:00:00 00:00:00 Esequiel HEALTH 350.1.13.10 it y of [place] 4.2.7.2.686 [facility] [phone] [facility] Primary & [address] [facility] 2021-01-07 2021-01-07 [facility] [id number] Univers 14:00:00 14:00:00 [facility] 2020-12-29 2020-12-29 Outpatient R R [facility] [id number] Univers 13:00:00 13:00:00 [facility] 2020-12-11 2020-12-11 Telephone [facility] 1.2.840.114 [id number] Univers 00:00:00 00:00:00 Esequiel HEALTH 350.1.13.10 it y of [place] 4.2.7.2.686 [facility] [id number] [facility] Primary & [address] [facility] 2020-12-10 2020-12-10 Telephone [facility] 1.2.840.114 [id number] Univers 00:00:00 00:00:00 Esequiel HEALTH 350.1.13.10 it y of [place] 4.2.7.2.686 [facility] [id number] [facility] Primary & [address] [facility]ty [facility] 2020-12-08 2020-12-08 Refill [facility] 1.2.840.114 [id number] Univers 00:00:00 00:00:00 Esequiel HEALTH 350.1.13.10 it y of [place] 4.2.7.2.686 [facility] [id number] [facility] Primary & [address] [facility] 2020-11-10 2020-11-10 Telephone [facility] 1.2.840.114 [id number] Univers 00:00:00 00:00:00 Esequiel HEALTH 350.1.13.10 it y of [place] 4.2.7.2.686 [facility] [id number] [facility] Primary & [address] [facility]ty [facility] 2020-10-09 2020-10-09 [facility] 1.2.840.114 [id number] Univers 00:00:00 00:00:00 Esequiel HEALTH 350.1.13.10 it y of [place] 4.2.7.2.686 [facility] [id number] [facility] Primary & [address] [facility] Specialty [facility] 2020-09-29 2020-09-29 Lead Care Manager Lab, [facility] 1.2.840.11 [id number] Univers 14:50:49 15:05:49 [facility] 350.1.13.10 it[place] of [place] [address] [place] [address] [id number] [facility] Primary & [address] [facility] Specialty Care 2020-09-29 2020-09-29 Office [facility] 1.2.840.114 [id number] Univers 13:22:41 14:45:54 Visit Esequiel HEALTH 350.1.13.10 it y of [place] 4.[address].7.[address] [place] [address] [phone] [facility] Primary & [address] [facility] 2020-09-29 2020-09-29 [facility] [id number] Univers 13:00:00 13:00:00 ESEQUIEL ity of [facility] 2020-09-29 2020-09-29 Orders Doctor DASH 1.2.840.114 [id number] Univers 00:00:00 00:00:00 Only Unassigned, EVELIA 350.1.13.10 ity of [place] [facility] 4.2.7.2.686 [facility] [phone] [place] [address] Branch 2020-09-23 2020-09-23 Orders Doctor EKTA 1.2.840.114 [id number] Univers 00:00:00 00:00:00 Only Unassigned, EVELIA 350.1.13.10 ity of [place] [facility] 4.2.7.2.686 [facility] as [phone] [facility] 009 Branch 2019-12-22 2019-12-22 Outpatient KNOW, HCABM OPLA [id number] [facility] 01:02:00 01:02:00 DOES_NOT 64 [facility] Results Test Description Test Time Test Comments Results Result Comments Source POCT ACT HIGH RANGE 2022-07-26 18:16:03 Test Item Value Reference Range Interpretation Comme nts ACTHR (test code = 4614326744) See_Comment H [Automated message] The system which generated this result transmitted ref erence range: 96 - 152 Seconds. The reference range was not u sed to interpret this result as normal/abnormal. Lab Interpretation (test code Abnormal = 24548-8) [facility] HIGH [id number] 18:16:03 Test Item Value Reference Range Interpretation Comments ACTHR (test code = See_Comment H [Automat ed message] [id number]) The system DNA SEQ generated this result transmitted ref erence range: 96 - 152 Seconds. The reference range was not used to int erpret this result as normal/abnormal . Lab Interpretation (test Abnormal code = 75847-4) [facility] HIGH [id number] 17:37:46 Test Item Value Reference Range Interpretation Comments ACTHR (test code = See_Comment H [Automat ed message] [id number]) The system DNA SEQ generated this result transmitted ref erence range: 96 - 152 Seconds. The reference range was not used to int erpret this result as normal/abnormal . Lab Interpretation (test Abnormal code = 79663-7) [facility] HIGH [id number] 17:37:46 Test Item Value Reference Range Interpretation Comments ACTHR (test code = See_Comment H [Automat ed message] [id number]) The system DNA SEQ generated this result transmitted ref erence range: 96 - 152 Seconds. The reference range was not used to int erpret this result as normal/abnormal . Lab Interpretation (test Abnormal code = 52926-2) [facility] HIGH [id number] 17:02:39 Test Item Value Reference Range Interpretation Comments ACTHR (test code = See_Comment H [Automat ed message] [id number]) The system DNA SEQ generated this result transmitted ref erence range: 96 - 152 Seconds. The reference range was not used to int erpret this result as normal/abnormal . Lab Interpretation (test Abnormal code = 19724-6) [facility] HIGH [id number] 17:02:39 Test Item Value Reference Range Interpretation Comments ACTHR (test code = See_Comment H [Automat ed message] [id number]) The system DNA SEQ generated this result transmitted ref erence range: 96 - 152 Seconds. The reference range was not used to int erpret this result as normal/abnormal . Lab Interpretation (test Abnormal code = 55046-5) [facility] [id number] 16:35:53 Test Item Value Reference Range Interpretation Comments ACTHR (test code = See_Comment H [Automat ed message] ) The system DNA SEQ generated this result transmitted ref erence range: 96 - 152 Seconds. The reference range was not used to int erpret this result as normal/abnormal . Lab Interpretation (test Abnormal code = 56496-9) [facility] [id number] 16:35:53 Test Item Value Reference Range Interpretation Comments ACTHR (test code = See_Comment H [Automat ed message] ) The system DNA SEQ generated this result transmitted ref erence range: 96 - 152 Seconds. The reference range was not used to int erpret this result as normal/abnormal . Lab Interpretation (test Abnormal code = 85671-0) [facility] [employer] [id number] 15:48:00 Test Item Value Reference Range Interpretation Comments ACTHR (test code = See_Comment H [Automat ed message] [id number]) The system DNA SEQ generated this result transmitted ref erence range: 96 - 152 Seconds. The reference range was not used to int erpret this result as normal/abnormal . Lab Interpretation (test Abnormal code = 58727-9) [facility] [employer] [id number] 15:48:00 Test Item Value Reference Range Interpretation Comments ACTHR (test code = See_Comment H [Automat ed message] [id number]) The system whic h generated this result transmitted ref erence range: 96 - 152 Seconds. The reference range was not used to int erpret this result as normal/abnormal . Lab Interpretation (test Abnormal code = 24350-6) [facility] HIGH [id number] 15:32:59 Test Item Value Reference Range Interpretation Comments ACTHR (test code = See_Comment H [Automat ed message] [id number]) The system DNA SEQ generated this result transmitted ref erence range: 96 - 152 Seconds. The reference range was not used to int erpret this result as normal/abnormal . Lab Interpretation (test Abnormal code = 94420-5) [facility] ACT HIGH [id number] 15:32:59 Test Item Value Reference Range Interpretation Comments ACTHR (test code = See_Comment H [Automat ed message] [id number]) The system DNA SEQ generated this result transmitted ref erence range: 96 - 152 Seconds. The reference range was not used to int erpret this result as normal/abnormal . Lab Interpretation (test Abnormal code = 78276-4) [facility] [id number] 16:39:00Surgical Pathology Report Case: [id number] Authorizing Provider: Ricki Hickey MD Collected: 07/14/2020 04:30 PM Ordering Location: [address] Received: 07/15/2020 08:08 AM Service Pathologist: [...] HYPERPLASTIC POLYPS. Signing Pathologist Direct Phone Line: [phone] signed by Gayatri Dunn MD on 07/17/2020 at 4:39 PMPart A. Deeper sections are examined.06812 x 3Preop diagnosis: iron deficiency anemia due to chronic blood loss. A. Nodule; B.Sigmoid colon polyp; C. Rectum colon polypA. Received [...] in formalin labeled with the patient's name, acce ssion number and "rectum colon polyp" are two cote-pink polyps ranging from 0.5 to 0.6 cm in greatestdimension. The specimen are differentially inked blue and black, bisected and entirely submitted in C1. PA/pl A-C. Performed.[facility], Department of Pathology, [address] [place] [address], [facility], [facility] of Pathology, [address] [place] [address], [facility], Department of Pathology, [address] [place] [address], VWBGU METABOLIC [id number] 05:52:00 Test Item Value Reference Range Interpretation Comments SODIUM (BEAKER) 140 meq/L 136-145 (test code = 381) POTASSIUM (BEAKER) 3.8 meq/L 3.5-5.1 (test code = 379) CHLORIDE (BEAKER) 103 meq/L 98-107 (test code = 382) CO2 (BEAKER) (test 29 meq/L 22-29 code = 355) BLOOD UREA NITROGEN 17 mg/dL 7-21 (BEAKER) (test code = 354) CREATININE (BEAKER) 1.27 mg/dL 0.57-1.25 H (test code = 358) GLUCOSE RANDOM 95 mg/dL 70-105 (BEAKER) (test code = 652) CALCIUM (BEAKER) 9.1 mg/dL 8.4-10.2 (test code = 697) EGFR (BEAKER) (test 41 mL/min/1.73 ESTIMA HENRIETTA GFR IS code = 1092) sq m NOT ACCURATE CREATININE CLEARANCE IN PREDICTING GLOMERULAR FILTRATION RATE . ESTIMATED GFR I S NOT APPLICABLE FOR DIALYSIS PATIEN TS. Director Of Market Intelligence ID - FARIDA MBASIC METABOLIC [id number] 05:39:00 Test Item Value Reference Range Interpretation [...] 697) EGFR (BEAKER) (test 53 mL/min/1.73 ESTIMA HENRIETTA GFR IS code = 1092) sq m NOT ACCURATE CREATININE CLEARANCE IN PREDICTING GLOMERULAR FILTRATION RATE . ESTIMATED GFR I S NOT APPLICABLE FOR DIALYSIS PATIEN TS. Director Of Market Intelligence ID - EDASIHEMOGLOBIN AND [id number] 05:27:00 Test Item Value Reference Range Interpretation Comments HEMOGLOBIN (BEAKER) (test code = 8.4 GM/DL 11.2-15.7 L 410) HEMATOCRIT (BEAKER) (test code = 28.1 % 34.1-44.9 L 411) Director Of Market Intelligence ID - [id number] AND [id number] 22:58:00 Test Item Value Reference Range Interpretation Comments HEMOGLOBIN (BEAKER) (test code = 8.5 GM/DL 11.2-15.7 L 410) HEMATOCRIT (BEAKER) (test code = 28.6 % 34.1-44.9 L 411) Director Of Market Intelligence ID - [id number] METABOLIC [id number] 13:22:00 Test Item Value Reference Range Interpretation [...] 697) EGFR (BEAKER) (test 52 mL/min/1.73 ESTIMA HENRIETTA GFR IS code = 1092) sq m NOT ACCURATE CREATININE CLEARANCE IN PREDICTING GLOMERULAR FILTRATION RATE . ESTIMATED GFR I S NOT APPLICABLE FOR DIALYSIS PATIEN TS. Director Of Market Intelligence ID - EDASIHEMOGLOBIN AND [id number] 13:07:00 Test Item Value Reference Range Interpretation Comments HEMOGLOBIN (BEAKER) (test code = 9.0 GM/DL 11.2-15.7 L 410) HEMATOCRIT (BEAKER) (test code = 29.7 % 34.1-44.9 L 411) Director Of Market Intelligence ID - [id number] AND [id number] 06:37:00 Test Item Value Reference Range Interpretation Comments HEMOGLOBIN (BEAKER) (test code = 11.2 GM/DL 11.2-15.7 410) HEMATOCRIT (BEAKER) (test code = 38.2 % 34.1-44.9 411) Director Of Market Intelligence ID - [id number] AND [id number] 01:33:00 Test Item Value Reference Range Interpretation Comments HEMOGLOBIN (BEAKER) (test code = 8.9 GM/DL 11.2-15.7 L 410) HEMATOCRIT (BEAKER) (test code = 29.6 % 34.1-44.9 L 411) Director Of Market Intelligence ID - [id number] AND [id number] 18:30:00 Test Item Value Reference Range Interpretation Comments HEMOGLOBIN (BEAKER) (test code = 9.4 GM/DL 11.2-15.7 L 410) HEMATOCRIT (BEAKER) (test code = 31.2 % 34.1-44.9 L 411) Director Of Market Intelligence ID - [id number] 11:50:00 Test Item Value Reference Range Interpretation Comments FERRITIN (BEAKER) (test code = 22.38 ng/mL 5.00-275.00 361) Director Of Market Intelligence ID - EDASICT, CHEST, WITHOUT [id number] 10:54:00Unlisted Reason for Exam - Click Yes and Enter Reason Below->YesUnlisted Reason for Exam->right apex opacity seen on CXR, hx of COPD [facility] [place] 1940 Sex: FFINAL REPORT CT of the Chest dated 07/13/2020 CLINICAL INFORMATION: Unlisted Reason for Examright apex opacity seen on CXR, hx of COPD Comment: Axial images of the chest were obtained from thoracic inlet to the upper abdomen without intravenous contrast. This exam was performed according to our departmental dose-optimization program, which includes automated exposure control, adjustment of the mA and/or kV according to patient size and/or use of interactive reconstruction technique. Heart is in the upper limits of normal in size. Vascular calcification is seen in the thoracic aorta and coronary arteries. Great vessels are unremarkable. No adenopathy in the mediastinum or perihilar region.Trachea and mainstem bronchi are patent. There is small right pleural effusion. Subsegmental atelectasis is seen in the lingula, right upper, right mid and both lower lobes. A 6 mm nodule is seen in the right upper lobe. A 1.1 x 1.7 x 1.7 cm partially cavitated nodule is seen in the right upper lobe. T here is mild to moderate pulmonary emphysema. No mass lesion or airspace disease is seen. Visualizedupper abdomen demonstrates no focal lesion. Impression: 1. Right pleural effusion with subsegmental atelectasis in the lingula, right upper, right mid, and both lower lobes.2. Right upper lobe nodules.Recommend follow-up with repeat CT examination of the chest in 3 months.3. Pulmonary emphysema. Signed: Danna Ortegaort Verified Date/Time: 07/13/2020 10:54:39 Reading Location: [facility] C013Y CT Body Reading Room HEMOGLOBIN AND [id number] 10:39:00 Test Item Value Reference Range Interpretation Comments HEMOGLOBIN (BEAKER) (test code = 8.7 GM/DL 11.2-15.7 L 410) HEMATOCRIT (BEAKER) (test code = 28.5 % 34.1-44.9 L 411) Director Of Market Intelligence ID - [id number] [id number] 10:05:00 Test Item Value Reference Range Interpretation Comments HEMOGLOBIN A1C (BEAKER) (test code = 6.0 % 4.3-6.1 368) [id number] 07:27:00 Test Item Value Reference Range Interpretation Comments HAPTOGLOBIN (BEAKER) (test code = 177 mg/dL 14-258 366) Director Of Market Intelligence ID - EDASITSH/FREE T4 IF [id number] 06:24:00 Test Item Value Reference Range Interpretation Comments THYROID STIMULATING HORMONE 0.891 uIU/mL 0.350-4.940 (BEAKER) (test code = 772) Director Of Market Intelligence ID - EDASIVITAMIN B12 AND [id number] 06:24:00 Test Item Value Reference Range Interpretation Comments VITAMIN B12 (BEAKER) (test code = 390 pg/mL 213-816 774) FOLATE (BEAKER) (test code = 362) 14.30 ng/mL >=7.00 Director Of Market Intelligence ID - EDASIIRON, TIBC, % SAT. (WITHOUT FERRITIN)2020-07-13 06:11:00 Test Item Value Reference Range Interpretation Comments IRON (BEAKER) (test code = 547) 20.0 ug/dL 40.0-160.0 L TOTAL IRON BINDING CAPACITY 345 ug/dL 250-450 (BEAKER) (test code = 769) IRON % SATURATION (2) (BEAKER) 6 % 20-55 L (test code = 2590) Director Of Market Intelligence ID - EDASIBASIC METABOLIC [id number] 05:51:00 Test Item Value Reference Range Interpretation [...] 697) EGFR (BEAKER) (test 58 mL/min/1.73 ESTIMA HENRIETTA GFR IS code = 1092) sq m NOT ACCURATE CREATININE CLEARANCE IN PREDICTING GLOMERULAR FILTRATION RATE . ESTIMATED GFR I S NOT APPLICABLE FOR DIALYSIS PATIEN TS. Director Of Market Intelligence ID - [id number] 05:51:00 Test Item Value Reference Range Interpretation Comments MAGNESIUM (BEAKER) (test code = 1.6 mg/dL 1.6-2.6 627) Director Of Market Intelligence ID - [id number] 05:51:00 Test Item Value Reference Range Interpretation Comments PHOSPHORUS (BEAKER) (test code = 2.9 mg/dL 2.3-4.7 604) Director Of Market Intelligence ID - EDASILACTATE DEHYDROGENASE (LDH)2020-07-13 05:51:00 Test Item Value Reference Range Interpretation Comments LACTATE DEHYDROGENASE (BEAKER) (test 232 U/L 125-220 H code = 635) Director Of Market Intelligence ID - EDASIRETICULOCYTE [id number] 05:06:00 Test Item Value Reference Range Interpretation Comments RETICULOCYTE COUNT PCT (BEAKER) (test 2.3 % 0.5-1.7 H code = 575) Director Of Market Intelligence ID - [id number] W/PLT COUNT & AUTO [id number] 05:06:00 Test Item Value Reference Range Interpretation [...] (BEAKER) (test code = 2801) HEMOGLOBIN AND [id number] 05:06:00 Test Item Value Reference Range Interpretation Comments HEMOGLOBIN (BEAKER) (test code = 8.5 GM/DL 11.2-15.7 L 410) HEMATOCRIT (BEAKER) (test code = 27.4 % 34.1-44.9 L 411) HEMOGLOBIN AND [id number] 19:14:00 Test Item Value Reference Range Interpretation Comments HEMOGLOBIN (BEAKER) (test code = 7.9 GM/DL 11.2-15.7 L 410) HEMATOCRIT (BEAKER) (test code = 25.7 % 34.1-44.9 L 411) Director Of Market Intelligence ID - [id number]-COV2/RT-PCR ([facility])2020-07-12 17:19:00 Test Item Value Reference Range Interpretation Comments SARS-COV2/RT-PCR (test Negative Not Detected, Negative, code = 7969187) See external report for linked test SARS-COV-2 PERFORMING LAB [facility] (test code = 5700342) Negative result for this test determines that SARS-CoV-2 RNA was not present in the specimen above the Limit of Detection (LOD). However, Negative results do not preclude SARS-CoV-2 infection and should not be used as the sole basis for treatment or patient management decisions. Negative results must be combined with clinical observations, patient history, and [...] justifying the authorization of the emergency use ofin vitro diagnostic tests for detection and/or diagnosis of COVID-19 is terminated under Section 564(b)(2) of the Act or the EUA is revoked under Section 564(g) of the Act.Fact Sheet for Healthcare Prov iders:https://www.[employer]/sites/default/files/product/documents/Fact_Sheet_HC _Kooeapxww_Izrt_VBHF-WsA-4.pdfFact Sheet for Healthcare Patients:https://www.[employer]/sites/default/files/product/docume nts/Ybpx_Vtpcn_Ujeqgnaj_Hwkv_MTKF-KgL-1.pdfPerforming Laboratory:[facility], [place] [id number] 10:57:00 Test Item Value Reference Range Interpretation Comments MAGNESIUM (BEAKER) 1.7 mg/dL 1.6-2.6 Specimen slightly (test code = 627) hemolyzed Director Of Market Intelligence ID - FARIDA [id number] 10:57:00 Test Item Value Reference Range Interpretation Comments PHOSPHORUS (BEAKER) 3.1 mg/dL 2.3-4.7 Specimen slightly (test code = 604) hemolyzed Director Of Market Intelligence ID - FARIDA MBASIC METABOLIC [id number] 10:57:00 Test Item Value Reference Range Interpretation [...] 697) EGFR (BEAKER) (test 53 mL/min/1.73 ESTIMA HENRIETTA GFR IS code = 1092) sq m NOT ACCURATE CREATININE CLEARANCE IN PREDICTING GLOMERULAR FILTRATION RATE . ESTIMATED GFR I S NOT APPLICABLE FOR DIALYSIS PATIEN TS. Director Of Market Intelligence ID - FARIDA MHEPATIC FUNCTION [id number] 10:57:00 Test Item Value Reference Range Interpretation [...] Specimen slightly (test code = 347) hemolyzed Director Of Market Intelligence ID - FARIDA MB-TYPE NATRIURETIC FACTOR (BNP)2020-07-12 10:56:00 Test Item Value Reference Range Interpretation Comments B-TYPE NATRIURETIC PEPTIDE (BEAKER) 188 pg/mL 0-100 H (test code = 700) Director Of Market Intelligence ID - FARIDA [id number] 10:41:00 Test Item Value Reference Range Interpretation Comments PARTIAL THROMBOPLASTIN TIME 20.7 seconds 22.5-36.0 L (BEAKER) (test code = 760) PROTHROMBIN TIME/[id number] 10:20:00 Test Item Value Reference Range Interpretation Comments PROTIME (BEAKER) (test code = 14.4 seconds 11.9-14.2 H 759) INR (BEAKER) (test code = 370) 1.15 <=5.90 Effective 01/24/2019: PT Reference Range ChangeNew: 11.9-14.2 Previous: 11.7- 14.7RECOMMENDED COUMADIN/WARFARIN INR THERAPY RANGESSTANDARD DOSE: 2.0-3.0 Includes: PROPHYLAXIS for venous thrombosis, systemic embolization; TREATMENT for venous thrombosis and/or pulmonary embolus.HIGH RISK: Target INR is 2.5-3.5 for patients wiht mechanical heart valves.RAD, CHEST, 1 VIEW, NON [id number] 10:03:00Reason for exam:->SOBShould this be performed at the bedside?->Yes [facility] 1940 Sex: FFINAL REPORT History: Shortness of breath. FINDINGS: Chest, single view: Single AP view ofthe chest shows a mildly enlarged heart. Mediastinum appears unremarkable. Mild atherosclerotic calcification of the aortic arch is present. There is increased opacity in the right lung apex which could represent a mass or malignancy. CT of the chest is recommended for further evaluation. Blunting of the costophrenic sulci may represent chronic pleural thickening or small bilateral effusions. Bones are osteopenic but otherwise unremarkable. IMPRESSION: 1. Increased opacity in the right lung apex, possibly a mass or malignancy. CT of the chest is recommended for further evaluation. 2. Possible smallbilateral pleural effusions versus chronic pleural thickening. 3. Mild cardiomegaly. Signed: Ekta Velasco MDReport Verified Date/Time: 07/12/2020 10:03:35 Reading Location: [address] Transitional Reading Room [facility]AUTO [id number] 01:50:00 Test Item Value Reference Range Interpretation [...] 0.00 K/mm3 0.0-0.1 N NRBC#) BASIC METABOLIC [id number] 01:31:00 Test Item Value Reference Range Interpretation [...] GLOMERULAR FILTRATION > 60 mL/min >=60 Estima henrietta GFR by RATE (test code = using [...] 8.9 mg/dL 8.5-10.1 N CA) BASIC METABOLIC [id number] 01:22:00 Test Item Value Reference Range Interpretation [...] code = CA) mg/dL 8.5-10.1 CBC W/AUTO [id number] 01:20:00 Test Item Value Reference Range Interpretation [...] # (test code = BA#) K/mm3 0.0-0.2 Notes Date/Time Note Provider Source 2023-03-31 09:27:00-00:00 Formatting of this note migh t be different from the original. rEasto Hendricks [facility] Incoming fax from [facility] regarding medications. Placed in provider's box. Electronically signed by Erasto Hendricks at 10/2022 9:27 AM CDT
[2023-04-17 08:32] LABS: Absolute Lymphocytes (CBC) 1.8 K/uL (0.7-4.9); Hematocrit 37.6 % (36.0-45.0); MCV 95.6 fL (80-100); MPV 9.2 fL (7.6-11.3); Platelets 214 thou/uL (152-406); RBC Red Blood Cell Count 3.94 M/uL (3.86-4.86)
--- NOTE | 2023-04-17 08:41 | RAD REPORT ---
EXAM DESCRIPTION: CT - Head Brain Wo Cont - 04/17/2023 8:30 am CLINICAL HISTORY: TIA COMPARISON: Head Brain Wo Cont dated 11/13/2019; Head Brain Wo Cont dated 11/05/2019 TECHNIQUE: All CT scans are performed using dose optimization technique as appropriate and may inclu de automated exposure control or mA/KV adjustment according to patient size. FINDINGS: New right occipital lobe infarct. Remote appearing right frontal lobe infarct. Chronic sma ll vessel ischemic changes.No areas of brain edema or evidence of midline shift. Partially empty sell a. The paranasal sinuses and mastoids are clear. The calvarium is intact. IMPRESSION: Right occipital lobe cortical infarct is new from prior and could be acute. Probably rem ote right frontal lobe infarct. MRI could confirm.
[2023-04-17 08:52] LABS: Potassium 4.9 mEq/L (3.5-5.1); Troponin High Sensitivity 5.4 pg/mL (<58.9)
[2023-04-17] MEDS ORDERED: levETIRAcetam 500 MG TAB PO SCH (09:00)
[2023-04-17] MEDS: NA CHLORIDE 0.9% 1,000 ML IV SCH (09:00)
[2023-04-17] MEDS ORDERED: APIXABAN 5 MG TABLET PO SCH (09:00)
--- NOTE | 2023-04-17 09:21 | RAD REPORT ---
EXAM DESCRIPTION: RAD - Chest Single View - 04/17/2023 9:13 am CLINICAL HISTORY: altered mental status COMPARISON: Chest Single View dated 10/14/2021; Chest Single View dated 08/07/2021; Chest Single View dated 08/05/2021; Chest Single View dated 08/03/2021 FINDINGS: Lines: None. Lungs: Increasing nodular opacity at the right lung apex. The lungs are otherwise clear . Pleural: No significant pleural effusions or pneumothorax. Cardiac: Cardiomegaly. Mediastinum: Within normal limits. Bones: No acute fractures. Other: None IMPRESSION: Enlarging nodular opacity at the right lung apex. Consider chest CT for further evaluati on. This need not be emergent. No acute process identified.
[2023-04-17 09:25] LABS: Protime INR 1.77
[2023-04-17] MEDS: DILTIAZEM HCL 120 MG SR CAP PO SCH (09:30)
--- NOTE | 2023-04-17 09:43 | ER ---
Nurse's Notes [facility] Name: Ashli Alvarez Age: 82 yrs Sex: Female : 1940 Arrival Date: 04/17/2023 Time: 08:12 Bed 5 Private MD: Diagnosis: Acute CVA, prior chronic territorial infarct as well Presentation: 04/17 08:13 Chief complaint: EMS states: CALLED FOR LEFT HIP PAIN, PT SHOWING LEFT SIDED DEFICITS bp AND EXPRESSIVE APHASIA. LAST KNOWN NORMAL 2100. UNKNOWN BASELINE. Coronavirus screen: At this time, the client does not indicate any symptoms associated with coronavirus-19. Ebola Screen: No symptoms or risks identified at this time. Initial Sepsis Screen: Does the patient meet any 2 criteria? No. Patient's initial sepsis screen is negative. Does the patient have a suspected source of infection? No. Patient's initial sepsis screen is negative. Risk Assessment: Do you want to hurt yourself or someone else? Patient reports no desire to harm self or others. Onset of symptoms was April 16, 2023 at 21:00. Care prior to arrival: Glucose check: 147. 08:13 Method Of Arrival: EMS: [facility] bp 08:13 Acuity: TIFFANIE 3 bp Triage Assessment: 08:15 General: Appears in no apparent distress. Behavior is calm, cooperative. Pain: Denies bp pain. EENT: No deficits noted. Neuro: Level of Consciousness is awake, obeys commands, confused, Oriented to person. Cardiovascular: Rhythm is atrial fibrillation. Respiratory: No deficits noted. GI: No signs and/or symptoms were reported involving the gastrointestinal system. : No signs and/or symptoms were reported regarding the genitourinary system. Derm: No deficits noted. Musculoskeletal: No deficits noted. Historical: - Allergies: 08:15 Codeine; bp - PMHx: 08:15 Atrial fibrillation; Hypercholesterolemia; diabetes mellitus; Cerebrovascular accident; bp - Immunization history:: Adult Immunizations up to date. - Social history:: Smoking status: unknown. Screenin:32 [facility] ED Fall Risk Assessment (Adult) History of falling in the last 3 months, ko1 including since admission No falls in past 3 months (0 pts) Confusion or Disorientation Yes (5 pts) Intoxicated or Sedated No (0 pts) Impaired Gait Yes (1 pt) Mobility Assist Device Used Yes (1 pt) Altered Elimination Yes (1 pt) Score/Fall Risk Level 3 or more points = High Risk Oriented to surroundings, Maintained a safe environment, Educated pt \T\ family on fall prevention, incl call for assistance when getting out of bed, Assessed \T\ reinforced patient's understanding of fall precautions, Provided non-skid footwear, Hourly rounding (assess needs \T\ fall precautionary measures) done, Used ambulatory aids as needed (educated on \T\ assisted with), Used gait belt as appropriate Implemented a Fall Risk Plan of Care, Apply high fall risk patient identification: yellow non skid footwear/ fall signage, Remained w/in arm's length of patient and in sight while toileting, Offered frequent toileting (1:1 observation), Remained with patient while ambulating, Utilized family, sitter, or virtual environmental web crawler as indicated. Abuse screen: Denies threats or abuse. Denies injuries from another. Nutritional screening: No deficits noted. Tuberculosis screening: No symptoms or risk factors identified. Assessment: 08:30 General: Appears in no apparent distress. comfortable, Behavior is calm, cooperative. ko1 Pain: Denies pain. Neuro: Level of Consciousness is awake, alert, obeys commands, confused. Cardiovascular: No deficits noted. GI: No deficits noted. : No deficits noted. EENT: No deficits noted. Derm: Skin is thin, with poor turgor yeast under breasts and in skin folds Skin is dry, Skin temperature is warm. Musculoskeletal: No deficits noted. 08:30 Respiratory: Reports wears O2 2l NC at home due to copd. ko1 Vital Signs: 08:13 BP 114 / 62; Pulse 100; Resp 16; Temp 98.5; Pulse Ox 97% ; bp 08:29 BP 123 / 78; Pulse 94; Resp 18; Pulse Ox 96% ; ko1 08:45 Pulse Ox 83% on R/A; ko1 09:00 Pulse Ox 92% on 2 lpm NC; ko1 09:15 BP 110 / 75; Pulse 103; Resp 18; Pulse Ox 95% on 2 lpm NC; ko1 10:15 BP 137 / 91; Pulse 102; Resp 18; Pulse Ox 99% ; ko1 ED Course: 08:13 Patient arrived in ED. bp 08:13 Seema Koo MD is Attending Physician. sp3 08:15 Triage completed. bp 08:15 Arm band placed on. bp 08:17 Timmy Christensen, RN is Primary Nurse. bp 08:24 Inserted saline lock: 22 gauge in right forearm, using aseptic technique. Blood bp collected. 08:29 Patient has correct armband on for positive identification. Allergy band placed. Fall ko1 risk band placed. Bed in low position. Call light in reach. Side rails up X2. Provided Education on: NA. Client placed on continuous cardiac and pulse oximetry monitoring. NIBP monitoring applied. company secretary on. Door closed. Noise minimized. Warm blanket given. 08:31 CT Head Brain wo Cont In Process Unspecified. EDMS 08:39 Lipid Profile Sent. ko1 08:39 Lipid Profile Sent. ko1 08:39 Creatine Phosphokinase Sent. ko1 08:39 Creatine Phosphokinase Sent. ko1 08:39 Troponin High Sensitivity Sent. ko1 09:40 Christian Kumar MD is Hospitalizing Provider. sp3 10:15 Otis Vale MD is Hospitalizing Provider. sp3 13:33 No provider procedures requiring assistance completed. Patient admitted, IV remains in bp place. Administered Medications: 12:02 Drug: morphine IVP or IV 4 mg Route: IVP; Infused Over: 4 mins; Site: right forearm; ko1 Medication: 13:33 VIS not applicable for this client. bp Outcome: 09:42 Decision to Hospitalize by Provider. sp3 13:33 Admitted to ER Hold. Please see [facility] for further documentation. bp 13:33 Condition: stable 13:33 Instructed on the need for admit. 15:44 Patient left the ED. ko1 Signatures: Dispatcher [employer] EDNJ Timmy Christensen, RN RN bp Seema Koo MD MD sp3 Oapl Najera RN RN ko1 Corrections: (The following items were deleted from the chart) 09:17 08:30 Derm: Skin is dry, Skin temperature is warm ko1 ko1 09:20 08:30 Respiratory: No deficits noted. ko1 ko1
--- NOTE | 2023-04-17 09:43 | EDPHYS ---
Physician Documentation [facility] Name: Ashli Alvarez Age: 82 yrs Sex: Female : 1940 Arrival Date: 04/17/2023 Time: 08:12 Bed 5 Private MD: ED Physician Seema Koo HPI: 04/17 08:14 This 82 yrs old Female presents to ER via Unassigned with complaints of Altered Mental sp3 Status. 08:14 82-year-old female with a history of prior CVA with known left-sided deficits, atrial sp3 fibrillation on Eliquis now presents to the ED for chief complaint confusion, altered mental status and aphasia now resolved. EMS was initially called for left hip pain by family member but upon arrival the above symptoms that was found. History and physical severely limited secondary to dementia and poor historian nature of the patient. She is a patient of Dr. Kumar and we will obtain old medical records for further help. Review of systems, history and physical severely limited secondary to the above.. Historical: - Allergies: 08:15 Codeine; bp - PMHx: 08:15 Atrial fibrillation; Hypercholesterolemia; diabetes mellitus; Cerebrovascular accident; bp - Immunization history:: Adult Immunizations up to date. - Social history:: Smoking status: unknown. ROS: 08:15 Constitutional: Negative for fever, chills, and weight loss. sp3 08:15 Unable to obtain ROS due to altered mental status, baseline dementia. Exam: 08:16 Constitutional: This is a well developed, well nourished patient who is awake, alert, sp3 and in no acute distress. Eyes: Pupils equal round and reactive to light, extra-ocular motions intact. Lids and lashes normal. Conjunctiva and sclera are non-icteric and not injected. Cornea within normal limits. Periorbital areas with no swelling, redness, or edema. ENT: Nares patent. No nasal discharge, no septal abnormalities noted. External auditory canals are clear. Oropharynx with no redness, swelling, or masses, exudates, or evidence of obstruction, uvula midline. Mucous membranes moist. Neck: Trachea midline, no thyromegaly or masses palpated, and no cervical lymphadenopathy. Supple, full range of motion without nuchal rigidity, or vertebral point tenderness. No Meningismus. Chest/axilla: Normal chest wall appearance and motion. Nontender with no deformity. No lesions are appreciated. Respiratory: Lungs have equal breath sounds bilaterally, clear to auscultation and percussion. No rales, rhonchi or wheezes noted. No increased work of breathing, no retractions or nasal flaring. Abdomen/GI: Soft, non-tender, with normal bowel sounds. No distension or tympany. No guarding or rebound. No evidence of tenderness throughout. Back: No spinal tenderness. No costovertebral tenderness. Full range of motion. Psych: Awake, alert, with orientation to person, place and time. Behavior, mood, and affect are within normal limits. 08:16 Cardiovascular: Patient is in atrial fibrillation around 100 rate.. 08:16 Musculoskeletal/extremity: Poor circulation and chronic edema in the lower extremities. No cellulitic changes noted.. 08:16 Neuro: Left-sided weakness noted. Patient does not currently have aphasia. Limited secondary neurological exam secondary to prior deficits and poor cooperation.. 09:52 ECG was reviewed by the Attending Physician. EKG demonstrates atrial fibrillation at 97 sp3 bpm with absent MI interval, normal QRS, normal axis, nonspecific diffuse ST/T changes without evidence of acute ischemia. Vital Signs: 08:13 BP 114 / 62; Pulse 100; Resp 16; Temp 98.5; Pulse Ox 97% ; bp 08:29 BP 123 / 78; Pulse 94; Resp 18; Pulse Ox 96% ; ko1 08:45 Pulse Ox 83% on R/A; ko1 09:00 Pulse Ox 92% on 2 lpm NC; ko1 09:15 BP 110 / 75; Pulse 103; Resp 18; Pulse Ox 95% on 2 lpm NC; ko1 10:15 BP 137 / 91; Pulse 102; Resp 18; Pulse Ox 99% ; ko1 MDM: 08:13 Patient medically screened. sp3 08:18 Data reviewed: vital signs, nurses notes, EMS record, old medical records, lab test sp3 result(s), EKG, radiologic studies. ED course: 80-year-old female with abdominal status, continued atrial fibrillation on Eliquis, and known left-sided deficits with unknown exacerbation. Patient possibly had TIA or secondary CVA although unlikely given that she is anticoagulated. Will obtain CT scan of the head, laboratory values and general observation with observation patient admission and neurological consult under Dr. José. Patient is not septic and in no extremis. I am not highly suspicious for acute coronary syndrome, sepsis or shock.. 09:42 ED course: Patient has an acute CVA superimposed upon the chronic territorial findings. sp3 Neurological exam is improving. Patient is already on Eliquis. She is outside the window of any acute intervention. Will admit and have neurology see her.. 04/17 08:14 Order name: Basic Metabolic Panel; Complete Time: 09:33 3 04/17 08:14 Order name: CBC with Diff; Complete Time: 09:33 3 04/17 08:14 Order name: High Sensitivity Troponin; Complete Time: 09:33 3 04/17 08:14 Order name: Protime (+inr); Complete Time: : 3 04/17 08:14 Order name: Ptt, Activated; Complete Time: 09:33 3 04/17 08:19 Order name: UAM 3 04/17 08:37 Order name: Creatine Phosphokinase [facility] 04/17 08:37 Order name: Creatine Phosphokinase [facility] 04/17 08:37 Order name: Lipid Profile EDAK 04/17 08:37 Order name: Lipid Profile EDMS 04/17 08:37 Order name: Troponin High Sensitivity EDAK 04/17 13:20 Order name: Glucose, Ancillary Testing EDAK 04/17 08:14 Order name: CT Head Brain wo Cont; Complete Time: 09:33 3 04/17 08:26 Order name: CXR XRAY 3 04/17 09:21 Order name: RAD; Complete Time: 09:33 EDMS 04/17 12:57 Order name: CT EDAK 04/17 08:14 Order name: EKG; Complete Time: 08:14 3 04/17 08:36 Order name: NPO; Complete Time: 08:39 EDMS 04/17 08:14 Order name: Cardiac monitoring; Complete Time: 08:15 3 04/17 08:14 Order name: EKG - Nurse/Tech; Complete Time: 08:51 3 04/17 08:14 Order name: IV Saline Lock; Complete Time: 08:23 3 04/17 08:14 Order name: Labs collected and sent; Complete Time: 08:23 3 04/17 08:14 Order name: NPO; Complete Time: 08:15 3 04/17 08:14 Order name: O2 Per Protocol; Complete Time: 08:15 sp3 04/17 08:14 Order name: O2 Sat Monitoring; Complete Time: 08:15 sp3 04/17 08:14 Order name: Stroke Swallow Screen; Complete Time: 09:27 sp3 04/17 08:40 Order name: Labs - recollect needed: recollect blue/ hemolyzed per lab; Complete Time: eb 09:11 Administered Medications: 12:02 Drug: morphine IVP or IV 4 mg Route: IVP; Infused Over: 4 mins; Site: right forearm; ko1 Disposition Summary: 04/17/23 09:42 Hospitalization Ordered Hospitalization Status: Inpatient Admission sp3 Condition: Stable sp3 Problem: an acute exacerbation sp3 Symptoms: have worsened sp3 Bed/Room Type: Standard sp3 Provider: Otis Vale(04/17/23 10:16) sp3 Location: Telemetry/MedSurg (Inpatient)(04/17/23 15:14) eb Room Assignment: [facility](04/17/23 15:14) eb Diagnosis - Acute CVA, prior chronic territorial infarct as well sp3 Forms: - Medication Reconciliation Form sp3 - SBAR form sp3 - Leadership Thank You Letter sp3 Signatures: Dispatcher [employer] EDTimmy Mancuso, RN RN bp Celina Coates Setul, MD MD sp3 Opal Najera RN RN ko1 Corrections: (The following items were deleted from the chart) 10:16 09:42 Christian Kumar sp3 sp3 13:33 09:42 Telemetry/MedSurg (Inpatient) sp3 bp 13:33 09:42 sp3 bp 15:14 13:33 [facility] ER HOLD bp eb 15:14 13:33 ERHOLD- bp eb
[2023-04-17] MEDS: TORSEMIDE 20 MG TAB PO SCH (10:00)
[2023-04-17] MEDS ORDERED: NA CHLORIDE 0.9% 1,000 ML ONE (10:32)
[2023-04-17] MEDS ORDERED: levETIRAcetam 500 MG TAB ONE (10:32)
[2023-04-17] MEDS ORDERED: APIXABAN 5 MG TABLET ONE (10:33)
--- NOTE | 2023-04-17 10:56 | P.HP ---
Certification for Inpatient Patient admitted to: Inpatient With expected LOS: >2 Midnights Practitioner: I am a practitioner with admitting privileges, knowledge of patient current condition, hospital course, and medical plan of care. Services: Services provided to patient in accordance with Admission requirements found in Title 42 Section 412.3 of the Code of Federal Regulations Patient History Date of Service: 04/17/23 Reason for admission: Acute CVA History of Present Illness: 82 yo F, PMH: multiple previous CVA, chronic afib on anticoagulation, chronic diastolic CHF, COPD on home oxygen, Hypercholesteroemia, Hypertension, Hypothyroidism, GERD, Glaucoma, h/o DVT and PE, sciatica Presents to the ED with confusion, altered mental status, difficulty understanding/speaking. EMS was initially called this morning for severe hip pain but upon arrival patient was noted to be confused with asphasia that has since resolved prior to arrival at ED. History difficult to fully obtain due to patients mentation, but patients sister is at bedside. Family noticed patients hip has been progressively worsening over the last week with last night being the worst its ever been. At baseline, patient is able ambulate with RW at baseline, but unable to the past few days d/t worsening pain. Denies traumatic fall. She does have some edema and redness bilaterally up to the knee which sister says is chronic and swelling has been improving slowly over the last 2 months. No fever at home. No nausea/vomiting/diarrhea. Denies abdominal pain. Denies difficulty urinating / no change in urinary/bowel habits, no dysuria. Hip pain - reported to feel and "act" similar to prior episodes of sciatica but this episode was lasting longer and severe. Upon arrival to the ED patient was awake/alert, but with some confusion. Neuro exam noted some left sided weakness and ED physician reported aphasia had resolved. Limited neurological exam secondary to prior deficits and poor cooperation secondary to confusion and pain. Workup in the ED included CT head: acute right occipital lobe cortical infarct is new from prior and could be acute. Probably remote right frontal lobe infarct. At time of my exam, patient in noticeable discomfort, discussed with ED physician, given prior imaging / spine findings, recommend further imaging. Lumbar CT ordered. Sister stated nothing else seemed to be abnormal, no change in meds, no fever over the last week. Noted decreased PO intake, "as expected" when she gets pain flare ups, since "she doesn't want to do much". Allergies codeine Allergy (Verified 11/13/19 19:38) confusion Home Medications: Acetaminophen [Tylenol] 2 tab PO Q8H PRN 11/04/19 Albuterol Sulfate [Proair Respiclick] 2 puff IH Q4H PRN 11/04/19 Gabapentin [Neurontin*] 100 mg PO TID 11/04/19 Hydrocodone Bit/Acetaminophen [Hydrocodon-Acetaminophen 5-325] 5 - 325 mg PO QID 11/04/19 Latanoprost/Pf [Latanoprost 0.005% Eye Drop] 1 gtt OP BEDTIME 11/04/19 Levothyroxine Sodium 75 mcg PO DAILY 11/04/19 Melatonin [Melatonin*] 2 tab PO BEDTIME PRN 11/04/19 Torsemide 20 mg PO DAILY 11/04/19 dilTIAZem HCL [Diltiazem 24Hr ER] 240 mg PO DAILY 11/04/19 ondansetron HCL [Zofran] 4 mg PO TID PRN 11/04/19 levETIRAcetam [Keppra*] 500 mg PO BID #60 tab 11/19/19 Metformin HCl [Glucophage*] 500 mg PO BID 08/02/21 Fluticasone/Umeclidin/Vilanter [Trelegy Ellipta 100-62.5-25] 1 each IH DAILY 30 Days #30 blst.w.dev 08/07/21 Citalopram [Celexa*] 10 mg PO DAILY 10/14/21 Omeprazole 20 mg PO BID 10/14/21 Collagenase [Santyl Ointment] 1 appl TOP DAILY #1 tube 10/22/21 Folic Acid 1 mg PO DAILY #30 tablet 10/22/21 Atorvastatin Calcium 20 mg PO DAILY 12/16/21 Digoxin 125 mcg PO DAILY 12/16/21 Ferrous Sulfate 325 mg PO BID 12/16/21 Spironolactone 25 mg PO DAILY 12/16/21 - Past Medical/Surgical History Has patient received pneumonia vaccine in the past: Yes Diabetic: Yes -: Multiple strokes -: Chronic AFib on Eliquis -: COPD on home O2 -: Diastolic CHF -: GERD -: HTN -: DM -: hypothyroid -: glaucoma -: dvt and pe -: cracked vertebrae, bulging disk, sciatic nerve problem -: hysterectomy -: tonisillectomy -: appendectomy -: cholecystectomy Psychosocial/ Personal History: Patient lives at home with her sister - Family History Father -: Heart disease - Social History Alcohol use: No CD- Drugs: No Caffeine use: Yes Review of Systems is unable to be obtained (ROS difficult to fully obtain d/t patients mentation) Physical Examination - Vital Signs Blood Pressure: 137/91 Pulse: 103 - Studies Laboratory Data (last 24 hrs) 04/17/23 04/17/23 08:24 08:24 WBC 11.10 H Hgb 12.6 Hct 37.6 Plt Count 214 Sodium 134 L Potassium 4.9 BUN 28 H Creatinine 1.68 H Glucose 135 H Assessment and Plan - Advance Directives Does patient have a Living Will: Yes Does patient have a Durable POA for Healthcare: No Physician Review Additional Text: Physical Exam: GEN: uncomfortable appearing, confused HEENT: Normal conjunctiva, sclera anicteric CV: irregularly irregular rhythm, HR: 80s, b/l edema Pulm: Nonlabored respirations on 2L NC, clear bilaterally ABD: Soft, nontender, nondistended MSK: Right hip tenderness; noted tenderness throughout body, but when patient distracted, tenderness mainly persisted in R hip / RLE Integumentary: erythema at R inguinal fold Neuro: speech: short - few words at a time, somewhat confused, answered questions appropriately most of the time, but short responses, follows commands. Peripheral neuro exam limited secondary to patient's pain vitals reviewed Problem List: Acute CVA, right occipital lobe cortical infarct aphasia / paraphasia, improved R hip pain h/o sciatica Intertrigo Right lung apex nodular opacity A-fib, chronic on anticoagulation chronic diastolic CHF COPD on home oxygen h/o of multiple prior CVA h/o DVT and PE Hypercholesteroemia Hypertension Hypothyroidism GERD Glaucoma CXR (04/17): Enlarging nodular opacity at the right lung apex. No acute process identified CT head (04/17): Right occipital lobe cortical infarct is new from prior and could be acute. Probably remote right frontal lobe infarct CT spine (04/17): : Remote L4 compression fracture. No acute fracture identified. chronic findings, central canal stenosis acute CVA - Neurology consulted continue eliquis, add aspirin, folic acid, statin h/o multiple CVAs MRI/MRA ordered cont IV fluids while NPO bedside swallow; if passes, advance as tolerated PT consult - will be limited secondary to acute on chronic pain - radiculopathy increase home gabapentin 100mg tid to 200mg tid continue home norco morphine for breakthrough confirm home meds, restart as appropriate CT lumbar spine ordered to eval etiology of severe pain on presentation prior imaging noted spondylosis / disc bulge / central canal stenosis exam consistent with radiculopathy, but difficult to perform accurate exam due to patient's discomfort and mentation R groin - intertrigo, start antifungal powder AFib rate controlled in ED monitor on tele restart cardizem, digoxin, eliquis as above VTE: home eliquis Code: full Critical Care: No Time Spent Managing Pts Care (In Minutes): 70
[2023-04-17] MEDS: INSULIN -REGULAR HUMAN 50 UNIT/0.5 ML ML SQ SCH ×3 (11:30→21:00)
[2023-04-17] MEDS ORDERED: MORPHINE 4 MG/ML SYR ONE (12:03)
--- NOTE | 2023-04-17 12:57 | RAD REPORT ---
EXAM DESCRIPTION: CT - Spine Lumbar Wo Con - 04/17/2023 12:47 pm CLINICAL HISTORY: Radiculopathy. severe R hip pain/ tender, h/o "sciatica", h/o sp COMPARISON: Spine Lumbar Wo Con dated 06/16/2021 TECHNIQUE: Axial noncontrast CT imaging of the lumbar spine was performed with coronal and sagittal re-formatted images. All CT scans are performed using dose optimization technique as appropriate and may include automated exposure control or mA/KV adjustment according to patient size. FINDINGS: Remote L4 compression fracture with up to 70% loss of height centrally and similar degree of bony retropulsion. Note that L1 is only partially imaged. No aggressive marrow pattern or malalign ment. Mild SI joint degenerative changes. Paraspinal tissues are normal in thickness. No paraspinal abscess or hematoma seen. Moderate central spinal stenosis is noted at L3-4 secondary to degenerative changes. Moderate central spinal stenosis noted also at L4-5 though this is due to bony retropulsion. Within these limitations , no high-grade canal stenosis suspected. IMPRESSION: Remote L4 compression fracture. No acute fracture identified. Note that the superior end plate of L1 is not included in the field of view.
[2023-04-17] MEDS: GABAPENTIN 100 MG CAP PO SCH ×2 (14:00→20:21)
[2023-04-17] MEDS: MORPHINE 4 MG/ML SYR IV PRN (19:43)
[2023-04-17] MEDS ORDERED: ENOXAPARIN 80 MG/0.8 ML SQ SCH (21:00)
[2023-04-17] MEDS ORDERED: ATORVASTATIN 40 MG TAB PO SCH (21:00)
[2023-04-17] MEDS ORDERED: MORPHINE 2 MG/ML SYR IV ONE (21:54)
[2023-04-18] MEDS: NA CHLORIDE 0.9% 1,000 ML IV SCH ×2 (02:06→11:40)
[2023-04-18 02:54] LABS: Renal Epithelial <5 /HPF (None Seen); Specific Gravity 1.015 (1.005-1.030); Urine Bacteria None Seen /HPF (<20); Urine Bilirubin NEGATIVE (Negative); Urine Blood Negative (Negative); Urine Clarity Clear (Clear); Urine Color Light-Yellow (Yellow); Urine Glucose NEGATIVE (Negative); Urine Protein NEGATIVE (Negative); Urine RBC None Seen /HPF (None Seen); Urine Urobilinogen Normal (Normal); Urine pH 5.5 (5.0-7.0)
[2023-04-18] MEDS: MORPHINE 4 MG/ML SYR IV PRN (03:57)
[2023-04-18 04:08] LABS: Thyroid Stimulating Hormone 1.27 uIU/mL (0.358-3.740)
[2023-04-18] MEDS ORDERED: HYDROMORPHONE HCL 0.5 MG/0.5 ML INJ IV ONE (04:22)
[2023-04-18] MEDS: LEVOTHYROXINE SOD 0.075 MG TAB PO SCH (06:30)
[2023-04-18] MEDS: INSULIN -REGULAR HUMAN 50 UNIT/0.5 ML ML SQ SCH ×4 (07:30→21:00)
--- NOTE | 2023-04-18 07:57 | RAD REPORT ---
EXAM DESCRIPTION: US - CP - 04/17/2023 11:34 pm CLINICAL HISTORY: CVA COMPARISON: Carotid Artery Bilateral dated 11/04/2019 TECHNIQUE: Real-time sonographic evaluation of both carotid systems was performed. Doppler interroga tion was performed with waveform tracing bilaterally. FINDINGS: Normal high resistance waveforms are noted in both external carotid arteries. The common c arotid arteries and internal carotid arteries show normal low resistance waveforms. Mild hard plaque is present at both of the carotid bulbs. Peak systolic and end diastolic velocity va lues and the ICA/CCA ratios are in the non-hemodynamically significant range. Antegrade flow seen in both vertebral arteries. IMPRESSION: No evidence of a hemodynamically significant stenosis.
[2023-04-18] MEDS ORDERED: ONDANSETRON 4 MG (ODT) TAB PO PRN (08:03)
[2023-04-18] MEDS ORDERED: HYDROCODONE/APAP 5/325 MG TAB PO PRN (08:03)
[2023-04-18] MEDS ORDERED: ALBUTEROL INHALER 60 PUFF/8 GM IH PRN (08:03)
[2023-04-18] MEDS ORDERED: ACETAMINOPHEN 325 MG TABLET PO PRN (08:03)
[2023-04-18 08:44] LABS: Absolute Lymphocytes (CBC) 1.8 K/uL (0.7-4.9); Hematocrit 34.2 % (36.0-45.0); MCV 96.3 fL (80-100); MPV 9.6 fL (7.6-11.3); Platelets 172 thou/uL (152-406); RBC Red Blood Cell Count 3.56 M/uL (3.86-4.86)
[2023-04-18 08:56] LABS: Magnesium 1.7 mg/dL (1.6-2.4); Potassium 4.4 mEq/L (3.5-5.1)
[2023-04-18] MEDS: HOME MED 1 EA UNK (Fluticasone/Umeclidin/Vilanter [Trelegy Ellipta 100-62.5-25] Blst.W.Dev IH SCH (09:00)
[2023-04-18] MEDS ORDERED: LEVOTHYROXINE SOD 0.075 MG TAB PO SCH (09:00)
[2023-04-18] MEDS ORDERED: HOME MED 1 EA UNK (Omeprazole [Omeprazole] 20 MG Capsule.Dr) PO SCH (09:00)
[2023-04-18] MEDS ORDERED: DIGOXIN 0.125 MG TABLET PO SCH ×2 (09:00)
[2023-04-18] MEDS ORDERED: DILTIAZEM HCL 240 MG PO SCH (09:00)
[2023-04-18] MEDS: NYSTATIN PWDR 100000 UNIT/GM TOP SCH ×2 (09:00→20:29)
[2023-04-18] MEDS: CITALOPRAM 10 MG TABLET PO SCH (11:15)
[2023-04-18] MEDS: TORSEMIDE 20 MG TAB PO SCH (11:16)
[2023-04-18] MEDS: ASPIRIN 81 MG CHEWABLE TABLET PO SCH (11:16)
[2023-04-18] MEDS: GABAPENTIN 100 MG CAP PO SCH ×4 (11:17→21:00)
[2023-04-18] MEDS: SPIRONOLACTONE 25 MG TABLET PO SCH (11:17)
[2023-04-18] MEDS: DILTIAZEM HCL 120 MG SR CAP PO SCH (11:17)
[2023-04-18] MEDS: FOLIC ACID 1 MG TABLET PO SCH (11:17)
[2023-04-18] MEDS: levETIRAcetam 500 MG TAB PO SCH ×3 (11:17→21:00)
[2023-04-18] MEDS: PANTOPRAZOLE 40MG TABLET PO SCH ×3 (11:19→21:00)
[2023-04-18] MEDS ORDERED: NA CHLORIDE 0.9% 1,000 ML IV SCH (13:19)
[2023-04-18] MEDS: SOTALOL HCL 80 MG TAB PO SCH ×2 (13:37→17:21)
[2023-04-18] MEDS: HYDROCODONE/APAP 5/325 MG TAB PO PRN ×2 (13:40→20:27)
--- NOTE | 2023-04-18 18:00 | EKG ---
Test Date: 2023-04-17 Test Time: 08:47:10 Roll Builder: EMILIANA MEASUREMENT RESULTS: Intervals: Rate: 97 CO: QRSD: 82 QT: 348 QTc: 441 [place]: P: CO: QRS: 101 T: 58 INTERPRETIVE STATEMENTS: Atrial fibrillation Rightward axis Abnormal ECG Compared to ECG 10/14/2021 00:23:14 Right-axis deviation now present Electronically Signed On 04-18-23 17:56:56 CDT by Daniel Fay
--- NOTE | 2023-04-18 18:06 | P.PN ---
Subjective Date of Service: 04/18/23 Chief Complaint: Acute CVA Subjective: No C/O voiced SHE IS NOT COMPLAINING OF ANYTHING. NURSES NOTED RESTLESSNESS AND PAIN AT NIGHT. SHE IS TO GET HER HOME MEDS TODAY AND THAT SHOULDHELP. SHE LIVES WITH SISTER WHO IS ALSO DISABLED. SHE DOES NOT WALK MUCH. Review of Systems 10-point ROS is otherwise unremarkable General: Weakness Physical Examination - Vital Signs Temperature: 97.6 F Blood Pressure: 120/68 Pulse: 151 Respirations: 24 Pulse Ox (%): 93 - Physical Exam General: Oriented x3, Mild distress, Obese HEENT: Atraumatic, PERRLA, EOMI Neck: Supple, JVD not distended Respiratory: Clear to auscultation bilaterally, Normal air movement Cardiovascular: Regular rate/rhythm, Normal S1 S2 Gastrointestinal: Normal bowel sounds, No tenderness Musculoskeletal: No tenderness Integumentary: No rashes Neurological: Normal speech, Normal tone, Normal affect, Abnormal strength (GEN WEAK BUT NO FOCAL DEFICITS.) Lymphatics: No axilla or inguinal lymphadenopathy - Studies Medications List Reviewed: Yes Assessment And Plan - Current Problems (Diagnosis) (1) Occipital infarction Current Visit: Yes Status: Acute Plan: SHE HAD THIS INFRACT WHILE ON ELIQUIS. THIS MEANS SHE MAY NOT HAVE HAD EMBOLISM. CONTINUE ELIUQIS AND ASPIRIN 81 MG DAILY. OR CHANGE TO XARELTO 15 MG DAILY PLUS ASA 81 MG. PROGNOSIS POOR SHE SHOULD BE IN NH SHE IS NOT ABLE TO BE TAKEN CARE OF AT HOME. (2) Afib Current Visit: No Status: Chronic Plan: RAPID NOW STOP DILT START SOTALOL DR. MUSA IS HE RREGKANA UPTON. Qualifiers: Atrial fibrillation type: unspecified Qualified Code(s): I48.91 - Unspecified atrial fibrillation
[2023-04-18] MEDS: ENSURE HIGH PROTEIN 237 ML CAN PO SCH ×2 (20:24→21:00)
[2023-04-18] MEDS: ATORVASTATIN 20 MG TAB PO SCH ×2 (20:29→21:00)
[2023-04-18] MEDS: HOME MED 1 EA UNK (Latanoprost/Pf [Latanoprost 0.005% Eye Drop] 7.5 ML Drops) OPTH SCH (20:29)
[2023-04-18] MEDS: JUVEN PACKET PO SCH (20:57)
[2023-04-18] MEDS: HALOPERIDOL LACT 5 MG/ML INJ IV PRN (21:36)
[2023-04-19] MEDS: HALOPERIDOL LACT 5 MG/ML INJ IV PRN (02:43)
[2023-04-19] MEDS: SOTALOL HCL 80 MG TAB PO SCH ×2 (05:39→17:00)
[2023-04-19] MEDS: LEVOTHYROXINE SOD 0.075 MG TAB PO SCH (05:58)
[2023-04-19] MEDS: INSULIN -REGULAR HUMAN 50 UNIT/0.5 ML ML SQ SCH ×4 (07:30→21:00)
[2023-04-19] MEDS: PANTOPRAZOLE 40MG TABLET PO SCH ×2 (09:00→20:12)
[2023-04-19] MEDS: CITALOPRAM 10 MG TABLET PO SCH (09:00)
[2023-04-19] MEDS: ENSURE HIGH PROTEIN 237 ML CAN PO SCH ×2 (09:00→20:11)
[2023-04-19] MEDS: levETIRAcetam 500 MG TAB PO SCH ×2 (09:00→20:11)
[2023-04-19] MEDS: HOME MED 1 EA UNK (Fluticasone/Umeclidin/Vilanter [Trelegy Ellipta 100-62.5-25] Blst.W.Dev IH SCH (09:00)
[2023-04-19] MEDS: ASPIRIN 81 MG CHEWABLE TABLET PO SCH (09:00)
[2023-04-19] MEDS: TORSEMIDE 20 MG TAB PO SCH (09:00)
[2023-04-19] MEDS: FOLIC ACID 1 MG TABLET PO SCH (09:00)
[2023-04-19] MEDS: JUVEN PACKET PO SCH ×2 (09:00→20:11)
[2023-04-19] MEDS: SPIRONOLACTONE 25 MG TABLET PO SCH (09:00)
[2023-04-19] MEDS: RIVAROXABAN 15 MG TABLET PO SCH (09:00)
[2023-04-19] MEDS: GABAPENTIN 100 MG CAP PO SCH ×3 (09:00→20:12)
[2023-04-19] MEDS: THIAMINE 200 MG/2 ML INJ IVP SCH (09:18)
[2023-04-19] MEDS: NYSTATIN PWDR 100000 UNIT/GM TOP SCH ×2 (09:43→20:12)
[2023-04-19] MEDS ORDERED: NS 0.9% VIAL 0 ML ONE (09:44)
[2023-04-19] MEDS: ZIPRASIDONE MESYLA 20 MG/VIAL IM PRN ×2 (09:44→17:44)
[2023-04-19] MEDS: WATER FOR INJ,STERILE 10 ML IM PRN (09:44)
[2023-04-19 09:59] VITALS: BMI 31.1
[2023-04-19] MEDS: HOME MED 1 EA UNK (Latanoprost/Pf [Latanoprost 0.005% Eye Drop] 7.5 ML Drops) OPTH SCH (20:11)
[2023-04-19] MEDS: ATORVASTATIN 20 MG TAB PO SCH (20:12)
[2023-04-19] MEDS ORDERED: FENTANYL 25 MCG/PATCH TD SCH (21:00)
[2023-04-20] MEDS: ZIPRASIDONE MESYLA 20 MG/VIAL IM PRN ×2 (00:07→10:57)
[2023-04-20] MEDS: SOTALOL HCL 80 MG TAB PO SCH (06:00)
[2023-04-20] MEDS: LEVOTHYROXINE SOD 0.075 MG TAB PO SCH (06:30)
[2023-04-20] MEDS: INSULIN -REGULAR HUMAN 50 UNIT/0.5 ML ML SQ SCH ×5 (07:30→21:00)
[2023-04-20] MEDS: PANTOPRAZOLE 40MG TABLET PO SCH ×2 (09:00→21:00)
[2023-04-20] MEDS: CITALOPRAM 10 MG TABLET PO SCH (09:00)
[2023-04-20] MEDS: HOME MED 1 EA UNK (Fluticasone/Umeclidin/Vilanter [Trelegy Ellipta 100-62.5-25] Blst.W.Dev IH SCH (09:00)
[2023-04-20] MEDS: JUVEN PACKET PO SCH ×2 (09:00→21:00)
[2023-04-20] MEDS: FOLIC ACID 1 MG TABLET PO SCH (09:00)
[2023-04-20] MEDS: GABAPENTIN 100 MG CAP PO SCH ×3 (09:00→21:00)
[2023-04-20] MEDS: RIVAROXABAN 15 MG TABLET PO SCH (09:00)
[2023-04-20] MEDS: TORSEMIDE 20 MG TAB PO SCH (09:00)
[2023-04-20] MEDS: SPIRONOLACTONE 25 MG TABLET PO SCH (09:00)
[2023-04-20] MEDS: ASPIRIN 81 MG CHEWABLE TABLET PO SCH (09:00)
[2023-04-20] MEDS: levETIRAcetam 500 MG TAB PO SCH ×2 (09:00→21:00)
[2023-04-20] MEDS: ENSURE HIGH PROTEIN 237 ML CAN PO SCH ×2 (09:00→21:00)
[2023-04-20] MEDS: THIAMINE 200 MG/2 ML INJ IVP SCH (09:04)
[2023-04-20] MEDS: NYSTATIN PWDR 100000 UNIT/GM TOP SCH ×2 (09:05→19:58)
--- NOTE | 2023-04-20 10:27 | PN ---
Subjective: Ms. Alvarez is not cooperating with anything for last few days. Since she has stroke, vasu hutchinson is confused, disoriented, not wanting to eat anything, not taking any medications. We tried multip le medications to keep her calm and has not been effective so far. I talked to patient's sister and made her DNR. Physical Examination: Chest: Clear. Heart: Irregular. Abdomen: No guarding, no rebound, no rigidity. Neurologic: She is confused, disoriented, agitated, not able to be controlled with medications. Mov ing all 4 limbs equally, but has aphasia and has a jargon speech. Assessment/plan: Occipital stroke and major change in her life. At this point, I would recommend nu rsing home with hospice possibly and the sister is agreeable. There are no other family members. Vasu hutchinson is not taking any medications. Ideally, she needs to be on Eliquis on a daily basis to prevent str stephanie. I have a feeling that she probably did not take Eliquis routinely at home and developed a strok e. Her prognosis remains overall poor. RVD/MODL Voice ID: [id number] Report ID: [id number]
--- NOTE | 2023-04-20 10:41 | ECHO ---
HEIGHT: 5 ft 0 in WEIGHT: 159 lb 8 oz DATE OF STUDY: 04/19/[address]: Otis Vale MD 2-DIMENSIONAL: YES M.MODE: YES DOPPLER: YES COLOR FLOW: YES TDS: YES PORTABLE: YES DEFINITY: BUBBLE STUDY: DIAGNOSIS: CEREBRAL VASCULAR ACCIDENT CARDIAC HISTORY: CATHERIZATION: SURGERY: PROSTHETIC VALVE: PACEMAKER: MEASUREMENTS (cm) DIASTOLIC (NORMALS) SYSTOLIC (NORMALS) IVSd 1.2 (0.6-1.2) LA Diam (1.9-4.0) LVEF % LVIDd 2.6 (3.5-5.7) LVIDs 3.7 (2.0-3.5) %FS % LVPWd 1.3 (0.6-1.2) Ao Diam 2.7 (2.0-3.7) 2 DIMENSIONAL ASSESSMENT: RIGHT ATRIUM: LEFT ATRIUM: RIGHT VENTRICLE: LEFT VENTRICLE: TRICUSPID VALVE: MITRAL VALVE: PULMONIC VALVE: AORTIC VALVE: PERICARDIAL EFFUSION: AORTIC ROOT: LEFT VENTRICULAR WALL MOTION: DOPPLER/COLOR FLOW: COMMENTS: 1. VERY LIMITED EXAM DUE TO DUE TO POOR WINDOWS 2. LEFT VENTRICULAR IS HYPERDYNAMIC WITH OVERALL NORMAL FUNCTION 3. LEFT ATRIUM APPEARS ENLARGED 4. RECOMMEND TO REPEAT ECHO AFTER HEART RATE CONTROLLED. TECHNOLOGIST: EARNEST RODRIGUEZ
[2023-04-20] MEDS: WATER FOR INJ,STERILE 10 ML IM PRN (10:57)
[2023-04-20] MEDS: HYDROMORPHONE HCL 1 MG/ML INJ IV PRN ×3 (12:09→19:58)
[2023-04-20] MEDS: METOPROLOL TARTRATE 5 MG/5 ML INJ IV SCH ×3 (12:09→19:58)
--- NOTE | 2023-04-20 18:18 | P.PN ---
Subjective Date of Service: 04/20/23 Chief Complaint: Acute CVA Subjective: Worsening SHE IS NOT COMPLAINING OF ANYTHING. NURSES NOTED RESTLESSNESS AND PAIN AT NIGHT. SHE IS TO GET HER HOME MEDS TODAY AND THAT SHOULDHELP. SHE LIVES WITH SISTER WHO IS ALSO DISABLED. SHE DOES NOT WALK MUCH. [place] STAYS CONFUSED, AGITATED, NONVERBAL, MORE AND MORE SLEEPY. SINCE STROKE SHE IS GRADUALLY WORSE. SISTER ALE IS AT BEDSIDE. I TALKED TO HER ABOUT HOSPICE SHE IS NOT GOING TO RECOVER. SHE TALKED TO THE SON AND HE AGREES. Review of Systems is unable to be obtained Physical Examination - Vital Signs Temperature: 97.6 F Blood Pressure: 130/72 Pulse: 98 Respirations: 16 Pulse Ox (%): 96 - Physical Exam General: Mild distress, Moderate distress, Confused, Obese Cardiovascular: Irregular heart rate/rhythm Neurological: Other (APHASIA, DEMENTIA SINCE STROKE. NOT ABLE TO FOLLOW ANY COMMANDS.) - Studies Medications List Reviewed: Yes Assessment And Plan - Current Problems (Diagnosis) (1) Occipital infarction Current Visit: Yes Status: Acute Plan: SHE HAD THIS INFRACT WHILE ON ELIQUIS. THIS MEANS SHE MAY NOT HAVE HAD EMBOLISM. CONTINUE ELIUQIS AND ASPIRIN 81 MG DAILY. OR CHANGE TO XARELTO 15 MG DAILY PLUS ASA 81 MG. PROGNOSIS POOR SHE SHOULD BE IN NH SHE IS NOT ABLE TO BE TAKEN CARE OF AT HOME. HOSPICE REFERRAL IS SENT. DNR DC IN AM WITH SISTER JESS GAONA WHERE SHE HAS BEEN LIVING. (2) Afib Current Visit: No Status: Chronic Plan: RAPID NOW STOP DILT START SOTALOL DR. MUSA IS HE RREGULAR MD. Qualifiers: Atrial fibrillation type: unspecified Qualified Code(s): I48.91 - Unspecified atrial fibrillation
[2023-04-20] MEDS: ATORVASTATIN 20 MG TAB PO SCH (21:00)
[2023-04-20] MEDS: HOME MED 1 EA UNK (Latanoprost/Pf [Latanoprost 0.005% Eye Drop] 7.5 ML Drops) OPTH SCH (21:00)
[2023-04-21] MEDS: HYDROMORPHONE HCL 1 MG/ML INJ IV PRN ×4 (00:32→13:00)
[2023-04-21] MEDS: METOPROLOL TARTRATE 5 MG/5 ML INJ IV SCH ×4 (00:33→11:54)
[2023-04-21] MEDS: LEVOTHYROXINE SOD 0.075 MG TAB PO SCH (05:10)
[2023-04-21] MEDS: INSULIN -REGULAR HUMAN 50 UNIT/0.5 ML ML SQ SCH ×2 (07:30→11:30)
[2023-04-21] MEDS: RIVAROXABAN 15 MG TABLET PO SCH (08:58)
[2023-04-21] MEDS: SPIRONOLACTONE 25 MG TABLET PO SCH (08:58)
[2023-04-21] MEDS: TORSEMIDE 20 MG TAB PO SCH (08:59)
[2023-04-21] MEDS: GABAPENTIN 100 MG CAP PO SCH (08:59)
[2023-04-21] MEDS: HOME MED 1 EA UNK (Fluticasone/Umeclidin/Vilanter [Trelegy Ellipta 100-62.5-25] Blst.W.Dev IH SCH (08:59)
[2023-04-21] MEDS: ASPIRIN 81 MG CHEWABLE TABLET PO SCH (08:59)
[2023-04-21] MEDS: CITALOPRAM 10 MG TABLET PO SCH (08:59)
[2023-04-21] MEDS: FOLIC ACID 1 MG TABLET PO SCH (08:59)
[2023-04-21] MEDS: levETIRAcetam 500 MG TAB PO SCH (08:59)
[2023-04-21] MEDS: JUVEN PACKET PO SCH (08:59)
[2023-04-21] MEDS: PANTOPRAZOLE 40MG TABLET PO SCH (08:59)
[2023-04-21] MEDS: ENSURE HIGH PROTEIN 237 ML CAN PO SCH (08:59)
[2023-04-21] MEDS: THIAMINE 200 MG/2 ML INJ IVP SCH (09:01)
[2023-04-21] MEDS: NYSTATIN PWDR 100000 UNIT/GM TOP SCH (09:04)
[2023-04-21 10:05] VITALS: TEMP 97.4
[2023-04-21 10:15] VITALS: O2SAT 93
[2023-04-21 11:55] VITALS: BP 129/98
--- NOTE | 2023-04-21 13:00 | P.DS ---
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 SHE HAS BECOME TOTALLY DISORIENTED AND NOT ABLE TO FOLLOW COMMAND. SHE IS NOT WALKING ANY LONGER. SHE HAS QUIT EATING AND DRINKING AND ALSO TAKING MEDS. SHE STAYS AGITATED. FAMILY HAS AGREEED WITH HOME WITH HOSPICE SHE WILL NOT BE ABLE TO QUALIFY FOR PT. SHE IS GOING HOME TODAY. THEY WILL TRY TO SEE IF SHE IS STARTING TO TAKE MEDS OR FOOD. PROGNOSIS IS POOR. Vital Signs/Physical Exam: Temp Pulse Resp BP Pulse Ox 97.4 F 111 H 17 129/98 H 93 04/21/23 08:00 04/21/23 11:54 04/21/23 09:38 04/21/23 11:54 04/21/23 09:38 Laboratory Data at Discharge: WBC 11.30 thou/uL (4.3-10.9) H 04/18/23 08:24 Hgb 11.2 g/dL (12.0-15.0) L D 04/18/23 08:24 Hct 34.2 % (36.0-45.0) L 04/18/23 08:24 Plt Count 172 thou/uL (152-406) 04/18/23 08:24 PT 19.5 SECONDS (9.5-12.5) H 04/17/23 09:13 INR 1.77 04/17/23 09:13 APTT 37.4 SECONDS (24.3-36.9) H 04/17/23 09:13 Sodium 135 mEq/L (136-145) L 04/18/23 08:24 Potassium 4.4 mEq/L (3.5-5.1) 04/18/23 08:24 BUN 22 mg/dL (7-18) H 04/18/23 08:24 Creatinine 1.37 mg/dL (0.55-1.02) H 04/18/23 08:24 Glucose 99 mg/dL (74-106) 04/18/23 08:24 Phosphorus 3.0 mg/dL (2.5-4.9) 04/18/23 08:24 Magnesium 1.7 mg/dL (1.6-2.4) 04/18/23 08:24 Triglycerides 87 mg/dL (<150) 04/18/23 02:50 Cholesterol 106 mg/dL (<200) 04/18/23 02:50 HDL Cholesterol 45 mg/dL (40-60) 04/18/23 02:50 Cholesterol/HDL Ratio 2.36 04/18/23 02:50 Home Medications: Acetaminophen [Tylenol] 2 tab PO Q8H PRN 11/04/19 Albuterol Sulfate [Proair Respiclick] 2 puff IH Q4H PRN 11/04/19 Gabapentin [Neurontin*] 100 mg PO TID 11/04/19 Hydrocodone Bit/Acetaminophen [Hydrocodon-Acetaminophen 5-325] 5 - 325 mg PO QID 11/04/19 Latanoprost/Pf [Latanoprost 0.005% Eye Drop] 1 gtt OP BEDTIME 11/04/19 Levothyroxine Sodium 75 mcg PO DAILY 11/04/19 Melatonin [Melatonin*] 2 tab PO BEDTIME PRN 11/04/19 Torsemide 20 mg PO DAILY 11/04/19 ondansetron HCL [Zofran] 4 mg PO TID PRN 11/04/19 levETIRAcetam [Keppra*] 500 mg PO BID #60 tab 11/19/19 Metformin HCl [Glucophage*] 500 mg PO BID 08/02/21 Fluticasone/Umeclidin/Vilanter [Trelegy Ellipta 100-62.5-25] 1 each IH DAILY 30 Days #30 blst.w.dev 08/07/21 Citalopram [Celexa*] 10 mg PO DAILY 10/14/21 Omeprazole 20 mg PO BID 10/14/21 Folic Acid 1 mg PO DAILY #30 tablet 10/22/21 Atorvastatin Calcium 20 mg PO DAILY 12/16/21 Digoxin 125 mcg PO DAILY 12/16/21 Ferrous Sulfate 325 mg PO BID 12/16/21 Followup: Christian Kumar MD [Primary Care Provider] -
== END 2023-04-21 13:30 | disposition hospice, home (50) | DRG 65 ==
LOC: ER 08:12 → ERHOLD 08:28 → 2ND 15:42
PROVIDERS: ADMIT Hospitalist; ATTEND Internal Medicine
DX: I63.9 Cerebral infarction, unspecified (principal); G81.94 Hemiplegia, unspecified affecting left nondominant side; I48.20 Chronic atrial fibrillation, unspecified; I50.32 Chronic diastolic (congestive) heart failure; R47.01 Aphasia; E11.39 Type 2 diabetes mellitus with other diabetic ophthalmic complication; H42 Glaucoma in diseases classified elsewhere; E78.00 Pure hypercholesterolemia, unspecified; F03.90 Unspecified dementia, unspecified severity, without behavioral disturbance, psychotic disturbance, mood disturbance, and anxiety; J44.9 Chronic obstructive pulmonary disease, unspecified; E03.9 Hypothyroidism, unspecified; L30.4 Erythema intertrigo; M25.551 Pain in right hip; K21.9 Gastro-esophageal reflux disease without esophagitis; M48.56XD Collapsed vertebra, not elsewhere classified, lumbar region, subsequent encounter for fracture with routine healing; R47.02 Dysphasia; R41.82 Altered mental status, unspecified; Z88.5 Allergy status to narcotic agent; Z99.81 Dependence on supplemental oxygen; Z79.84 Long term (current) use of oral hypoglycemic drugs; Z79.01 Long term (current) use of anticoagulants; Z90.49 Acquired absence of other specified parts of digestive tract; Z86.718 Personal history of other venous thrombosis and embolism; Z86.711 Personal history of pulmonary embolism; Z79.890 Hormone replacement therapy; Z79.899 Other long term (current) drug therapy
CPT/HCPCS: 36415; 70450; 71045; 72131; 80048; 80061; 81001; 82550; 82947; 83735; 84100; 84439; 84443; 84484; 85025; 85610; 85730; 92526; 92610; 93005; 93306; 93880; 94760; 96374; 97161; 99285; A4216; J1170; J1630; J2270; J3411; J3486; J7030